=== PATIENT | female | born 1990 | race Hispanic/Latino ===

== ENCOUNTER 2017-11-10 10:16 | Emergency (ER) | payer OTHER ==
[~2017-11-10] VITALS: Ht 172.7 cm; Wt 88.5 kg
[2017-11-10] MEDS ORDERED: KETOROLAC TROME10 MG PO (12:28)
== END 2017-11-10 12:37 | disposition home or self-care (01) ==
LOC: ED 10:16
DX: R10.84 Generalized abdominal pain (principal); N94.6 Dysmenorrhea, unspecified
CPT/HCPCS: 80053; 81001; 82150; 83605; 83690; 84703; 85025; 96361; 96374; 96375; 99283; J1885; J2405; J7030

== ENCOUNTER 2017-12-16 12:25 | Emergency (ER) | payer OTHER ==
[~2017-12-16] VITALS: Ht 172.7 cm; Wt 88.5 kg
[~2017-12-16 12:25] MED LIST: KETOROLAC TROME10 MG PO
[2017-12-16] MEDS ORDERED: AMOXICILLIN875 MG PO (12:34)
[2017-12-16] MEDS ORDERED: IBUPROFEN600 MG PO (12:34)
== END 2017-12-16 13:10 | disposition home or self-care (01) ==
LOC: ED 12:25
DX: K04.7 Periapical abscess without sinus (principal)
CPT/HCPCS: 99282

== ENCOUNTER 2019-08-12 19:02 | Emergency (ER) | payer OTHER ==
[~2019-08-12] VITALS: Ht 172.7 cm; Wt 88.5 kg
[~2019-08-12 19:02] MED LIST changes: +AMOXICILLIN875 MG PO; +IBUPROFEN600 MG PO
== END 2019-08-12 19:47 | disposition home or self-care (01) ==
LOC: ED 19:02
DX: J45.901 Unspecified asthma with (acute) exacerbation (principal); F17.200 Nicotine dependence, unspecified, uncomplicated
CPT/HCPCS: 71045; 94640; 99284-25; J7512

== ENCOUNTER 2019-09-24 22:57 | Emergency (ER) | payer OTHER ==
[~2019-09-24] VITALS: Ht 172.7 cm; Wt 77.1 kg
[2019-09-25] MEDS ORDERED: PREDNISONE20 MG PO (00:25)
== END 2019-09-25 00:41 | disposition home or self-care (01) ==
LOC: ED 22:57
DX: J45.901 Unspecified asthma with (acute) exacerbation (principal); F17.200 Nicotine dependence, unspecified, uncomplicated
CPT/HCPCS: 94640; 94644; 99284; J7512

== ENCOUNTER 2019-12-08 06:10 | Emergency (ER) | payer OTHER ==
[~2019-12-08] VITALS: Ht 172.7 cm; Wt 77.1 kg
--- OUTSIDE RECORDS SUMMARY | ~2019-12-08 | XMS | Encounter Summary ---
Demographics + + + | Address | [address] | | | [place] [address] | + + + | Home Phone | | + + + | Preferred Language | Unknown | + + + | Marital Status | Single | + + + | Anabaptist Affiliation | 1041 | + + + | Race | Unknown | + + + | Ethnic Group | Unknown | + + + Author + + + | Author | [facility] | | | and [place] | + + + | Organization | [facility] | | | and [place] | + + + | Address | Unknown | + + + | Phone | Unavailable | + + + Support + + + + + | Name | Relationship | Address | Phone | + + + + + | Lakiadylan Mejía | ECON | [address] | | | | [place] | | | | | [place] [address] | | + + + + + | Vanessa Lawton | ECON | [address] | | | | | [place] [address] | | + + + + + Care Team Providers + +------+ + | Care Restaurant Kitchen And Service Manager Name | Role | Phone | + +------+ + PCP | Unavailable | + +------+ + Encounter Details +--------+ + + + + | Date | Type | Department | Care Team | Description | +--------+ + + + + | 05/20/ | Hospital | [facility] | | | | 2008 | Encounter | [facility] | | | | | | [facility] [address] | | | | | | [place], | | | | | | [place] [address] | | | | | | [phone] | | | +--------+ + + + + Social History + +-------+ +--------+------+ | Tobacco Use | Types | Packs/Day | Years | Date | | | | | Used | | + +-------+ +--------+------+ | Never Assessed | | | | | + +-------+ +--------+------+ + + + | Sex Assigned at | Date Recorded | | | | + + + | Not on file | | + + + + + + + | Job Start Date | Occupation | Industry | + + + + | Not on file | Not on file | Not on file | + + + + + + + + | Travel History | Travel Start | Travel End | + + + + + + | No recent travel history available. | + + documented as of this encounter Plan of Treatment Not on filedocumented as of this encounter Visit Diagnoses Not on filedocumented in this encounter"
--- OUTSIDE RECORDS SUMMARY | ~2019-12-08 | XMS | Encounter Summary ---
Demographics + + + | Address | [address] | | | [place] [address] | + + + | Home Phone | | + + + | Preferred Language | Unknown | + + + | Marital Status | Single | + + + | Baptism Affiliation | 1041 | + + + | Race | Unknown | + + + | Ethnic Group | Unknown | + + + Author + + + | Author | [facility] | | | and [place] | + + + | Organization | [facility] | | | and [place] [...] | | | | | [place] [address] | | + + + + + | Vanessa Lawton | ECON | [address] | | | | | [place] [address] | | + + + + + Care Team Providers + +------+ + | Care Research Biostatistician Name | Role | Phone | + +------+ + PCP | Unavailable | + +------+ + Encounter Details +--------+ + + + + | Date | Type | Department | Care Team | Description | +--------+ + + + + | 11/30/ | Hospital | [facility] | | | | 1997 | Encounter | MED CTR EMER[facility]ENCY | | | | | | CENTER [address] | | | | | | [place] | | | | | | [address] | | | | | | [phone] | | | +--------+ + + + [...]
--- OUTSIDE RECORDS SUMMARY | ~2019-12-08 | XMS | Encounter Summary ---
Demographics + + + | Address | [address] | | | [place] [address] | + + + | Home Phone | | + + + | Preferred Language | Unknown | + + + | Marital Status | Single | + + + | Jain Affiliation | 1041 | + + + | Race | Unknown | + + + | Ethnic Group | Unknown | + + + Author + + + | Author | [facility] | | | and [place] | + + + | Organization | [facility] | | | and [place] [...] | | | | | [place] [address] | | + + + + + | Vanessa Lawton | ECON | [address] | | | | | [place] [address] | | + + + + + Care Team Providers + +------+ + | Care Surg Tech Name | Role | Phone | + +------+ + PCP | Unavailable | + +------+ + Encounter Details +--------+ + + + + | Date | Type | Department | Care Team | Description | +--------+ + + + + | 10/09/ | Hospital | [facility] | Tristin Glover, | | | 2010 | Encounter | MED CTR EMERGENCY | [address] | | | | | CENTER [address] | [place], [place] | | | | | [place], [place] | [address] | | | | | [address] | | | | | | [phone] | | | +--------+ + + + [...]
--- OUTSIDE RECORDS SUMMARY | ~2019-12-08 | XMS | Encounter Summary ---
Demographics + + + | Address | [address] | | | [place] [address] | + + + | Home Phone | | + + + | Preferred Language | Unknown | + + + | Marital Status | Single | + + + | Tenriism Affiliation | 1041 | + + + | Race | Unknown | + + + | Ethnic Group | Unknown | + + + Author + + + | Author | [facility] | | | and [place] | + + + | Organization | [facility] | | | and [place] | + + + | Address | Unknown | + + + | Phone | Unavailable | + + + Support + + + + + | Name | Relationship | Address | Phone | + + + + + | Lakia Mejía | ECON | [address] | | | | | [place] | | | | | [place] [address] | | + + + + + | Vanessa Lawton | ECON | [address] | | | | | [place] [address] | | + + + + + Care Team Providers + +------+ + | Care Tube Maker Name | Role | Phone | + +------+ + | No, Physician | PCP | Unavailable | + +------+ + Reason for Visit + + + | Reason | Comments | + + + | Contractions | | + + + Encounter Details +--------+ + + + + | Date | Type | Department | Care Team | Description | +--------+ + + + + | 08/11/ | Hospital | [facility] | Reji Gonzales | | | 2018 | Encounter | MED CTR [facility] | [address] | | | | | [address] | [facility] | | | | | [place], [place] | [place] [address] | | | | | [address] | [phone] | | | | | [phone] | | | +--------+ + + + + Social History + +-------+ +--------+------+ | Tobacco Use | Types | Packs/Day | Years | Date | | | | | Used | | + +-------+ +--------+------+ | Current Every Day | | 0.5 | 2 | | | Smoker | | | | | + +-------+ +--------+------+ + +---+---+---+ | Smokeless Tobacco: | | | | | Never Used | | | | + +---+---+---+ + + +---------+ + | Alcohol Use | Drinks/Week | oz/Week | Comments | + + +---------+ + | No | | | | + + +---------+ + + + + | Sex Assigned at [...] + + documented as of this encounter Last Filed Vital Signs + + + + + | Vital Sign | Reading | Time Taken | Comments | + + + + + | Blood Pressure | 134/81 | 08/11/2017 8:21 PM | | | | | PST | | + + + + + | Pulse | 91 | 08/11/2017 8:21 PM | | | | | PST | | + + + + + | Temperature | 36.8 C (98.2 F) | 08/11/2017 8:21 PM | | | | | PST | | + + + + + | Respiratory Rate | 16 | 08/11/2017 8:21 PM | | | | | PST | | + + + + + | Oxygen Saturation | 100% | 08/11/2017 8:21 PM | | | | | PST | | + + + + + | Inhaled Oxygen | - | - | | | Concentration | | | | + + + + + | Weight | 82.6 kg (182 lb) | 08/11/2017 8:21 PM | | | | | PST | | + + + + + | Height | 172.7 cm (5' 8") | 08/11/2017 8:21 PM | | | | | PST | | + + + + + | Body Mass Index | 27.67 | 08/11/2017 8:21 PM | | | | | PST | | + + + + + documented in this encounter Functional Status + + + + | Functional Status | Response | Date of Assessment | + + + + | Are you deaf or do you have serious | No | 11/26/2015 | | difficulty hearing? | | | + + + + | Are you blind or do you have serious | No | 11/26/2015 | | difficulty seeing, even when wearing | | | | glasses? | | | + + + + | Do you have serious difficulty walking or | No | 11/26/2015 | | climbing stairs? (5 years old or older) | | | + + + + | Do you have difficulty dressing or bathing? | No | 11/26/2015 | | (5 years old or older) | | | + + + + | Because of a physical, mental, or emotional | No | 11/26/2015 | | condition, do you have difficulty doing | | | | errands alone such as visiting a doctor's | | | | office or shopping? [15 years old or | | | | older)] | | | + + + + + + + + | Cognitive Status | Response | Date of Assessment | + + + + | Because of a physical, mental, or emotional | No | 11/26/2015 | | condition, do you have serious difficulty | | | | concentrating, remembering, or making | | | | decisions? (5 years old or older) | | | + + + + documented as of this encounter Discharge Instructions Instructions Tonia Leung RN - 08/11/2017Discharge Education for the Undelivered Patient You can use the following list as a guide to help you know when to call your provider or re turn to the hospital. Labor Contractions (labor pains) every 5 minutes or less, lasting 60 seconds or more Contractions become stronger Bag of bundy broken or leaking fluid from the vagina Labor (more than 3 weeks before your due date) Contractions (labor pains) that occur more than 4 times per hour (every 15 minutes), la sting 30 seconds or more, for 2 hours Backache or pelvic pressure Bag of bundy broken or leaking fluid from the vagina Movement Counting Starting at 7 months (28 weeks) Decreased (less than 10 movements in 2 hours) Other Reasons to Call Constant headache Changes in vision Sudden increase in swelling, especially rapid weight gain chiefly in your face and/ or hands Constant abdominal (belly) pain Bright red vaginal bleeding or passing enough clots to need a pad Temperature over 100.4 (38 C) documented in this encounter Plan of Treatment Not on filedocumented as of this encounter Visit Diagnoses Not on filedocumented in this encounter
--- OUTSIDE RECORDS SUMMARY | ~2019-12-08 | XMS | Encounter Summary ---
Demographics + + + | Address | [address] | | | [place] [address] | + + + | Home Phone | | + + + | Preferred Language | Unknown | + + + | Marital Status | Single | + + + | Jehovah'S Witness Affiliation | 1041 | + + + | Race | Unknown | + + + | Ethnic Group | Unknown | + + + Author + + + | Author | [facility] | | | and [place] | + + + | Organization | [facility] | | | and [place] [...] | | | | | [place] [address] | | + + + + + | Vanessa Lawton | ECON | [address] | | | | | [place] [address] | | + + + + + Care Team Providers + +------+ + | Care Production Packager Name | Role | Phone | + +------+ + PCP | Unavailable | + +------+ + Encounter Details +--------+ + + + + | Date | Type | Department | Care Team | Description | +--------+ + + + + | 04/26/ | Hospital | [facility] | | | | 2005 - | Encounter | MED CTR EMERGENCY | | | | | | CENTER [address] | | | | 04/27/ | | [place] | | | | 2005 | | [address] | | | | | | [phone] | | | +--------+ + + + [...]
--- OUTSIDE RECORDS SUMMARY | ~2019-12-08 | XMS | Encounter Summary ---
Demographics + + + | Address | [address] | | | [place] [address] | + + + | Home Phone | | + + + | Preferred Language | Unknown | + + + | Marital Status | Single | + + + | Mormon Affiliation | 1041 | + + + | Race | Unknown | + + + | Ethnic Group | Unknown | + + + Author + + + | Author | [facility] | | | and [place] | + + + | Organization | [facility] | | | and [place] | [...] | | | | | [place] [address] | | + + + + + | Vanessa Lawton | ECON | [address] | | | | | [place] [address] | | + + + + + Care Team Providers + +------+ + | Care Cooling Tower Operator Name | Role | Phone | + +------+ + | No, Physician | PCP | Unavailable | + +------+ + Reason for Referral Evaluate & Treat (Routine) + + + + + + + | Status | Reason | Specialty | Diagnoses / | Referred By | Referred To | | | | | Procedures | Contact | Contact | + + + + + + + | Authorized | Specialty | Family | Diagnoses | [facility] | [facility] | | | Services | Medicine | Moderate | Tristin Trevino MD | Family | | | Required | | persistent | [address] | Medicine | | | | | asthma with | [address] | [place] | | | | | exacerbation | [place], | [address] | | | | | | [place] [address] | [address] | | | | | | Phone: | [place] | | | | | | [phone] | [address] | | | | | | Fax: | Phone: | | | | | | [phone] | [phone] | | | | | | | Fax: | | | | | | | [phone] | + + + + + + + Reason for Visit + + + | Reason | Comments | + + + | Cough | | + + + | Shortness of Breath | | + + + Encounter Details +--------+ + + + + | Date | Type | Department | Care Team | Description | +--------+ + + + + | 11/25/ | Emergency | [facility] | Tristin Glover, | Moderate persistent | | 2019 | | [facility] | MD [address] | asthma with | | | | CENTER [address] | [place] | exacerbation | | | | [place] | [address] | (Primary Dx) | | | | [address] | | | | | | [phone] | | | +--------+ + + + + Social History + +-------+ +--------+ + | Tobacco Use | Types | Packs/Day | Years | Date | | | | | Used | | + +-------+ +--------+ + | Former Smoker | | 0.5 | 2 | Quit: 08/04/2017 | + +-------+ +--------+ + + +---+---+---+ | Smokeless Tobacco: | | [...] + + + | Blood Pressure | 158/95 | 11/26/2019 2:57 AM | | | | | PDT | | + + + + + | Pulse | 105 | 11/26/2019 2:57 AM | | | | | PDT | | + + + + + | Temperature | 36.7 C (98 F) | 11/26/2019 1:49 AM | | | | | PDT | | + + + + + | Respiratory Rate | 20 | 11/26/2019 2:57 AM | | | | | PDT | | + + + + + | Oxygen Saturation | 95% | 11/26/2019 2:57 AM | | | | | PDT | | + + + + + | Inhaled Oxygen | - | - | | | Concentration | | | | + + + + + | Weight | 77.1 kg (170 lb) | 11/26/2019 1:49 AM | | | | | PDT | | + + + + + | Height | 172.7 cm (5' 8") | 11/26/2019 1:49 AM | | | | | PDT | | + + + + + | Body Mass Index | 25.85 | 11/26/2019 1:49 AM | | | | | PDT | | + + + + + documented in this encounter Functional Status + + + + | Functional Status | Response | Date of Assessment | + + + + | Are you deaf or do you have serious | No | 09/29/2019 | | difficulty hearing? | | | + + + + | Are you blind or do you have serious | No | 09/29/2019 | | difficulty seeing, even when wearing | | | | glasses? | | | + + + + | Do you have serious difficulty walking or | No | 09/29/2019 | | climbing stairs? (5 years old or older) | | | + + + + | Do you have difficulty dressing or bathing? | No | 09/29/2019 | | (5 years old or older) | | | + + + + | Because of a physical, mental, or emotional | No | 09/29/2019 | | condition, do you have difficulty [...] physical, mental, or emotional | No | 09/29/2019 | | condition, do you have serious difficulty | | | | concentrating, remembering, or making | | | | decisions? (5 years old or older) | | | + + + + documented as of this encounter Discharge Instructions Instructions Tristin Glover MD - 11/26/2019Use albuterol inhaler 2 puffs with spacer ever y 4 hours for the next 48 hours and then every 4 hours as needed thereafter Take prednisone as prescribed Return if new concerning symptoms AttachmentsThe following attachments cannot be sent through Care Everywhere.Inhaler, Using with a Spacer (Nigerian)Albuterol inhalation aerosol (Nigerian)documented in this encounter Medications at Time of Discharge + + + +---------+ + + | Medication | Sig | Dispensed | Refills | Start | End Date | | | | | | Date | | + + + +---------+ + + | albuterol 90 | Inhale 2 puffs into | 1 | 0 | 09/29/19 | | | mcg/puff inhaler | the lungs every 4 | Inhaler | | 20 | | | | hours as needed for | | | | | | | Wheezing or | | | | | | | Shortness of Breath. | | | | | + + + +---------+ + + | predniSONE | Take 2 tablets by | 10 | 0 | 11/26/19 | | | (DELTASONE) 20 mg | mouth Daily for 5 | tablet | | 20 | 0 | | tablet | days. | | | | | + + + +---------+ + + documented as of this encounter Plan of Treatment + + +--------+ + + | Name | Type | Priori | Associated Diagnoses | Order Schedule | | | | ty | | | + + +--------+ + + | * [facility] [place] [facility] | Outpatient | Routin | Moderate | Ordered: 11/26/2019 | | [facility] - | Referral | e | persistent asthma | | | AMB Referral | | | with exacerbation | | + + +--------+ + + documented as of this encounter Procedures + +--------+ + + + | Procedure Name | Priori | Date/Time | Associated Diagnosis | Comments | | | ty | | | | + +--------+ + + + | XR CHEST AP PORTABLE | STAT | 11/26/2019 | | Results for this | | | | 2:37 AM | | procedure are in the | | | | PDT | | results section. | + +--------+ + + + | BLOOD GAS, ARTERIAL | STAT | 11/26/2019 | | Results for this | | | | 2:37 AM | | procedure are in the | | | | PDT | | results section. | + +--------+ + + + | EXTRA LAVENDER TOP | STAT | 11/26/2019 | | Results for this | | TUBE | | 2:02 AM | | procedure are in the | | | | PDT | | results section. | + +--------+ + + + | EXTRA GREEN TOP TUBE | STAT | 11/26/2019 | | Results for this | | | | 2:02 AM | | procedure are in the | | | | PDT | | results section. | + +--------+ + + + | CBC WITH | STAT | 11/26/2019 | | Results for this | | DIFFERENTIAL | | 2:02 AM | | procedure are in the | | | | PDT | | results section. | + +--------+ + + + | COMPREHENSIVE | STAT | 11/26/2019 | | Results for this | | METABOLIC PANEL | | 2:02 AM | | procedure are in the | | | | PDT | | results section. | + +--------+ + + + | EXTRA ROBLES TOP TUBE | STAT | 11/26/2019 | | Results for this | | | | 2:00 AM | | procedure are in the | | | | PDT | | results section. | + +--------+ + + + | EXTRA LAVENDER TOP | STAT | 11/26/2019 | | Results for this | | TUBE | | 2:00 AM | | procedure are in the | | | | PDT | | results section. | + +--------+ + + + | EXTRA GREEN TOP TUBE | STAT | 11/26/2019 | | Results for this | | | | 2:00 AM | | procedure are in the | | | | PDT | | results section. | + +--------+ + + + | EXTRA GOLD TOP TUBE | STAT | 11/26/2019 | | Results for this | | | | 2:00 AM | | procedure are in the | | | | PDT | | results section. | + +--------+ + + + | EXTRA BLUE TOP TUBE | STAT | 11/26/2019 | | Results for this | | | | 2:00 AM | | procedure are in the | | | | PDT | | results section. | + +--------+ + + + | D-DIMER | STAT | 11/26/2019 | | Results for this | | | | 2:00 AM | | procedure are in the | | | | PDT | | results section. | + +--------+ + + + documented in this encounter Results XR Chest AP Portable (11/26/2019 2:37 AM PDT) + + | Specimen | + + | | + + + + + | Impressions | Performed At | + + + | Mild peribronchial cuffing suggestive of bronchitis or reactive | [facility] | | airways disease. Dictated and Signed by: Clement Frey MD | | | Electronically signed: 11/26/2019 3:42 PM | | + + + + + + | Narrative | Performed At | + + + | XR CHEST AP PORTABLE 11/26/2019 2:36 AM HISTORY: COUGH SHORTNESS | [facility] | | OF BREATH. COMPARISON: Multiple priors. Findings: Heart size | | | is within normal limits. Aorta is normal. Mediastinum demonstrates no | | | acute findings. Central pulmonary vasculature is normal. There is | | | mild peribronchial cuffing suggestive of bronchitis or reactive | | | airways disease. The bilateral lungs are clear with no evidence for | | | pleural effusion or pneumothorax. There are no acute osseous | | | abnormalities. | | + + + + + | Procedure Note | + + | Marbin, Rad Results In - 11/26/2019 3:45 PM PDT XR CHEST AP PORTABLE 11/26/2019 2:36 AM | | | | HISTORY: COUGH | | SHORTNESS OF BREATH. | | | | COMPARISON: Multiple priors. | | | | Findings: | | Heart size is within normal limits. Aorta is normal. Mediastinum demonstrates no | | acute findings. Central pulmonary vasculature is normal. There is mild | | peribronchial cuffing suggestive of bronchitis or reactive airways disease. The | | bilateral lungs are clear with no evidence for pleural effusion or pneumothorax. | | There are no acute osseous abnormalities. | | | | IMPRESSION: | | Mild peribronchial cuffing suggestive of bronchitis or reactive airways disease. | | | | Dictated and Signed by: Clement Frey MD | | Electronically signed: 11/26/2019 3:42 PM | + + + +---------+ + + | Performing | Address | City/State/Zipcode | Phone Number | | Organization | | | | + +---------+ + + | [facility] | | | | + +---------+ + + Blood Gas, Arterial (11/26/2019 2:37 AM PDT) + + + + + + | Component | Value | Ref Range | Performed | Pathologist | | | | | At | Signature | + + + + + + | pH, | 7.41 | 7.35 - 7.45 | [facility] | | | Arterial | | | [facility] | | | | | | [facility] | | | | | | [facility] - | | | | | | LABORATORY | | + + + + + + | pCO2, | 41 | 35 - 45 mm Hg | [facility] | | | Arterial | | | [facility] | | | | | | [facility] | | | | | | CENTER - | | | | | | LABORATORY | | + + + + + + | pO2, | 64 (L) | 83 - 108 mm Hg | [facility] | | | Arterial | | | [facility] | | | | | | [facility] | | | | | | CENTER - | | | | | | LABORATORY | | + + + + + + | HCO3, | 25.0 (H) | 18.0 - 23.0 | [facility] | | | Arterial | | mmol/L | [facility] | | | | | | MEDICAL | | | | | | CENTER - | | | | | | LABORATORY | | + + + + + + | Base | 0.8 | -2.0 - 2.0 | [facility] | | | Excess, | | mmol/L | [facility] | | | Arterial | | | MEDICAL | | | | | | CENTER - | | | | | | LABORATORY | | + + + + + + | O2 | 92 (L) | 95 - 98 % | [facility] | | | Saturation, | | | [facility] | | | Arterial | | | MEDICAL | | | | | | CENTER - | | | | | | LABORATORY | | + + + + + + | Hemoglobin, | 13.3 | 12.0 - 16.0 | [facility] | | | Arterial | | g/dL | [facility] | | | | | | MEDICAL | | | | | | CENTER - | | | | | | LABORATORY | | + + + + + + | Oxyhemoglob | 91.2 | 90.0 - 100.0 % | [facility] | | | in, | | | [facility] | | | Arterial | | | MEDICAL | | | | | | CENTER - | | | | | | LABORATORY | | + + + + + + | Methemoglob | 0.6 | 0.0 - 1.5 % | [facility] | | | in, | | | [facility] | | | Arterial | | | MEDICAL | | | | | | CENTER - | | | | | | LABORATORY | | + + + + + + | Carboxyhemo | 0.7 | 0.0 - 1.5 % | [facility] | | | globin, | | | [facility] | | | Arterial | | | MEDICAL | | | | | | CENTER - | | | | | | LABORATORY | | + + + + + + | Alveolar-Ar | 34.8 | mm Hg | [facility] | | | terial | | | [facility] | | | Oxygen | | | MEDICAL | | | Difference | | | CENTER - | | | | | | LABORATORY | | + + + + + + | Oxygen | 17.0 | % | [facility] | | | Content, | | | [facility] | | | Arterial | | | MEDICAL | | | | | | CENTER - | | | | | | LABORATORY | | + + + + + + | FiO2 | 21.0 | % | [facility] | | | | | | [facility] | | | | | | MEDICAL | | | | | | CENTER - | | | | | | LABORATORY | | + + + + + + | pH Temp | 7.41 | | [facility] | | | Corrected, | | | [facility] | | | Arterial | | | MEDICAL | | | | | | CENTER - | | | | | | LABORATORY | | + + + + + + | pCO2 Temp | 41 | mm Hg | [facility] | | | Corrected, | | | [facility] | | | Arterial | | | MEDICAL | | | | | | CENTER - | | | | | | LABORATORY | | + + + + + + | pO2 Temp | 64 | mm Hg | [facility] | | | Corrected, | | | [facility] | | | Arterial | | | MEDICAL | | | | | | CENTER - | | | | | | LABORATORY | | + + + + + + | PATIENT | 37.0 | | [facility] | | | TEMP | | | [facility] | | | | | | [facility] | | | | | | CENTER - | | | | | | LABORATORY | | + + + + + + + + | Specimen | + + | Blood | + + + + + + + | Performing | Address | City/State/Zipcode | Phone Number | | Organization | | | | + + + + + | [facility] | [address] | [place] | [phone] | | [facility] | | [address] | | | - LABORATORY | | | | + + + + + Comprehensive Metabolic Panel (11/26/2019 2:02 AM PDT) + + + + + + | Component | Value | Ref Range | Performed | Pathologist | | | | | At | Signature | + + + + + + | Na | 139 | 136 - 145 | [facility] | | | | | mmol/L | [facility] | | | | | | [facility] | | | | | | CENTER - | | | | | | LABORATORY | | + + + + + + | K | 3.5 | 3.4 - 5.1 | [facility] | | | | | mmol/L | [facility] | | | | | | MEDICAL | | | | | | CENTER - | | | | | | LABORATORY | | + + + + + + | Cl | 104 | 98 - 107 mmol/L | [facility] | | | | | | [facility] | | | | | | MEDICAL | | | | | | CENTER - | | | | | | LABORATORY | | + + + + + + | CO2 | 27 | 20 - 31 mmol/L | [facility] | | | | | | [facility] | | | | | | MEDICAL | | | | | | CENTER - | | | | | | LABORATORY | | + + + + + + | Anion Gap | 8 | 3 - 16 mmol/L | [facility] | | | | | | [facility] | | | | | | MEDICAL | | | | | | CENTER - | | | | | | LABORATORY | | + + + + + + | Glucose | 85 | 60 - 106 mg/dL | [facility] | | | | | | [facility] | | | | | | MEDICAL | | | | | | CENTER - | | | | | | LABORATORY | | + + + + + + | BUN | 14 | 9 - 23 mg/dL | [facility] | | | | | | [facility] | | | | | | MEDICAL | | | | | | CENTER - | | | | | | LABORATORY | | + + + + + + | Creatinine | 1.02 | 0.55 - 1.02 | [facility] | | | | | mg/dL | [facility] | | | | | | [facility] | | | | | | CENTER - | | | | | | LABORATORY | | + + + + + + | eGFR if not | >60Comment: GLOMERULAR | >=60 | [facility] | | | | FILTRATION | mL/min/1.73m2 | [facility] | | | ETHIOPIAN | RATE,ESTIMATED | | MEDICAL | | | | mL/min/1.90o4Gbmm than | | CENTER - | | | | 60 Chronic kidney | | LABORATORY | | | | disease,if found over a | | | | | | 3-month period.Less than | | | | | | 15 Kidney failureFor | | | | | | | | | | | | Americans,multiply the | | | | | | calculated GFR by 1.21. | | | | | | | | | | + + + + + + | Calcium | 8.9 | 8.7 - 10.4 | [facility] | | | | | mg/dL | [facility] | | | | | | MEDICAL | | | | | | CENTER - | | | | | | LABORATORY | | + + + + + + | Albumin | 3.9 | 3.2 - 4.8 g/dL | [facility] | | | | | | [facility] | | | | | | [facility] | | | | | | CENTER - | | | | | | LABORATORY | | + + + + + + | Bilirubin | 0.9 | 0.3 - 1.2 mg/dL | [facility] | | | Total | | | [facility] | | | | | | MEDICAL | | | | | | CENTER - | | | | | | LABORATORY | | + + + + + + | Total | 6.2 | 5.7 - 8.2 g/dL | [facility] | | | Protein | | | [facility] | | | | | | MEDICAL | | | | | | CENTER - | | | | | | LABORATORY | | + + + + + + | AST | 31 | 0 - 34 U/L | [facility] | | | | | | [facility] | | | | | | MEDICAL | | | | | | CENTER - | | | | | | LABORATORY | | + + + + + + | ALT | 21 | 10 - 49 U/L | [facility] | | | | | | [facility] | | | | | | MEDICAL | | | | | | CENTER - | | | | | | LABORATORY | | + + + + + + | Alkaline | 75 | 46 - 116 U/L | [facility] | | | Phosphatase | | | [facility] | | | | | | MEDICAL | | | | | | CENTER - | | | | | | LABORATORY | | + + + + + + | Globulin | 2.3 | 2.1 - 3.8 g/dL | [facility] | | | | | | [facility] | | | | | | [facility] | | | | | | [facility] - | | | | | | LABORATORY | | + + + + + + | Albumin/Susie | 1.7 | 0.8 - 1.9 | [facility] | | | bulin Ratio | | | [facility] | | | | | | MEDICAL | | | | | | CENTER - | | | | | | LABORATORY | | + + + + + + | BUN/Creatin | 13.7 | | [facility] | | | ine Ratio | | | [facility] | | | | | | MEDICAL | | | | | | CENTER - | | | | | | LABORATORY | | + + + + + + + + | Specimen | + + | Blood | + + + + + + + | Performing | Address | City/State/Zipcode | Phone Number | | Organization | | | | + + + + + | [facility] | [address] | [place] | [phone] | | [facility] | | [address] | | | - LABORATORY | | | | + + + + + CBC with Differential (11/26/2019 2:02 AM PDT) + + + + + + | Component | Value | Ref Range | Performed | Pathologist | | | | | At | Signature | + + + + + + | WBC | 9.3 | 4.0 - 11.0 K/uL | [facility] | | | | | | [facility] | | | | | | [facility] | | | | | | CENTER - | | | | | | LABORATORY | | + + + + + + | RBC | 4.57 | 3.70 - 5.20 | [facility] | | | | | M/uL | [facility] | | | | | | MEDICAL | | | | | | CENTER - | | | | | | LABORATORY | | + + + + + + | Hemoglobin | 13.6 | 11.5 - 16.0 | [facility] | | | | | g/dL | [facility] | | | | | | MEDICAL | | | | | | CENTER - | | | | | | LABORATORY | | + + + + + + | Hematocrit | 39.4 | 34.0 - 47.0 % | [facility] | | | | | | [facility] | | | | | | MEDICAL | | | | | | CENTER - | | | | | | LABORATORY | | + + + + + + | MCV | 86.2 | 83.0 - 101.0 fL | [facility] | | | | | | [facility] | | [facility] | | | [facility] | | | | | | CENTER - | | | | | | LABORATORY | | + + + + + + | MCH | 29.8 | 28.0 - 35.0 pg | [facility] | | | | | | [facility] | | | | | | [facility] | | | | | | C[facility] - | | | | | | LABORATORY | | + + + + + + | MCHC | 34.5 | 32.0 - 36.0 | [facility] | | | | | g/dL | [facility] | | | | | | MEDICAL | | | | | | CENTER - | | | | | | LABORATORY | | + + + + + + | RDW-CV | 12.6 | <15.0 % | [facility] | | | | | | [facility] | | | | | | MEDICAL | | | | | | CENTER - | | | | | | LABORATORY | | + + + + + + | RDW-SD | 39.6 | 35.1 - 46.3 fL | [facility] | | | | | | [facility] | | | | | | [facility] | | | | | | CENTER - | | | | | | LABORATORY | | + + + + + + | Platelet | 260 | 140 - 440 K/uL | [facility] | | | Count | | | [facility] | | | | | | MEDICAL | | | | | | CENTER - | | | | | | LABORATORY | | + + + + + + | MPV | 10.5 | 6.5 - 12.4 fL | [facility] | | | | | | [facility] | | | | | | MEDICAL | | | | | | CENTER - | | | | | | LABORATORY | | + + + + + + | % | 48.2 | 45.0 - 82.0 % | [facility] | | | Neutrophils | | | [facility] | | | | | | MEDICAL | | | | | | CENTER - | | | | | | LABORATORY | | + + + + + + | % | 28.6 | 20.0 - 45.0 % | [facility] | | | Lymphocytes | | | [facility] | | | | | | MEDICAL | | | | | | CENTER - | | | | | | LABORATORY | | + + + + + + | % Monocytes | 8.5 | 4.0 - 12.0 % | [facility] | | | | | | [facility] | | | | | | [facility]ICAL | | | | | | CENTER - | | | | | | LABORATORY | | + + + + + + | % | 13.7 (H) | 0.0 - 5.0 % | [facility] | | | Eosinophils | | | [facility] | | | | | | MEDICAL | | | | | | CENTER - | | | | | | LABORATORY | | + + + + + + | % Basophils | 0.8 | 0.0 - 1.0 % | [facility] | | | | | | [facility] | | | | | | MEDICAL | | | | | | CENTER - | | | | | | LABORATORY | | + + + + + + | % Immature | 0.2Comment: For | 0.0 - 0.4 % | [facility] | | | Granulocyte | patients, use the | | [facility] | | | s | special reference ranges | | MEDICAL | | | | listed below. | | CENTER - | | | | | | LABORATORY | | + + + + + + | Absolute | 4.47 | 1.80 - 8.50 | [facility] | | | Neutrophils | | K/uL | [facility] | | | | | | MEDICAL | | | | | | CENTER - | | | | | | LABORATORY | | + + + + + + | Absolute | 2.65 | 0.60 - 3.20 | [facility] | | | Lymphocytes | | K/uL | [facility] | | | | | | MEDICAL | | | | | | CENTER - | | | | | | LABORATORY | | + + + + + + | Absolute | 0.79 | 0.00 - 1.00 | [facility] | | | Monocytes | | K/uL | [facility] | | | | | | MEDICAL | | | | | | CENTER - | | | | | | LABORATORY | | + + + + + + | Absolute | 1.27 (H) | 0.00 - 0.40 | [facility] | | | Eosinophils | | K/uL | [facility] | | | | | | MEDICAL | | | | | | CENTER - | | | | | | LABORATORY | | + + + + + + | Absolute | 0.07 | 0.00 - 0.10 | [facility] | | | Basophils | | K/uL | [facility] | | | | | | MEDICAL | | | | | | CENTER - | | | | | | LABORATORY | | + + + + + + | Absolute | 0.02Comment: For | 0.00 - 0.03 | [facility] | | | Immature | patients, use | K/uL | [facility] | | | Granulocyte | the special reference | | MEDICAL | | | s | ranges listed below. | | CENTER - | | | | | | LABORATORY | | + + + + + + | % nRBC | 0 | 0 - 2 per 100 | [facility] | | | | | WBCs | [facility] | | | | | | MEDICAL | | | | | | CENTER - | | | | | | LABORATORY | | + + + + + + | Absolute | 0.00 | 0.00 - 0.01 | [facility] | | | nRBC | | K/uL | [facility] | | | | | | MEDICAL | | | | | | CENTER - | | | | | | LABORATORY | | + + + + + + + + | Specimen | + + | Blood | + + + + + | Narrative | Performed At | + + + | IMMATURE GRANULOCYTES - For patients, use the following | [facility] | | reference ranges: Trim. Absolute (K/uL) Percentage (%) | [facility] | | 1st 0.003-0.091 K/uL 0.0-0.9% 2nd 0.007-0.247 K/uL | MEDICAL CENTER | | 0.1-2.0% 3rd 0.018-0.456 K/uL 0.1-2.0% | - LABORATORY | + + + + + + + + | Performing | Address | City/State/Zipcode | Phone Number | | Organization | | | | + + + + + | [facility] | [address] | [place] | [phone] | | [facility] | | [address] | | | - LABORATORY | | | | + + + + + Extra Green Top Tube (11/26/2019 2:02 AM PDT) + +-------+ + + + | Component | Value | Ref Range | Performed | Pathologist | | | | | At | Signature | + +-------+ + + + | Extra Green | Done | | [facility] | | | Top Tube | | | [facility] | | | | | | MEDICAL | | | | | | CENTER - | | | | | | LABORATORY | | + +-------+ + + + + + | Specimen | + + | Blood | + + + + + + + | Performing | Address | City/State/Zipcode | Phone Number | | Organization | | | | + + + + + | [facility] | [address] | [place] | [phone] | | [facility] | | [address] | | | - LABORATORY | | | | + + + + + Extra Lavender Top Tube (11/26/2019 2:02 AM PDT) + +-------+ + + + | Component | Value | Ref Range | Performed | Pathologist | | | | | At | Signature | + +-------+ + + + | Extra | Done | | [facility] | | | Lavender | | | [facility] | | | Top Tube | | | [facility]ICAL | | | | | | CENTER - | | | | | | LABORATORY | | + +-------+ + + + + + | Specimen | + + | Blood | + + + + + + + | Performing | Address | City/State/Zipcode | Phone Number | | Organization | | | | + + + + + | [facility] | [address] | [place] | [phone] | | [facility] | | [address] | | | - LABORATORY | | | | + + + + + D-Dimer (11/26/2019 2:00 AM PDT) + + + + + + | Component | Value | Ref Range | Performed | Pathologist | | | | | At | Signature | + + + + + + | D-Dimer | <0.27Comment: This | <=0.50 ug/mL | [facility] | | | Quantitativ | quantitative D-Dimer | FEU | [facility] | | | e | assay has been evaluated | | MEDICAL | | | | for screening for | | CENTER - | | | | venous thrombotic | | LABORATORY | | | | disease, and may be | | | | | | useful in ruling out, | | | | | | but not ruling in | | | | | | disease. Values less | | | | | | than 0.50 ug/mL FEU | | | | | | (Fibrinogen Equivalent | | | | | | Units) have a negative | | | | | | predictive value of | | | | | | approximately 95% for | | | | | | ruling out large | | | | | | pulmonary emboli or | | | | | | proximal deep vein | | | | | | thrombosis. Distal DVT | | | | | | are not excluded. An | | | | | | elevated D-dimer can be | | | | | | present in patients with | | | | | | liver disease, | | | | | | , eclampsia, | | | | | | heart disease and some | | | | | | cancers among other | | | | | | conditions. The presence | | | | | | of rheumatoid factor at | | | | | | a level >50 IU/mL may | | | | | | falsely elevate the | | | | | | determined D-dimer | | | | | | levels. | | | | + + + + + + + + | Specimen | + + | Blood | + + + + + + + | Performing | Address | City/State/Zipcode | Phone Number | | Organization | | | | + + + + + | [facility] | [address] | [place] | [phone] | | [facility] | | [id number] | | | - LABORATORY | | | | + + + + + Extra Gold Top Tube (11/26/2019 2:00 AM PDT) + +-------+ + + + | Component | Value | Ref Range | Performed | Pathologist | | | | | At | Signature | + +-------+ + + + | Extra Gold | Done | | [facility] | | | Top Tube | | | [facility] | | | | | | [facility]ICAL | | | | | | CENTER - | | | | | | LABORATORY | | + +-------+ + + + + + | Specimen | + + | Blood | + + + + + + + | Performing | Address | City/State/Zipcode | Phone Number | | Organization | | | | + + + + + | [facility] | [address] | [place] | [phone] | | [facility] | | [address] | | | - LABORATORY | | | | + + + + + Extra Robles Top Tube (11/26/2019 2:00 AM PDT) + +-------+ + + + | Component | Value | Ref Range | Performed | Pathologist | | | | | At | Signature | + +-------+ + + + | Extra Robles | Done | | [facility] | | | Top Tube | | | [facility] | [facility] | [facility] | | | | | | C[facility] - | | | | | | LABORATORY | | + +-------+ + + + + + | Specimen | + + | Blood | + + + + + + + | Performing | Address | City/State/Zipcode | Phone Number | | Organization | | | | + + + + + | [facility] | [address] | [place], [place] | [phone] | | [facility] | | [address] | | | - LABORATORY | | | | + + + + + Extra Blue Top Tube (11/26/2019 2:00 AM PDT) + +-------+ + + + | Component | Value | Ref Range | Performed | Pathologist | | | | | At | Signature | + +-------+ + + + | Extra Blue | Done | | [facility] | | | Top Tube [facility] | [facility] | | | | | | [facility] | | | | | | CENTER - | | | | | | LABORATORY | | + +-------+ + + + + + | Specimen | + + | Blood | + + + + + + + | Performing | Address | City/State/Zipcode | Phone Number | | Organization | | | | + + + + + | [facility] | [address] | [place] | [phone] | | [facility] | | [address] | | | - LABORATORY | | | | + + + + + Extra Green Top Tube (11/26/2019 2:00 AM PDT) + +-------+ + + + | Component | Value | Ref Range | Performed | Pathologist | | | | | At | Signature | + +-------+ + + + | Extra Green | Done | | [facility] | | | Top Tube | [facility] | [facility] | | [facility] | | [facility] | | | | | | CENTER - | | | | | | LABORATORY | | + +-------+ + + + + + | Specimen | + + | Blood | + + + + + + + | Performing | Address | City/State/Zipcode | Phone Number | | Organization | | | | + + + + + | [facility] | [address] | [place] | [phone] | | [facility] | | [address] | | | - LABORATORY | | | | + + + + + Extra Lavender Top Tube (11/26/2019 2:00 AM PDT) + +-------+ + + + | Component | Value | Ref Range | Performed | Pathologist | | | | | At | Signature | + +-------+ + + + | Extra | Done | | [facility] | | | Lavender | | | [facility] | | | Top Tube | | | MEDICAL | | | | | | CENTER - | | | | | | LABORATORY | | + +-------+ + + + + + | Specimen | + + | Blood | + + + + + + + | Performing | Address | City/State/Zipcode | Phone Number | | Organization | | | | + + + + + | [facility] | [address] | [place], [place] | [phone] | | [facility] | | [address] | | | - LABORATORY | | | | + + + + + documented in this encounter Visit Diagnoses + + | Diagnosis | + + | Moderate persistent asthma with exacerbation - Primary Unspecified asthma, with | | exacerbation | + + documented in this encounter Administered Medications + +--------+ +--------+------+------+ | Medication Order | MAR | Action | Dose | Rate | Site | | | Action | Date | | | | + +--------+ +--------+------+------+ | adult valved holding chamber | Given | 11/26/19 | 1 each | | | | (AEROCHAMBER) 1 each 1 each, | | 20 3:06 | | | | | Inhalation, USE WITH MDI, | | AM PDT | | | | | Starting 11/26/19 at 0256 | | | | | | + +--------+ +--------+------+------+ +---+---+ | | | +---+---+ + + + +---------+---+---+ | albuterol (PROVENTIL) 90 | Dispense | 11/26/19 | 2 puffs | | | | mcg/puff inhaler (ED prepack) 2 | to Home | 20 3:06 | | | | | puff 2 puff, Inhalation, EVERY 4 | | AM PDT | | | | | HOURS PRN, Wheezing, Shortness | | | | | | | of Breath, or as directed, | | | | | | | Starting 11/26/19 at 0257, | | | | | | | SHAKE WELL., | | | | | | + + + +---------+---+---+ +---+---+ | | | +---+---+ + +-------+ +-------+---+---+ | albuterol-ipratropium 2.5-0.5 | Given | 11/26/19 | 3 mLs | | | | mg/3 mL nebulizer solution 3 mL | | 20 2:32 | | | | | 3 mL, Nebulization, RT Once, Mon | | AM PDT | | | | | 11/26/19 at 0220, For 1 dose | | | | | | + +-------+ +-------+---+---+ +---+---+ | | | +---+---+ + +-------+ +------+---+---+ | dexamethasone (DECADRON) 10 | Given | 11/26/19 | 8 mg | | | | mg/mL injection 8 mg 8 mg, | | 20 2:28 | | | | | Intravenous, ONCE, 11/26/19 at | | AM PDT | | | | | 0220, For 1 dose, When ordered | | | | | | | IV push: Dilute to 10-20 mL with | | | | | | | NS and give slowly over 1-2 | | | | | | | minutes., | | | | | | + +-------+ +------+---+---+ +---+---+ | | | +---+---+ documented in this encounter Additional Health Concerns + + + + | Infection | Noted Time | Resolved Time | + + + + | Methicillin-resistant Staphylococcus aureus | 10/01/2019 1:07 PM | | | | PDT | | + + + + documented as of this encounter
--- OUTSIDE RECORDS SUMMARY | ~2019-12-08 | XMS | Encounter Summary ---
Demographics + + + | Address | [address] | | | [place] [address] | + + + | Home Phone | | + + + | Preferred Language | Unknown | + + + | Marital Status | Single | + + + | Tenriism Affiliation | 1041 | + + + | Race | Unknown | + + + | Ethnic Group | Unknown | + + + Author + + + | Author | [facility] | | | and [place] | + + + | Organization | [facility] | | | and [place] | + + + | Address | Unknown | + + + | Phone | Unavailable | + + + Support + + + + + | Name | Relationship | Address | Phone | + + + + + | Lakia Alfonzo | ECON | [address] | | | | | [place] | | | | | [place] [address] | | + + + + + | Vanessa Lawton | ECON | [address] | | | | | [place] [address] | | + + + + + Care Team Providers + +------+ + | Care Torch Heater Name | Role | Phone | + +------+ + | No, Physician | PCP | Unavailable | + +------+ + Reason for Visit + + + | Reason | Comments | + + + | Sore Nipples | | + + + | | | + + + | Latch Difficulties | | + + + Encounter Details +--------+ + + + + | Date | Type | Department | Care Team | Description | +--------+ + + + + | 11/27/ | Hospital | [facility] | Reji Gonzales | Poor latch on, | | 2016 | Encounter | MED [facility] OB | DO [address] | (Primary | | | | PROCEDURES [address] [place] | Dx); Nipple pain | | | | [place], | [place], [place] [address] | | | | | [place] [address] | [phone] | | | | | [phone] | | | +--------+ + + + + Social History + +-------+ +--------+ + | Tobacco Use | Types | Packs/Day | Years | Date | | | | | Used | | + +-------+ +--------+ + | Former Smoker | | 0.5 | 2 | Quit: 07/26/2015 | + +-------+ +--------+ + + +---+---+---+ [...] + + documented as of this encounter Functional Status + + + [...] + + documented as of this encounter Medications at Time of Discharge + + + +---------+ + + | Medication | Sig | Dispensed | Refills | Start | End Date | | | | | | Date | | + + + +---------+ + + | acetaminophen | Take 650 mg by mouth | | 0 | | | | (TYLENOL) 325 mg | every 4 hours as | | | | 8 | | tablet | needed for Pain | | | | | | | (unsure of dose). | | | | | + + + +---------+ + + | albuterol (PROAIR | Inhale 2 puffs into | | 0 | | | | RESPICLICK) 90 | the lungs every 6 | | | | 8 | | mcg/puff inhaler | hours as needed for | | | | | | | Shortness of Breath. | | | | | + + + +---------+ + + | docusate-senna | Take 1 tablet by | 30 | 1 | 11/26/19 | | | (SENOKOT-S) 50-8.6 | mouth 2 times daily. | tablet | | 16 | 8 | | mg per tablet | | | | | | + + + +---------+ + + | | Take 1-2 tablets by | 30 | 0 | 11/26/19 | | | HYDROcodone-acetamin | mouth every 6 hours | tablet | | 16 | 8 | | ophen (NORCO) 5-325 | as needed for Pain | | | | | | mg per tablet | for up to 30 doses. | | | | | + + + +---------+ + + | ibuprofen | Take 1 tablet by | 30 | 1 | 11/26/19 | | | (ADVIL,MOTRIN) 800 | mouth every 8 hours | tablet | | 16 | 6 | | MG tablet | as needed for Pain | | | | | | | for up to 10 days. | | | | | + + + +---------+ + + | 27-0.8 mg | Take 1 tablet by | | 0 | | | | multivitamin tablet | mouth Daily. | | | | 8 | + + + +---------+ + + documented as of this encounter Progress Notes Ashley Mancilla, THO - 11/28/2015 5:55 PM PDTMom here with concerns as she is not able to get to nurse well on left side due to discomfort. However, nb easily latches to lef t side and mom denies discomfort. They are able to latch nb to both sides without difficulty . Teaching done on continuing to nurse nb through the night instead of bottle feeding. She w as also taught about lansinoh use after each nursing session and given soothie gel pads for comfort. They will be working on latching correctly with the bottom lip flanged more widely than before, and be back next week to weigh in after just going to breast instead of combo. Mom was concerned about her supply, however ac./pc showed 23cc's which is appropriate for a 4 day old. documente d in this encounter Plan of Treatment Not on filedocumented as of this encounter Visit Diagnoses + + | Diagnosis | + + | Poor latch on, - Primary Other disorder of , condition | | or complication | + + | Nipple pain Other sign and symptom in breast | + + documented in this encounter"
--- OUTSIDE RECORDS SUMMARY | ~2019-12-08 | XMS | Encounter Summary ---
Demographics + + + | Address | [address] | | | [place] [address] | + + + | Home Phone | | + + + | Preferred Language | Unknown | + + + | Marital Status | Single | + + + | Alevism Affiliation | 1041 | + + + | Race | Unknown | + + + | Ethnic Group | Unknown | + + + Author + + + | Author | [facility] | | | and [place] | + + + | Organization | [facility] | | | and [place] | [...] | | | | | [place] [address] | | + + + + + | Vanessa Lawton | ECON | [address] | | | | | [place] [address] | | + + + + + Care Team Providers + +------+ + | Care Engine Lathe Set Up Operator Name | Role | Phone | + +------+ + | Reji Gonzales DO | PCP | | + +------+ + Reason for Visit + + + | Reason | Comments | + + + | Sinusitis | | + + + | Cough | | + + + Encounter Details +--------+ + + + + | Date | Type | Department | Care Team | Description | +--------+ + + + + | 08/02/ | Emergency | [facility] | No, Physician p | Patient left without | | 2015 | | [facility] EM[facility]ENCY | | being seen (Primary | | | | CENTER [address] | | Dx) | | | | [place] | | | | | | [address] | | | | | | [phone] | | | +--------+ + + + [...] + + + | Blood Pressure | 160/90 | 08/02/2015 10:09 AM | | | | | PST | | + + + + + | Pulse | 112 | 08/02/2015 10:09 AM | | | | | PST | | + + + + + | Temperature | 36.5 C (97.7 F) | 08/02/2015 10:09 AM | | | | | PST | | + + + + + | Respiratory Rate | 16 | 08/02/2015 10:09 AM | | | | | PST | | + + + + + | Oxygen Saturation | 97% | 08/02/2015 10:09 AM | | | | | PST | | + + + + + | Inhaled Oxygen | - | - | | | Concentration | | | | + + + + + | Weight | 69.9 kg (154 lb) | 08/02/2015 10:35 AM | | | | | PST | | + + + + + | Height | 175.3 cm (5' 9.02") | 08/02/2015 10:35 AM | | | | | PST | | + + + + + | Body Mass Index | 22.73 | 08/02/2015 10:35 AM | | | | | PST | | + + + + + documented in this encounter Medications at Time of Discharge + + + +---------+--------+ + | Medication | Sig | Dispensed | Refills | Start | End Date | | | | | | Date | | + + + +---------+--------+ + | acetaminophen | Take 650 mg by mouth | | 0 | | | | (TYLENOL) 325 mg | every 4 hours as | | | | 8 | | tablet | needed for Pain | | | | | | | (unsure of dose). | | | | | + + + +---------+--------+ + documented as of this encounter Plan of Treatment Not on filedocumented as of this encounter Visit Diagnoses + + | Diagnosis | + + | Patient left without being seen - Primary Surgical or other procedure not carried out | | because of patient's decision | + + documented in this encounter
--- OUTSIDE RECORDS SUMMARY | ~2019-12-08 | XMS | Encounter Summary ---
Demographics + + + | Address | [address] | | | [place] [address] | + + + | Home Phone | | + + + | Preferred Language | Unknown | + + + | Marital Status | Single | + + + | Mandaen Affiliation | 1041 | + + + | Race | Unknown | + + + | Ethnic Group | Unknown | + + + Author + + + | Author | [facility] | | | and [place] | + + + | Organization | [facility] | | | and [place] [...] | | | | | [place] [address] | | + + + + + | Vanessa Lawton | ECON | [address] | | | | | [place] [address] | | + + + + + Care Team Providers + +------+ + | Care Hospital Clerk Name | Role | Phone | + +------+ + PCP | Unavailable | + +------+ + Encounter Details +--------+ + + + + | Date | Type | Department | Care Team | Description | +--------+ + + + + | 02/20/ | Hospital | [facility] | Kuldip Perduewinnie | | | 2011 | Encounter | MED CTR EMERGENCY | MD [address] | | | | | [place] [address] | [place] [facility] | | | | | [place], [place] | [place] [address] | | | | | [address] | [phone] | | | | | [phone] | | | +--------+ + + + [...] Not on filedocumented as of this encounter Procedures + +--------+ + + + | Procedure Name | Priori | Date/Time | Associated Diagnosis | Comments | | | ty | | | | + +--------+ + + + | DRUGS OF ABUSE, | Routin | 02/21/2012 | | Results for this | | SCREEN, URINE | e | 5:06 AM | | procedure are in the | | | | PDT | | results section. | + +--------+ + + + documented in this encounter Results Drugs of Abuse, Screen, Urine (02/21/2012 5:06 AM PDT) + + + + + + | Component | Value | Ref Range | Performed | Pathologist | | | | | At | Signature | + + + + + + | Amphetamine | POSITIVE | NEGATIVE | [facility] | | | Screen, | | | [facility] | | | Urine | | | MEDICAL | | | | | | CENTER - | | | | | | LABORATORY | | + + + + + + | Barbiturate | NEGATIVE | NEGATIVE | [facility] | | | s Screen, | | | [facility] | | | Urine | | | MEDICAL | | | | | | CENTER - | | | | | | LABORATORY | | + + + + + + | Benzodiazep | NEGATIVE | NEGATIVE | [facility] | | | trey | | | [facility] | | | Screen, | | | MEDICAL | | | Urine | | | CENTER - | | | | | | LABORATORY | | + + + + + + | Cannabinoid | NEGATIVE | NEGATIVE | [facility] | | | s Screen, | | | [facility] | | | Urine | | | MEDICAL | | | | | | CENTER - | | | | | | LABORATORY | | + + + + + + | Cocaine | NEGATIVE | NEGATIVE | [facility] | | | Metabolite | | | [facility] | | | | | | MEDICAL | | | | | | CENTER - | | | | | | LABORATORY | | + + + + + + | Methadone | NEGATIVE | NEGATIVE | [facility] | | | Screen, | | | [facility] | | | Urine | | | MEDICAL | | | | | | CENTER - | | | | | | LABORATORY | | + + + + + + | Opiates | NEGATIVEComment: The | NEGATIVE | [facility] | | | Screen, | following drugs or | | [facility] | | | Urine | classes were screened | | MEDICAL | | | | for by immunoassay at | | CENTER - | | | | these cutoff | | LABORATORY | | | | concentrations: | | | | | | Amphetamines | | | | | | 1000 ng/mL | | | | | | Barbiturates | | | | | | 200 ng/mL | | | | | | Benzodiazepines | | | | | | 200 ng/mL | | | | | | Cannabinoids | | | | | | 50 ng/mL | | | | | | Cocaine Metabolite | | | | | | 300 ng/mL | | | | | | Methadone | | | | | | 300 ng/mL | | | | | | Opiates | | | | | | 300 ng/mL | | | | | | This emergency urinary | | | | | | drug screen will not | | | | | | exclude drugs at | | | | | | levels below the | | | | | | cut-off point for | | | | | | screening, and may not | | | | | | correlate with current | | | | | | blood levels. These | | | | | | results should not be | | | | | | used for non-medical | | | | | | purposes. For important | | | | | | clinical decisions, | | | | | | confirmation by separate | | | | | | assay should be done. | | | | | | | | | | + + + + + + + + | Specimen | + + | | + + + + + + + | Performing | Address | City/State/Zipcode | Phone Number | | Organization | | | | + + + + + | [facility] | [address] | [place] | [phone] | | [facility] | | [address] | | | - LABORATORY | | | | + + + + + | [facility] | [address] | [place], [place] | | | [facility] | | [address] | | | - LABORATORY | | | | + + + + + documented in this encounter Visit Diagnoses Not on filedocumented in this encounter"
--- OUTSIDE RECORDS SUMMARY | ~2019-12-08 | XMS | Encounter Summary ---
Demographics + + + | Address | [address] | | | [place] [address] | + + + | Home Phone | | + + + | Preferred Language | Unknown | + + + | Marital Status | Single | + + + | Mosque Affiliation | 1041 | + + + | Race | Unknown | + + + | Ethnic Group | Unknown | + + + Author + + + | Author | [facility] | | | and [place] | + + + | Organization | [facility] | | | and [place] [...] | | | | | [place] [address] | | + + + + + | Vanessa Lawton | ECON | [address] | | | | | [place] [address] | | + + + + + Care Team Providers + +------+ + | Care Drug Regulatory Affairs Specialist Name | Role | Phone | + +------+ + | No, Physician | PCP | Unavailable | + +------+ + Encounter Details +--------+ + + + + | Date | Type | Department | Care Team | Description | +--------+ + + + + | 03/19/ | Hospital | [facility] | Onesimo Perdue | | | 2012 | Encounter | MED CTR EMERGENCY | MD Juan [address] | | | | | [place] [address] | [place] [facility] | | | | | [place], [place] | [place] [address] | | | | | [address] | [phone] | | | | | [phone] | | | +--------+ + + + [...]
--- OUTSIDE RECORDS SUMMARY | ~2019-12-08 | XMS | Encounter Summary ---
Demographics + + + | Address | [address] | | | [place] [address] | + + + | Home Phone [...] Author + + + | Author | [facility] | | | and [place] | + + + | Organization | [facility] | | | and [place] [...] | | | | | [place] [address] | | + + + + + | Vanessa Lawton | ECON | [address] | | | | | [place] [address] | | + + + + + Care Team Providers + +------+ + | Care Revenue Stamper Name | Role | Phone | + +------+ + PCP | Unavailable | + +------+ + Encounter Details +--------+ + + + + | Date | Type | Department | Care Team | Description | +--------+ + + + + | 09/26/ | Hospital | [facility] | Ignacia Peterson MD | | | 2011 - | Encounter | [facility] | [place] | | | | | C[facility] [address] | | | | 09/27/ | | [place] | | | | 2011 | | [id number] | | | | | | [phone] | | | +--------+ + + + [...] | DRUGS OF ABUSE, | Routin | 09/28/2011 | | Results for this | | SCREEN, URINE | e | 1:22 AM | | procedure are in the | | | | PDT | | results section. | + +--------+ + + + | CBC WITH | Routin | 09/28/2011 | | Results for this | | DIFFERENTIAL | e | 12:00 AM | | procedure are in the | | | | PDT | | results section. | + +--------+ + + + | TSH | Routin | 09/28/2011 | | Results for this | | | e | 12:00 AM | | procedure are in the | | | | PDT | | results section. | + +--------+ + + + | ALCOHOL | Routin | 09/28/2011 | | Results for this | | | e | 12:00 AM | | procedure are in the | | | | PDT | | results section. | + +--------+ + + + | ACETAMINOPHEN LEVEL | Routin | 09/28/2011 | | Results for this | | | e | 12:00 AM | | procedure are in the | | | | PDT | | results section. | + +--------+ + + + | SALICYLATE LEVEL | Routin | 09/28/2011 | | Results for this | | | e | 12:00 AM | | procedure are in the | | | | PDT | | results section. | + +--------+ + + + | COMPREHENSIVE | Routin | 09/28/2011 | | Results for this | | METABOLIC PANEL | e | 12:00 AM | | procedure are in the | | | | PDT | | results section. | + +--------+ + + + documented in this encounter Results Drugs of Abuse, Screen, Urine (09/28/2011 1:22 AM PDT) + + + + + [...] + | [facility] | [address] | [place], [place] | [phone] | | [facility] | | [address] | | | - LABORATORY | | | | + + + + + | [facility] | [address] | [place], [place] | | | [facility] | | [address] [place] [address] | | | - LABORATORY | | | | + + + + + TSH (09/28/2011 12:00 AM PDT) + + + + + + | Component | Value | Ref Range | Performed | Pathologist | | | | | At | Signature | + + + + + + | TSH | 1.33Comment: Testing | 0.34 - 5.60 | [facility] | | | | performed on the [facility] | uIU/mL | [facility] | | | | [facility] | | MEDICAL | | | | Analyzer. | | CENTER - | | | | | | LABORATORY | | + + + + + + + + | Specimen | + + | | + + + + + + + | Performing | Address | City/State/Zipcode | Phone Number | | Organization | | | | + + + + + | [facility] | [address] | [place], [place] | [phone] | | [facility] | | [address] | | | - LABORATORY | | | | + + + + + | [facility] | [address] | [place], [place] | | | [facility] | | [address], [facility] | | | - LABORATORY | | | | + + + + + Comprehensive Metabolic Panel (09/28/2011 12:00 AM PDT) + + + + + + | Component | Value | Ref Range | Performed | Pathologist | | | | | At | Signature | + + + + + + | Glucose | 90 | 70 - 109 mg/dL | [facility] | | | | | | [facility] | | | | | | MEDICAL | | | | | | CENTER - | | | | | | LABORATORY | | + + + + + + | Calcium | 9.9 | 8.3 - 10.5 | [facility] | | | | | mg/dL | [facility] | | | | | | MEDICAL | | | | | | CENTER - | | | | | | LABORATORY | | + + + + + + | Alkaline | 78 | 40 - 110 IU/L | [facility] | | | Phosphatase | | | [facility] | | | | | | MEDICAL | | | | | | CENTER - | | | | | | LABORATORY | | + + + + + + | AST | 19 | 10 - 42 IU/L | [facility] | | | | | | [facility] | | | | | | MEDICAL | | | | | | CENTER - | | | | | | LABORATORY | | + + + + + + | ALT | 12 | 6 - 45 IU/L | [facility] | | | | | | [facility] | | | | | | MEDICAL | | | | | | CENTER - | | | | | | LABORATORY | | + + + + + + | Bilirubin | 1.8 (H) | 0.2 - 1.0 mg/dL | [facility] | | | Total | | | [facility] | | | | | | MEDICAL | | | | | | CENTER - | | | | | | LABORATORY | | + + + + + + | Total | 6.9 | 6.0 - 7.8 gm/dL | [facility] | | | Protein | | | [facility] | | | | | | MEDICAL | | | | | | CENTER - | | | | | | LABORATORY | | + + + + + + | Albumin | 4.1 | 3.2 - 5.0 gm/dL | [facility] | | | | | | [facility] | | | | | | MEDICAL | | | | | | CENTER - | | | | | | LABORATORY | | + + + + + + | BUN | 9 | 7 - 18 mg/dL | [facility] | | | | | | [facility] | | | | | | MEDICAL | | | | | | CENTER - | | | | | | LABORATORY | | + + + + + + | Creatinine | 0.78 | 0.60 - 1.30 | [facility] | | | | | mg/dL | [facility] | | | | | | MEDICAL | | | | | | CENTER - | | | | | | LABORATORY | | + + + + + + | Estimated | >60Comment: For | >60 mL/min/A | [facility] | | | GFR | -Americans, | | [facility] | | | | please multiply the | | MEDICAL | | | | result by 1.210 | | CENTER - | | | | This is an estimated | | LABORATORY | | | | GFR and is based on a | | | | | | standard adult | | | | | | body mass (A=1.73m2) and | | | | | | serum creatinine | | | | + + + + + + | BUN/Creatin | 11.5 (L) | 12 - 20 | [facility] | | | ine Ratio | | | [facility] | | | | | | MEDICAL | | | | | | CENTER - | | | | | | LABORATORY | | + + + + + + | Na | 134 (L) | 136 - 149 mEq/L | [facility] | | | | | | [facility] | | | | | | MEDICAL | | | | | | CENTER - | | | | | | LABORATORY | | + + + + + + | K | 3.4 (L) | 3.5 - 5.1 mEq/l | [facility] | | | | | | [facility] | | | | | | MEDICAL | | | | | | CENTER - | | | | | | LABORATORY | | + + + + + + | Cl | 102 | 98 - 109 mEq/l | [facility] | | | | | | [facility] | | | | | | MEDICAL | | | | | | CENTER - | | | | | | LABORATORY | | + + + + + + | CO2 | 25 | 24 - 31 mEq/L | [facility] | | | | | | [facility] | | | | | | MEDICAL | | | | | | CENTER - | | | | | | LABORATORY | | + + + + + + | Anion Gap | 10.4 | 6.0 - 17.0 | [facility] | | | | | [...] + | [facility] | [address] | [place] | [phone] | | [facility] | | [address] | | | - LABORATORY | | | | + + + + + | [facility] | [address] | [place], [place] | | | [facility] | | [address] [place] [address] | | | - LABORATORY | | | | + + + + + Acetaminophen Level (09/28/2011 12:00 AM PDT) + +-------+ + + + | Component | Value | Ref Range | Performed | Pathologist | | | | | At | Signature | + +-------+ + + + | Acetaminoph | <10 | 10 - 30 ug/mL | [facility] | | | en Level | | | [facility] | | [...] + | [facility] | [address] | [place] | [phone] | | [facility] | | [address] | | | - LABORATORY | | | | + + + + + | [facility] | [address] | [place] | | | [facility] | | [address], [facility] | | | - LABORATORY | | | | + + + + + Salicylate Level (09/28/2011 12:00 AM PDT) + +-------+ + + + | Component | Value | Ref Range | Performed | Pathologist | | | | | At | Signature | + +-------+ + + + | Salicylate | <4 | <30 mg/dL | [facility] | | | Level | | | [facility] | | | [...] + | [facility] | [address] | [place], [place] | [phone] | | [facility] | | [address] | | | - LABORATORY | | | | + + + + + | [facility] | [address] | [place], [place] | | | [facility] | | [id number] [place] [address] | | | - LABORATORY | | | | + + + + + Ethanol (09/28/2011 12:00 AM PDT) + +-------+ + + + | Component | Value | Ref Range | Performed | Pathologist | | | | | At | Signature | + +-------+ + + + | ALCOHOL, | <5 | mg/dL | [facility] | | | SERUM/PLASM | | | [facility] | | | A | | | MEDICAL | | | [...] + | [facility] | [address] | [place] | [phone] | | [facility] | | [address] | | | - LABORATORY | | | | + + + + + | [facility] | [address] | [place], [place] | | | [facility] | | [address], [facility] | | | - LABORATORY | | | | + + + + + CBC with Differential (09/28/2011 12:00 AM PDT) + + + + + + | Component | Value | Ref Range | Performed | Pathologist | | | | | At | Signature | + + + + + + | WBC | 13.3 (H) | 4.0 - 11.0 K/uL | [facility] | | | | | | [facility] | | | | | | MEDICAL | | | | | | CENTER - | | | | | | LABORATORY | | + + + + + + | RBC | 4.42 | 3.70 - 5.20 | [facility] | | | | | M/uL | [facility] | | | | | | MEDICAL | | | | | | CENTER - | | | | | | LABORATORY | | + + + + + + | Hemoglobin | 13.0 | 11.5 - 16.0 | [facility] | | | | | gm/dL | [facility] | | | | | | MEDICAL | | | | | | CENTER - | | | | | | LABORATORY | | + + + + + + | Hematocrit | 38.6 | 34.0 - 47.0 % | [facility] | | | | | | [facility] | | | | | | MEDICAL | | | | | | CENTER - | | | | | | LABORATORY | | + + + + + + | MCV | 87.3 | 83.0 - 101.0 fL | [facility] | | | | | | [facility] | | | | | | MEDICAL | | | | | | CENTER - | | | | | | LABORATORY | | + + + + + + | MCH | 29.4 | 28.0 - 35.0 pg | [facility] | | | | | | [facility] | | | | | | MEDICAL | | | | | | CENTER - | | | | | | LABORATORY | | + + + + + + | MCHC | 33.6 | 32.0 - 36.0 | [facility] | | | | | g/dL | [facility] | | | | | | MEDICAL | | | | | | CENTER - | | | | | | LABORATORY | | + + + + + + | RDW-CV | 13.5 | <15.0 % | [facility] | | | | | | [facility] | | | | | | MEDICAL | | | | | | CENTER - | | | | | | LABORATORY | | + + + + + + | Platelet | 227 | 140 - 440 K/uL | [facility] | | | Count | | | [facility] | | | | | | MEDICAL | | | | | | CENTER - | | | | | | LABORATORY | | + + + + + + | % | 80.5 (H) | 45 - 75 % | [facility] | | | Neutrophils | | | [facility] | | | | | | MEDICAL | | | | | | CENTER - | | | | | | LABORATORY | | + + + + + + | % | 12.1 (L) | 20 - 45 % | [facility] | | | Lymphocytes | | | [facility] | | | | | | MEDICAL | | | | | | CENTER - | | | | | | LABORATORY | | + + + + + + | % Monocytes | 6.5 | 4 - 12 % | [facility] | | | | | | [facility] | | | | | | MEDICAL | | | | | | CENTER - | | | | | | LABORATORY | | + + + + + + | % | 0.7 | 0 - 5 % | [facility] | | | Eosinophils | | | [facility] | | | | | | MEDICAL | | | | | | CENTER - | | | | | | LABORATORY | | + + + + + + | % Basophils | 0.2 | 0 - 1 % | [facility] | | | | | | [facility] | | | | | | MEDICAL | | | | | | CENTER - | | | | | | LABORATORY | | + + + + + + | Absolute | 10.7 (H) | 1.5 - 6.6 K/uL | [facility] | | | Neutrophils | | | [facility] | | | | | | MEDICAL | | | | | | CENTER - | | | | | | LABORATORY | | + + + + + + | Absolute | 1.6 | 0.6 - 3.2 K/uL | [facility] | | | Lymphocytes | | | [facility] | | | | | | MEDICAL | | | | | | CENTER - | | | | | | LABORATORY | | + + + + + + | Absolute | 0.9 | 0.0 - 1.0 K/uL | [facility] | | | Monocytes | | | [facility] | | | | | | MEDICAL | | | | | | CENTER - | | | | | | LABORATORY | | + + + + + + | Absolute | 0.1 | 0.0 - 0.4 K/uL | [facility] | | | Eosinophils | | | [facility] | | | | | | MEDICAL | | | | | | CENTER - | | | | | | LABORATORY | | + + + + + + | Absolute | 0.0 | 0.0 - 0.1 K/uL | [facility] | | | Basophils | | | [facility] | | [...] + | [facility] | [address] | [place] | [phone] | | [facility] | | [address] | | | - LABORATORY | | | | + + + + + | [facility] | [address] | [place] | | | [facility] | | [address], [facility] | | | - LABORATORY | | | | + + + + + documented in this encounter Visit Diagnoses Not on filedocumented in this encounter"
--- OUTSIDE RECORDS SUMMARY | ~2019-12-08 | XMS | Encounter Summary ---
Demographics + + + | Address | [address] | | | [place] [address] | + + + | Home Phone | | + + + | Preferred Language | Unknown | + + + | Marital Status | Single | + + + | Moravian Affiliation | 1041 | + + + | Race | Unknown | + + + | Ethnic Group | Unknown | + + + Author + + + | Author | [facility] | | | and [place] | + + + | Organization | [facility] | | | and [place] [...] | | | | | [place] [address] | | + + + + + | Vanessa Lawton | ECON | [address] | | | | | [place] [address] | | + + + + + Care Team Providers + +------+ + | Care Car Coupler Name | Role | Phone | + +------+ + | No, Physician | PCP | Unavailable | + +------+ + Reason for Referral Diagnostic/Screening (Routine) +--------+--------+ + + + + | Status | Reason | Specialty | Diagnoses / | Referred By | Referred To | | | | | Procedures | Contact | Contact | +--------+--------+ + + + + | Closed | | Radiology | Diagnoses | | | | | | | Normal | [place], | | | | | | in | Reji Martinez, | | | | | | | DO [address] | | | | | [address] | [address] | | | | | | Procedures | [place], | | | | | | US OB 14 + | [place] [address] | | | | | | Week Singl | Phone: | | | | | | or First | [phone] | | | | | | Gestation | Fax: | | | | | | | [phone] | | +--------+--------+ + + + + Reason for Visit Diagnostic/Screening (Routine) +--------+--------+ + + + + | Status | Reason | Specialty | Diagnoses / | Referred By | Referred To | | | | | Procedures | Contact | Contact | +--------+--------+ + + + + | Closed | | Radiology | Diagnoses | | | | | | | Normal | [place], | | | | | | in | Reji Martinez, | | | | | | | DO [address] | | | | | | [address] | [address] | | | | | | Procedures | [place], | | | | | | US OB 14 + | [place] [address] | | | | | | Week Singl | Phone: | | | | | | or First | [phone] | | | | | | Gestation | Fax: | | | | | | | [phone] | | +--------+--------+ + + + + Encounter Details +--------+ + + + + | Date | Type | Department | Care Team | Description | +--------+ + + + + | 06/28/ | Hospital | [facility] | Reji Gonzales | Normal in | | 2017 | Encounter | [address] | DO Juan [address] | multigravida | | | | [place], [place] | [address] [place] | | | | | [address] | [place] [address] | | | | | [phone] | [phone] | | | | | | | | +--------+ + + + [...] | + +--------+ + + + | US OB 14 + WEEKS | Routin | 06/28/2017 | Normal | Results for this | | SINGLE OR FIRST | e | 3:35 PM | in multigravida | procedure are in the | | GESTATION | | PST | | results section. | + +--------+ + + + documented in this encounter Results US OB 14 + Week Singl or First Gestation (06/28/2017 3:35 PM PST) + + | Specimen | + + | | + + + +--------- ------+ | Narrative | Performe d At | + +--------- ------+ | US OB 14 + | [facility] | | WEEKS SINGLE OR FIRST GESTATION 06/28/2017 3:35 PM HISTORY: US OB 14 | | | + Week Singl or First Gestation. COMPARISON: None. PROTOCOL: Robles | | | scale and Doppler images of the fetus with transabdominalimaging. | | | FINDINGS:EGA by LMP of 37 weeks 2 days. The estimated delivery date is | | | 07/17/2017. BPD: 7.5 cm, 30 weeks 2 daysHC: 28.4 cm, 31 weeks 1 dayAC: | | | 27.8 cm, 31 weeks 6 daysFL: 5.7 cm, 29 weeks 6 daysEFW: 1680 g, US | | | percentile <3%Cephalic index: 73.5 (normal range 70.0-86.0)HC/AC | | | ratio: 1.0 toFetal heart rate: 135 bpm, with a normal cardiac rhythm.A | | | single gestation is seen.The cervix is long and closed, measuring 3.9 | | | cm in length.Placenta previa is absent. position: | | | CephalicPlacental position: PosteriorAmniotic fluid: Not obtained | | | Anatomy:Stomach, bladder, and kidneys are normal.Heart is normal | | | with 4 chambers and normal outflow tracts.Umbilical cord is normal | | | with three vessels.Cord insertion, spine, choroid plexus, nose, lips, | | | and movement are normal.Atrium of lateral ventricle: 4.2 mmCerebellar | | | diameter: Not obtained. IMPRESSION -Single live cephalic presentation | | | fetus, growth is discrepant with dates by LMP. Estimated gestational | | | age by ultrasound: 30 weeks 6 days compared to gestationalage by LMP | | | of 37 weeks 2 days. Internal dating/growth is consistent. Findings may | | | be related to in-accurate LMP gestational age dating. JR was not | | | obtained; however, fluid subjectively appears within normal limits. | | | EFW: 1680 g, US percentile <3% Dictated and Signed by: Devyn Coombs, | | | Electronically signed: 06/29/2017 11:42 AM | | | position: Cephalic | | |Placental position: Posterior | | |Amniotic fluid: Not obtained | | | | | | Anatomy: | | |Stomach, bladder, and kidneys are normal. | | |Heart is normal with 4 chambers and normal outflow tracts. | | |Umbilical cord is normal with three vessels. | | |Cord insertion, spine, choroid plexus, nose, lips, and movement are normal. | | |Atrium of lateral ventricle: 4.2 mm | | |Cerebellar diameter: Not obtained. | | | | | |IMPRESSION - | | |Single live cephalic presentation fetus, growth is discrepant with dates by LMP. | | | | | |Estimated gestational age by ultrasound: 30 weeks 6 days compared to gestational | | |age by LMP of 37 weeks 2 days. | | | | | |Internal dating/growth is consistent. | | | | | |Findings may be related to in-accurate LMP gestational age dating. | | | | | |JR was not obtained; however, fluid subjectively appears within normal limits. | | | | | |EFW: 1680 g, US percentile <3% | | | | | |Dictated and Signed by: Devyn Coombs MD | | | Electronically signed: 06/29/2017 11:42 AM | | | | | + +--------- ------+ + + | Procedure Note | + + | Marbin, Rad Results In - 06/29/2017 11:45 AM PST US OB 14 + WEEKS SINGLE OR FIRST | | GESTATION 06/28/2017 3:35 PM HISTORY: US OB 14 + Week Singl or First | | Gestation.COMPARISON: None.PROTOCOL: Robles scale and Doppler images of the fetus with | | transabdominalimaging.FINDINGS:EGA by LMP of 37 weeks 2 days. The estimated delivery | | date is 07/17/2017.BPD: 7.5 cm, 30 weeks 2 daysHC: 28.4 cm, 31 weeks 1 dayAC: 27.8 cm, 31 | | weeks 6 daysFL: 5.7 cm, 29 weeks 6 daysEFW: 1680 g, US percentile <3%Cephalic index: | | 73.5 (normal range 70.0-86.0)HC/AC ratio: 1.0 toFetal heart rate: 135 bpm, with a normal | | cardiac rhythm.A single gestation is seen.The cervix is long and closed, measuring 3.9 | | cm in length.Placenta previa is absent. position: CephalicPlacental position: | | PosteriorAmniotic fluid: Not obtainedFetal Anatomy:Stomach, bladder, and kidneys are | | normal.Heart is normal with 4 chambers and normal outflow tracts.Umbilical cord is | | normal with three vessels.Cord insertion, spine, choroid plexus, nose, lips, and | | movement are normal.Atrium of lateral ventricle: 4.2 mmCerebellar diameter: Not | | obtained. IMPRESSION -Single live cephalic presentation fetus, growth is discrepant with | | dates by LMP.Estimated gestational age by ultrasound: 30 weeks 6 days compared to | | gestationalage by LMP of 37 weeks 2 days.Internal dating/growth is consistent.Findings | | may be related to in-accurate LMP gestational age dating.JR was not obtained; however, | | fluid subjectively appears within normal limits.EFW: 1680 g, US percentile <3%Dictated | | and Signed by: Devyn Coomsb MD Electronically signed: 06/29/2017 11:42 AM | | heart rate: 135 bpm, with a normal cardiac rhythm. | |A single gestation is seen. | |The cervix is long and closed, measuring 3.9 cm in length. | |Placenta previa is absent. | | | | position: Cephalic | |Placental position: Posterior | |Amniotic fluid: Not obtained | | | | Anatomy: | |Stomach, bladder, and kidneys are normal. | |Heart is normal with 4 chambers and normal outflow tracts. | |Umbilical cord is normal with three vessels. | |Cord insertion, spine, choroid plexus, nose, lips, and movement are normal. | |Atrium of lateral ventricle: 4.2 mm | |Cerebellar diameter: Not obtained. | | | |IMPRESSION - | |Single live cephalic presentation fetus, growth is discrepant with dates by LMP. | | | |Estimated gestational age by ultrasound: 30 weeks 6 days compared to gestational | |age by LMP of 37 weeks 2 days. | | | |Internal dating/growth is consistent. | | | |Findings may be related to in-accurate LMP gestational age dating. | | | |JR was not obtained; however, fluid subjectively appears within normal limits. | | | |EFW: 1680 g, US percentile <3% | | | |Dictated and Signed by: Devyn Coombs MD | | Electronically signed: 06/29/2017 11:42 AM | + + + +---------+ + + | Performing | Address | City/State/Zipcode | Phone Number | | Organization | | | | + +---------+ + + | [facility] | | | | + +---------+ + + documented in this encounter Visit Diagnoses + + | Diagnosis | + + | Normal in multigravida | + + documented in this encounter"
--- OUTSIDE RECORDS SUMMARY | ~2019-12-08 | XMS | Encounter Summary ---
Demographics + + + | Address | [address] | | | [place] [address] | + + + | Home Phone | | + + + | Preferred Language | Unknown | + + + | Marital Status | Single | + + + | Caodaism Affiliation | 1041 | + + + | Race | Unknown | + + + | Ethnic Group | Unknown | + + + Author + + + | Author | [facility] | | | and [place] | + + + | Organization | [facility] | | | and [place] [...] | | | | | [place] [address] | | + + + + + | Vanessa Lawton | ECON | [address] | | | | | [place] [address] | | + + + + + Care Team Providers + +------+ + | Care Gas Operator Name | Role | Phone | + +------+ + PCP | Unavailable | + +------+ + Encounter Details +--------+ + + + + | Date | Type | Department | Care Team | Description | +--------+ + + + + | 10/21/ | Hospital | [facility] | | | | 2009 | Encounter | [facility] | | | | | CENTER [address] | | | | | | [place] | | | | | | [address] | | | | | | [phone] | | | +--------+ + + + [...]
--- OUTSIDE RECORDS SUMMARY | ~2019-12-08 | XMS | Encounter Summary ---
Demographics + + + | Address | [address] | | | [place] [address] | + + + | Home Phone | | + + + | Preferred Language | Unknown | + + + | Marital Status | Single | + + + | Mosque Affiliation | 1041 | + + + | Race | Unknown | + + + | Ethnic Group | Unknown | + + + Author + + + | Author | [facility] | | | and [place] | + + + | Organization | [facility] [...] | | | | | [place] [address] | | + + + + + | Vanessa Lawton | ECON | [address] | | | | | [place] [address] | | + + + + + Care Team Providers + +------+ + | Care Hydrochloric Manufacturing Supervisor Name | Role | Phone | + +------+ + PCP | Unavailable | + +------+ + Encounter Details +--------+ + + + + | Date | Type | Department | Care Team | Description | +--------+ + + + + | 02/03/ | Hospital | [facility] | | | | 2008 | Encounter | [facility] | | | | | | CENTER [address] | | | | | | [place] | | | | | | [address] | | | | | | [phone] | | | +--------+ + + + [...]
--- OUTSIDE RECORDS SUMMARY | ~2019-12-08 | XMS | Encounter Summary ---
Demographics + + + | Address | [address] | | | [place] [address] | + + + | Home Phone | | + + + | Preferred Language | Unknown | + + + | Marital Status | Single | + + + | Islam Affiliation | 1041 | + + + | Race | Unknown | + + + | Ethnic Group | Unknown | + + + Author + + + | Author | [facility] | | | and [place] | + + + | Organization | [facility] [...] | | | | | [place] [address] | | + + + + + | Vanessa Lawton | ECON | [address] | | | | | [place] [address] | | + + + + + Care Team Providers + +------+ + | Care Hook Puller Name | Role | Phone | + +------+ + | No, Physician | PCP | Unavailable | + +------+ + Reason for Visit Auth/Cert +--------+--------+ + + + + | Status | Reason | Specialty | Diagnoses / | Referred By | Referred To | | | | | Procedures | Contact | Contact | +--------+--------+ + + + + | | | | Diagnoses | | | | | | | Encounter | | | | | | | for maternal | | | | | | | care for | | | | | | | low | | | | | | | transverse | | | | | | | scar from | | | | | | | previous | | | | | | | | | | | | | | delivery | | | | | | | Encounter | | | | | | | for | | | | | | | sterilizatio | | | | | | | n Encounter | | | | | | | for | | | | | | | maternal | | | | | | | care for low | | | | | | | transverse | | | | | | | scar from | | | | | | | previous | | | | | | | | | | | | | | delivery | | | | | | | [[id number]], | | | | | | | Encounter | | | | | | | for | | | | | | | sterilizatio | | | | | | | n [[id number]] | | | | | | | Procedures | | | | | | | ND | | | | | | | DELIVERY | | | | | | | ONLY ND | | | | | | | LIGATION,FAL | | | | | | | LOPIAN TUBE | | | | | | | W/ | | | | | | | Repeat | | | | | | | + | | | | | | | B.T.L. | | | +--------+--------+ + + + + Encounter Details +--------+ + + + + | Date | Type | Department | Care Team | Description | +--------+ + + + + | 08/29/ | Anesthesia | [facility] | Jasper Garza, | | | 2018 | Event | MED CTR [facility] | MD [address] | | | | | [address] | [place] | | | | | [place] | [address] | | | | | [address] | | | | | | [phone] | | | +--------+ + + + + Anesthesia Record + + + + + | Procedure Name | Responsible | Anesthesia Start | Anesthesia Stop Time | | | Anesthesiologist | Time | | + + + + + | Repeat | Jasper Garza MD | 08/29/17 1541 | 08/29/17 1653 | | (N/A Abdomen) | | | | + + + + + +----+---+ + + | Da | T | Event | Comment | | te | i | | | | | m | | | | | e | | | +----+---+ + + | 02 | 1 | An Checkout | Pre-use anesthesia machine/equipment checkout. | | /2 | 5 | | | | 6/ | 3 | | | | 20 | 4 | | | | 18 | | | | +----+---+ + + | | 1 | | | | | 5 | | | | | 3 | | | | | 9 | | | +----+---+ + + | | 1 | An Start | Reassessment prior to anesthesia induction/procedure. | | | 5 | | | | | 4 | | | | | 1 | | | +----+---+ + + | | 1 | Epi/spinal | | | | 5 | Stop | | | | 5 | | | | | 4 | | | +----+---+ + + | | 1 | Antibiotic | | | | 6 | Given | | | | 0 | | | | | 1 | | | +----+---+ + + | | 1 | Surg Clmp | | | | 6 | Tst Neg | | | | 0 | | | | | 7 | | | +----+---+ + + | | 1 | First | | | | 6 | Inc/Proc St | | | | 0 | | | | | 8 | | | +----+---+ + + | | 1 | Ut Incision | | | | 6 | | | | | 1 | | | | | 3 | | | +----+---+ + + | | 1 | Baby Deliv | | | | 6 | | | | | 1 | | | | | 4 | | | +----+---+ + + | | 1 | Placenta | | | | 6 | Delivered | | | | 1 | | | | | 5 | | | +----+---+ + + | | 1 | Quick Note | Baby placed on mother's chest. | | | 6 | | | | | 2 | | | | | 3 | | | +----+---+ + + | | 1 | an stop | | | | 6 | data | | | | 4 | | | | | 8 | | | +----+---+ + + | | 1 | An Stop | Patient handed off to recovery nurse. | | | 5 | | | | | 3 | | | +----+---+ + + +------+ | Meds | +------+ + + + | Name | Total | + + + | bupivacaine 0.75% (Intrathecal) | 10 mg | + + + | fentaNYL injection (2 mL) | 20 mcg | + + + | morphine (Intrathecal) | 250 mcg | + + + | oxytocin (Bolus) | 40 Units | + + + | ondansetron | 4 mg | + + + | ketorolac | 30 mg | + + + | Phenylephrine 100mcg/mL SYRINGE | 300 mcg | + + + | ceFAZolin | 2 g | + + + | lactated ringers (LR) infusion | 2,300 mL | + + + + + | Name | + + | N2O Flow Rate (L/Min) | + + | O2 Flow Rate (L/Min) | + + | Insp O2 | + + | Exp ILA | + + | Air Flow Rate (L/Min) | + + + + | No blood administrations on file. | + + +--------+ + + + | Type | Details | Placement | Removal | +--------+ + + + | Periph | 08/29/17; 1040; Right; Forearm; | 08/29/17 1040 by Katherine | 08/31/172014 by | | rosy | [id number] catheter system; | Belinda Aguilera RN | Lisa Clemons RN | | IV | 18 gauge, 1 1/2 in length; | | | | | distraction, tolerated well; | | | | | 08/31/17; 2014 | | | +--------+ + + + | Urethr | 08/29/17; 1603; indicated due to | 08/29/17 1603 by | 08/30/17 1800 by | | al | specific surgical procedure; 14; | Jacquie Mclaughlin RN | Fawn Braun RN | | Cathet | 1; 10; 10; urethral catheter | | | | er | removed, tubing intact; healing | | | | | within expectations; 08/30/17; | | | | | 1800 | | | +--------+ + + + | Read | 08/29/17; 1619; Bilateral; | 08/29/17 1619 by | 09/26/18 1342 by | | only - | abdomen; 09/26/18 | Jacquie Mclaughlin RN | User Epic | | | (Completed/Removed by Utility); | | | | Incisi | 1342 (Completed/Removed by | | | | on | Utility) | | | +--------+ + + + documented in this encounter Social History + +-------+ +--------+ + | [...] do you have serious | No | 08/29/2017 | | difficulty hearing? | | | + + + + | Are you blind or do you have serious | No | 08/29/2017 | | difficulty seeing, even when wearing | | | | glasses? | | | + + + + | Do you have serious difficulty walking or | No | 08/29/2017 | | climbing stairs? (5 years old or older) | | | + + + + | Do you have difficulty dressing or bathing? | No | 08/29/2017 | | (5 years old or older) | | | + + + + | Because of a physical, mental, or emotional | No | 08/29/2017 | | condition, do you have difficulty [...] physical, mental, or emotional | No | 08/29/2017 | | condition, do you have serious [...] | + +--------+ + + + | ANE EPIDURAL NOTE | Routin | 08/29/2017 | | Results for this | | | e | 4:11 PM | | procedure are in the | | | | PST | | results section. | + +--------+ + + + documented in this encounter Results Anesthesia Epidural Note (08/29/2017 4:11 PM PST) + + + | Narrative | Performed At | + + + | Jasper Garza MD 08/29/2017 16:12 Neuraxial Procedure Note | | | 08/29/2017 15:54 Procedure: spinal anesthesia Provider requested | | | procedure: Vandersloot Indication: postoperative analgesia | | | Preprocedure check: patient identified, procedure and rescue equipment | | | checked, preevaluation including airway assessment complete, | | | risks/benefits discussed, consent obtained, timeout performed, | | | reassessment prior to procedure and monitors applied Patient | | | position: sitting Preparation: chlorhexidine/isopropyl alcohol, | | | Introducer used: yes Local anesthetic infiltration volume: 1 mL | | | Procedure level: L3-4 Approach: midline Needle: pencil-point | | | (Josefina) Needle size: 25 g Needle length: 3.5 in Medication | | | administered through: needle Positive findings: CSF aspirated | | | Attempts: 2 Ease of procedure: easy Dressing: band-aid Performing | | | provider: JASPER GARZA Comments: Patient positioned sitting. | | | Monitors placed. Timeout. Landmarks palpated. Sterile | | | prep/drape. 1% lidocaine to skin entry site. Thru introducer, 25 | | | gauge Josefina spinal needle to intrathecal space. CSF fluid mix | | | noted with positive barbotage sign. Medications given as | | | documented in anesthesia record. Band-aid placed. Vitals signs in | | | intraoperative EPIC record. 2 attempts. Patient very | | | challenged to stay still during first attempt. Please see | | | anesthesia record or flowsheet for vital sign documentation and see | | | anesthesia record or MAR for all medication documentation. | | | Electronically Signed by: Jasper Garza MD | | | ESig date/time: 08/29/2017 16:11 | | + + + + + | Procedure Note | + + | Jasper Garza MD - 08/29/2017 4:11 PM PST Neuraxial Procedure Note08/29/2017 | | 15:54Procedure: spinal anesthesiaProvider requested procedure: VanderslootIndication: | | postoperative analgesiaPreprocedure check: patient identified, procedure and rescue | | equipment checked, preevaluation including airway assessment complete, risks/benefits | | discussed, consent obtained, timeout performed, reassessment prior to procedure and | | monitors appliedPatient position: sittingPreparation: chlorhexidine/isopropyl alcohol, | | Introducer used: yesLocal anesthetic infiltration volume: 1 mLProcedure level: | | L3-4Approach: midlineNeedle: pencil-point (Josefina)Needle size: 25 gNeedle length: 3.5 | | inMedication administered through: needlePositive findings: CSF aspiratedAttempts: 2Ease | | of procedure: easyDressing: band-aidPerforming provider: JASPER GARZA TComments: | | Patient positioned sitting. Monitors placed. Timeout. Landmarks palpated. Sterile | | prep/drape. 1% lidocaine to skin entry site. Thru introducer, 25 gauge Josefina spinal | | needle to intrathecal space. CSF fluid mix noted with positive barbotage sign. | | Medications given as documented in anesthesia record. Band-aid placed. Vitals signs in | | intraoperative EPIC record.2 attempts. Patient very challenged to stay still during | | first attempt.Please see anesthesia record or flowsheet for vital sign documentation and | | see anesthesia record or MAR for all medication documentation. Electronically Signed | | by: MD Mily Sarmiento date/time: 08/29/2017 16:11 | |Attempts: 2 | |Ease of procedure: easy | |Dressing: band-aid | |Performing provider: JASPER GARZA | |Comments: Patient positioned sitting. Monitors placed. Timeout. Landmarks palpated. Ritchie rile prep/drape. 1% lidocaine to skin entry site. Thru introducer, 25 gauge Josefina spina l needle to intrathecal space. | |CSF fluid mix noted with positive barbotage sign. Medications given as documented in anest hesia record. Band-aid placed. Vitals signs in intraoperative EPIC record. | | | |2 attempts. Patient very challenged to stay still during first attempt. | | | | | |Please see anesthesia record or flowsheet for vital sign documentation and see anesthesia r ecord or MAR for all medication documentation. | | | |Electronically Signed by: MD Mily Sarmiento date/time: 08/29/2017 16:11 | + + documented in this encounter Visit Diagnoses Not on filedocumented in this encounter Administered Medications + +--------+ +-------+------+------+ | Medication Order | MAR | Action | Dose | Rate | Site | | | Action | Date | | | | + +--------+ +-------+------+------+ | bupivacaine 0.75%-dextrose | Given | 08/29/19 | 10 mg | | | | 8.25% (MARCAINE SPINAL) injection | | 18 3:54 | | | | | INTRATHECAL, PRN, Starting Mon | | PM PST | | | | | 08/29/17 at 1554, Anesthesia | | | | | | | Intra-op | | | | | | + +--------+ +-------+------+------+ +---+---+ | | | +---+---+ + +-------+ +-----+---+---+ | ceFAZolin (ANCEF, KEFZOL) | Given | 08/29/19 | 2 g | | | | injection Intravenous, PRN, | | 18 4:01 | | | | | Starting Tue08/29/17 at 1601, | | PM PST | | | | | Anesthesia Intra-op | | | | | | + +-------+ +-----+---+---+ +---+---+ | | | +---+---+ + +-------+ +--------+---+---+ | fentaNYL (PF) injection | Given | 08/29/19 | 20 mcg | | | | INTRATHECAL, PRN, Pain, Starting | | 18 3:54 | | | | | Tue08/29/17 at 1554, Anesthesia | | PM PST | | | | | Intra-op | | | | | | + +-------+ +--------+---+---+ +---+---+ | | | +---+---+ + +-------+ +-------+---+---+ | ketorolac (TORADOL) injection | Given | 08/29/19 | 30 mg | | | | Intravenous, PRN, Pain, Starting | | 18 4:18 | | | | | 08/29/17 at 1618, Anesthesia | | PM PST | | | | | Intra-op | | | | | | + +-------+ +-------+---+---+ +---+---+ | | | +---+---+ + +---------+ +---+---+---+ | lactated ringers (LR) infusion | New Bag | 08/29/19 | | | | | at 125 mL/hr, Intravenous, | | 18 4:35 | | | | | CONTINUOUS, Starting 08/29/17 | | PM PST | | | | | at 1100, Bolus 1 liter LR prior | | | | | | | to initiating continuous rate of | | | | | | | 125ml/hr, Pre-op | | | | | | + +---------+ +---+---+---+ +---------+ +---+-------+---+ | New Bag | 08/29/19 | | | | | | 18 4:15 | | | | | | PM PST | | | | +---------+ +---+-------+---+ | New Bag | 08/29/19 | | 125 | | | | 18 3:21 | | mL/hr | | | | PM PST | | | | +---------+ +---+-------+---+ +---+---+ | | | +---+---+ + +-------+ +---------+---+---+ | morphine (PF) (DURAMORPH) 0.5 | Given | 08/29/19 | 250 mcg | | | | mg/mL injection INTRATHECAL, | | 18 3:54 | | | | | PRN, Pain, Starting Tue08/29/17 | | PM PST | | | | | at 1554, Anesthesia Intra-op | | | | | | + +-------+ +---------+---+---+ +---+---+ | | | +---+---+ + +-------+ +------+---+---+ | ondansetron (ZOFRAN) injection | Given | 08/29/19 | 4 mg | | | | Intravenous, PRN, Nausea, | | 18 4:04 | | | | | Vomiting, Starting Tue08/29/17 at | | PM PST | | | | | 1604, Anesthesia Intra-op | | | | | | + +-------+ +------+---+---+ +---+---+ | | | +---+---+ + +-------+ + +---+---+ | oxytocin (PITOCIN) injection | Given | 08/29/19 | 20 Units | | | | Intravenous, PRN, Starting Mon | | 18 4:35 | | | | | 08/29/17 at 1615, Anesthesia | | PM PST | | | | | Intra-op | | | | | | + +-------+ + +---+---+ +-------+ + +---+---+ | Given | 08/29/19 | 20 Units | | | | | 18 4:15 | | | | | | PM PST | | | | +-------+ + +---+---+ +---+---+ | | | +---+---+ + +-------+ +---------+---+---+ | phenylephrine (RAJ-SYNEPHRINE) | Given | 08/29/19 | 100 mcg | | | | 100 mcg/mL injection | | 18 4:08 | | | | | Intravenous, TABITHANNikkie Mon | | PM PST | | | | | 08/29/17 at 1558, Anesthesia | | | | | | | Intra-op | | | | | | + +-------+ +---------+---+---+ +-------+ +---------+---+---+ | Given | 08/29/19 | 100 mcg | | | | | 18 4:03 | | | | | | PM PST | | | | +-------+ +---------+---+---+ | Given | 08/29/19 | 100 mcg | | | | | 18 3:58 | | | | | | PM PST | | | | +-------+ +---------+---+---+ +---+---+ | | | +---+---+ documented in this encounter"
--- OUTSIDE RECORDS SUMMARY | ~2019-12-08 | XMS | Encounter Summary ---
Demographics + + + | Address | [address] | | | [place] [address] | + + + | Home Phone | | + + + | Preferred Language | Unknown | + + + | Marital Status | Single | + + + | Mormonism Affiliation | 1041 | + + + | Race | Unknown | + + + | Ethnic Group | Unknown | + + + Author + + + | Author | [facility] | | | and [place] | + + + | Organization | [facility] | | | and [place] [...] | | | | | [place] [address] | | + + + + + | Vanessa Lawton | ECON | [address] | | | | | [place] [address] | | + + + + + Care Team Providers + +------+ + | Care Supervisor Contact And Service Clerks Name | Role | Phone | + +------+ + PCP | Unavailable | + +------+ + Encounter Details +--------+ + + + + | Date | Type | Department | Care Team | Description | +--------+ + + + + | 11/24/ | Hospital | [facility] | | | | 2008 | Encounter | [facility] | | | | | | CENTER [address] | | | | | | [place] | | | | | | [address] | | | | | | [phone] | | | +--------+ + + + [...]
--- OUTSIDE RECORDS SUMMARY | ~2019-12-08 | XMS | Encounter Summary ---
Demographics + + + | Address | [address] | | | [place] [address] | + + + | Home Phone | | + + + | Preferred Language | Unknown | + + + | Marital Status | Single | + + + | Worship Affiliation | 1041 | + + + | Race | Unknown | + + + | Ethnic Group | Unknown | + + + Author + + + | Author | [facility] | | | and [place] | + + + | Organization | [facility] | | | and [place] [...] | | | | | [place] [address] | | + + + + + | Vanessa Lawton | ECON | [address] | | | | | [place] [address] | | + + + + + Care Team Providers + +------+ + | Care Finance Broker Name | Role | Phone | + +------+ + PCP | Unavailable | + +------+ + Encounter Details +--------+ + + + + | Date | Type | Department | Care Team | Description | +--------+ + + + + | 11/22/ | Hospital | [facility] | | | | 2006 - | Encounter | [facility] | | | | | | [facility] [address] | | | | 11/25/ | | [place], | | | | 2006 | | [place] [address] | | | | | | [phone] | | | +--------+ + + + [...]
--- OUTSIDE RECORDS SUMMARY | ~2019-12-08 | XMS | Encounter Summary ---
Demographics + + + | Address | [address] | | | [place] [address] | + + + | Home Phone | | + + + | Preferred Language | Unknown | + + + | Marital Status | Single | + + + | Faith Affiliation | 1041 | + + + | Race | Unknown | + + + | Ethnic Group | Unknown | + + + Author + + + | Author | [facility] | | | and [place] | + + + | Organization | [facility] | | | and [...] | | | | | [place] [id number] | | + + + + + | Vanessa Lawton | ECON | [address] | | | | | [place] [address] | | + + + + + Care Team Providers + +------+ + | Care Learning Designer Name | Role | Phone | + +------+ + | No, Physician | PCP | Unavailable | + +------+ + Reason for Referral Evaluate & Treat (Routine) +--------+ + + + + + | Status | Reason | Specialty | Diagnoses / | Referred By | Referred To | | | | | Procedures | Contact | Contact | +--------+ + + + + + | Closed | Specialty | | Diagnoses | [facility] | | | | Services | Services / | | Baby [address] | | | | Required | | delivery | [address] | | | | | and | delivered | [place] | | | | | | | [place] | | | | | | | [address] | | | | | | | Phone: | | | | | | | [phone] | | | | | | | Fax: | | | | | | | [phone] | | +--------+ + + + + + (Routine) +--------+ + + + + + | Status | Reason | Specialty | Diagnoses / | Referred By | Referred To | | | | | Procedures | Contact | Contact | +--------+ + + + + + | Closed | Specialty | | Diagnoses | | | | | Services | and | | Christian, | | | | Required | | delivery | Reji Martinez, | | | | | | delivered | DO [address] | | | | | [address] | | | | | | | [place], | | | | | | | [place] [address] | | | | | | | Phone: | | | | | | | [phone] | | | | | | | Fax: | | | | | | | [phone] | | +--------+ + + + + + Reason for Visit Auth/Cert +--------+--------+ + + + + | Status | Reason | Specialty | Diagnoses / | Referred By | Referred To | | | | | Procedures | Contact | Contact | +--------+--------+ + + + + | | | | Diagnoses | | | | | | | Previous | | | | | | | | | | | | | | delivery, | | | | | | | delivered | | | | | | | Previous | | | | | | | | | | | | | | delivery, | | | | | | | delivered | | | | | | | [O34.21] | | | | | | | Procedures | | | | | | | MI | | | | | | | DELIVERY | | | | | | | ONLY | | | | | | | | | | | | | | SECTION | | | +--------+--------+ + + + + Encounter Details +--------+ + + + + | Date | Type | Department | Care Team | Description | +--------+ + + + + | 11/23/ | Hospital | [facility] | Reji Gonzales | delivery | | 2016 - | Encounter | [facility] | DO [address] | delivered (Primary | | | | [address] | [facility] | Dx) | | 11/25/ | | [place] | [place] [address] | | | 2016 | | [address] | [phone] | | | | | [phone] | | | +--------+ + + + [...] + + + | Blood Pressure | 152/88 | 11/26/2015 3:43 PM | | | | | PDT | | + + + + + | Pulse | 80 | 11/26/2015 3:43 PM | | | | | PDT | | + + + + + | Temperature | 36 C (96.8 F) | 11/26/2015 3:43 PM | | | | | PDT | | + + + + + | Respiratory Rate | 18 | 11/26/2015 3:43 PM | | | | | PDT | | + + + + + | Oxygen Saturation | 99% | 11/26/2015 3:43 PM | | | | | PDT | | + + + + + | Inhaled Oxygen | - | - | | | Concentration | | | | + + + + + | Weight | 86.2 kg (190 lb) | 11/24/2015 6:19 AM | | | | | PDT | | + + + + + | Height | 175.3 cm (5' 9.02") | 11/24/2015 6:19 AM | | | | | PDT | | + + + + + | Body Mass Index | 28.05 | 11/24/2015 6:19 AM | | | | | PDT [...] documented as of this encounter Progress Notes Shavonne Ramírez RN - 11/26/2015 7:31 PM PDTDischarge instructions read to and given to patient. Clinic appointment made for Saturday, November 28, 2015 at 1500. Social Securti y sheet given. Tdap and MMR vaccinations and vaccine information given. Prescriptions given and informed patient they can be filled at the pharmacy of her choice. [place] removed and s trisha-strips placed. Pt understands instructions. Shavonne Singh RN - 11/26/2015 2:[address]Dr[address] Christian sanchez otified that CPS will not be coming to see patient per Swathi Coronado, Care Management. Says he gypsy l be here later to write discharge orders. Shavonne Singh RN - 11/26/2015 9:45 AM PDTPt says she is going h ome later this afternoon. She would like to sleep then shower at that time. She wants to hav e ekaterina removed after she showers. Electronically signed by Shavonne Ramírez RN at 2015 9:47 AM Reji De La Torre DO - 11/26/2015 7:42 AM PDTFormatting of this not e might be different from the original. OBSTETRICAL PROGRESS NOTE Martha Lawton : 1990 ADMISSION DATE AND TIME11/24/2015 6:03 Hospital Day: 3 2 Days Post-Op DELIVERY Subjective The patient feels a bit shaky this morning. Her temperature was taken and she is afebrile. Her pain is well controlled with current medications. Urinary output is adequate. The madi ent is ambulating well. She is tolerating a regular diet well. Objective Vitals Current Average / Min / Max Temp 36.6 C (97.9 F) Temp Min: 36.3 C (97.3 F) Max: 36.6 C (97.9 F) BP 137/73 mmHg BP Min: 127/70 Max: 180/92 HR 76 Pulse Av.2 Min: 76 Max: 94 RR 22 Resp Av.4 Min: 16 Max: 22 Sats 99 % SpO2 Min: 98 % Max: 99 % Weight 86.183 kg (190 lb) Admit: 86.183 kg (190 lb) BMI Body mass index is 28.05 kg/(m^2). No intake or output data in the 24 hours ending 11/26/15 0743 General: alert, cooperative and no distress Respiratory: clear to auscultation bilaterally, scattered wheezes B/L Cardiovascular: regular rate and rhythm Abdomen: soft, nondistended and normal bowel sounds Incision: healing well, without Erythema, induration or drainage Lochia: moderate lochia UterineFundus: firm DVT Evaluation: No evidence of DVT seen on physical exam. No results found for this or any previous visit (from the past 12 hour(s)). Assessment & Plan Status post section. Doing well postoperatively. I plan to order a nebulizer kesha tment for this patient this morning. Active Problems: Term , repeat Asthma Continue current care. I will consider discharge to a [facility] status until child protective services has had a chance to evaluate babies placement. Electronically signed: Reji Gonzales DO 11/26/2015 7:43 Clarissa Baeza RN - 11/26/2015 6:15 AM PDTC/O feeling cold, shivering, appears pale. Warm blanket given . Temp 37.1, incision well approximated and no s/s infection. Ibuprofen given per routine.El ectronically signed by Sonya Da Silva RN at 11/26/2015 6:48 AM Sonya Baeza RN - 11/02 1:50 AM PDTHas been up to BR. Reports feeling better now, but is very tired. Baby to nsy per request for sleep. Sonya Baeza RN - 11/26/2015 12:15 AM PDTPt c/o nausea following admin of Ibuprofen a nd stool softners and was given Zofran. Reported she felt shaky and very cold after getting up to BR. Temp afebrile. Symptoms improved shortly after Zofran, however B/P elevated. Allow ed pt to rest and repeated after 15 min with normal result. Reported at that time symptoms w ere continuing to subside. Has slept since then and now reporting feels much better.Electron ically signed by Sonya Da Silva RN at 11/26/2015 12:39 AM Sonya Baeza RN - 11/25/2015 9:13 PM PDTNursed baby, and encouraged to pump breasts after feeds but falls asleep.Electr onically signed by Sonya Da Silva RN at 11/25/2015 9:14 PM Mariajose Dos Santos RN - 2:45 PM PDTPt reports her pain is better after the motrin and simethicone. She declines n eeding more norco at this time. Mariajose Dos Santos RN - 11/25/2015 2:29 PM PDTPt is up and ambulating in the hallway.Tanna ctronically signed by Mariajose Avilez RN at 11/25/2015 2:29 PM Mariajose Dos Santos RN - 016 1:55 PM PDTPt c/o lots of gas pain. Medicated with motrin and simethicone. Pt encourage d to get up and ambulate. Reji Sahu DO - 11/25/2015 8:07 AM PDTFormatting of this note might be diffe rent from the original. OBSTETRICAL PROGRESS NOTE Martha Emerson : 1990 ADMISSION DATE AND TIME11/24/2015 6:03 Hospital Day: 2 1 Day Post-Op DELIVERY Subjective The patient feels well and voices no concerns. Her pain is well controlled with current me dications. Urinary output is adequate. The patient is ambulating well. She is tolerating a r egular diet well. Objective Vitals Current Average / Min / Max Temp 37.2 C (99 F) Temp Min: 36 C (96.8 F) Max: 37.2 C (99 F) BP 132/75 mmHg BP Min: 99/65 Max: 138/85 HR 87 Pulse Av Min: 61 Max: 87 RR 16 Resp Av.7 Min: 11 Max: 24 Sats 98 % SpO2 Min: 93 % Max: 99 % Weight 86.183 kg (190 lb) Admit: 86.183 kg (190 lb) BMI Body mass index is 28.05 kg/(m^2). Intake/Output Summary (Last 24 hours) at 11/25/15 0807 Last data filed at 11/25/15 0700 Gross per 24 hour Intake 3740 ml Output 5425 ml Net -1685 ml General: alert, cooperative and no distress Respiratory: clear to auscultation bilaterally Cardiovascular: regular rate and rhythm Abdomen: soft and nondistended Incision: healing well, without Erythema, induration or drainage Lochia: moderate lochia UterineFundus: firm DVT Evaluation: No evidence of DVT seen on physical exam. Recent Results (from the past 12 hour(s)) Drugs of Abuse, Screen, Urine Collection Time: 11/24/15 23:44 Result Value Ref Range Amphetamine Screen, Urine Negative Negative Barbiturates Screen, Urine Negative Negative Benzodiazepines, Urine, Screen Negative Negative Cannabinoids Screen, Urine Negative Negative Cocaine Screen, Urine Negative Negative Methadone Screen, Urine Negative Negative Opiates Screen, Urine Negative Negative CBC no Differential Collection Time: 11/25/15 6:00 Result Value Ref Range WBC 9.6 4.0-11.0 K/uL RBC 3.57 (L) 3.70-5.20 M/uL Hgb 9.9 (L) 11.5-16.0 g/dL Hct 29.3 (L) 34.0-47.0 % MCV 82.1 (L) 83.0-101.0 fL MCH 27.9 (L) 28.0-35.0 pg MCHC 34.0 32.0-36.0 g/dL RDW-CV 14.9 <15.0 % Platelet Count 168 140-440 K/uL MPV 9.9 fL Assessment & Plan Status post section. Doing well postoperatively. Active Problems: Term , repeat Asthma Continue current care. Electronically signed: Reji Gonzales DO 11/25/2015 8:07 Kevyn Cuevas RN - 11/25/2015 7:30 AM PDTReported off to THO Billy Trista Ribeiro RN - 11/24/2015 1:15 PM PDTPt expe rienced some emesis and was medicated with Zofran. Pt was also provided soda crackers and 7 up to nibble and sip on. ing, Cortney Moran RN - 11/24/2015 7:00 AM PDTPatient here for scheduled C/S, patient wipe d down with pre op wipes, US and TOCO placed, vitals taken, IV placed, meds given.Electronic ally signed by Cortney Carroll RN at 11/24/2015 7:08 AM PDTdocumented in this encounter Plan of Treatment + + +--------+ + + | Name | Type | Priori | Associated Diagnoses | Order Schedule | | | | ty | | | + + +--------+ + + | Amb referral to | Outpatient | Routin | delivery | 1 Occurrences | | | Referral | e | delivered | starting 11/26/2015 | | | | | | until 11/23/2016 | + + +--------+ + + | Ambulatory referral | Outpatient | Routin | delivery | 1 Occurrences | | to | Referral | e | delivered | starting 11/26/2015 | | | | | | until 11/23/2016 | + + +--------+ + + documented as of this encounter Procedures + +--------+ + + + | Procedure Name | Priori | Date/Time | Associated Diagnosis | Comments | | | ty | | | | + +--------+ + + + | CBC NO DIFFERENTIAL | Routin | 11/25/2015 | | Results for this | | | e | 6:00 AM | | procedure are in the | | | | PDT | | results section. | + +--------+ + + + | DRUGS OF ABUSE, | Routin | 11/24/2015 | | Results for this | | SCREEN, URINE | e | 11:44 PM | | procedure are in the | | | | PDT | | results section. | + +--------+ + + + | SECTION | | 11/24/2015 | Previous | | | | | 7:28 AM | delivery, delivered | | | | | PDT | | | + +--------+ + + + | CBC WITH | STAT | 11/24/2015 | | Results for this | | DIFFERENTIAL | | 6:41 AM | | procedure are in the | | | | PDT | | results section. | + +--------+ + + + | TYPE AND SCREEN | Routin | 11/24/2015 | | Results for this | | | e | 6:41 AM | | procedure are in the | | | | PDT | | results section. | + +--------+ + + + | CULTURE, STREP GROUP | Routin | 11/18/2015 | | Results for this | | B | e | | | procedure are in the | | | | | | results section. | + +--------+ + + + | RUBELLA AB, IGG | Routin | 07/31/2015 | | Results for this | | | e | | | procedure are in the | | | | | | results section. | + +--------+ + + + | ABO RH | Routin | 07/26/2015 | | Results for this | | | e | | | procedure are in the | | | | | | results section. | + +--------+ + + + | RAPID PLASMA REAGIN, | Routin | 07/26/2015 | | Results for this | | QUAL | e | | | procedure are in the | | | | | | results section. | + +--------+ + + + | HEPATITIS B SURFACE | Routin | 07/26/2015 | | Results for this | | AG | e | | | procedure are in the | | | | | | results section. | + +--------+ + + + | ANTIBODY SCREEN | Routin | 07/26/2015 | | Results for this | | | e | | | procedure are in the | | | | | | results section. | + +--------+ + + + | HIV 1 AND 2 AB, | Routin | 07/25/2015 | | Results for this | | REFLEX | e | | | procedure are in the | | | | | | results section. | + +--------+ + + + documented in this encounter Results CBC no Differential (11/25/2015 6:00 AM PDT) + + + + + + | Component | Value | Ref Range | Performed | Pathologist | | | | | At | Signature | + + + + + + | WBC | 9.6 | 4.0 - 11.0 K/uL | [facility] | | | | | | [facility] | | | | | [facility] | | | | | [facility] - | | | | | | LABORATORY | | + + + + + + | RBC | 3.57 (L) | 3.70 - 5.20 | [facility] | | | | | M/uL | [facility] | | | | | | [facility] | | | | | | [facility] - | | | | | | LABORATORY | | + + + + + + | Hemoglobin | 9.9 (L) | 11.5 - 16.0 | [facility] | | | | | g/dL | [facility] | | | | | | [facility] | | | | | | C[facility] - | | | | | | LABORATORY | | + + + + + + | Hematocrit | 29.3 (L) | 34.0 - 47.0 % | [facility] | | | | | | [facility] | | | | | | [facility] | | | | | | [facility] - | | | | | | LABORATORY | | + + + + + + | MCV | 82.1 (L) | 83.0 - 101.0 fL | [facility] | | | | | | [facility] | | | | | | [facility] | | | | | | [facility] - | | | | | | LABORATORY | | + + + + + + | MCH | 27.9 (L) | 28.0 - 35.0 pg | [facility] | | | | | | [facility] | | | | | | [facility] | | | | | | [facility] - | | | | | | LABORATORY | | + + + + + + | MCHC | 34.0 | 32.0 - 36.0 | [facility] | | | | | g/dL | [facility] | | | | | | [facility] | | | | | | CENTER - | | | | | | LABORATORY | | + + + + + + | RDW-CV | 14.9 | <15.0 % | [facility] | | | | | | [facility] | | | | | | [facility] | | | | | | [facility] - | | | | | | LABORATORY | | + + + + + + | Platelet | 168 | 140 - 440 K/uL | [facility] | | | Count | | | [facility] | | | | | | [facility] | | | | | | C[facility] - | | | | | | LABORATORY | | + + + + + + | MPV | 9.9 | fL | [facility] | | | | [...] [address] | [place] | [phone] | | [facility] | | [address] | | | - LABORATORY | | | | + + + + + Drugs of Abuse, Screen, Urine (11/24/2015 11:44 PM PDT) + + + + + + | Component | Value | Ref Range | Performed | Pathologist | | | | | At | Signature | + + + + + + | Amphetamine | Negative | Negative | [facility] | | | Screen, | | | [facility] | | | U[facility] | | | [facility] | | | | | | CENTER - | | | | | | LABORATORY | | + + + + + + | Barbiturate | Negative | Negative | [facility] | | | s Screen, | | | [facility] | | | Urine | | | MEDICAL | | | | | | CENTER - | | | | | | LABORATORY | | + + + + + + | Benzodiazep | Negative | Negative | [facility] | | | trey | | | [facility] | | | Screen, | | | MEDICAL | | | Urine | | | CENTER - | | | | | | LABORATORY | | + + + + + + | Cannabinoid | Negative | Negative | [facility] | | | s Screen, | | | [facility] | | | Urine | | | MEDICAL | | | | | | CENTER - | | | | | | LABORATORY | | + + + + + + | Cocaine | Negative | Negative | [facility] | | | Screen, | | | [facility] | | | Urine | | | MEDICAL | | | | | | CENTER - | | | | | | LABORATORY | | + + + + + + | Methadone | Negative | Negative | [facility] | | | Screen, | | | [facility] | | | Urine | | | MEDICAL | | | | | | CENTER - | | | | | | LABORATORY | | + + + + + + | Opiates | Negative | Negative | [facility] | | | Screen, | | | [facility] | | | Urine | | | MEDICAL | | | | | | CENTER - | | | | | | LABORATORY | | + + + + + + + + | Specimen | + + | Urine | + + + + + + + | Performing | Address | City/State/Zipcode | Phone Number | | Organization | | | | + + + + + | [facility] | [address] | [place] | [phone] | | [facility] | | [address] | | | - LABORATORY | | | | + + + + + Type and Screen (11/24/2015 6:41 AM PDT) + + + + + + | Component | Value | Ref Range | Performed | Pathologist | | | | | At | Signature | + + + + + + | ABO | O | | [facility] | | | | | | [facility] | | | | | | [facility] | | | | | | CENTER - | | | | | | BLOOD BANK | | + + + + + + | Rh Type | Positive | | [facility] | | | | | | [facility] | | | | | | MEDICAL | | | | | | CENTER - | | | | | | BLOOD BANK | | + + + + + + | Antibody | Negative | | [facility] | | | Screen | | | [facility] | | | | | | MEDICAL | | | | | | CENTER - | | | | | | BLOOD BANK | | + + + + + + + + | Specimen | + + | Blood specimen | | (specimen) | + + + + + + + | Performing | Address | City/State/Zipcode | Phone Number | | Organization | | | | + + + + + | [facility] | [address] | [place] | | | [facility] | | [address] | | | - BLOOD BANK | | | | + + + + + CBC with Differential (11/24/2015 6:41 AM PDT) + + + + + + | Component | Value | Ref Range | Performed | Pathologist | | | | | At | Signature | + + + + + + | WBC | 12.1 (H) | 4.0 - 11.0 K/uL | [facility] | | | | | | [facility] | | | | | | [facility] | | | | | | [facility] - | | | | | | LABORATORY | | + + + + + + | RBC | 4.35 | 3.70 - 5.20 | [facility] | | | | | M/uL | [facility] | | | | | | MEDICAL | | | | | | CENTER - | | | | | | LABORATORY | | + + + + + + | Hemoglobin | 11.6 | 11.5 - 16.0 | [facility] | | | | | g/dL | [facility] | | | | | | MEDICAL | | | | | | CENTER - | | | | | | LABORATORY | | + + + + + + | Hematocrit | 35.9 | 34.0 - 47.0 % | [facility] | | | | | | [facility] | | | | | | [facility]ICAL | | | | | | CENTER - | | | | | | LABORATORY | | + + + + + + | MCV | 82.5 (L) | 83.0 - 101.0 fL | [facility] | | | | | | [facility] | | | | | | [facility]ICAL | | | | | | CENTER - | | | | | | LABORATORY | | + + + + + + | MCH | 26.7 (L) | 28.0 - 35.0 pg | [facility] | | | | | | [facility] | | | | | | [facility] | | | | | | CENTER - | | | | | | LABORATORY | | + + + + + + | MCHC | 32.4 | 32.0 - 36.0 | [facility] | | | | | g/dL | [facility] | | | | | | MEDICAL | | | | | | CENTER - | | | | | | LABORATORY | | + + + + + + | RDW-CV | 14.8 | <15.0 % | [facility] | | | | | | [facility] | | | | | | [facility]ICAL | | | | | | CENTER - | | | | | | LABORATORY | | + + + + + + | Platelet | 226 | 140 - 440 K/uL | [facility] | | | Count | | | [facility] | | | | | | MEDICAL | | | | | | CENTER - | | | | | | LABORATORY | | + + + + + + | MPV | 9.8 | fL | [facility] | | | | | | [facility] | | | | | | MEDICAL | | | | | | CENTER - | | | | | | LABORATORY | | + + + + + + | % | 67.9 | 45.0 - 82.0 % | [facility] | | | Neutrophils | | | [facility] | | | | | | MEDICAL | | | | | | CENTER - | | | | | | LABORATORY | | + + + + + + | % | 20.2 | 20.0 - 45.0 % | [facility] | | | Lymphocytes | | | [facility] | | | | | | MEDICAL | | | | | | CENTER - | | | | | | LABORATORY | | + + + + + + | % Monocytes | 8.7 | 4.0 - 12.0 % | [facility] | | | | | | [facility] | | | | | | MEDICAL | | | | | | CENTER - | | | | | | LABORATORY | | + + + + + + | % | 2.9 | 0.0 - 5.0 % | [facility] | | | Eosinophils | | | [facility] | | | | | | MEDICAL | | | | | | CENTER - | | | | | | LABORATORY | | + + + + + + | % Basophils | 0.3 | 0.0 - 1.0 % | [facility] | | | | | | [facility] | | | | | | MEDICAL | | | | | | CENTER - | | | | | | LABORATORY | | + + + + + + | Absolute | 8.20 | 1.80 - 8.50 | [facility] | | | Neutrophils | | K/uL | [facility] | | | | | | MEDICAL | | | | | | CENTER - | | | | | | LABORATORY | | + + + + + + | Absolute | 2.40 | 0.60 - 3.20 | [facility] | | | Lymphocytes | | K/uL | [facility] | | | | | | MEDICAL | | | | | | CENTER - | | | | | | LABORATORY | | + + + + + + | Absolute | 1.10 (H) | 0.00 - 1.00 | [facility] | | | Monocytes | | K/uL | [facility] | | | | | | MEDICAL | | | | | | CENTER - | | | | | | LABORATORY | | + + + + + + | Absolute | 0.30 | 0.00 - 0.40 | [facility] | | | Eosinophils | | K/uL | [facility] | | | | | | MEDICAL | | | | | | CENTER - | | | | | | LABORATORY | | + + + + + + | Absolute | 0.00 | 0.00 - 0.10 | [facility] | | | Basophils | | K/uL | [facility] | | | | | | MEDICAL [...] [address] | [place] | [phone] | | [facility] | | [address] | | | - LABORATORY | | | | + + + + + Culture,Strep Group B (11/18/2015) + + + + + + | Component | Value | Ref Range | Performed | Pathologist | | | | | At | Signature | + + + + + + | GBS result, | Positive (A) | Negative | | | | External | | | | | + + + + + + + + | Specimen | + + | Specimen from | | genital system | | (specimen) - | | Vagina/Rectum | + + Rubella Ab, IgG (07/31/2015) + + + + + + | Component | Value | Ref Range | Performed | Pathologist | | | | | At | Signature | + + + + + + | Rubella, | Equivocal | | | | | External | | | | | + + + + + + + + | Specimen | + + | Blood specimen | | (specimen) | + + Rapid Plasma Reagin, Qual (07/26/2015) + + + + + + | Component | Value | Ref Range | Performed | Pathologist | | | | | At | Signature | + + + + + + | RPR, | Non-Reactive | Non-Reactive | | | | External | | | | | + + + + + + + + | Specimen | + + | Blood specimen | | (specimen) | + + Hepatitis B Surface Ag (07/26/2015) + + + + + + | Component | Value | Ref Range | Performed | Pathologist | | | | | At | Signature | + + + + + + | HBsAg, | Non-Reactive | Non-Reactive | | | | External | | | | | + + + + + + + + | Specimen | + + | Blood specimen | | (specimen) | + + ABO Rh (07/26/2015) + + + + + + | Component | Value | Ref Range | Performed | Pathologist | | | | | At | Signature | + + + + + + | ABO, | O | | | | | External | | | | | + + + + + + | Rh, | Positive | | | | | External | | | | | + + + + + + + + | Specimen | + + | Blood specimen | | (specimen) | + + Antibody Screen (07/26/2015) + + + + + + | Component | Value | Ref Range | Performed | Pathologist | | | | | At | Signature | + + + + + + | Antibody | Negative | Negative | | | | Screen, | | | | | | External | | | | | + + + + + + + + | Specimen | + + | Blood specimen | | (specimen) | + + HIV 1 and 2 Ab, Reflex (07/25/2015) + + + + + + | Component | Value | Ref Range | Performed | Pathologist | | | | | At | Signature | + + + + + + | HIV, | Non-Reactive | Non-Reactive | | | | External | | | | | + + + + + + + + | Specimen | + + | Blood specimen | | (specimen) | + + documented in this encounter Visit Diagnoses + + | Diagnosis | + + | delivery delivered - Primary delivery, without mention of | | indication, delivered, with or without mention of antepartum condition | + + | Term , repeat | + + | Asthma Unspecified asthma | + + documented in this encounter Administered Medications + +--------+ +--------+------+------+ | Medication Order | MAR | Action | Dose | Rate | Site | | | Action | Date | | | | + +--------+ +--------+------+------+ | albuterol 5 mg/mL concentrated | Given | 11/26/19 | 2.5 mg | | | | nebulizer solution 2.5 mg 2.5 | | 16 8:06 | | | | | mg, Nebulization, RT BID, First | | AM PDT | | | | | dose on Tue11/26/15 at 0900, RT | | | | | | | will administer., | | | | | | + +--------+ +--------+------+------+ +---+---+ | | | +---+---+ + +-------+ +--------+---+---+ | budesonide (PULMICORT) 0.5 mg/2 | Given | 11/26/19 | 0.5 mg | | | | mL nebulizer solution 0.5 mg | | 16 8:06 | | | | | 0.5 mg, Nebulization, RT BID, | | AM PDT | | | | | First dose on Tue11/26/15 at | | | | | | | 0900, RT will administer. Shake | | | | | | | well. Protect from light. Rinse | | | | | | | mouth after use., | | | | | | + +-------+ +--------+---+---+ +---+---+ | | | +---+---+ + +-------+ +--------+---+---+ | citric acid-sodium citrate | Given | 11/24/19 | 30 mLs | | | | (BICITRA) liquid 30 mL 30 mL, | | 16 6:44 | | | | | Oral, ONCE, 11/24/15 at 0645, | | AM PDT | | | | | For 1 dose, Dilute in 1 to 3 | | | | | | | ounces water prior to | | | | | | | administration. With Reglan | | | | | | | prior to surgery., Pre-op | | | | | | + +-------+ +--------+---+---+ +---+---+ | | | +---+---+ + +-------+ +--------+---+---+ | docusate sodium (COLACE) | Given | 11/25/19 | 200 mg | | | | capsule 200 mg 200 mg, Oral, | | 16 10:41 | | | | | NIGHTLY, First dose on Mon | | PM PDT | | | | | 11/24/15 at 2100, Hold for loose | | | | | | | stools, | | | | | | + +-------+ +--------+---+---+ +-------+ +--------+---+---+ | Given | 11/24/19 | 200 mg | | | | | 16 8:27 | | | | | | PM PDT | | | | +-------+ +--------+---+---+ +---+---+ | | | +---+---+ + +-------+ +---------+---+---+ | docusate-elmerna (NARINDEROT-S) | Given | 11/26/19 | 2 | | | | 50-8.6 mg per tablet 2 tablet 2 | | 16 10:56 | tablets | | | | tablet, Oral, 2 TIMES DAILY, | | AM PDT | | | | | First dose on Tue11/24/15 at 1130 | | | | | | + +-------+ +---------+---+---+ +-------+ +---------+---+---+ | Given | 11/25/19 | 2 | | | | | 16 10:36 | tablets | | | | | AM PDT | | | | +-------+ +---------+---+---+ | Given | 11/24/19 | 2 | | | | | 16 8:27 | tablets | | | | | PM PDT | | | | +-------+ +---------+---+---+ +---+---+ | | | +---+---+ + +-------+ + +---+---+ | HYDROcodone-acetaminophen | Given | 11/26/19 | 1 tablet | | | | (NORCO) 5-325 mg per tablet 1-2 | | 16 2:09 | | | | | tablet 1-2 tablet, Oral, EVERY 4 | | PM PDT | | | | | HOURS PRN, Pain, Starting Mon | | | | | | | 11/24/15 at 1100, If ineffective | | | | | | | or not tolerated, use oxycodone | | | | | | | if ordered., Post-op/Phase II | | | | | | + +-------+ + +---+---+ +-------+ + +---+---+ | Given | 11/25/19 | 1 tablet | | | | | 16 7:25 | | | | | | PM PDT | | | | +-------+ + +---+---+ | Given | 11/25/19 | 1 tablet | | | | | 16 10:37 | | | | | | AM PDT | | | | +-------+ + +---+---+ +---+---+ | | | +---+---+ + +-------+ +--------+---+---+ | ibuprofen (ADVIL, MOTRIN) | Given | 11/26/19 | 800 mg | | | | tablet 800 mg 800 mg, Oral, | | 16 2:09 | | | | | EVERY 8 HOURS (3 times per day), | | PM PDT | | | | | First dose on Tue11/25/15 at | | | | | | | 1400, If urine output is less | | | | | | | than 240 mL/8 hours (30 mL/hr) or | | | | | | | if signs of bleeding, contact MD | | | | | | | and hold ibuprofen., | | | | | | + +-------+ +--------+---+---+ +-------+ +--------+---+---+ | Given | 11/26/19 | 800 mg | | | | | 16 6:17 | | | | | | AM PDT | | | | +-------+ +--------+---+---+ | Given | 11/25/19 | 800 mg | | | | | 16 10:42 | | | | | | PM PDT | | | | +-------+ +--------+---+---+ +---+---+ | | | +---+---+ + +-------+ +-------+---+---+ | ketorolac (TORADOL) injection | Given | 11/25/19 | 30 mg | | | | 30 mg 30 mg, Intravenous, EVERY | | 16 5:35 | | | | | 6 HOURS (4 times per day), First | | AM PDT | | | | | dose on Tue11/24/15 at 1200, For | | | | | | | 24 hours, If urine output is less | | | | | | | than 240 mL/8 hours (30 mL/hr) | | | | | | | or if signs of bleeding, contact | | | | | | | MD and hold ketorolac., | | | | | | | | | | | | | + +-------+ +-------+---+---+ +-------+ +-------+---+---+ | Given | 11/24/19 | 30 mg | | | | | 16 11:07 | | | | | | PM PDT | | | | +-------+ +-------+---+---+ | Given | 11/24/19 | 30 mg | | | | | 16 4:18 | | | | | | PM PDT | | | | +-------+ +-------+---+---+ +---+---+ | | | +---+---+ + +---------+ +---+---+---+ | lactated ringers (LR) infusion | New Bag | 11/24/19 | | | | | at 125 mL/hr, Intravenous, | | 16 8:23 | | | | | CONTINUOUS, Starting 11/24/15 | | AM PDT | | | | | at 0645, Pre-op | | | | | | + +---------+ +---+---+---+ +---------+ +---+-------+---+ | New Bag | 11/24/19 | | 125 | | | | 16 6:44 | | mL/hr | | | | AM PDT | | | | +---------+ +---+-------+---+ +---+---+ | | | +---+---+ + +---------+ +---+-------+---+ | lactated ringers (LR) infusion | New Bag | 11/24/19 | | 100 | | | at 100 mL/hr, Intravenous, | | 16 11:07 | | mL/hr | | | CONTINUOUS, Starting 11/24/15 | | AM PDT | | | | | at 1130, Discontinue IV fluid | | | | | | | when tolerating PO well, | | | | | | | Post-op/Phase II | | | | | | + +---------+ +---+-------+---+ +---+---+ | | | +---+---+ + +-------+ +---------+---+ + | vehfazy-njyyk-lmadpkv (M-M-R | Given | 11/26/19 | 0.5 mLs | | Arm-Righ | | II) vaccine injection 0.5 mL 0.5 | | 16 6:31 | | | t Upper | | mL, Subcutaneous, ONE TIME | | PM PDT | | | | | VACCINE, 11/24/15 at 1130, For | | | | | | | 1 dose, Administer prior to | | | | | | | discharge if titer | | | | | | | non-immune and patient agrees | | | | | | | (notify physician if patient | | | | | | | refuses). Nurse to discontinue if | | | | | | | not indicated., | | | | | | + +-------+ +---------+---+ + +---+---+ | | | +---+---+ + +-------+ +-------+---+---+ | metoclopramide (REGLAN) 5 mg/mL | Given | 11/24/19 | 10 mg | | | | injection 10 mg 10 mg, | | 16 6:44 | | | | | Intravenous, ONCE, 11/24/15 at | | AM PDT | | | | | 0645, For 1 dose, With Bicitra | | | | | | | prior to surgery Protect from | | | | | | | light., Pre-op | | | | | | + +-------+ +-------+---+---+ +---+---+ | | | +---+---+ + +-------+ +-------+---+---+ | metoclopramide (REGLAN) 5 mg/mL | Given | 11/25/19 | 10 mg | | | | injection 10 mg 10 mg, | | 16 8:37 | | | | | Intravenous, EVERY 4 HOURS PRN, | | PM PDT | | | | | Nausea, Vomiting, Starting Mon | | | | | | | 11/24/15 at 1100, Use if | | | | | | | ondansetron and prochlorperazine | | | | | | | ineffective after 30 minutes or | | | | | | | not ordered Protect from light., | | | | | | | | | | | | | + +-------+ +-------+---+---+ +---+---+ | | | +---+---+ + +-------+ +------+---+---+ | nalbuphine (NUBAIN) injection | Given | 11/24/19 | 5 mg | | | | 2.5-5 mg 2.5-5 mg, Intravenous, | | 16 8:27 | | | | | EVERY 4 HOURS PRN, Itching, | | PM PDT | | | | | Starting 11/24/15 at 1101, For | | | | | | | 24 hours, For itching, use the | | | | | | | following sequence if meds are | | | | | | | ordered: Give nalbuphine first. | | | | | | | If maximum dose given or | | | | | | | ineffective, give | | | | | | | diphenhydramine, Post-op/Phase II | | | | | | + +-------+ +------+---+---+ +-------+ +------+---+---+ | Given | 11/24/19 | 5 mg | | | | | 16 4:33 | | | | | | PM PDT | | | | +-------+ +------+---+---+ +---+---+ | | | +---+---+ + +-------+ +------+---+---+ | nalbuphine (NUBAIN) injection 5 | Given | 11/24/19 | 5 mg | | | | mg 5 mg, Intravenous, ONCE PRN, | | 16 9:15 | | | | | Itching, Starting 11/24/15 at | | AM PDT | | | | | 0832, For 1 dose, Give | | | | | | | nalbuphine 1st, if ineffective, | | | | | | | administer diphenhydrAMINE (if | | | | | | | ordered)., Recovery/Phase I | | | | | | + +-------+ +------+---+---+ +---+---+ | | | +---+---+ + +-------+ +------+---+---+ | ondansetron (ZOFRAN) injection | Given | 11/25/19 | 4 mg | | | | 4 mg 4 mg, Intravenous, EVERY 6 | | 16 11:04 | | | | | HOURS PRN, Nausea, Vomiting, | | PM PDT | | | | | Starting 11/24/15 at 1100, | | | | | | | First line agent, | | | | | | + +-------+ +------+---+---+ +-------+ +------+---+---+ | Given | 11/24/19 | 4 mg | | | | | 16 1:09 | | | | | | PM PDT | | | | +-------+ +------+---+---+ +---+---+ | | | +---+---+ + +---------+ + +-------+---+ | oxytocin in saline (PITOCIN) 30 | New Bag | 11/24/19 | 250 | 250 | | | units/500 mL (60 nick-units/mL) | | 16 9:13 | nick-un | mL/hr | | | infusion 0-999 nick-units/min | | AM PDT | its/min | | | | (0-999 mL/hr), at 0-999 mL/hr, | | | | | | | Intravenous, CONTINUOUS PRN, to | | | | | | | control bleeding, Starting Mon | | | | | | | 11/24/15 at 0904, For 24 hours, | | | | | | | Stop if bleeding is controlled, | | | | | | | bladder not distended, | | | | | | | Post-op/Phase II | | | | | | + +---------+ + +-------+---+ +---+---+ | | | +---+---+ + +-------+ +-------+---+---+ | simethicone (MYLICON) chewable | Given | 11/25/19 | 80 mg | | | | tablet 80 mg 80 mg, Oral, 4 | | 16 10:44 | | | | | TIMES DAILY PRN, Gas, for | | PM PDT | | | | | indigestion, dyspepsia, Starting | | | | | | | 11/24/15 at 1100, | | | | | | | Post-op/Phase II | | | | | | + +-------+ +-------+---+---+ +-------+ +-------+---+---+ | Given | 11/25/19 | 80 mg | | | | | 16 1:56 | | | | | | PM PDT | | | | +-------+ +-------+---+---+ +---+---+ | | | +---+---+ + +-------+ +---------+---+ + | ncuuoyb-sasbhmzucc-hfilckcgl | Given | 05/25/20 | 0.5 mLs | | Deltoid- | | pertussis (ADACEL, Tdap) vaccine | | 16 6:37 | | | Left | | injection 0.5 mL 0.5 mL, | | PM PDT | | | | | Intramuscular, ONE TIME VACCINE, | | | | | | | 11/24/15 at 1130, For 1 dose, | | | | | | | If patient has never received | | | | | | | TDaP or unknown status, | | | | | | | administer vaccine by day of | | | | | | | discharge, otherwise nurse to | | | | | | | discontinue order., | | | | | | + +-------+ +---------+---+ + +---+---+ | | | +---+---+ documented in this encounter
--- OUTSIDE RECORDS SUMMARY | ~2019-12-08 | XMS | Encounter Summary ---
Demographics + + + | Address | [address] | | | [place] [address] | + + + | Home Phone | | + + + | Preferred Language | Unknown | + + + | Marital Status | Single | + + + | Gnosticist Affiliation | 1041 | + + + | Race | Unknown | + + + | Ethnic Group | Unknown | + + + Author + + + | Author | [facility] | | | and [place] | + + + | Organization | [facility] | | [...] | | | | | [place] [address] | | + + + + + | Vanessa Lawton | ECON | [address] | | | | | [place] [address] | | + + + + + Care Team Providers + +------+ + | Care Dough Braker Name | Role | Phone | + +------+ + PCP | Unavailable | + +------+ + Encounter Details +--------+ + + + + | Date | Type | Department | Care Team | Description | +--------+ + + + + | 02/01/ | Hospital | [facility] | | | | 1992 | Encounter | [facility] EM[facility] | | | | | | CENTER [address] | | | | | | [place] | | | | | | [address] | | | | | | [phone] | | | +--------+ + + + [...]
--- OUTSIDE RECORDS SUMMARY | ~2019-12-08 | XMS | Encounter Summary ---
Demographics + + + | Address | [address] | | | [place] [address] | + + + | Home Phone | | + + + | Preferred Language | Unknown | + + + | Marital Status | Single | + + + | Faith Affiliation | 1041 | + + + | Race | Unknown | + + + | Ethnic Group | Unknown | + + + Author + + + | Author | [facility] | | | and [place] | + + + | Organization | [facility] | | | and [...] | | | | | [place] [address] | | + + + + + | Vanessa Lawton | ECON | [address] | | | | | [place] [address] | | + + + + + Care Team Providers + +------+ + | Care Dyno Technician Name | Role | Phone | + +------+ + PCP | Unavailable | + +------+ + Encounter Details +--------+ + + + + | Date | Type | Department | Care Team | Description | +--------+ + + + + | 11/22/ | Hospital | [facility] | | | | 2006 - | Encounter | [facility] | | | | | | [facility] [address] | | | | 11/25/ | | [place], | | | | 2006 | | [place] [address] | | | | | | [phone] | | | +--------+ + + + [...]
--- OUTSIDE RECORDS SUMMARY | ~2019-12-08 | XMS | Encounter Summary ---
Demographics + + + | Address | [address] | | | [place] [address] | + + + | Home Phone | | + + + | Preferred Language | Unknown | + + + | Marital Status | Single | + + + | Muslim Affiliation | 1041 | + + + | Race | Unknown | + + + | Ethnic Group | Unknown | + + + Author + + + | Author | [facility] | | | and [place] | + + + | Organization | [facility] | | | and [place] [...] | | | | | [place] [address] | | + + + + + | Vanessa Lawton | ECON | [address] | | | | | [place] [address] | | + + + + + Care Team Providers + +------+ + | Care Rn Recruitment Name | Role | Phone | + +------+ + PCP | Unavailable | + +------+ + Encounter Details +--------+ + + + + | Date | Type | Department | Care Team | Description | +--------+ + + + + | 09/26/ | Hospital | [facility] | Ignacia Peterson MD | | | 2011 - | Encounter | MED CTR EM[facility]ENCY | [place] | | | | | CENTER [address] | | | | 09/27/ | | [place] | | | | 2011 | | [address] | | | | | | [phone] | | | +--------+ + + + [...] + | [facility] | [address] | [place], [place] | [phone] | | [facility] | | [address] | | | - LABORATORY | | | | + + + + + | [facility] | [address] | [place], [place] | | | [facility] | | [address] [place] [address] | | | - LABORATORY | | [...] + | [facility] | [address] | [place], [place] | [phone] | | [facility] | | [address] | | | - LABORATORY | | | | + + + + + | [facility] | [address] | [place], [place] | | | [facility] | | [address], [facility] | | | - LABORATORY | | [...] + | [facility] | [address] | [place] | [phone] | | [facility] | | [address] | | | - LABORATORY | | | | + + + + + | [facility] | [address] | [place], [place] | | | [facility] | | [address] [place] [address] | | | - LABORATORY | | [...] + | [facility] | [address] | [place] | [phone] | | [facility] | | [address] | | | - LABORATORY | | | | + + + + + | [facility] | [address] | [place] | | | [facility] | | [address], [facility] | | | - LABORATORY | | [...] + | [facility] | [address] | [place], [place] | [phone] | | [facility] | | [address] | | | - LABORATORY | | | | + + + + + | [facility] | [address] | [place], [place] | | | [facility] | | [id number] [place] [address] | | | - LABORATORY | | [...] + | [facility] | [address] | [place] | [phone] | | [facility] | | [address] | | | - LABORATORY | | | | + + + + + | [facility] | [address] | [place], [place] | | | [facility] | | [address], [facility] | | | - LABORATORY | | [...] + | [facility] | [address] | [place] | [phone] | | [facility] | | [address] | | | - LABORATORY | | | | + + + + + | [facility] | [address] | [place] | | | [facility] | | [address], [facility] | | | - LABORATORY | | | | + + + + + documented in this encounter Visit Diagnoses Not on filedocumented in this encounter"
--- OUTSIDE RECORDS SUMMARY | ~2019-12-08 | XMS | Encounter Summary ---
Demographics + + + | Address | [address] | | | [place] [address] | + + + | Home Phone | | + + + | Preferred Language | Unknown | + + + | Marital Status | Single | + + + | Anabaptism Affiliation | 1041 | + + + | Race | Unknown | + + + | Ethnic Group | Unknown | + + + Author + + + | Author | [facility] | | | and [place] | + + + | Organization | [facility] | | | and [...] | | | | | [place] [address] | | + + + + + | Vanessa Lawton | ECON | [address] | | | | | [place] [address] | | + + + + + Care Team Providers + +------+ + | Care Nuclear Medicine Officer Name | Role | Phone | + +------+ + PCP | Unavailable | + +------+ + Encounter Details +--------+ + + + + | Date | Type | Department | Care Team | Description | +--------+ + + + + | 10/16/ | Hospital | [facility] | | | | 2008 | Encounter | MED CTR EMERGENCY | | | | | | CENTER [address] | | | | | | [place] | | | | | | [address] | | | | | | [phone] | | | +--------+ + + + [...]
--- OUTSIDE RECORDS SUMMARY | ~2019-12-08 | XMS | Encounter Summary ---
Demographics + + + | Address | [address] | | | [place] [address] | + + + | Home Phone | | + + + | Preferred Language | Unknown | + + + | Marital Status | Single | + + + | Worship Affiliation | 1041 | + + + | Race | Unknown | + + + | Ethnic Group | Unknown | + + + Author + + + | Author | [facility] | | | and [place] | + + + | Organization | [facility] [...] | | | | | [place] [address] | | + + + + + | Vanessa Lawton | ECON | [address] | | | | | [place] [address] | | + + + + + Care Team Providers + +------+ + | Care Public Health Analyst Name | Role | Phone | + +------+ + PCP | Unavailable | + +------+ + Encounter Details +--------+ + + + + | Date | Type | Department | Care Team | Description | +--------+ + + + + | 05/17/ | Hospital | [facility] | Nasim [place], | | | 2009 - | Encounter | MED [facility]Y | [address] [facility] | | | | [place] [address] | [place], [place] | | | 05/18/ | | [place], [place] | [address] | | | 2009 | | [address] | | | | | | [phone] | | | +--------+ + + + [...]
--- OUTSIDE RECORDS SUMMARY | ~2019-12-08 | XMS | Encounter Summary ---
Demographics + + + | Address | [address] | | | [place] [address] | + + + | Home Phone [...] | Organization | [facility] | | | and [place] [...] | | | | | [place] [address] | | + + + + + | Vanessa Lawton | ECON | [address] | | | | | [place] [address] | | + + + + + Care Team Providers + +------+ + | Care Benefits Assistant Name | Role | Phone | + +------+ + PCP | Unavailable | + +------+ + Encounter Details +--------+ + + + + | Date | Type | Department | Care Team | Description | +--------+ + + + + | 02/24/ | Hospital | [facility] | | | | 2008 | Encounter | MED CTR EMERGENCY | | | | | | CENTER [address] | | | | | | [place] | | | | | | [address] | | | | | | [phone] | | | +--------+ + + + [...]
--- OUTSIDE RECORDS SUMMARY | ~2019-12-08 | XMS | Encounter Summary ---
Demographics + + + | Address | [address] | | | [place] [address] | + + + | Home Phone | | + + + | Preferred Language | Unknown | + + + | Marital Status | Single | + + + | Congregational Affiliation | 1041 | + + + [...] | | | | | [place] [address] | | + + + + + | Vanessa Lawton | ECON | [address] | | | | | [place] [address] | | + + + + + Care Team Providers + +------+ + | Care Infection Prevention Coordinator Name | Role | Phone | + +------+ + PCP | Unavailable | + +------+ + Encounter Details +--------+ + + + + | Date | Type | Department | Care Team | Description | +--------+ + + + + | 10/21/ | Hospital | [facility] | | | | 2009 | Encounter | MED CTR EMERGENCY | | | | | | CENTER [address] | | | | | | [place] | | | | | | [address] | | | | | | [phone] | | | +--------+ + + + [...]
--- OUTSIDE RECORDS SUMMARY | ~2019-12-08 | XMS | Encounter Summary ---
Demographics + + + | Address | [address] | | | [place] [address] | + + + | Home Phone | | + + + | Preferred Language | Unknown | + + + | Marital Status | Single | + + + | Jewish Affiliation | 1041 | + + + | Race | Unknown | + + + | Ethnic Group | Unknown | + + + Author + + + | Author | [facility] | | | and [place] | + + + | Organization | [facility] | | [...] | | | | | [place] [address] | | + + + + + | Vanessa Lawton | ECON | [address] | | | | | [place] [address] | | + + + + + Care Team Providers + +------+ + | Care Osteopathy Doctor Name | Role | Phone | + +------+ + PCP | Unavailable | + +------+ + Encounter Details +--------+ + + + + | Date | Type | Department | Care Team | Description | +--------+ + + + + | 05/28/ | Hospital | [facility] | | | | 1995 - | Encounter | MED CTR MED ONC | | | | | | [address] [place] | | | | 05/30/ | | [place] [address] | | | | 1995 | | [phone] | | | +--------+ + + + [...]
--- OUTSIDE RECORDS SUMMARY | ~2019-12-08 | XMS | Encounter Summary ---
Demographics + + + | Address | [address] | | | [place] [address] | + + + | Home Phone | | + + + | Preferred Language | Unknown | + + + | Marital Status | Single | + + + | Zoroastrianism Affiliation | 1041 | + + + | Race | Unknown | + + + | Ethnic Group | Unknown | + + + Author + + + | Author | [facility] | | | and [place] | + + + | Organization | [facility] | | | and [place] [...] | | | | | [place] [address] | | + + + + + | Vanessa Lawton | ECON | [address] | | | | | [place] [address] | | + + + + + Care Team Providers + +------+ + | Care Meat Team Member Name | Role | Phone | + +------+ + PCP | Unavailable | + +------+ + Encounter Details +--------+ + + + + | Date | Type | Department | Care Team | Description | +--------+ + + + + | 07/03/ | Hospital | [facility] | Kuldip Perduewinnie | | | 2010 | Encounter | MED CTR EMERGENCY | MD [address] | | | | | [place] [address] | [facility] | | | | | [place], [place] | [place] [address] | | | | | [address] | [phone] | | | | | [phone] | | | +--------+ + + + [...]
--- OUTSIDE RECORDS SUMMARY | ~2019-12-08 | XMS | Encounter Summary ---
Demographics + + + | Address | [address] | | | [place] [address] | + + + | Home Phone | | + + + | Preferred Language | Unknown | + + + | Marital Status | Single | + + + | Synagogue Affiliation | 1041 | + + + | Race | Unknown | + + + | Ethnic Group | Unknown | + + + Author + + + | Author | [facility] | | | and [place] | + + + | Organization | [facility] | | | and [place] [...] | | | | | [place] [address] | | + + + + + | Vanessa Lawton | ECON | [address] | | | | | [place] [address] | | + + + + + Care Team Providers + +------+ + | Care Rehabilitation Liaison Name | Role | Phone | + +------+ + | No, Physician | PCP | Unavailable | + +------+ + Reason for Visit +--------+ + | Reason | Comments | +--------+ + | Asthma | Exam 6/ Cough x3 months | +--------+ + Encounter Details +--------+ + + + + | Date | Type | Department | Care Team | Description | +--------+ + + + + | 09/25/ | Clinical | [facility] | Cody Thornton MD | Severe persistent | | 2020 | Support | CARE [address] | [address] | asthma with | | | | [place] | [place] | exacerbation | | | | [address] | [address] | (Primary Dx); | | | | [phone] | | Pneumonia of right | | | | | | middle lobe due to | | | | | | infectious organism | +--------+ + + + + Social [...] + + + | Blood Pressure | 140/85 | 09/26/2019 1:50 PM | | | | | PDT | | + + + + + | Pulse | 128 | 09/26/2019 3:11 PM | | | | | PDT | | + + + + + | Temperature | 36.6 C (97.9 F) | 09/26/2019 1:50 PM | | | | | PDT | | + + + + + | Respiratory Rate | 28 | 09/26/2019 3:11 PM | | | | | PDT | | + + + + + | Oxygen Saturation | 96% | 09/26/2019 3:11 PM | | | | | PDT | | + + + + + | Inhaled Oxygen | - | - | | | Concentration | | | | + + + + + | Weight | - | - | | + + + + + | Height | - | - | | + + + + + | Body Mass Index | - | - | | + + + + + [...] documented as of this encounter Progress Notes Cody Thornton MD - 09/26/2019 2:00 PM PDT Patient ID: Martha Lawton is a 29 y.o. female. This patient was examined in urgent care on 09/12/2019 with what was apparently an acute exacerbation of chronic bron hial asthma. At that time she was treated with a prednisone pulse for 4 days, and Zithromax . She did experience some improvement initially, but became worse when she was unable to fi nd her inhaler. When she finished her prednisone pulse, she seemed to be worse again, parti cularly in terms of severity of wheezing, breathlessness, sensation of wheezing and smotheri ng. She has not had fever at any juncture during this illness. Denies myalgia. Currently she is quite short of breath with even minimal exertion. HPI Patient's medications, allergies, past medical, surgical, social and family histories were obtained and reviewed as appropriate. Review of Systems no nausea, vomiting, diarrhea, symptoms. Recently quit smoking. Objective: BP 140/85 | Pulse 102 | Temp 36.6 C (97.9 F) (Oral) | Resp (!) 44 | LMP 09/05/2019 | SpO2 94% Physical Exam Vitals signs and nursing note reviewed. Constitutional: General: She is in acute distress (She is in moderate distress even talking, cannot seem to get her breath.). Appearance: She is ill-appearing. HENT: Nose: Nose normal. No congestion. Mouth/Throat: Pharynx: Posterior oropharyngeal erythema present. Cardiovascular: Rate and Rhythm: Regular rhythm. Tachycardia present. Pulses: Normal pulses. Heart sounds: Normal heart sounds. Pulmonary: Effort: Respiratory distress present. Breath sounds: Wheezing present. Comments: Air movement is only fair. She has sticky wheezes primarily in the left upper lobe, although the air movement in both lower lobes is less than optimal. Lymphadenopathy: Cervical: No cervical adenopathy. Neurological: Mental Status: She is alert. She is exercised gently in the room, and her O2 sat remains at 96%. Respirations 24. Chest x-ray shows a right middle lobe pneumonia, and hyperinflation of asthma. Assessment: Bronchopneumonia, right middle lobe Plan: Despite further exercise attempts, she did begin to cough and her SaO2 dropped to 91%. Her cough is uncontrollable. Consulted with Dr. Nasim Sumner at emergency department and Octavia rader is transferred there for evaluation possible admission. This note or portions of this note have been dictated using [facility] s oftware. It will be reviewed for major content but may contain mistakes due to difficultie s with voice recognition software. documented in this enc ounter Plan of Treatment Not on filedocumented as of this encounter Procedures + +--------+ + + + | Procedure Name | Priori | Date/Time | Associated Diagnosis | Comments | | | ty | | | | + +--------+ + + + | CORONAVIRUS | Routin | 09/26/2019 | Severe persistent | Results for this | | (COVID-19) NAAT | e | 3:00 PM | asthma with | procedure are in the | | | | PDT | exacerbation | results section. | + +--------+ + + + | INFLUENZA A AND B | STAT | 09/26/2019 | Severe persistent | Results for this | | RNA, NAAT | | 3:00 PM | asthma with | procedure are in the | | | | PDT | exacerbation | results section. | + +--------+ + + + documented in this encounter Results XR Chest PA and Lateral (09/26/2019 3:01 PM PDT) + + | Specimen | + + | | + + + + + | Impressions | Performed At | + + + | Findings are most compatible with bronchopneumonia. Mild | [facility] | | hyperinflation likely reflecting asthma exacerbation. Dictated and | | | Signed by: Grey Shepherd MD Electronically signed: 09/26/2019 | | | 3:15 PM | | + + + + + + | Narrative | Performed At | + + + | CLINICAL INFORMATION: asthma exacerbation. COMPARISON: 10/02/2012. | [facility] | | FINDINGS: Frontal and lateral views of the chest. Lungs: | | | Patchy airspace opacities at the right middle lobe with questionable | | | component at the lingula. Suggestion of mild bronchial wall | | | thickening. No pleural effusion or pneumothorax. Mild hyperinflation | | | of the lungs. Heart/mediastinum: Cardiac silhouette is of normal | | | size. Central pulmonary vasculature has a normal appearance. | | | Bones: No acute osseous abnormality appreciated. | | + + + + + | Procedure Note | + + | Marbin, Rad Results In - 09/26/2019 3:18 PM PDT CLINICAL INFORMATION: asthma | | exacerbation.COMPARISON: 10/02/2012.FINDINGS: Frontal and lateral views of the chest. | | Lungs: Patchy airspace opacities at the right middle lobe with questionablecomponent at | | the lingula. Suggestion of mild bronchial wall thickening. Nopleural effusion or | | pneumothorax. Mild hyperinflation of the lungs.Heart/mediastinum: Cardiac silhouette is | | of normal size. Central pulmonaryvasculature has a normal appearance.Bones: No acute | | osseous abnormality appreciated.IMPRESSION: Findings are most compatible with | | bronchopneumonia.Mild hyperinflation likely reflecting asthma exacerbation.Dictated and | | Signed by: Grey Shepherd MD Electronically signed: 09/26/2019 3:15 PM | |pleural effusion or pneumothorax. Mild hyperinflation of the lungs. | | | |Heart/mediastinum: Cardiac silhouette is of normal size. Central pulmonary | |vasculature has a normal appearance. | | | |Bones: No acute osseous abnormality appreciated. | | | |IMPRESSION: | | | |Findings are most compatible with bronchopneumonia. | | | |Mild hyperinflation likely reflecting asthma exacerbation. | | | |Dictated and Signed by: Grey Shepherd MD | | Electronically signed: 09/26/2019 3:15 PM | + + + +---------+ + + | Performing | Address | City/State/Zipcode | Phone Number | | Organization | | | | + +---------+ + + | [facility] | | | | + +---------+ + + Influenza A and B RNA, NAAT (09/26/2019 3:00 PM PDT) + + + + + + | Component | Value | Ref Range | Performed | Pathologist | | | | | At | Signature | + + + + + + | Influenza A | Negative | Negative, Test | [facility] | | | PCR | | not performed | [facility] | | | | | [facility] | | + + + + + + | Influenza B | Negative | Negative, Test | [facility] | | | PCR | | not performed | [facility] | | | [facility] | [facility] | | | [facility] | | | | | | [facility] | | + + + + + + + + | Specimen | + + | Tissue - Entire | | nasopharynx (body | | structure) | + + + + + + + | Performing | Address | City/State/Zipcode | Phone Number | | Organization | | | | + + + + + | [facility] | [address] [facility] [address] | [place] | [phone] | | [facility] | | [address] | | | [facility] | | | | + + + + + Coronavirus (COVID-19) PCR (09/26/2019 3:00 PM PDT) + + + + + + | Component | Value | Ref Range | Performed | Pathologist | | | | | At | Signature | + + + + + + | SARS-CoV-2, | Not DetectedComment: | Not Detected | [facility] | | | [facility] | Testing was performed | | LAB [facility] | | | (COVID-19) | using the efren(R) | | - BKR | | | | SARS-CoV-2 test.This | | | | | | test was developed and | | | | | | its performance | | | | | | characteristics | | | | | | determinedby [facility] | | | | | | Laboratories. This test | | | | | | has not been FDA cleared | | | | | | orapproved. This test | | | | | | has been authorized by | | | | | | FDA under an Emergency | | | | | | UseAuthorization (EUA). | | | | | | This test is only | | | | | | authorized for the | | | | | | duration oftime the | | | | | | declaration that | | | | | | circumstances exist | | | | | | justifying | | | | | | theauthorization of the | | | | | | emergency use of in | | | | | | vitro diagnostic tests | | | | | | fordetection of | | | | | | SARS-CoV-2 virus and/or | | | | | | diagnosis of COVID-19 | | | | | | infectionunder section | | | | | | 564(b)(1) of the Act, 21 | | | | | | U.S.C. 360bbb-3(b)(1), | | | | | | unlessthe authorization | | | | | | is terminated or revoked | | | | | | sooner. | | | | + + + + + + + + | Specimen | + + | Tissue - Entire | | nasopharynx (body | | structure) | + + + + + | Narrative | Performed At | + + + | Performed at: 01 - [facility] [address] [facility] [place] | RE[facility] | | [phone] Senior Lead Project Manager: Kavon Bailey MD, Phone: [phone] | [facility] | + + + + + + + + | Performing | Address | City/State/Zipcode | Phone Number | | Organization | | | | + + + + + | [facility] | [address] | [place], [place] | [phone] | | [facility] | [place] | [address] | | + + + + + documented in this encounter Visit Diagnoses + + | Diagnosis | + + | Severe persistent asthma with exacerbation - Primary Unspecified asthma, with | | exacerbation | + + | Pneumonia of right middle lobe due to infectious organism | + + documented in this encounter Additional Health Concerns + + + + | Infection | Noted Time | Resolved Time | + + + + | Rule out COVID-19 | 09/26/2019 2:42 PM | 09/28/2019 12:05 AM | | | PDT | PDT | + + + + | Rule out Respiratory Infection | 09/26/2019 2:56 PM | 09/26/2019 3:49 PM | | | PDT | PDT | + + + + documented as of this encounter"
--- OUTSIDE RECORDS SUMMARY | ~2019-12-08 | XMS | Encounter Summary ---
Demographics + + + | Address | [address] | | | [place] [address] | + + + | Home Phone | | + + + | Preferred Language | Unknown | + + + | Marital Status | Single | + + + | Confucianism Affiliation | 1041 | + + + | Race | Unknown | + + + | Ethnic Group | Unknown | + + + Author + + + | Author | [facility] | | | and [place] | + + + | Organization | [facility] | | | and [...] | | | | | [place] [address] | | + + + + + | Vanessa Lawton | ECON | [address] | | | | | [place] [address] | | + + + + + Care Team Providers + +------+ + | Care Hazard Waste Handler Name | Role | Phone | + +------+ + PCP | Unavailable | + +------+ + Encounter Details +--------+ + + + + | Date | Type | Department | Care Team | Description | +--------+ + + + + | 09/30/ | Hospital | [facility] | Jovanny Ruelasee | | | 2008 | Encounter | MED CTR EMER[facility]ENCY | MD Leonel [address] | | | | | CENTER [address] | [facility], | | | | | [place], [place] | [place] [address] | | | | | [address] | [phone] | | | | | [phone] | | | +--------+ + + + [...]
--- OUTSIDE RECORDS SUMMARY | ~2019-12-08 | XMS | Encounter Summary ---
Demographics + + + | Address | [address] | | | [place] [address] | + + + | Home Phone | | + + + | Preferred Language | Unknown | + + + | Marital Status | Single | + + + | Synagogue Affiliation | 1041 | + + + | Race | Unknown | + + + | Ethnic Group | Unknown | + + + Author + + + | Author | [facility] | | | and [place] | + + + | Organization | [facility] [...] | | | | | [place] [address] | | + + + + + | Vanessa Lawton | ECON | [address] | | | | | [place] [address] | | + + + + + Care Team Providers + +------+ + | Care Electrical Appliance Repairer Name | Role | Phone | + +------+ + PCP | Unavailable | + +------+ + Encounter Details +--------+ + + + + | Date | Type | Department | Care Team | Description | +--------+ + + + + | 07/28/ | Hospital | [facility] | | | | 1993 | Encounter | MED CTR EMER[facility]ENCY | | | | | | CENTER [address] | | | | | | [place] | | | | | | [address] | | | | | | [phone] | | | +--------+ + + + [...]
--- OUTSIDE RECORDS SUMMARY | ~2019-12-08 | XMS | Encounter Summary ---
Demographics + + + | Address | [address] | | | [place] [address] | + + + | Home Phone | | + + + | Preferred Language | Unknown | + + + | Marital Status | Single | + + + | Latter Day Affiliation | 1041 | + + + | Race | Unknown | + + + | Ethnic Group | Unknown | + + + Author + + + | Author | [facility] | | | and [place] | + + + | Organization | [facility] | | | and [place] [...] | | | | | [place] [address] | | + + + + + | Vanessa Lawton | ECON | [address] | | | | | [place] [address] | | + + + + + Care Team Providers + +------+ + | Care Outreach Counselor Name | Role | Phone | + +------+ + PCP | Unavailable | + +------+ + Encounter Details +--------+ + + + + | Date | Type | Department | Care Team | Description | +--------+ + + + + | 07/03/ | Hospital | [facility] | Kuldip Perduewinnie | | | 2010 | Encounter | MED CTR EMERGENCY | MD [address] | | | | | [address] | [facility] | | | | | [place], [place] | [place] [address] | | | | | [address] | [phone] | | | | | [phone] | | | +--------+ + + + [...]
--- OUTSIDE RECORDS SUMMARY | ~2019-12-08 | XMS | Encounter Summary ---
Demographics + + + | Address | [address] | | | [place] [address] | + + + | Home Phone | | + + + | Preferred Language | Unknown | + + + | Marital Status | Single | + + + | Mosque Affiliation | 1041 | + + + | Race | Unknown | + + + | Ethnic Group | Unknown | + + + Author + + + | Author | [facility] | | | and [place] | + + + | Organization | [facility] | | | and [...] | | | | | [place] [address] | | + + + + + | Vanessa Lawton | ECON | [address] | | | | | [place] [address] | | + + + + + Care Team Providers + +------+ + | Care Cytotechnologist/Histotechnologist Name | Role | Phone | + +------+ + PCP | Unavailable | + +------+ + Encounter Details +--------+ + + + + | Date | Type | Department | Care Team | Description | +--------+ + + + + | 12/13/ | Hospital | [facility] | | | | 2008 | Encounter | MED CTR EMERGENCY | | | | | | CENTER [address] | | | | | | [place] | | | | | | [address] | | | | | | [phone] | | | +--------+ + + + [...]
--- OUTSIDE RECORDS SUMMARY | ~2019-12-08 | XMS | Encounter Summary ---
Demographics + + + | Address | [address] | | | [place] [address] | + + + | Home Phone | | + + + | Preferred Language | Unknown | + + + | Marital Status | Single | + + + | Scientologist Affiliation | [id number] | + + + | Race | Unknown | + + + | Ethnic Group | Unknown | + + + Author + + + | Author | [facility] | | | and [place] | + + + | Organization | [facility] | | | and [...] | | | | | [place] [address] | | + + + + + | Vanessa Lawton | ECON | [address] | | | | | [place] [address] | | + + + + + Care Team Providers + +------+ + | Care Protective Officer Name | Role | Phone | + +------+ + | No, Physician | PCP | Unavailable | + +------+ + Reason for Visit +--------+ + | Reason | Comments | +--------+ + | Cough | rm 2/ congestion x 3wk | +--------+ + Encounter Details +--------+---------+ + + + | Date | Type | Department | Care Team | Description | +--------+---------+ + + + | 09/11/ | Office | [facility] | Ponce Zaman, | Mild persistent | | 2020 | Visit | CARE [address] | MD [address] | asthma with | | | | [place] | [place] | exacerbation | | | | [id number] | [id number] | (Primary Dx) | | | | [phone] | | | +--------+---------+ + + + Social History + +-------+ [...] + + + | Blood Pressure | 135/81 | 09/12/2019 1:35 PM | | | | | PDT | | + + + + + | Pulse | 92 | 09/12/2019 1:35 PM | | | | | PDT | | + + + + + | Temperature | 37 C (98.6 F) | 09/12/2019 1:35 PM | | | | | PDT | | + + + + + | Respiratory Rate | 20 | 09/12/2019 1:35 PM | | | | | PDT | | + + + + + | Oxygen Saturation | 98% | 09/12/2019 1:35 PM | | | | | PDT | | + + + + + | Inhaled Oxygen | - | - | | | Concentration | | | | + + + + + | Weight | 75.7 kg (166 lb 14.2 | 09/12/2019 1:35 PM | | | | oz) | PDT | | + + + + + | Height | 172.7 cm (5' 8") | 09/12/2019 1:35 PM | | | | | PDT | | + + + + + | Body Mass Index | 25.38 | 09/12/2019 1:35 PM | | | | | PDT [...] + + documented as of this encounter Patient Instructions Patient Instructions Ponce Zaman MD - 09/12/2019 1:15 PM PDT Asthma (Adult) Asthma is a disease where the medium and small air passages within the lung go into spasm and restrict the flow of air. Inflammation and swelling of the airways cause further blocka ge. During an acute asthma attack, these factors cause trouble breathing, wheezing, cough an d chest tightness. An asthma attack can be triggered by many things. Common triggers include infections such a s the common cold, bronchitis, and pneumonia. Irritants such as smoke or pollutants in the a ir, very cold air, emotional upset, and exercise can also trigger an attack. Inmany adults with asthma, allergies todust, mold, pollen and animal dander can cause an asthma attack. Skipping doses of daily asthma medicine can also bring on an asthma attack. Asthma can be controlled using theproper medicines prescribed by your healthcare provider and avoiding exposure to known triggers including allergens and irritants. Home care Take prescribed medicine exactly at the times advised. If you need medicine such as from a hand held inhaler or aerosol breathing machine more than every 4 hours, contact your [facility] provider or seek immediate medical attention. If prescribed an antibiotic or predniso ne, take all of the medicine as prescribed, even if you are feeling better after a few days. Don't smoke. Avoid being exposed to the smoke of others. Some people with asthma have worsening of their symptoms when they take aspirin and non- steroidal or fever-reducing medicines like ibuprofen and naproxen. Talk to your healthcare p meenakshi if you think this may apply to you. Follow-up care Follow up with your healthcare provider, or as advised. Always bring all of your current me dicines to any appointments with your healthcare provider. Also bring a complete list of med icines eventhose not taken for asthma. If you don't already have one, talk to your healthc are provider about developing your own "Asthma Action Plan." A pneumococcal (pneumonia)vaccine and yearly flu shot (every fall) are recommended. Ask y our doctor about this. When to seek medical advice Call your healthcare provider right away if any of these occur: Increased wheezing or shortness of breath Need to use your inhalers more often than usual without relief Fever of 100.4F (38C) or higher, or as directed by your healthcare provider Coughing up lots of dark-colored or bloody sputum (mucus) Chest pain with each breath If you use a peak flow meter as part of an Asthma Action Plan, and you are still in the yellow zone (50% to 80%) 15 minutes after using inhaler medicine. Call 911 Call 911 if any of the following occur Trouble walking or talking because of shortness of breath If you use a peak flow meter as part of an Asthma Action Plan andyou are still in the red zone (less than 50%) 15 minutes after using inhaler medicine Lips or fingernails turning lechuga or blue Date Last Reviewed: 11/01/201619990432-9960 [employer]. [address] [place] [address]. All righ ts reserved. This information is not intended as a substitute for professional medical care. Always follow your healthcare professional's instructions. Prednisone tablets Brand Names: Deltasone, Predone, Sterapred, Sterapred DS What is this medicine? PREDNISONE (PRED ni sone) is a corticosteroid. It is commonly used to treat inflammation of the skin, joints, lungs, and other organs. Common conditions treated include asthma, allerg ies, and arthritis. It is also used for other conditions, such as blood disorders and diseas es of the adrenal glands. How should I use this medicine? Take this medicine by mouth with a glass of water. Follow the directions on the prescriptio n label. Take this medicine with food. If you are taking this medicine once a day, take it i n the morning. Do not take more medicine than you are told to take. Do not suddenly stop nima ing your medicine because you may develop a severe reaction. Your doctor will tell you how m uch medicine to take. If your doctor wants you to stop the medicine, the dose may be slowly lowered over time to avoid any side effects. Talk to your snowboarder regarding the use of this medicine in children. Special care may be needed. What side effects may I notice from receiving this medicine? Side effects that you should report to your doctor or health care advocate as soon as p ossible: allergic reactions like skin rash, itching or hives, swelling of the face, lips, or tong ue changes in emotions or moods changes in vision depressed mood eye pain fever or chills, cough, sore throat, pain or difficulty passing urine increased thirst swelling of ankles, feet Side effects that usually do not require medical attention (report to your doctor or health care advocate if they continue or are bothersome): confusion, excitement, restlessness headache nausea, vomiting skin problems, acne, thin and shiny skin trouble sleeping weight gain What may interact with this medicine? Do not take this medicine with any of the following medications: metyrapone mifepristone This medicine may also interact with the following medications: aminoglutethimide amphotericin B aspirin and aspirin-like medicines barbiturates certain medicines for diabetes, like glipizide or glyburide cholestyramine cholinesterase inhibitors cyclosporine digoxin diuretics ephedrine female hormones, like estrogens and control pills isoniazid ketoconazole NSAIDS, medicines for pain and inflammation, like ibuprofen or naproxen phenytoin rifampin toxoids vaccines warfarin What if I miss a dose? If you miss a dose, take it as soon as you can. If it is almost time for your next dose, ta lk to your doctor or health care advocate. You may need to miss a dose or take an extra dose. Do not take double or extra doses without advice. Where should I keep my medicine? Keep out of the reach of children. Store at room temperature between 15 and 30 degrees C (59 and 86 degrees F). Protect from l ight. Keep container tightly closed. Throw away any unused medicine after the expiration dave e. What should I tell my health care provider before I take this medicine? They need to know if you have any of these conditions: Geovanna's syndrome diabetes glaucoma heart disease high blood pressure infection (especially a virus infection such as chickenpox, cold sores, or herpes) kidney disease liver disease mental illness myasthenia gravis osteoporosis seizures stomach or intestine problems thyroid disease an unusual or allergic reaction to lactose, prednisone, other medicines, foods, dyes, or preservatives or trying to get breast-feeding What should I watch for while using this medicine? Visit your doctor or health care advocate for regular checks on your progress. If you a re taking this medicine over a prolonged period, carry an identification card with your name and address, the type and dose of your medicine, and your doctor's name and address. This medicine may increase your risk of getting an infection. Tell your doctor or health ca re professional if you are around anyone with measles or chickenpox, or if you develop sores or blisters that do not heal properly. If you are going to have surgery, tell your doctor or health care advocate that you hav e taken this medicine within the last twelve months. Ask your doctor or health care advocate about your diet. You may need to lower the amou nt of salt you eat. This medicine may affect blood sugar levels. If you have diabetes, check with your doctor o r health care advocate before you change your diet or the dose of your diabetic medicine . NOTE:This sheet is a summary. It may not cover all possible information. If you have questi ons about this medicine, talk to your doctor, pharmacist, or health care provider. Copyright 2019 [employer] Azithromycin tablets Brand Names: Zithromax, Zithromax Tri-Javier, Zithromax Z-Javier What is this medicine? AZITHROMYCIN (az ith joey MYE sin) is a macrolide antibiotic. It is used to treat or prevent certain kinds of bacterial infections. It will not work for colds, flu, or other viral infe ctions. How should I use this medicine? Take this medicine by mouth with a full glass of water. Follow the directions on the prescr iption label. The tablets can be taken with food or on an empty stomach. If the medicine ups ets your stomach, take it with food. Take your medicine at regular intervals. Do not take yo ur medicine more often than directed. Take all of your medicine as directed even if you thin k your are better. Do not skip doses or stop your medicine early. Talk to your snowboarder regarding the use of this medicine in children. While this drug m ay be prescribed for children as young as 6 months for selected conditions, precautions do a pply. What side effects may I notice from receiving this medicine? Side effects that you should report to your doctor or health care advocate as soon as p ossible: allergic reactions like skin rash, itching or hives, swelling of the face, lips, or tong ue bloody or watery diarrhea breathing problems chest pain fast, irregular heartbeat muscle weakness redness, blistering, peeling or loosening of the skin, including inside the mouth signs and symptoms of liver injury like dark yellow or brown urine; general ill feeling or flu-like symptoms; light-colored stools; loss of appetite; nausea; right upper belly pain ; unusually weak or tired; yellowing of the eyes or skin white patches or sores in the mouth unusually weak or tired Side effects that usually do not require medical attention (report to your doctor or health care advocate if they continue or are bothersome): diarrhea nausea stomach pain vomiting What may interact with this medicine? Do not take this medicine with any of the following medications: lincomycin This medicine may also interact with the following medications: antacids that contain aluminum or magnesium control pills certain medicines for irregular heart beat like amiodarone, bepridil, dofetilide, encain katrin, flecainide, propafenone, quinidine cyclosporine digoxin nelfinavir phenytoin warfarin What if I miss a dose? If you miss a dose, take it as soon as you can. If it is almost time for your next dose, ta ke only that dose. Do not take double or extra doses. Where should I keep my medicine? Keep out of the reach of children. Store at room temperature between 15 and 30 degrees C (59 and 86 degrees F). Throw away any unused medicine after the expiration date. What should I tell my health care provider before I take this medicine? They need to know if you have any of these conditions: history of blood diseases, like leukemia history of irregular heartbeat kidney disease liver disease myasthenia gravis an unusual or allergic reaction to azithromycin, erythromycin, other macrolide antibioti cs, foods, dyes, or preservatives or trying to get breast-feeding What should I watch for while using this medicine? Tell your doctor or healthcare professional if your symptoms do not start to get better or if they get worse. Do not treat diarrhea with over the counter products. Contact your doctor if you have diarr hea that lasts more than 2 days or if it is severe and watery. This medicine can make you more sensitive to the sun. Keep out of the sun. If you cannot av oid being in the sun, wear protective clothing and use sunscreen. Do not use sun lamps or ta nning beds/booths. NOTE:This sheet is a summary. It may not cover all possible information. If you have questi ons about this medicine, talk to your doctor, pharmacist, or health care provider. Copyright 2019 [employer] documented in this encounter Progress Notes Ponce Zaman MD - 09/12/2019 1:15 PM PDTFormatting of this note might be different fr om the original. Subjective: Patient ID: Martha Lawton is a 29 y.o. female.who presents today for Coug h (rm 2/ congestion x 3wk) . HPI The patient has had cough for 3 weeks that is gradually worsening. She initially had some green to brown sputum but it is becoming more clear recently. She has had shortness of fred th tightness in her chest and uses her albuterol inhaler more than 4 times daily. She last used the inhaler prior to coming to urgent care. She does have a history of asthma. She sm okes 1/2 pack/day and stopped 1 week ago. She does not have any fevers or chills. She kyung es any sore throat or sinus pain. Patient denies drug use. She has not had a flu vaccine t his year. She has had no travel to coronavirus affected areas and has not been around anyon e that is been ill and known to be around any of the coronavirus illness affected areas [facility]. She has had no known exposure to influenza. Her last menstrual period started 2 weeks ago and she is not currently . Patient Active Problem List Diagnosis H/O Previous section Term , repeat Asthma Former smoker - quit Jul 2015 Past Surgical History: Procedure Laterality Date SECTION N/A 11/24/2015 Procedure: Repeat ; Surgeon: Reji Gonzales DO; Location: [facility] MAIN OR SECTION N/A 08/29/2017 Procedure: Repeat ; Surgeon: Reji Gonzales DO; Location: [facility] MAIN OR SECTION N/A 08/29/2017 Procedure: Repeat BTL; Surgeon: Reji Gonzales DO; Location: [facility] MAIN OR SECTION, LOW TRANSVERSE N/A 11/22/2006 SECTION, LOW TRANSVERSE N/A 05/22/2009 INTRAUTERINE DEVICE INSERTION 01/03/2007 [facility] LEG SURGERY Right fracture as child Current Outpatient Medications Medication Sig Dispense Refill ALBUTEROL IN Inhale into the lungs. azithromycin (ZITHROMAX) 250 mg tablet Take 2 tablets by mouth on day 1, and 1 tablet b y mouth every day 6 tablet 0 predniSONE (DELTASONE) 10 mg tablet Take 1 tablet by mouth 2 times daily for 5 days. 10 tablet 0 No current facility-administered medications for this visit. She reports that she quit smoking about 2 years ago. She has a 1.00 pack-year smoking hist ory. She has never used smokeless tobacco. She reports current drug use. Drug: Methamphetami mikey. She reports that she does not drink alcohol. Allergies No active allergies Intolerance No active intolerances/contraindications ROS Objective: BP 135/81 | Pulse 92 | Temp 37 C (98.6 F) (Temporal) | Resp 20 | Ht 1.727 m (5' 8") | Wt 75.7 kg (166 lb 14.2 oz) | LMP 09/05/2019 | SpO2 98% | BMI 25.38 kg/m Physical Exam Patient is moderately ill-appearing and does not appear to be acutely short of breath. She speaks in full sentences. Rations are nonlabored. Lungs are with good air movement and ex piratory wheezes throughout the posterior lung cohen. There is no rales or rhonchi auscult ated. There is no areas of dullness. Heart is regular with no murmur or tachycardia. Neck is supple with no adenopathy. Oral is with no erythema the posterior pharynx and there is no posterior nasal drainage swelling or exudates. Skin is pink with no pallor and no cyanos is. No results found for this or any previous visit (from the past 24 hour(s)). Assessment/Plan: Martha was seen today for cough. Diagnoses and all orders for this visit: Mild persistent asthma with exacerbation Other orders - predniSONE (DELTASONE) 10 mg tablet; Take 1 tablet by mouth 2 times daily for 5 days. - azithromycin (ZITHROMAX) 250 mg tablet; Take 2 tablets by mouth on day 1, and 1 table t by mouth every day Patient is having an acute exacerbation of her asthma probably due to a viral upper respira tory tract infection. She is going to be started on a short course of prednisone and with t hat a azithromycin course. If she is having fevers, increasing shortness of breath, increas ing sputum production, or otherwise worsening she needs to return for reevaluation. She und erstands instructions and questions are answered. Return if symptoms worsen or fail to improve.Electronically signed by MD bushra Craven 09/12/2019 2:15 PM PDTdocumented in this encounter Plan of Treatment Not on filedocumented as of this encounter Visit Diagnoses + + | Diagnosis | + + | Mild persistent asthma with exacerbation - Primary Unspecified asthma, with | | exacerbation | + + documented in this encounter
--- OUTSIDE RECORDS SUMMARY | ~2019-12-08 | XMS | Encounter Summary ---
Demographics + + + | Address | [address] | | | [place] [address] | + + + | Home Phone | | + + + | Preferred Language | Unknown | + + + | Marital Status | Single | + + + | Jainism Affiliation | [id number] | + + + | Race | Unknown | + + + | Ethnic Group | Unknown | + + + Author + + + | Author | [facility] | | | and [place] | + + + | Organization | [facility] | | | and [place] [...] | | | | | [place] [id number] | | + + + + + | Vanessa Lawton | ECON | [address] | | | | | [place] [address] | | + + + + + Care Team Providers + +------+ + | Care Roll Sheeting Cutter Name | Role | Phone | + [...] + + | 08/11/ | Hospital | [facility] | Reji Gonzales | | | 2018 | Encounter | [facility] | DO Juan [address] | | | | | [address] | [facility] | | | | | [place], [place] | [place] [address] | | | | | [address] | [phone] | | | | | [phone] | | | +--------+ + + + [...]
--- OUTSIDE RECORDS SUMMARY | ~2019-12-08 | XMS | Encounter Summary ---
Demographics + + + | Address | [address] | | | [place] [address] | + + + | Home Phone | | + + + | Preferred Language | Unknown | + + + | Marital Status | Single | + + + | Yazdanism Affiliation | [id number] | + + + | Race | Unknown | + + + | Ethnic Group | Unknown | + + + Author + + + | Author | [facility] | | | and [place] | + + + | Organization | [facility] | | | and [...] | | | | | [place] [address] | | + + + + + | Vanessa Lawton | ECON | [address] | | | | | [place] [address] | | + + + + + Care Team Providers + +------+ + | Care Senior Media Director Name | Role | Phone | + +------+ + PCP | Unavailable | + +------+ + Encounter Details +--------+ + + + + | Date | Type | Department | Care Team | Description | +--------+ + + + + | 04/26/ | Hospital | [facility] | | | | 2005 - | Encounter | [facility] | | | | | | [facility] [address] | | | | 04/27/ | | [place] | | | | 2005 | | [address] | | | | | | [phone] | | | +--------+ + + + [...]
--- OUTSIDE RECORDS SUMMARY | ~2019-12-08 | XMS | Encounter Summary ---
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 08/29/17 at | | AM PST | | | | | 2228, Apply to nipples. May keep | | | | | | | at bed side., | | | | | | + +-------+ +---+---+---+ + +---+ | | | + +---+ | metoclopramide (REGLAN) tablet | | | 10 mg 10 mg, Oral, EVERY 4 HOURS | | | PRN, Nausea, Vomiting, Starting | | | Tue08/29/17 at 2231, Use if | | | Ondansetron and prochlorperazine | | | ineffective after 30 minutes or | | | not ordered. From original order | | | # [[id number]], | | + +---+ | | | + +---+ + +-------+ +-------+---+---+ | simethicone (MYLICON) chewable | Given | 08/31/19 | 80 mg | | | | tablet 80 mg 80 mg, Oral, 4 | | 18 8:25 | | | | | TIMES DAILY Catarina MACE, for | | AM PST | | | | | indigestion, dyspepsia, Starting | | | | | | | 08/29/17 at 2228, | | | | | | | Post-op/Phase II | | | | | | + +-------+ +-------+---+---+ +---+---+ | | | +---+---+ documented in this encounter
--- OUTSIDE RECORDS SUMMARY | ~2019-12-08 | XMS | Encounter Summary ---
Demographics + + + | Address | [address] | | | [place] [address] | + + + | Home Phone | | + + + | Preferred Language | Unknown | + + + | Marital Status | Single | + + + | Shinto Affiliation | 1041 | + + + | Race | Unknown | + + + | Ethnic Group | Unknown | + + + Author + + + | Author | [facility] | | | and [place] | + + + | Organization | [facility] | | | and [place] [...] | | | | | [place] [address] | | + + + + + | Vanessa Lawton | ECON | [address] | | | | | [place] [address] | | + + + + + Care Team Providers + +------+ + | Care Dredge Master Name | Role | Phone | + +------+ + PCP | Unavailable | + +------+ + Encounter Details +--------+ + + + + | Date | Type | Department | Care Team | Description | +--------+ + + + + | 05/22/ | Hospital | [facility] | | | | 2008 - | Encounter | [facility] | | | | | | [facility] [address] | | | | 05/25/ | | [employer] [place], | | | | 2008 | | [place] [address] | | | | | | [phone] | | | +--------+ + + + [...]
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
--- OUTSIDE RECORDS SUMMARY | ~2019-12-08 | XMS | Encounter Summary ---
Demographics + + + | Address | [address] | | | [place] [address] | + + + | Home Phone | | + + + | Preferred Language | Unknown | + + + | Marital Status | Single | + + + | Mandaeism Affiliation | 1041 | + + + | Race | Unknown | + + + | Ethnic Group | Unknown | + + + Author + + + | Author | [facility] | | | and [place] | + + + | Organization | [facility] | | | and [place] [...] | | | | | [place] [address] | | + + + + + | Vanessa Lawton | ECON | [address] | | | | | [place] [address] | | + + + + + Care Team Providers + +------+ + | Care Spare Fixer Name | Role | Phone | + +------+ + PCP | Unavailable | + +------+ + Encounter Details +--------+ + + + + | Date | Type | Department | Care Team | Description | +--------+ + + + + | 04/20/ | Hospital | [facility] | Jovanny Ruelasee | | | 2008 | Encounter | MED CTR EMERGENCY | MD Le[address] | | | | | CENTER [address] | [facility], | | | | | [place], [place] | [place] [address] | | | | | [address] | [phone] | | | | | [phone] | | | +--------+ + + + [...]
--- OUTSIDE RECORDS SUMMARY | ~2019-12-08 | XMS | Encounter Summary ---
Demographics + + + | Address | [address] | | | [place] [address] | + + + | Home Phone | | + + + | Preferred Language | Unknown | + + + | Marital Status | Single | + + + | Methodist Affiliation | 1041 | + + + | Race | Unknown | + + + | Ethnic Group | Unknown | + + + Author + + + | Author | [facility] | | | and [place] | + + + | Organization | [facility] | | | and [place] [...] | | | | | [place] [address] | | + + + + + | Vanessa Lawton | ECON | [address] | | | | | [place] [address] | | + + + + + Care Team Providers + +------+ + | Care Senior Specialist Name | Role | Phone | [...] | +--------+ + + + + | 05/ | Emergency | [facility] | Arvin Moore | Wheeze (Primary Dx); | | 2019 | | MED CTR EMERGENCY | MD [address] | Bronchitis | | | | CENTER [address] | [address] | | | | | [place] | [place], [place] [address] | | | | | [address] | [phone] | | | | | [phone] | | | +--------+ + + + [...] + + + | Blood Pressure | 142/106 | 11/06/2019 1:18 PM | | | | | PDT | | + + + + + | Pulse | 93 | 11/06/2019 3:55 PM | | | | | PDT | | + + + + + | Temperature | 36.5 C (97.7 F) | 11/06/2019 1:16 PM | | | | | PDT | | + + + + + | Respiratory Rate | 22 | 11/06/2019 1:16 PM | | | | | PDT | | + + + + + | Oxygen Saturation | 98% | 11/06/2019 3:55 PM | | | | | PDT | | + + + + + | Inhaled Oxygen | - | - | | | Concentration | | | | + + + + + | Weight | 77.1 kg (170 lb) | 11/06/2019 1:16 PM | | | | | PDT | | + + + + + | Height | - | - | | + + + + + | Body Mass Index | 25.85 | 09/28/2019 5:00 PM | | | | | PDT [...] following attachments cannot be sent through Care Everywhere.Bronchitis with Wheezing (Adult) (Luxembourgish)documented in this encounter Medications at Time of Discharge + + + +---------+ + + | Medication | Sig | Dispensed | Refills | Start | End Date | | | | | | Date | | + + + +---------+ + + | albuterol 90 | Inhale 2 puffs into | 1 | 0 | // | | | mcg/puff inhaler | the lungs every 4 | Inhaler | | 20 | | | | hours as needed for | | | | | | | Wheezing or | | | | | | | Shortness of Breath. | | | | | + + + +---------+ + + | azithromycin | Take 2 tablets by | 6 | 0 | 11/06/19 | | | (ZITHROMAX) 250 mg | mouth on day 1, and | tablet | | 20 | 0 | | tablet | 1 tablet by mouth | | | | | | | every day | | | | | + + + +---------+ + + | benzonatate | Take 1 capsule by | 30 | 0 | 09/29/19 | | | (TESSALON) 200 MG | mouth 3 times daily | capsule | | 20 | 0 | | capsule | as needed for Cough. | | | | | + + + +---------+ + + | | Take 10 mLs by mouth | 118 mL | 0 | 09/29/19 | | | guaiFENesin-dextrome | every 4 hours as | | | 20 | 0 | | thorphan (ROBITUSSIN | needed for Cough. | | | | | | DM) 100-10 mg/5 mL | | | | | | | syrup | | | | | | + [...] XR CHEST AP PORTABLE | STAT | 11/06/2019 | | Results for this | | | | 1:45 PM | | procedure are in the | | | | PDT | | results section. | + +--------+ + + + | COVID-19 STAT | STAT | 11/06/2019 | | | | INSTRUCTION TO | | 1:40 PM | | | | [facility] ONLY | | PDT | | | + +--------+ + + + | CORONAVIRUS | Routin | 11/06/2019 | | Results for this | | (COVID-19) NAAT | e | 1:40 PM | | procedure are in the | | | | PDT | | results section. | + +--------+ + + + documented in this encounter Results XR Chest AP Portable (11/06/2019 1:45 PM PDT) + + | Specimen | + + | | + + + + + | Impressions | Performed At | + + + | Mild peribronchial cuffing suggestive of bronchitis or reactive | [facility] | | airways disease. Dictated and Signed by: Clement Frey MD | | | Electronically signed: 11/06/2019 2:21 PM | | + + + + + + | Narrative | Performed At | + + + | XR CHEST AP PORTABLE 11/06/2019 1:43 PM HISTORY: COUGH SHORTNESS | [facility] | [...] no acute osseous | | | abnormalities. Partial bronchitis | | + + + + + | Procedure Note | + + | Marbin, Rad Results In - 11/06/2019 2:25 PM PDT XR CHEST AP PORTABLE 11/06/2019 1:43 PM | | | | HISTORY: COUGH | [...] | There are no acute osseous abnormalities. Partial bronchitis | | | | IMPRESSION: | | Mild peribronchial cuffing suggestive of bronchitis or reactive airways disease. | | | | Dictated and Signed by: Clement Frey MD | | Electronically signed: 11/06/2019 2:21 PM | + + + +---------+ + + | Performing | Address | City/State/Zipcode | Phone Number | | Organization | | | | + +---------+ + + | [facility] | | | | + +---------+ + + [facility] STAT instructions for COVID-19 tracking (11/06/2019 1:40 PM PDT) + +-------+ + + + | Component | Value | Ref Range | Performed | Pathologist | | | | | At | Signature | + +-------+ + + + | [facility] | | | [facility] | | | COVID STAT | | | | | | instruction | | | | | + +-------+ + + + + + | Specimen | + + | Tissue - Entire | | nasopharynx (body | | structure) | + + + +---------+ + + | Performing | Address | City/State/Zipcode | Phone Number | | Organization | | | | + +---------+ + + | [facility] | | | | + +---------+ + + Coronavirus (COVID-19) NAAT (11/06/2019 1:40 PM PDT) + + + + + + | Component | Value | Ref Range | Performed | Pathologist | | | | | At | Signature | + + + + + + | SARS | Not Detected | Not Detected | [facility] | | | coronavirus | | | | | | 2 NAAT | | | | | + + + + + + + + | Specimen | + + | Tissue - Entire | | nasopharynx (body | | structure) | + + + + + | Narrative | Performed At | + + + | See Scanned | [facility] | | Report | | + + + + +---------+ + + | Performing | Address | City/State/Zipcode | Phone Number | | Organization | | | | + +---------+ + + | [facility] | | | | + +---------+ + + documented in this encounter Visit Diagnoses + + | Diagnosis | + + | Wheeze - Primary Wheezing | + + | Bronchitis Bronchitis, not specified as acute or chronic | + + documented in this encounter Administered Medications + +--------+ +-------+------+------+ | Medication Order | MAR | Action | Dose | Rate | Site | | | Action | Date | | | | + +--------+ +-------+------+------+ | albuterol-ipratropium 2.5-0.5 | Given | 11/06/19 | 3 mLs | | | | mg/3 mL nebulizer solution 3 mL | | 20 2:01 | | | | | 3 mL, Nebulization, EVERY 15 MIN, | | PM PDT | | | | | First dose on Tue11/06/19 at | | | | | | | 1335, For 3 doses | | | | | | + +--------+ +-------+------+------+ +-------+ +-------+---+---+ | Given | 11/06/19 | 3 mLs | | | | | 20 1:50 | | | | | | PM PDT | | | | +-------+ +-------+---+---+ | Given | 11/06/19 | 3 mLs | | | | | 20 1:35 | | | | | | PM PDT | | | | +-------+ +-------+---+---+ +---+---+ | | | +---+---+ documented in this encounter Additional Health Concerns + + + + | Infection | Noted Time | Resolved Time | + + + + | Methicillin-resistant Staphylococcus aureus | 10/01/2019 1:07 PM | | | | PDT | | + + + + | Rule out COVID-19 | 11/06/2019 1:31 PM | 11/07/2019 9:42 AM | | | PDT | PDT | + + + + documented as of this encounter"
--- OUTSIDE RECORDS SUMMARY | ~2019-12-08 | XMS | Encounter Summary ---
Demographics + + + | Address | [address] | | | [place] [address] | + + + | Home Phone | | + + + | Preferred Language | Unknown | + + + | Marital Status | Single | + + + | Mandaen Affiliation | 1041 | + + + | Race | Unknown | + + + | Ethnic Group | Unknown | + + + Author + + + | Author | [facility] | | | and [place] | + + + | Organization | [facility] | | [...] | | | | | [place] [address] | | + + + + + | Vanessa Lawton | ECON | [address] | | | | | [place] [address] | | + + + + + Care Team Providers + +------+ + | Care Law Tutor Name | Role | Phone | + +------+ + PCP | Unavailable | + +------+ + Encounter Details +--------+ + + + + | Date | Type | Department | Care Team | Description | +--------+ + + + + | 03/05/ | Hospital | [facility] | Kuldip Perduewinnie | | | 2009 | Encounter | MED CTR EMERGENCY | MD [address] | | | | | [place] [address] | [place] [facility] | | | | | [place], [place] | [place] [address] | | | | | [address] | [phone] | | | | | [phone] | | | +--------+ + + + [...]
--- OUTSIDE RECORDS SUMMARY | ~2019-12-08 | XMS | Encounter Summary ---
Demographics + + + | Address | [address] | | | [place] [address] | + + + | Home Phone | | + + + | Preferred Language | Unknown | + + + | Marital Status | Single | + + + | Christian Affiliation | 1041 | + + + | Race | Unknown | + + + | Ethnic Group | Unknown | + + + Author + + + | Author | [facility] | | | and [place] | + + + | Organization | [facility] | | | and [...] | | | | | [place] [address] | | + + + + + | Vanessa Lawton | ECON | [address] | | | | | [place] [address] | | + + + + + Care Team Providers + +------+ + | Care Carpenter Assembler Name | Role | Phone | + +------+ + PCP | Unavailable | + +------+ + Encounter Details +--------+ + + + + | Date | Type | Department | Care Team | Description | +--------+ + + + + | 05/09/ | Hospital | [facility] | | | | 2005 | Encounter | MED CTR EMERGENCY | | | | | | CENTER [address] | | | | | | [place] | | | | | | [address] | | | | | | [phone] | | | +--------+ + + + [...]
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
--- OUTSIDE RECORDS SUMMARY | ~2019-12-08 | XMS | Encounter Summary ---
Demographics + + + | Address | [address] | | | [place] [address] | + + + | Home Phone | | + + + | Preferred Language | Unknown | + + + | Marital Status | Single | + + + | Hindu Affiliation | 1041 | + + + | Race | Unknown | + + + | Ethnic Group | Unknown | + + + Author + + + | Author | [facility] | | | and [place] | + + + | Organization | [facility] | | | and [place] [...] | | | | | [place] [address] | | + + + + + | Vanessa Lawton | ECON | [address] | | | | | [place] [address] | | + + + + + Care Team Providers + +------+ + | Care Corporate Counselor Name | Role | Phone | + +------+ + PCP | Unavailable | + +------+ + Encounter Details +--------+ + + + + | Date | Type | Department | Care Team | Description | +--------+ + + + + | 11/30/ | Hospital | [facility] | | | | 1997 | Encounter | MED CTR EMERGENCY | | | | | | CENTER [address] | | | | | | [place] | | | | | | [address] | | | | | | [phone] | | | +--------+ + + + [...]
--- OUTSIDE RECORDS SUMMARY | ~2019-12-08 | XMS | Encounter Summary ---
Demographics + + + | Address | [address] | | | [place] [address] | + + + | Home Phone [...] Organization | [facility] | | | [...] | | | | | [place] [address] | | + + + + + | Vanessa Lawton | ECON | [address] | | | | | [place] [address] | | + + + + + Care Team Providers + +------+ + | Care Junior Sales Representative Name | Role | Phone | + +------+ + PCP | Unavailable | + +------+ + Encounter Details +--------+ + + + + | Date | Type | Department | Care Team | Description | +--------+ + + + + | 02/01/ | Hospital | [facility] | | | | 1992 | Encounter | MED CTR EMERGENCY | | | | | | CENTER [address] | | | | | | [place] | | | | | | [address] | | | | | | [phone] | | | +--------+ + + + [...]
--- OUTSIDE RECORDS SUMMARY | ~2019-12-08 | XMS | Encounter Summary ---
Demographics + + + | Address | [address] | | | [place] [address] | + + + | Home Phone | | + + + | Preferred Language | Unknown | + + + | Marital Status | Single | + + + | Zoroastrian Affiliation | 1041 | + + + | Race | Unknown | + + + | Ethnic Group | Unknown | + + + Author + + + | Author | [facility] | | | and [place] | + + + | Organization | [facility] | | [...] | | | | | [place] [address] | | + + + + + | Vanessa Lawton | ECON | [address] | | | | | [place] [address] | | + + + + + Care Team Providers + +------+ + | Care Auditor Medical Claims Name | Role | Phone | + +------+ + | Reji Gonzales DO | PCP | | + +------+ + Encounter Details +--------+ + + + + | Date | Type | Department | Care Team | Description | +--------+ + + + + | 08/02/ | Hospital | [facility] | Reji Gonzales | | | 2016 | Encounter | [facility] | Juan, DO [address] | | | | [address] [place] | | | | | [place], | [place] [address] | | | | | [place] [address] | [phone] | | | | | [phone] | | | | | | | Agustin Gtz, | | | | | | MD [address] | | | | | | [place], [place] | | | | | | [address] | | | | | | | [...] | | | + +---+---+---+ + + | Tobacco Cessation: Counseling Given: No | + + + + +---------+ + | Alcohol Use [...] + + + | Blood Pressure | 133/84 | 08/02/2015 9:00 AM | | | | | PST | | + + + + + | Pulse | 105 | 08/02/2015 9:00 AM | | | | | PST | | + + + + + | Temperature | 36.4 C (97.6 F) | 08/02/2015 9:00 AM | | | | | PST | | + + + + + | Respiratory Rate | 16 | 08/02/2015 9:00 AM | | | | | PST | | + + + + + | Oxygen Saturation | 97% | 08/02/2015 9:00 AM | | | | | PST [...] +---------+--------+ + documented as of this encounter Progress Notes Trista Jenkins RN - 08/02/2015 9:58 AM PSTReported to THO Dominguez in ED. Trista Valderrama RN - 08/02/2015 9 :52 AM Stephane NETTLES spoke with pt re: Hx of Meth and MJ use and told her that Dr. Tresa rosado ts to send a UDS, pt consented verbally. Urine collected and sent just prior to taking pt t o ED via WC. Trista Valderrama RN - 08/02/2015 9:30 AM PSTPt states she has a Hx of Asthma and that she has used Albuterol in the past. Lungs sounds are diminished throughout. Isa,RT verified that i ndeed pt is short of breath and has diminished breath sounds throughout and feels that this pt needs a breathing tx. SaO2 99%. Trista Valderrama RN - 08/02/2015 8:55 AM PSTPt presents to OB d/t dull pain in LLQ of abd., chills,THOMPSON that is throughout her jaws,teeth and forehead which she rates 10/10 for pain. She states she took Tylenol approximately 2 hours ago but denies relief from it. She says she has never had a H A like this. Pt states that her SO has stomach flu and she wondered if she was coming down with it also. She has +FM, no bloody show or fluid leaking. She is 23 weeks gestation toda y. UA collected. [place] placed, pt denies contractions. Pt states that she still has an IUD in place that was seen via US on her left side. Pt says that she feels a little bit of pain th ere that she thinks is from the IUD. Electronically signed by Trista Jenkins RN at 016 10:37 AM PSTdocumented in this encounter Plan of Treatment Not on filedocumented as of this encounter Procedures + +--------+ + + + | Procedure Name | Priori | Date/Time | Associated Diagnosis | Comments | | | ty | | | | + +--------+ + + + | DRUGS OF ABUSE, | Routin | 08/02/2015 | | Results for this | | SCREEN, URINE | e | 9:51 AM | | procedure are in the | | | | PST | | results section. | + +--------+ + + + documented in this encounter Results Drugs of Abuse, Screen, Urine (08/02/2015 9:51 AM PST) + + + + + + | Component | Value | Ref Range | Performed | Pathologist | | | | | At | Signature | + + + + + + | Amphetamine | Positive (A) | Negative | [facility] | | | Screen, | | | [facility] | | | Urine | | [...] + + + + | Cannabinoid | Positive (A) | Negative | [facility] [...] | Specimen | + + | Urine - Urine | | specimen obtained by | | clean catch | | procedure (specimen) | + + + + + + + | Performing | Address | City/State/Zipcode | Phone Number | | Organization | | | | + + + + + | [facility] | [address] | [place] | [phone] | | [facility] | | [address] | | | - LABORATORY | | | | + + + + + documented in this encounter Visit Diagnoses Not on filedocumented in this encounter"
--- OUTSIDE RECORDS SUMMARY | ~2019-12-08 | XMS | Encounter Summary ---
Demographics + + + | Address | [address] | | | [place] [address] | + + + | Home Phone | | + + + | Preferred Language | Unknown | + + + | Marital Status | Single | + + + | Hindu Affiliation | 1041 | + + + | Race | Unknown | + + + | Ethnic Group | Unknown | + + + Author + + + | Author | [facility] | | | and [place] | + + + | Organization | [facility] | | | and [...] | | | | | [place] [address] | | + + + + + | Vanessa Lawton | ECON | [address] [place] | | | | | [place] [address] | | + + + + + Care Team Providers + +------+ + | Care Practice Managers Name | Role | Phone | + +------+ + PCP | Unavailable | + +------+ + Encounter Details +--------+ + + + + | Date | Type | Department | Care Team | Description | +--------+ + + + + | 05/08/ | Hospital | [facility] | [place], | | | 2007 | Encounter | MED CTR EM[facility]Y | Yaya Neal MD [address] | | | | | [address] | [facility] | | | | | [place], [place] | [place] [address] | | | | | [address] | [phone] | | | | | [phone] | | | +--------+ + + + [...]
--- OUTSIDE RECORDS SUMMARY | ~2019-12-08 | XMS | Encounter Summary ---
Demographics + + + | Address | [address] | | | [place] [address] | + + + | Home Phone | | + + + | Preferred Language | Unknown | + + + | Marital Status | Single | + + + | Christianity Affiliation | [id number] | + + + | Race | Unknown | + + + | Ethnic Group | Unknown | + + + Author + + + | Author | [facility] | | | and [place] | + + + | Organization | [facility] | | | and [place] [...] | | | | | [place] [id number] | | + + + + + | Vanessa Lawton | ECON | [address] | | | | | [place] [address] | | + + + + + Care Team Providers + +------+ + | Care Top Steep Tender Name | Role | Phone | + +------+ + | No, Physician | PCP | Unavailable | + +------+ + Reason for Visit + + + | Reason | Comments | + + + | Fever (9 Weeks To 74 | | | Years) | | + + + | Cough | | + + + | Shortness of Breath | | + + + Auth/Cert +--------+--------+ + + + + | Status | Reason | Specialty | Diagnoses / | Referred By | Referred To | | | | | Procedures | Contact | Contact | +--------+--------+ + + + + | | | | Diagnoses | | | | | | | Wheezing on | | | | | | | | | | | | | | auscultation | | | | | | | Acute | | | | | | | respiratory | | | | | | | failure with | | | | | | | hypoxia | | | | | | | (HCC) | | | | | | | Multifocal | | | | | | | pneumonia | | | | | | | | | | +--------+--------+ + + + + Encounter Details +--------+ + + + + | Date | Type | Department | Care Team | Description | +--------+ + + + + | 09/25/ | Hospital | [facility] | Saji Johnson, | Acute respiratory | | 2019 - | Encounter | [facility] | [address] | failure with hypoxia | | | | [address] [place] | [place], [place] | ([facility]) (Primary Dx); | | 09/28/ | | [place] [address] | [id number] | Wheezing on | | 2019 | | [phone] | | auscultation; | | | | | Sherrie Amezquita | Multifocal | | | | | MD [place] [address] | pneumonia; Moderate | | | | | [address] [place] | asthma with | | | | | [place] [address] | exacerbation, | | | | | [phone] | unspecified whether | | | | | | persistent; | | | | | Radha Banuelos MD | Community acquired | | | | | [address] | pneumonia, | | | | | [place] | unspecified | | | | | [id number] | laterality; | | | | | | Exacerbation of | | | | | | asthma, unspecified | | | | | | asthma severity, | | | | | | unspecified whether | | | | | | persistent; Acute | | | | | | respiratory | | | | | | insufficiency | +--------+ + + + + Social [...] + + + | Blood Pressure | 145/83 | 09/29/2019 7:24 AM | | | | | PDT | | + + + + + | Pulse | 88 | 09/29/2019 9:59 AM | | | | | PDT | | + + + + + | Temperature | 37 C (98.6 F) | 09/29/2019 7:24 AM | | | | | PDT | | + + + + + | Respiratory Rate | 20 | 09/29/2019 9:59 AM | | | | | PDT | | + + + + + | Oxygen Saturation | 98% | 09/29/2019 9:59 AM | Denies distress. | | | | PDT | | + + + + + | Inhaled Oxygen | - | - | | | Concentration | | | | + + + + + | Weight | 75.1 kg (165 lb 9.1 | 09/28/2019 1:13 PM | | | | oz) | PDT | | + + + + + | Height | 172.7 cm (5' 8") | 09/28/2019 5:00 PM | | | | | PDT | | + + + + + | Body Mass Index | 25.17 | 09/28/2019 1:13 PM | | | | | PDT [...] documented as of this encounter Discharge Summaries Radha Banuelos MD - 09/29/2019 11:22 AM PDT [facility] HOSPITALIST DISCHARGE SUMMARY Pt. Name/Age/: Martha Lawton 29 y.o. 1990 Date of Admission: 09/26/2019 Date of Discharge: 09/29/2019 Admitting Physician: Sherrie Amezquita MD Primary Care Provider: No Physician on file Discharging Physician: Radha Banuelos MD DISCHARGE DIAGNOSES: Active Hospital Problems Diagnosis Asthma exacerbation CAP (community acquired pneumonia) Resolved Hospital Problems No resolved problems to display. HOSPITAL COURSE: Please refer to the H&P for full details and the most recent rounding rounding (progress) n ote. 29 yo F with history of asthma who presented with cough, fever, chills. #Febrile illness #Asthma exacerbation #Acute hypoxic respiratory failure Patient presented with reported cough, fever, chills. Oxygen dropped to 89% on RA in the ED . CT showed GGO throughout the lungs. Patient has had sick contacts recently. RVP and influe nza negative. Blood cultures unremarkable. COVID 19 negative. Breathing comfortably on room air by date of DC. Meth positive on UDS; wonder if inhalational injury may have also trigger ed asthma exacerbation. Rec'd IV steroids here. Does not have an inhaler at home. - albuterol as needed - complete prednisone burst - complete antibiotic course with cefdinir, azithromycin - antitussives ordered - consider referral to Pulmonology as outpatient #Meth use Counseled on cessation Patient is discharging home, lives with her mother. DISCHARGE MEDICATIONS: Discharge Medications New Medications Details albuterol 90 mcg/puff inhaler Inhale 2 puffs into the lungs every 4 hours as needed for Wheezing or Shortness of Breath. azithromycin 250 mg tablet Take 1 tablet by mouth Daily for 2 days. aka: ZITHROMAX benzonatate 200 MG capsule Take 1 capsule by mouth 3 times daily as needed for Cough. aka: TESSALON cefdinir 300 mg capsule Take 1 capsule by mouth 2 times daily for 2 days. aka: OMNICEF guaiFENesin-dextromethorphan 100-10 mg/5 mL syrup Take 10 mLs by mouth every 4 hours as needed for Cough. aka: ROBITUSSIN DM predniSONE 20 mg tablet Take 2 tablets by mouth Daily for 5 days. aka: DELTASONE Discontinued Medications ALBUTEROL IN Most recent weight: Input and output for last 24hrs: Wt Readings from Last 1 Encounters: 09/28/19 75.1 kg (165 lb 9.1 oz) I/O last 24 Hours: In: 1900 [P.O.:1900] Out: 2550 [Urine:2550] Vitals Ranges: Temp: [36.1 C (97 F)-37 C (98.6 F)] 37 C (98.6 F) Pulse: [85-103] 88 Resp: [20-24] 20 BP: (131-150)/(79-86) 145/83 Vitals: Temp: 37 C (98.6 F) BP: 145/83 Pulse: 88 Resp: 20 SpO2: 98 %(D enies distress.) SpO2 98 %(Denies distress.) on room air at flow rate 0L/min PHYSICAL EXAM: Patient seen and examined by me on 09/29/19 Gen: WDWN, nad CV: regular rate and rhythm Pulm: decreased air movement, no wheezing, normal effort, improved cough PROCEDURES AND CONSULTS: Procedures: None Consults: None PENDING RESULTS: None DISPOSITION AND DISCHARGE INSTRUCTIONS: Follow-up Information Dalia Bravo MD. Go on 10/05/2019. Specialty: Family Medicine Why: Follow up, appt is at 3:30, arrive 15 minutes prior to appt and bring ID, medication list, and insurance info. Contact information: [address] [place] [id number] Condition: stable Diet: general Less than 30 minutes were spent on discharge and coordination of post-hospital care. Electronically signed by: Radha Banuelos MD, 09/29/2019 11:24 AM [facility] documented in this enco unter Discharge Instructions Instructions Radha Banuelos MD - 09/29/2019Gabby, You were hospitalized with pneumonia and asthma exacerbation. I prescribed antibiotics, steroids, an inhaler, and cough medication for you to sheepskin pickler at [facility]. Please see Dr Bravo on 10/05/19 to establish care. Radha Banuelos MD AttachmentsThe following attachments cannot be sent through Care Everywhere.Asthma, Control ling Your ([place])Pneumonia, Treating ([place])documented in this encounter Medications at Time of [...] +---------+ + + | azithromycin | Take 1 tablet by | 2 | 0 | 09/29/19 | | | (ZITHROMAX) 250 mg | mouth Daily for 2 | tablet | | 20 | 0 [...] + + + +---------+ + + | cefdinir (OMNICEF) | Take 1 capsule by | 4 | 0 | 09/29/19 | | | 300 mg capsule | mouth 2 times daily | capsule | | 20 | 0 | | | for 2 days. | | | | | + [...] tablets by | 10 | 0 | 09/29/19 | | | (DELTASONE) 20 mg | mouth Daily for 5 | tablet | | 20 | 0 | | tablet | days. | | | | | + + + +---------+ + + documented as of this encounter Progress Notes Radha Banuelos MD - 09/28/2019 12:43 PM PDT [facility] [place] HOSPITALIST PROGRESS NOTE Patient: Martha Lawton : 1990: Age: 29 y.o. MedRec: [id number] Admission date: 09/26/2019 Hospital day # : 2 Physician author: Radha Banuelos MD Today: 09/28/2019 Assessment and Hospital Course Active Hospital Problems Diagnosis Asthma exacerbation CAP (community acquired pneumonia) Resolved Hospital Problems No resolved problems to display. 29 yo F with history of asthma who presented with cough, fever, chills. Plan #Febrile illness #Asthma exacerbation #Acute hypoxic respiratory failure Patient presented with reported cough, fever, chills. Oxygen dropped to 89% on RA in the ED . CT showed GGO throughout the lungs. Patient has had sick contacts recently. RVP and influe nza negative. Blood cultures unremarkable, no sputum sample yet as patient's cough has been dry. COVID 19 negative. Patient is stable on 2L oxygen currently. More awake/alert than yest erday, sitting up in bed. Meth positive on UDS; wonder if inhalational injury may have also triggered asthma exacerbation. - Combivent inhaler - respiratory therapy evaluation/treat - ceftriaxone, azithromycin for CAP - 40mg IV solumedrol Q12h for asthma exacerbation - antitussives as needed - respiratory therapy protocol FEN: gen Ppx: lovenox Disposition: likely home in 1-2d Subjective CC: cough Patient is much more awake/alert today. Limited historian, reports "I feel fine" and will n ot answer more complex questions. ROS was performed and was negative except as noted above. Exam Gen: WDWN, ill appearing HEENT: MMM, neck supple CV: fast rate, reg rhythm, no m/r/g Pulm: diffuse expiratory wheezing, increased effort, frequent cough Abdominal: soft, nontender, nondistended, normal bowel tones Extremities: well perfused, no edema Skin: warm, dry, no rashes, mildly diaphoretic Neuro: alert, no focal deficits Psych: flat affect Allergies: Not on File Current Medications: Current Facility-Administered Medications Medication Dose Route Frequency Provider Last Rate Last Dose acetaminophen (TYLENOL) tablet 650 mg 650 mg Oral Q4H PRN Sherrie Amezquita MD 65 0 mg at 09/27/19 2133 albuterol 2.5 mg/3 mL nebulizer solution 2.5 mg 2.5 mg Nebulization RT Q2H PRN Sheba Amezquita MD albuterol-ipratropium (COMBIVENT RESPIMAT) 100-20 mcg/puff inhaler 1 puff 1 puff Inhal ation RT Q6H Radha Banuelos MD 1 puff at 09/28/19 0853 aluminum & magnesium hydroxide-simethicone (MAALOX PLUS REGULAR STRENGTH) 200-200-20 mg /5 mL suspension 30 mL 30 mL Oral Q4H PRN Sherrie Amezquita MD azithromycin (ZITHROMAX) 500 mg in sodium chloride 0.9% 250 mL IVPB 500 mg Intravenous QPM Sherrie Amezquita MD 255 mL/hr at 09/27/19 1804 500 mg at 09/27/19 1804 benzonatate (TESSALON) capsule 200 mg 200 mg Oral TID PRN Sherrie Amezquita MD 20 0 mg at 09/27/19 2133 bisacodyl (DULCOLAX) suppository 10 mg 10 mg Rectal Daily PRN Sherrie Amezquita MD calcium carbonate (TUMS) chewable tablet 1,000 mg 1,000 mg Oral Q4H PRN Sherrie Amezquita MD cefTRIAXone (ROCEPHIN) 1 g in sodium chloride 0.9% 50 mL IVPB 1 g Intravenous Daily Mo tammie Amezquita MD 100 mL/hr at 09/28/19 0914 1 g at 09/28/19 0914 enoxaparin (LOVENOX) 40 mg/0.4 mL injection 40 mg 40 mg Subcutaneous Daily Sherrie Amezquita MD 40 mg at 09/28/19 0913 guaiFENesin-dextromethorphan (ROBITUSSIN DM) 100-10 mg/5 mL liquid 10 mL 10 mL Oral Q4 H PRN Sherrie Amezquita MD 10 mL at 09/28/19 0303 magnesium sulfate 2 g/50 mL IVPB 2 g 2 g Intravenous Once Radha Banuelos MD melatonin tablet 3 mg 3 mg Oral Nightly PRN Sherrie Amezquita MD methylPREDNISolone sodium succinate (solu-MEDROL) 40 mg/mL injection 40 mg 40 mg Intra venous 2 times per day Radha Banuelos MD 40 mg at 09/28/19 0911 ondansetron (ZOFRAN ODT) disintegrating tablet 4 mg 4 mg Oral Q6H PRN Sherrie morfin MD polyethylene glycol (MIRALAX) powder 17 g 17 g Oral Daily PRN Sherrie Amezquita MD prochlorperazine tablet 10 mg 10 mg Oral Q6H PRN Sherrie Amezquita MD senna (SENOKOT) tablet 8.6 mg 8.6 mg Oral BID PRN Sherrie Amezquita MD Current Infusions: Objective Data Point of care glucose Recent Labs Lab 09/26/19 1734 POCGLU 129* Labs last 24 hours Recent Results (from the past 24 hour(s)) Basic Metabolic Panel Collection Time: 09/28/19 3:07 AM Result Value Ref Range Na 140 136 - 145 mmol/L K 3.9 3.4 - 5.1 mmol/L Cl 109 (H) 98 - 107 mmol/L CO2 25 20 - 31 mmol/L Anion Gap 6 3 - 16 mmol/L Glucose 140 (H) 60 - 106 mg/dL BUN 11 9 - 23 mg/dL Creatinine 0.49 (L) 0.55 - 1.02 mg/dL eGFR if not >60 >=60 mL/min/1.73m2 Calcium 8.7 8.7 - 10.4 mg/dL BUN/Creatinine Ratio 22.4 Magnesium Collection Time: 09/28/19 3:07 AM Result Value Ref Range Magnesium 1.8 1.6 - 2.6 mg/dL CBC with Differential Collection Time: 09/28/19 3:07 AM Result Value Ref Range WBC 15.7 (H) 4.0 - 11.0 K/uL RBC 4.34 3.70 - 5.20 M/uL Hemoglobin 12.9 11.5 - 16.0 g/dL Hematocrit 37.9 34.0 - 47.0 % MCV 87.3 83.0 - 101.0 fL MCH 29.7 28.0 - 35.0 pg MCHC 34.0 32.0 - 36.0 g/dL RDW-CV 13.2 <15.0 % RDW-SD 41.8 35.1 - 46.3 fL Platelet Count 280 140 - 440 K/uL MPV 11.0 6.5 - 12.4 fL % Neutrophils 90.1 (H) 45.0 - 82.0 % % Lymphocytes 6.6 (L) 20.0 - 45.0 % % Monocytes 2.5 (L) 4.0 - 12.0 % % Eosinophils 0.0 0.0 - 5.0 % % Basophils 0.2 0.0 - 1.0 % % Immature Granulocytes 0.6 (H) 0.0 - 0.4 % Absolute Neutrophils 14.13 (H) 1.80 - 8.50 K/uL Absolute Lymphocytes 1.04 0.60 - 3.20 K/uL Absolute Monocytes 0.40 0.00 - 1.00 K/uL Absolute Eosinophils 0.00 0.00 - 0.40 K/uL Absolute Basophils 0.03 0.00 - 0.10 K/uL Absolute Immature Granulocytes 0.10 (H) 0.00 - 0.03 K/uL % nRBC 0 0 - 2 per 100 WBCs Absolute nRBC 0.00 0.00 - 0.01 K/uL Micro results (more choices using dot micro) Microbiology Results (72 hrs) Procedure Component Value Units Date/Time Legionella, Ag, EIA, Qual, Urine [[id number]] Collected: 09/27/19 0019 Order Status: Sent Lab Status: In process Updated: 09/27/1923 Specimen: Urine, Clean Catch Respiratory pathogen panel, NAAT [[id number]] (Normal) Collected: 09/26/19 4584 Order Status: Completed Lab Status: Final result Updated: 03/26/20 0225 Specimen: Body Fluid from Nasopharynx Parainfluenza 1 Not Detected Adenovirus Not Detected Human Metapneumovirus Not Detected Rhinovirus/Enterovirus Not Detected Parainfluenza 3 Not Detected Culture, MRSA [[id number]] Collected: 09/26/19 2334 Order Status: Completed Lab Status: Final result Updated: 09/28/19 0759 Specimen: Body Fluid from Nasopharynx Culture 1+ Staphylococcus aureus,Methicillin resistant (MRSA) Comment: *INFECTION PREVENTION ALERT - MRSA* CONTACT PRECAUTIONS REQUIRED. Culture, Blood [[id number]] Collected: 09/26/19 1659 Order Status: Completed Lab Status: Preliminary result Updated: 09/27/19 0501 Specimen: Peripheral Blood Culture No growth: Monitored continually by instrument for 5 days Culture, Blood [[id number]] Collected: 09/26/19 1646 Order Status: Completed Lab Status: Preliminary result Updated: 09/27/19 0501 Specimen: Blood from Line Culture No growth: Monitored continually by instrument for 5 days Coronavirus (COVID-19) PCR [[id number]] Collected: 09/26/19 1500 Order Status: Completed Lab Status: Final result Updated: 09/28/19 0005 Specimen: Tissue from Nasopharynx SARS-CoV-2, DANNI (COVID-19) Not Detected Comment: Testing was performed using the efren(R) SARS-CoV-2 test. This test was developed and its performance characteristics determined by [employer]. This test has not been FDA cleared or approved. This test has been authorized by FDA under an Emergency Use Authorization (EUA). This test is only authorized for the duration of time the declaration that circumstances exist justifying the authorization of the emergency use of in vitro diagnostic tests for detection of SARS-CoV-2 virus and/or diagnosis of COVID-19 infection under section 564(b)(1) of the Act, 21 U.S.C. 360bbb-3(b)(1), unless the authorization is terminated or revoked sooner. Narrative: Performed at: - [facility] [address] [place], [place] [id number] Buhr Dresser: Kavon Bailey MD, Phone: [phone] Influenza A and B RNA, NAAT [[id number]] (Normal) Collected: 03/25/20 1500 Order Status: Completed Lab Status: Final result Updated: 09/26/19 1549 Specimen: Tissue from Nasopharynx Influenza A PCR Negative Influenza B PCR Negative Radiology results (more choices using dot risresults) Xr Chest Pa And Lateral Result Date: 09/26/2019 CLINICAL INFORMATION: asthma exacerbation. COMPARISON: 10/02/2012. FINDINGS: Frontal and late ral views of the chest. Lungs: Patchy airspace opacities at the right middle lobe with quest ionable component at the lingula. Suggestion of mild bronchial wall thickening. No pleural e ffusion or pneumothorax. Mild hyperinflation of the lungs. Heart/mediastinum: Cardiac silhou ette is of normal size. Central pulmonary vasculature has a normal appearance. Bones: No acu te osseous abnormality appreciated. Findings are most compatible with bronchopneumonia. Mild hyperinflation likely reflecting a sthma exacerbation. Dictated and Signed by: Grey Shepherd MD Electronically signed: 2019 3:[address] Angiogram Pulmonary W Contrast Result Date: 09/26/2019 TECHNIQUE: After administration of 85 mL Omnipaque 350 intravenously, axial CT imaging was obtained through the chest with coronal and sagittal reformats. At least one of the followin g CT dose optimization techniques were used: Automated exposure control; Adjustment of mA an d/or kV according to patient size; Use of iterative reconstruction technique. CLINICAL INFOR MATION: PE suspected, high pretest prob FEVER (9 WEEKS TO 74 YEARS) COUGH SHORTNESS OF BREAT H COMPARISON: Chest radiograph dated 09/26/2019. FINDINGS: DIAGNOSTIC QUALITY: Adequate timin g of the contrast bolus. Mild motion artifact at the mid to lower lungs degrades evaluation of the subsegmental pulmonary arteries. BONES: No acute osseous abnormality. No osteoblastic or osteolytic lesion. CHEST: Chest Wall: No supraclavicular or axillary lymphadenopathy. Me diastinum and annette: Calcified right hilar lymph nodes compatible with old granulomatous dise ase. Mild prominent appearance of bilateral hilar lymphatic tissues. Heart and pericardium: No CT evidence of right heart strain. Heart size is normal. No pericardial effusion. Vessels : Somewhat limited evaluation of the subsegmental pulmonary arteries at the mid to lower waylon gs due to artifact. No pulmonary artery filling defect identified. Normal caliber of the tho racic aorta. Lungs: Diffusely scattered patchy groundglass opacities are noted throughout th e lungs in a somewhat peribronchial and peripheral predominant distribution. Large airways: Perihilar bronchial wall thickening. Scattered mucous plugging at the upper and lower lungs. Pleura: No pleural effusion or pneumothorax. UPPER ABDOMEN: Unremarkable. No CT evidence of pulmonary embolus allowing for limited evaluation of the subsegmental art eries in the mid to lower lungs due to artifact. Diffuse patchy groundglass opacities throug hout the lungs with bronchial wall thickening and scattered mucous plugging, most compatible with bronchopneumonia (including viral and bacterial sources). Dictated and Signed by: Joaquim Shepherd MD Electronically signed: 09/26/2019 6:20 PM Vitals Ranges: Temp: [35.8 C (96.5 F)-37.6 C (99.7 F)] 35.8 C (96.5 F) Pulse: [10-108] 10 Resp: [20-24] 20 BP: (121-141)/(66-82) 139/78 Vitals: Temp: 35.8 C (96.5 F) BP: 139/78 Pulse: (!) 10 Resp: 20 SpO2: 96 % SpO2 96 % on room air at flow rate 2L/min Pulse likely recorded in error - normal heart rate on my examination Radha Banuelos MD 09/28/2019 12:44 PM [facility] Leandra Crum Phar mD - 09/27/2019 4:46 PM PDT PHARMACY SERVICES: ADMISSION MEDICATION REVIEW Martha Lawton is a 29 y.o. female admitted on 09/26/2019. Patient is a reliable historian. Location of Patient when reviewed: Medical Floor Patient s prior to admit medication and over the counter (OTC) medications/herbal supplem ents list obtained from: X Verbal interview with patient who was able to name, strength, and directions X Pharmacy list names: [facility] ([facility]) [facility] () X [facility] insurance reported information X Outside Information Vaccines up to date? 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 However no fill history from [facility], [facility] (), and [facility] () Patient did not want to interview with me, she stated she had already been asked all of the se questions Patient recently finished Prednisone 10 m tablet BID. Last fill 09/13/19 #10/5 day Best possible TANK INSPECTOR medication list after pharmacy review: PT REPORTED TAKING NOT TAKING Medication Sig Last Dose Dispense Doc. Provider ALBUTEROL IN Inhale into the lungs. Taking Historical Provider, Medication review performed and electronically signed by Adeline Yao, [employer] 09/27/2019 4:15 PM Reviewed by Leandra Mclaughlin PharmD 09/27/2019 4:46 PM arRadha jones MD - 09/27/2019 3:43 PM PDT [facility] HOSPITALIST PROGRESS NOTE Patient: Martha Lawton : 1990: Age: 29 y.o. MedRec: [id number] Admission date: 09/26/2019 Hospital day # : 1 Physician author: Radha Banuelos MD Today: 09/27/2019 Assessment and Hospital Course Active Hospital Problems Diagnosis Asthma exacerbation CAP (community acquired pneumonia) Resolved Hospital Problems No resolved problems to display. 29 yo F with history of asthma who presented with cough, fever, chills. Plan #Febrile illness #Asthma exacerbation #Acute hypoxic respiratory failure Patient presented with reported cough, fever, chills. Oxygen dropped to 89% on RA in the ED . CT showed GGO throughout the lungs. Patient has had sick contacts recently. RVP and influe nza negative. Blood cultures unremarkable, no sputum sample yet as patient's cough has been dry. COVID 19 pending, continue appropriate precautions/isolation. Patient is stable on 2L o xygen currently. - Combivent inhaler - respiratory therapy evaluation/treat - ceftriaxone, azithromycin for possible CAP - 40mg IV solumedrol Q12h for possible asthma exacerbation - antitussives as needed - respiratory therapy protocol FEN: gen Ppx: lovenox Disposition: pending clinical course Subjective CC: unable to assess Patient appears quite fatigued, is minimally verbal, hoarse voice. States she wants to be l eft alone. Endorses shortness of breath, ROS otherwise negative. ROS was performed and was negative except as noted above. Exam Gen: WDWN, nad HEENT: MMM, neck supple CV: fast rate, reg rhythm, no m/r/g Pulm: diffuse end expiratory wheezing, increased effort Abdominal: soft, nontender, nondistended, normal bowel tones Extremities: well perfused, no edema Skin: warm, dry, no rashes, mildly diaphoretic Neuro: somnolent but arousable Psych: flat affect Allergies: Not on File Current Medications: Current Facility-Administered Medications Medication Dose Route Frequency Provider Last Rate Last Dose acetaminophen (TYLENOL) tablet 650 mg 650 mg Oral Q4H PRN Sherrie Amezquita MD albuterol 2.5 mg/3 mL nebulizer solution 2.5 mg 2.5 mg Nebulization RT Q2H PRN Sheba Amezquita MD albuterol-ipratropium (COMBIVENT RESPIMAT) 100-20 mcg/puff inhaler 1 puff 1 puff Inhal ation RT Q6H Radha Banuelos MD 1 puff at 09/27/19 1514 aluminum & magnesium hydroxide-simethicone (MAALOX PLUS REGULAR STRENGTH) 200-200-20 mg /5 mL suspension 30 mL 30 mL Oral Q4H PRN Sherrie Amezquita MD azithromycin (ZITHROMAX) 500 mg in sodium chloride 0.9% 250 mL IVPB 500 mg Intravenous QPM Sherrie Amezquita MD 255 mL/hr at 09/26/19 2250 500 mg at 09/26/19 2250 benzonatate (TESSALON) capsule 200 mg 200 mg Oral TID PRN Sherrie Amezquita MD 20 0 mg at 09/27/19 0939 bisacodyl (DULCOLAX) suppository 10 mg 10 mg Rectal Daily PRN Sherrie Amezquita MD budesonide (PULMICORT) nebulizer solution 0.25 mg 0.25 mg Nebulization RT BID Sherrie Amezquita MD calcium carbonate (TUMS) chewable tablet 1,000 mg 1,000 mg Oral Q4H PRN Sherrie Amezquita MD cefTRIAXone (ROCEPHIN) 1 g in sodium chloride 0.9% 50 mL IVPB 1 g Intravenous Daily Mo tammie Amezquita MD 100 mL/hr at 09/27/19 0914 1 g at 09/27/19 0914 enoxaparin (LOVENOX) 40 mg/0.4 mL injection 40 mg 40 mg Subcutaneous Daily Sherrie Amezquita MD 40 mg at 09/27/19 0920 guaiFENesin-dextromethorphan (ROBITUSSIN DM) 100-10 mg/5 mL liquid 10 mL 10 mL Oral Q4 H PRN Sherrie Amezquita MD melatonin tablet 3 mg 3 mg Oral Nightly PRN Sherrie Amezquita MD methylPREDNISolone sodium succinate (solu-MEDROL) 40 mg/mL injection 40 mg 40 mg Intra venous Q8H Sherrie Amezquita MD 40 mg at 09/27/19 0907 ondansetron (ZOFRAN ODT) disintegrating tablet 4 mg 4 mg Oral Q6H PRN Sherrie morfin MD polyethylene glycol (MIRALAX) powder 17 g 17 g Oral Daily PRN Sherrie Amezquita MD prochlorperazine tablet 10 mg 10 mg Oral Q6H PRN Sherrie Amezquita MD senna (SENOKOT) tablet 8.6 mg 8.6 mg Oral BID PRN Sherrie Amezquita MD Current Infusions: Objective Data Point of care glucose Recent Labs Lab 09/26/19 1734 POCGLU 129* Labs last 24 hours Recent Results (from the past 24 hour(s)) Culture, Blood Collection Time: 09/26/19 4:46 PM Result Value Ref Range Culture No growth: Monitored continually by instrument for 5 days CBC with Differential Collection Time: 09/26/19 4:46 PM Result Value Ref Range WBC 11.6 (H) 4.0 - 11.0 K/uL RBC 4.97 3.70 - 5.20 M/uL Hemoglobin 14.6 11.5 - 16.0 g/dL Hematocrit 44.1 34.0 - 47.0 % MCV 88.7 83.0 - 101.0 fL MCH 29.4 28.0 - 35.0 pg MCHC 33.1 32.0 - 36.0 g/dL RDW-CV 13.2 <15.0 % RDW-SD 42.9 35.1 - 46.3 fL Platelet Count 337 140 - 440 K/uL MPV 10.8 6.5 - 12.4 fL % Neutrophils 76.8 45.0 - 82.0 % % Lymphocytes 10.1 (L) 20.0 - 45.0 % % Monocytes 6.4 4.0 - 12.0 % % Eosinophils 5.8 (H) 0.0 - 5.0 % % Basophils 0.6 0.0 - 1.0 % % Immature Granulocytes 0.3 0.0 - 0.4 % Absolute Neutrophils 8.92 (H) 1.80 - 8.50 K/uL Absolute Lymphocytes 1.17 0.60 - 3.20 K/uL Absolute Monocytes 0.74 0.00 - 1.00 K/uL Absolute Eosinophils 0.67 (H) 0.00 - 0.40 K/uL Absolute Basophils 0.07 0.00 - 0.10 K/uL Absolute Immature Granulocytes 0.04 (H) 0.00 - 0.03 K/uL % nRBC 0 0 - 2 per 100 WBCs Absolute nRBC 0.00 0.00 - 0.01 K/uL Comprehensive Metabolic Panel Collection Time: 09/26/19 4:46 PM Result Value Ref Range Na 140 136 - 145 mmol/L K 4.1 3.4 - 5.1 mmol/L Cl 106 98 - 107 mmol/L CO2 25 20 - 31 mmol/L Anion Gap 9 3 - 16 mmol/L Glucose 113 (H) 60 - 106 mg/dL BUN 11 9 - 23 mg/dL Creatinine 0.54 (L) 0.55 - 1.02 mg/dL eGFR if not >60 >=60 mL/min/1.73m2 Calcium 9.8 8.7 - 10.4 mg/dL Albumin 4.3 3.2 - 4.8 g/dL Bilirubin Total 1.2 0.3 - 1.2 mg/dL Total Protein 6.8 5.7 - 8.2 g/dL AST 21 0 - 34 U/L ALT 18 10 - 49 U/L Alkaline Phosphatase 83 46 - 116 U/L Globulin 2.5 2.1 - 3.8 g/dL Albumin/Globulin Ratio 1.7 0.8 - 1.9 BUN/Creatinine Ratio 20.4 Lactic Acid Collection Time: 09/26/19 4:46 PM Result Value Ref Range Lactate 1.4 0.5 - 2.2 mmol/L Procalcitonin Collection Time: 09/26/19 4:46 PM Result Value Ref Range Procalcitonin <0.05 <=0.50 ng/mL Comment Culture, Blood Collection Time: 09/26/19 4:59 PM Result Value Ref Range Culture No growth: Monitored continually by instrument for 5 days POC Blood Gases Collection Time: 09/26/19 5:09 PM Result Value Ref Range Specimen Source Artery pH, POC 7.401 7.3 - 7.45 HCO3, POC 25.2 21.0 - 28.0 mmol/L TCO2, POC 26.4 22.0 - 29.0 mmol/L Base Excess, POC 0.3 -2.0 - 3.0 mmol/L Base Excess, Extracellular fluid, POC 0.4 -2.0 - 3.0 mmol/L O2 Sat, POC 95 90 - 100 % PCO2, POC 40.6 35 - 45 mmHg pO2, POC 74 60 - 750 mmHg POC Glucose Collection Time: 09/26/19 5:34 PM Result Value Ref Range Glucose, POC 129 (H) 70 - 109 mg/dL Respiratory pathogen panel, NAAT Collection Time: 09/26/19 11:34 PM Result Value Ref Range Parainfluenza 1 Not Detected Not Detected Adenovirus Not Detected Not Detected Human Metapneumovirus Not Detected Not Detected Rhinovirus/Enterovirus Not Detected Not Detected Parainfluenza 3 Not Detected Not Detected Basic Metabolic Panel Collection Time: 09/27/19 4:18 AM Result Value Ref Range Na 140 136 - 145 mmol/L K 3.7 3.4 - 5.1 mmol/L Cl 110 (H) 98 - 107 mmol/L CO2 23 20 - 31 mmol/L Anion Gap 7 3 - 16 mmol/L Glucose 135 (H) 60 - 106 mg/dL BUN 9 9 - 23 mg/dL Creatinine 0.46 (L) 0.55 - 1.02 mg/dL eGFR if not >60 >=60 mL/min/1.73m2 Calcium 9.0 8.7 - 10.4 mg/dL BUN/Creatinine Ratio 19.6 CBC no Differential Collection Time: 09/27/19 4:18 AM Result Value Ref Range WBC 12.0 (H) 4.0 - 11.0 K/uL RBC 4.67 3.70 - 5.20 M/uL Hemoglobin 13.8 11.5 - 16.0 g/dL Hematocrit 40.3 34.0 - 47.0 % MCV 86.3 83.0 - 101.0 fL MCH 29.6 28.0 - 35.0 pg MCHC 34.2 32.0 - 36.0 g/dL RDW-CV 13.0 <15.0 % RDW-SD 40.5 35.1 - 46.3 fL Platelet Count 312 140 - 440 K/uL MPV 10.7 6.5 - 12.4 fL % nRBC 0 0 - 2 per 100 WBCs Absolute nRBC 0.00 0.00 - 0.01 K/uL Magnesium Collection Time: 09/27/19 4:18 AM Result Value Ref Range Magnesium 1.8 1.6 - 2.6 mg/dL Micro results (more choices using dot micro) Microbiology Results (72 hrs) Procedure Component Value Units Date/Time Legionella, Ag, EIA, Qual, Urine [[id number]] Collected: 09/27/19 0019 Order Status: Sent Lab Status: In process Updated: 09/27/19 0024 Specimen: Urine, Clean Catch Respiratory pathogen panel, NAAT [[id number]] (Normal) Collected: 09/26/192333 Order Status: Completed Lab Status: Final result Updated: 09/27/19224 Specimen: Body Fluid from Nasopharynx Parainfluenza 1 Not Detected Adenovirus Not Detected Human Metapneumovirus Not Detected Rhinovirus/Enterovirus Not Detected Parainfluenza 3 Not Detected Culture, MRSA [[id number]] Collected: 09/26/192333 Order Status: Sent Lab Status: In process Updated: 09/26/192341 Specimen: Body Fluid from Nasopharynx Culture, Blood [[id number]] Collected: 09/26/19 1659 Order Status: Completed Lab Status: Preliminary result Updated: 09/27/19 0501 Specimen: Peripheral Blood Culture No growth: Monitored continually by instrument for 5 days Culture, Blood [[id number]] Collected: 09/26/19 1646 Order Status: Completed Lab Status: Preliminary result Updated: 09/27/19 0501 Specimen: Blood from Line Culture No growth: Monitored continually by instrument for 5 days Coronavirus (COVID-19) PCR [[id number]] Collected: 09/26/19 1500 Order Status: Sent Lab Status: In process Updated: 09/26/19 1521 Specimen: Tissue from Nasopharynx Influenza A and B RNA, NAAT [[id number]] (Normal) Collected: 09/26/19 1500 Order Status: Completed Lab Status: Final result Updated: 09/26/19 1549 Specimen: Tissue from Nasopharynx Influenza A PCR Negative Influenza B PCR Negative Radiology results (more choices using dot risresults) Xr Chest Pa And Lateral Result Date: 09/26/2019 CLINICAL INFORMATION: asthma exacerbation. COMPARISON: 10/02/2012. FINDINGS: Frontal and late ral views of the chest. Lungs: Patchy airspace opacities at the right middle lobe with quest ionable component at the lingula. Suggestion of mild bronchial wall thickening. No pleural e ffusion or pneumothorax. Mild hyperinflation of the lungs. Heart/mediastinum: Cardiac silhou ette is of normal size. Central pulmonary vasculature has a normal appearance. Bones: No acu te osseous abnormality appreciated. Findings are most compatible with bronchopneumonia. Mild hyperinflation likely reflecting a sthma exacerbation. Dictated and Signed by: Grey Shepherd MD Electronically signed: 2019 3:[address] Angiogram Pulmonary W Contrast Result Date: 09/26/2019 TECHNIQUE: After administration of 85 mL Omnipaque 350 intravenously, axial CT imaging was obtained through the chest with coronal and sagittal reformats. At least one of the followin g CT dose optimization techniques were used: Automated exposure control; Adjustment of mA an d/or kV according to patient size; Use of iterative reconstruction technique. CLINICAL INFOR MATION: PE suspected, high pretest prob FEVER (9 WEEKS TO 74 YEARS) COUGH SHORTNESS OF BREAT H COMPARISON: Chest radiograph dated 09/26/2019. FINDINGS: DIAGNOSTIC QUALITY: Adequate timin g of the contrast bolus. Mild motion artifact at the mid to lower lungs degrades evaluation of the subsegmental pulmonary arteries. BONES: No acute osseous abnormality. No osteoblastic or osteolytic lesion. CHEST: Chest Wall: No supraclavicular or axillary lymphadenopathy. Me diastinum and annette: Calcified right hilar lymph nodes compatible with old granulomatous dise ase. Mild prominent appearance of bilateral hilar lymphatic tissues. Heart and pericardium: No CT evidence of right heart strain. Heart size is normal. No pericardial effusion. Vessels : Somewhat limited evaluation of the subsegmental pulmonary arteries at the mid to lower waylon gs due to artifact. No pulmonary artery filling defect identified. Normal caliber of the tho racic aorta. Lungs: Diffusely scattered patchy groundglass opacities are noted throughout th e lungs in a somewhat peribronchial and peripheral predominant distribution. Large airways: Perihilar bronchial wall thickening. Scattered mucous plugging at the upper and lower lungs. Pleura: No pleural effusion or pneumothorax. UPPER ABDOMEN: Unremarkable. No CT evidence of pulmonary embolus allowing for limited evaluation of the subsegmental art eries in the mid to lower lungs due to artifact. Diffuse patchy groundglass opacities throug hout the lungs with bronchial wall thickening and scattered mucous plugging, most compatible with bronchopneumonia (including viral and bacterial sources). Dictated and Signed by: Joaquim Shepherd MD Electronically signed: 09/26/2019 6:20 PM Vitals Ranges: Temp: [36.2 C (97.2 F)-37.6 C (99.7 F)] 36.4 C (97.5 F) Pulse: [69-121] 108 Resp: [19-48] 24 BP: (118-145)/(72-100) 136/72 Vitals: Temp: 36.4 C (97.5 F) BP: 136/72 Pulse: 108 Resp: 24 SpO2: 94 %(Coughing, ) SpO2 94 %(Coughing, ) on nasal cannula at flow rate 2L/min Radha Banuelos MD 09/27/2019 3:43 PM [facility] documented in this enco unter Plan of Treatment Not on filedocumented as of this encounter Procedures + +--------+ + + + | Procedure Name | Priori | Date/Time | Associated Diagnosis | Comments | | | ty | | | | + +--------+ + + + | CBC WITH | Routin | 09/29/2019 | | Results for this | | DIFFERENTIAL | e | 5:48 AM | | procedure are in the | | | | PDT | | results section. | + +--------+ + + + | MAGNESIUM | Routin | 09/29/2019 | | Results for this | | | e | 5:48 AM | | procedure are in the | | | | PDT | | results section. | + +--------+ + + + | BASIC METABOLIC | Routin | 09/29/2019 | | Results for this | | PANEL | e | 5:48 AM | | procedure are in the | | | | PDT | | results section. | + +--------+ + + + | DRUGS OF ABUSE, | Routin | 09/28/2019 | | Results for this | | SCREEN, URINE | e | 12:30 PM | | procedure are in the | | | | PDT | | results section. | + +--------+ + + + | PROCALCITONIN, SERUM | Add-On | 09/28/2019 | | Results for this | | | | 3:07 AM | | procedure are in the | | | | PDT | | results section. | + +--------+ + + + | CBC WITH | Routin | 09/28/2019 | | Results for this | | DIFFERENTIAL | e | 3:07 AM | | procedure are in the | | | | PDT | | results section. | + +--------+ + + + | MAGNESIUM | Routin | 09/28/2019 | | Results for this | | | e | 3:07 AM | | procedure are in the | | | | PDT | | results section. | + +--------+ + + + | BASIC METABOLIC | Routin | 09/28/2019 | | Results for this | | PANEL | e | 3:07 AM | | procedure are in the | | | | PDT | | results section. | + +--------+ + + + | RESPIRATORY THERAPY | Routin | 09/27/2019 | | | | COMMUNICATION | e | 6:02 PM | | | | | | PDT | | | + +--------+ + + + | CBC NO DIFFERENTIAL | Routin | 09/27/2019 | | Results for this | | | e | 4:18 AM | | procedure are in the | | | | PDT | | results section. | + +--------+ + + + | MAGNESIUM | Routin | 09/27/2019 | | Results for this | | | e | 4:18 AM | | procedure are in the | | | | PDT | | results section. | + +--------+ + + + | BASIC METABOLIC | Routin | 09/27/2019 | | Results for this | | PANEL | e | 4:18 AM | | procedure are in the | | | | PDT | | results section. | + +--------+ + + + | LEGIONELLA AG, EIA, | Routin | 09/27/2019 | | Results for this | | QUAL, URINE | e | 12:19 AM | | procedure are in the | | | | PDT | | results section. | + +--------+ + + + | STREPTOCOCCUS | Routin | 09/27/2019 | | Results for this | | PNEUMONIAE AG, URINE | e | 12:18 AM | | procedure are in the | | | | PDT | | results section. | + +--------+ + + + | CULTURE, MRSA | Routin | 09/26/2019 | | Results for this | | | e | 11:34 PM | | procedure are in the | | | | PDT | | results section. | + +--------+ + + + | RESPIRATORY VIRUS | Routin | 09/26/2019 | | Results for this | | ANTIGENS PROFILE | e | 11:34 PM | | procedure are in the | | | | PDT | | results section. | + +--------+ + + + | CT ANGIOGRAM | STAT | 09/26/2019 | | Results for this | | PULMONARY | | 5:40 PM | | procedure are in the | | | | PDT | | results section. | + +--------+ + + + | POC GLUCOSE | Routin | 09/26/2019 | | Results for this | | | e | 5:34 PM | | procedure are in the | | | | PDT | | results section. | + +--------+ + + + | POC BLOOD GASES | Routin | 09/26/2019 | | Results for this | | | e | 5:09 PM | | procedure are in the | | | | PDT | | results section. | + +--------+ + + + | CULTURE, BLOOD | STAT | 09/26/2019 | | Results for this | | | | 4:59 PM | | procedure are in the | | | | PDT | | results section. | + +--------+ + + + | PROCALCITONIN, SERUM | STAT | 09/26/2019 | | Results for this | | | | 4:46 PM | | procedure are in the | | | | PDT | | results section. | + +--------+ + + + | CULTURE, BLOOD | STAT | 09/26/2019 | | Results for this | | | | 4:46 PM | | procedure are in the | | | | PDT | | results section. | + +--------+ + + + | CBC WITH | STAT | 09/26/2019 | | Results for this | | DIFFERENTIAL | | 4:46 PM | | procedure are in the | | | | PDT | | results section. | + +--------+ + + + | LACTIC ACID | STAT | 09/26/2019 | | Results for this | | | | 4:46 PM | | procedure are in the | | | | PDT | | results section. | + +--------+ + + + | COMPREHENSIVE | STAT | 09/26/2019 | | Results for this | | METABOLIC PANEL | | 4:46 PM | | procedure are in the | | | | PDT | | results section. | + +--------+ + + + documented in this encounter Results Magnesium (09/29/2019 5:48 AM PDT) + +-------+ + + + | Component | Value | Ref Range | Performed | Pathologist | | | | | At | Signature | + +-------+ + + + | Magnesium | 2.1 | 1.6 - 2.6 mg/dL | [facility] | | | | | [...] + | [facility] | [address] | [place] | [phone] | | [facility] | | [address] | | | - LABORATORY | | | | + + + + + Basic Metabolic Panel (09/29/2019 5:48 AM PDT) + + + + + + | Component | Value | Ref Range | Performed | Pathologist | | | | | At | Signature | + + + + + + | Na | 141 | 136 - 145 | [facility] | | | | | mmol/L | [facility] | | | | | | [facility] | | | | | | [facility] - | | | | | | LABORATORY | | + + + + + + | K | 4.1 | 3.4 - 5.1 | [facility] | | | | | mmol/L | [facility] | | | | | | [facility] | | | | | | C[facility] - | | | | | | LABORATORY | | + + + + + + | Cl | 109 (H) | 98 - 107 mmol/L | [facility] | | | | | | [facility] | | | | | | [facility] | | | | | | C[facility] - | | | | | | LABORATORY | | + + + + + + | CO2 | 24 | 20 - 31 mmol/L | [facility] [...] + + + + | Glucose | 135 (H) | 60 - 106 mg/dL | [facility] | | | | | | [facility] | | | | | | [facility] | | | | | | [facility] - | | | | | | LABORATORY | | + + + + + + | BUN | 8 (L) | 9 - 23 mg/dL | [facility] | | | | | | [facility] | | | | | | [facility] | | | | | | [facility] - | | | | | | LABORATORY | | + + + + + + | Creatinine | 0.44 (L) | 0.55 - 1.02 | [facility] | | | | | mg/dL | [facility] | | | | | | [facility] | | | | | | CENTER - | | | | | | LABORATORY | | + + + + + + | eGFR if not | >60Comment: GLOMERULAR | >=60 | [facility] | | | | FILTRATION | mL/min/1.73m2 | [facility] | | | [facility]RAINI | RATE,ESTIMATED | | MEDICAL | | | | mL/min/1.62i1Shui than | | CENTER - | | [...] + + + + | Calcium | 9.2 | 8.7 - 10.4 | [facility] | | | | | mg/dL | [facility] | | | | | | [facility] | | | | | | CENTER - | | | | | | LABORATORY | | + + + + + + | BUN/Creatin | 18.2 | | [facility] | | | ine [...] [address] | [place] | [phone] | | [facility] | | [address] | | | - LABORATORY | | | | + + + + + CBC with Differential (09/29/2019 5:48 AM PDT) + + + + + + | Component | Value | Ref Range | Performed | Pathologist | | | | | At | Signature | + + + + + + | WBC | 13.2 (H) | 4.0 - 11.0 K/uL | [...] + + + + | Hematocrit | 40.6 | 34.0 - 47.0 % | [facility] | | | | | [facility] | | | | | | [facility] | | | | | | [facility] - | | | | | | LABORATORY | | + + + + + + | MCV | 88.8 | 83.0 - 101.0 fL | [facility] [...] + + + + | MCHC | 33.5 | 32.0 - 36.0 | [facility] | | | | | g/dL | [facility] | | | | | | [facility] | | | | | | CENTER - | | | | | | LABORATORY | | + + + + + + | RDW-CV | 13.0 | <15.0 % | [facility] | | | | | | [facility] | [facility] | | | | | | [facility] - | | | | | | LABORATORY | | + + + + + + | RDW-SD | 42.6 | 35.1 - 46.3 fL | [facility] | | | | | | [facility] | | | | | | [facility] | | | | | | CENTER - | | | | | | LABORATORY | | + + + + + + | Platelet | 311 | 140 - 440 K/uL | [facility] [...] + + + + | % | 85.8 (H) | 45.0 - 82.0 % | [facility] | | | Neutrophils | | | [facility] | | | | | | [facility] | | | | | | CENTER - | | | | | | LABORATORY | | + + + + + + | % | 8.8 (L) | 20.0 - 45.0 % | [facility] | | | Lymphocytes | | | [facility] | | | | | | [facility] | | | | | | CENTER - | | | | | | LABORATORY | | + + + + + + | % Monocytes | 4.3 | 4.0 - 12.0 % | [facility] | | | | | | [facility] | | | | | | [facility] | | | | | | CENTER - | | | | | | LABORATORY | | + + + + + + | % | 0.1 | 0.0 - 5.0 % | [facility] | | | Eosinophils | | | [facility] | | | | | | [facility] | | | | | | CENTER - | | | | | | LABORATORY | | + + + + + + | % Basophils | 0.2 | 0.0 - 1.0 % | [facility] | | | | | | [facility] | | | | | | [facility] | | | | | | CENTER - | | | | | | LABORATORY | | + + + + + + | % Immature | 0.8 (H)Comment: | 0.0 - 0.4 % | [facility] | | | Granulocyte | Preliminary studies have | | [facility] | | | s | indicated the IG% | | MEDICAL | | | | and/or IG# show promise | | CENTER - | | | | as an early indicator | | LABORATORY | | | | for infection. For | | | | | | patients, use | | | | | | the special reference | | | | | | ranges listed below. | | | | + + + + + + | Absolute | 11.31 (H) | 1.80 - 8.50 | [facility] | | | Neutrophils | | K/uL | [facility] | | | | | | MEDICAL | | | | | | CENTER - | | | | | | LABORATORY | | + + + + + + | Absolute | 1.16 | 0.60 - 3.20 | [facility] | | | Lymphocytes | | K/uL | [facility] | | | | | | MEDICAL | | | | | | CENTER - | | | | | | LABORATORY | | + + + + + + | Absolute | 0.57 | 0.00 - 1.00 | [facility] | | | Monocytes | | K/uL | [facility] | | | | | [facility] | | | | | | CENTER - | | | | | | LABORATORY | | + + + + + + | Absolute | 0.01 | 0.00 - 0.40 | [facility] | | | Eosinophils | | K/uL | [facility] | | | | | | MEDICAL | | | | | | CENTER - | | | | | | LABORATORY | | + + + + + + | Absolute | 0.03 | 0.00 - 0.10 | [facility] | | | Basophils | | K/uL | [facility] | | | | | | MEDICAL | | | | | | CENTER - | | | | | | LABORATORY | | + + + + + + | Absolute | 0.11 (H)Comment: For | 0.00 - 0.03 | [facility] [...] | nRBC | | K/uL | [facility] | [...] ranges: Trim. Absolute (K/uL) Percentage (%) | [facility] | | 1st 0.003-0.091 K/uL 0.0-0.9% 2nd 0.007-0.247 K/uL | [facility] | | 0.1-2.0% 3rd 0.018-0.456 K/uL 0.1-2.0% | - LABORATORY | + + + + + + + + | Performing | Address | City/State/Zipcode | Phone Number | | Organization | | | | + + + + + | [facility] | [address] | [place] | [phone] | | [facility] | | [address] | | | - LABORATORY | | | | + + + + + Drugs of Abuse, Screen, Urine (09/28/2019 12:30 PM PDT) + + + + + [...] [facility] | [address] | [place] | [phone] | | [facility] | | [address] | | | - LABORATORY | | | | + + + + + Procalcitonin (09/28/2019 3:07 AM PDT) + + + + + + | Component | Value | Ref Range | Performed | Pathologist | | | | | At | Signature | + + + + + + | Procalciton | <0.05 | <=0.50 ng/mL | [facility] | | | in | | | [facility] | | | | | | MEDICAL | | | | | | CENTER - | | | | | | LABORATORY | | + + + + + + | Comment | Comment: < 0.50 | | [facility] | | | | ng/mL:Procalcitonin | | [facility] | | | | levels below 0.50 ng/mL | | MEDICAL | | | | on the first day of | | CENTER - | | | | admission represents a | | LABORATORY | | | | low risk for progression | | | | | | to severe sepsis and/or | | | | | | septic shock, however | | | | | | these do not exclude an | | | | | | infection, because | | | | | | localized infections | | | | | | (without systemic signs) | | | | | | may also be associated | | | | | | with such low levels. | | | | | | > 2.00 | | | | | | ng/mL:Procalcitonin | | | | | | levels above 2.00 ng/mL | | | | | | on the first day of | | | | | | admission represents a | | | | | | high risk for | | | | | | progression to severe | | | | | | sepsis and/or septic | | | | | | shock. If the | | | | | | procalcitonin | | | | | | measurement is performed | | | | | | shortly after the | | | | | | systemic infection | | | | | | process has started | | | | | | (usually less than 6 | | | | | | hours), these values may | | | | | | still be low. As | | | | | | various non-infectious | | | | | | conditions are known to | | | | | | induce procalcitonin as | | | | | | well, procalcitonin | | | | | | levels between 0.50 | | | | | | ng/mL and 2.00 ng/mL | | | | | | should be reviewed | | | | | | carefully to take into | | | | | | account the specific | | | | | | clinical background and | | | | | | condition(s) of the | | | | | | individual patient. | | | | + + + + + + + + | Specimen | + + | Blood | + + + + + + + | Performing | Address | City/State/Zipcode | Phone Number | | Organization | | | | + + + + + | [facility] | [address] | [place], [place] | [phone] | | [facility] | | [address] | | | - LABORATORY | | | | + + + + + Magnesium (09/28/2019 3:07 AM PDT) + +-------+ + + + | Component | Value | Ref Range | Performed | Pathologist | | | | | At | Signature | + +-------+ + + + | Magnesium | 1.8 | 1.6 - 2.6 mg/dL | [facility] | | | | | | [facility] | [address] | [place], [place] | [phone] | | [facility] | | [address] | | | - LABORATORY | | | | + + + + + Basic Metabolic Panel (09/28/2019 3:07 AM PDT) + + + + + + | Component | Value | Ref Range | Performed | Pathologist | | | | | At | Signature | + + + + + + | Na | 140 | 136 - 145 | [facility] | | | | | mmol/L | [facility] | | | | | | MEDICAL | | | | | | CENTER - | | | | | | LABORATORY | | + + + + + + | K | 3.9 | 3.4 - 5.1 | [facility] | | | | | mmol/L | [facility] | | | | | | MEDICAL | | | | | | CENTER - | | | | | | LABORATORY | | + + + + + + | Cl | 109 (H) | 98 - 107 mmol/L | [facility] | | | | | | [facility] | | | | | | MEDICAL | | | | | | CENTER - | | | | | | LABORATORY | | + + + + + + | CO2 | 25 | 20 - 31 mmol/L | [facility] | [facility] | [facility] | | | | | | [facility] | | | | | | [facility] - | | | | | | LABORATORY | | + + + + + + | Anion Gap | 6 | 3 - 16 mmol/L | [facility] | | | | | | [facility] | | | | | | [facility] | | | | | | [facility] - | | | | | | LABORATORY | | + + + + + + | Glucose | 140 (H) | 60 - 106 mg/dL | [facility] | | [facility] | | [facility] | | | | | | [facility] | | | | | | C[facility] - | | | | | | LABORATORY | | + + + + + + | BUN | 11 | 9 - 23 mg/dL | [facility] | | [facility] | | [facility] | | | | | | [facility] | | | | | | [facility]ENTER - | | | | | | LABORATORY | | + + + + + + | Creatinine | 0.49 (L) | 0.55 - 1.02 | [facility] | | | | | mg/dL | [facility] | | | | | | MEDICAL | | | | | | CENTER - | | | | | | LABORATORY | | + + + + + + | eGFR if not | >60Comment: GLOMERULAR | >=60 | [facility] | | | | FILTRATION | mL/min/1.73m2 | [facility] | | | [facility] | RATE,ESTIMATED | | MEDICAL | | | | mL/min/1.18b8Uaec than | | CENTER - | | [...] + + + + | Calcium | 8.7 | 8.7 - 10.4 | [facility] | | | | | mg/dL | [facility] | | | | | | MEDICAL | | | | | | CENTER - | | | | | | LABORATORY | | + + + + + + | BUN/Creatin | 22.4 | | [facility] | | | ine Ratio | | | [facility] | | [...] [address] | [place] | [phone] | | [facility] | | [address] | | | - LABORATORY | | | | + + + + + CBC with Differential (09/28/2019 3:07 AM PDT) + + + + + + | Component | Value | Ref Range | Performed | Pathologist | | | | | At | Signature | + + + + + + | WBC | 15.7 (H) | 4.0 - 11.0 K/uL | [facility] | | [facility] | [facility] - | | | | | | LABORATORY | | + + + + + + | RBC | 4.34 | 3.70 - 5.20 | [facility] | | | | | M/uL | [facility] | | [facility] | [facility] | | | | | | C[facility] - | | | | | | LABORATORY | | + + + + + + | Hemoglobin | 12.9 | 11.5 - 16.0 | [facility] | | | | | g/dL | [facility] | | [facility] | [facility] | | | | | | CENTER - | | | | | | LABORATORY | | + + + + + + | Hematocrit | 37.9 | 34.0 - 47.0 % | [facility] [...] + + + + | MCH | 29.7 | 28.0 - 35.0 pg | [facility] [...] + + + + | RDW-CV | 13.2 | <15.0 % | [facility] | | | | | [facility] | | [facility] | [facility] | | | | | | C[facility] - | | | | | | LABORATORY | | + + + + + + | RDW-SD | 41.8 | 35.1 - 46.3 fL | [facility] | | | | | [facility] | | [facility] | [facility] | | | | | | C[facility] - | | | | | | LABORATORY | | + + + + + + | Platelet | 280 | 140 - 440 K/uL | [facility] | | | Count | | | [facility] | | | | | | [facility] | | | | | | CENTER - | | | | | | LABORATORY | | + + + + + + | MPV | 11.0 | 6.5 - 12.4 fL | [facility] | | | | | | [facility] | | [facility] | [facility] | | | | | | [facility] - | | | | | | LABORATORY | | + + + + + + | % | 90.1 (H) | 45.0 - 82.0 % | [facility] | | | Neutrophils | | | [facility] | | | | | | [facility] | | | | | | CENTER - | | | | | | LABORATORY | | + + + + + + | % | 6.6 (L) | 20.0 - 45.0 % | [facility] | | | Lymphocytes | | | [facility] | | | | | | [facility] | | | | | | CENTER - | | | | | | LABORATORY | | + + + + + + | % Monocytes | 2.5 (L) | 4.0 - 12.0 % | [facility] | | | | | | [facility] | | | [facility] | | [facility] | | | | | | CENTER - | | | | | | LABORATORY | | + + + + + + | % | 0.0 | 0.0 - 5.0 % | [facility] | | | Eosinophils | | | [facility] | | | | | | [facility] | | | | | | CENTER - | | | | | | LABORATORY | | + + + + + + | % Basophils | 0.2 | 0.0 - 1.0 % | [facility] | | | | | | [facility] | | | | | | [facility] | | | | | | CENTER - | | | | | | LABORATORY | | + + + + + + | % Immature | 0.6 (H)Comment: | 0.0 - 0.4 % | [facility] | | | Granulocyte | Preliminary studies have | | [facility] | | | s | indicated the IG% | | MEDICAL | | | | and/or IG# show promise | | CENTER - | | | | as an early indicator | | LABORATORY | | | | for infection. For | | | | | | patients, use | | | | | | the special reference | | | | | | ranges listed below. | | | | + + + + + + | Absolute | 14.13 (H) | 1.80 - 8.50 | [facility] | | | Neutrophils | | K/uL | [facility] | | | | | | MEDICAL | | | | | | CENTER - | | | | | | LABORATORY | | + + + + + + | Absolute | 1.04 | 0.60 - 3.20 | [facility] | | | Lymphocytes | | K/uL | [facility] | | | | | | MEDICAL | | | | | | CENTER - | | | | | | LABORATORY | | + + + + + + | Absolute | 0.40 | 0.00 - 1.00 | [facility] | | | Monocytes | | K/uL | [facility] | | | | | | [facility] | | | | | | CENTER - | | | | | | LABORATORY | | + + + + + + | Absolute | 0.00 | 0.00 - 0.40 | [facility] | | | Eosinophils | | K/uL | [facility] | | | | | | [facility]ICAL | | | | | | CENTER - | | | | | | LABORATORY | | + + + + + + | Absolute | 0.03 | 0.00 - 0.10 | [facility] | | | Basophils | | K/uL | [facility] | | | | | | [facility] | | | | | | CENTER - | | | | | | LABORATORY | | + + + + + + | Absolute | 0.10 (H)Comment: For | 0.00 - 0.03 | [facility] [...] | | | | WBCs | [facility] | | | | [...] ranges: Trim. Absolute (K/uL) Percentage (%) | [facility] | | 1st 0.003-0.091 K/uL 0.0-0.9% 2nd 0.007-0.247 K/uL | [facility] | | 0.1-2.0% 3rd 0.018-0.456 K/uL 0.1-2.0% | - LABORATORY | + + + + + + + + | Performing | Address | City/State/Zipcode | Phone Number | | Organization | | | | + + + + + | [facility] | [address] | [place] | [phone] | | [facility] | | [address] | | | - LABORATORY | | | | + + + + + Magnesium (09/27/2019 4:18 AM PDT) + +-------+ + + + | Component | Value | Ref Range | Performed | Pathologist | | | | | At | Signature | + +-------+ + + + | Magnesium | 1.8 | 1.6 - 2.6 mg/dL | [facility] | | | | [...] [address] | [place] | [phone] | | [facility] | | [address] | | | - LABORATORY | | | | + + + + + CBC no Differential (09/27/2019 4:18 AM PDT) + + + + + + | Component | Value | Ref Range | Performed | Pathologist | | | | | At | Signature | + + + + + + | WBC | 12.0 (H) | 4.0 - 11.0 K/uL | [facility] | | | | | | [facility] | | | [facility] | | [facility]ICAL | | | | | | CENTER - | | | | | | LABORATORY | | + + + + + + | RBC | 4.67 | 3.70 - 5.20 | [facility] | | | | | M/uL | [facility] | | | | | | MEDICAL | | | | | | CENTER - | | | | | | LABORATORY | | + + + + + + | Hemoglobin | 13.8 | 11.5 - 16.0 | [facility] | | | | | g/dL | [facility] | | | | | | MEDICAL | | | | | | CENTER - | | | | | | LABORATORY | | + + + + + + | Hematocrit | 40.3 | 34.0 - 47.0 % | [facility] | | | | | | [facility] | | | | | | [facility]ICAL | | | | | | CENTER - | | | | | | LABORATORY | | + + + + + + | MCV | 86.3 | 83.0 - 101.0 fL | [facility] | | | | | | [facility] | | | | | | [facility] | | | | | | CENTER - | | | | | | LABORATORY | | + + + + + + | MCH | 29.6 | 28.0 - 35.0 pg | [facility] | | | | | | [facility] | | | | | | [facility]ICAL | | | | | | CENTER - | | | | | | LABORATORY | | + + + + + + | MCHC | 34.2 | 32.0 - 36.0 | [facility] | | | | | g/dL | [facility] | | | [facility] | | MEDICAL | | | | | | CENTER - | | | | | | LABORATORY | | + + + + + + | RDW-CV | 13.0 | <15.0 % | [facility] | | | | | | [facility] | | | | | | [facility]ICAL | | | | | | CENTER - | | | | | | LABORATORY | | + + + + + + | RDW-SD | 40.5 | 35.1 - 46.3 fL | [facility] | | | | | | [facility] | | | | | | [facility]ICAL | | | | | | CENTER - | | | | | | LABORATORY | | + + + + + + | Platelet | 312 | 140 - 440 K/uL | [facility] | | | Count | | | [facility] | | | | | | [facility] | | | | | | CENTER - | | | | | | LABORATORY | | + + + + + + | MPV | 10.7 | 6.5 - 12.4 fL | [facility] [...] | 0.00 | 0.00 - 0.01 | [facility] | | | Akil | | K/Destin | [facility] | | | | [...] [address] | [place] | [phone] | | [facility] | | [address] | | | - LABORATORY | | | | + + + + + Basic Metabolic Panel (09/27/2019 4:18 AM PDT) + + + + + + | Component | Value | Ref Range | Performed | Pathologist | | | | | At | Signature | + + + + + + | Na | 140 | 136 - 145 | [facility] | | | | | mmol/L | [facility] | | | | | | MEDICAL | | | | | | CENTER - | | | | | | LABORATORY | | + + + + + + | K | 3.7 | 3.4 - 5.1 | [facility] | | | | | mmol/L | [facility] | | | | | | MEDICAL | | | | | | CENTER - | | | | | | LABORATORY | | + + + + + + | Cl | 110 (H) | 98 - 107 mmol/L | [facility] | | | | | | [facility] | | | | | | [facility]ICAL | | | | | | CENTER - | | | | | | LABORATORY | | + + + + + + | CO2 | 23 | 20 - 31 mmol/L | [facility] | | | | | | [facility] | | | | | | [facility]ICAL | | | | | | CENTER - | | | | | | LABORATORY | | + + + + + + | Anion Gap | 7 | 3 - 16 mmol/L | [facility] | | | | | | [facility] | | | | | | [facility]ICAL | | | | | | CENTER - | | | | | | LABORATORY | | + + + + + + | Glucose | 135 (H) | 60 - 106 mg/dL | [facility] | | | | | | [facility] | | | | | | [facility] | | | | | | CENTER - | | | | | | LABORATORY | | + + + + + + | BUN | 9 | 9 - 23 mg/dL | [facility] | | | | | | [facility] | | | | | | MEDICAL | | | | | | CENTER - | | | | | | LABORATORY | | + + + + + + | Creatinine | 0.46 (L) | 0.55 - 1.02 | [place] | | | | | mg/dL | [facility] | | | | | | MEDICAL | | | | | | CENTER - | | | | | | LABORATORY | | + + + + + + | eGFR if not | >60Comment: GLOMERULAR | >=60 | [facility] | | | | FILTRATION | mL/min/1.73m2 | [facility] | | | BAHRAINI | RATE,ESTIMATED | | MEDICAL | | | | mL/min/1.83q1Qahj than | | CENTER - | | [...] + + + + | Calcium | 9.0 | 8.7 - 10.4 | [facility] | | | | | mg/dL | [facility] | | | | | | MEDICAL | | | | | | CENTER - | | | | | | LABORATORY | | + + + + + + | BUN/Creatin | 19.6 | | [facility] | | | ine [...] [address] | [place] | [phone] | | [facility] | | [address] | | | - LABORATORY | | | | + + + + + Legionella, Ag, EIA, Qual, Urine (09/27/2019 12:19 AM PDT) + + + + + + | Component | Value | Ref Range | Performed | Pathologist | | | | | At | Signature | + + + + + + | L. | NegativeComment: | Negative | [facility] | | | pneumophila | Presumptive negative for | | LAB [facility] | | | Serogp 1 | L. pneumophila | | - BKR | | | Ur Ag | serogroup 1 antigen in | | | | | | urine,suggesting no | | | | | | recent or current | | | | | | infection. Legionnaires' | | | | | | diseasecannot be ruled | | | | | | out since other | | | | | | serogroups and species | | | | | | may also causedisease. | | | | + + + + + + + + | Specimen | + + | Urine - Urine | | specimen obtained by | | clean catch | | procedure (specimen) | + + + + + | Narrative | Performed At | + + + | Performed at: 01 - [place] [address], | REFER[facility] LAB | | [place], [place] [id number] Buhr Dresser: Agustin Brennan MD, Phone: | [facility] | | [phone] | | + + + + + + + + | Performing | Address | City/State/Zipcode | Phone Number | | Organization | | | | + + + + + | REFERENCE LAB | [address] | [place], [place] | [phone] | | [facility] | [place] | [address] | | + + + + + Streptococcus Pneumoniae Ag, Urine (09/27/2019 12:18 AM PDT) + + + + + + | Component | Value | Ref Range | Performed | Pathologist | | | | | At | Signature | + + + + + + | Specimen | Urine | | [facility]FER[facility] | | | Source | | | [facility] | | | | | | - BKR | | + + + + + + | Streptococc | Negative | Negative | [facility] | | | us | | | [facility] | | | pneumoniae | | | - BKR | | + + + + + + | Body Fluid | Not indicated. | | [facility]FERENCE | | | Culture, | | | [facility] | | | Sterile | | | - BKR | | + + + + + + | Organism ID | Not indicated. | | REFER[facility] | | | | | | LAB [facility] | | | | | | - BKR | | + + + + + + | Please note | CommentComment: Jacqueline | | REFERENCE | | | | of [place] | | [facility] | | | | standards require a | | - BKR | | | | culture to beperformed | | | | | | on CSF specimens | | | | | | submitted for bacterial | | | | | | antigen testing.(CAP | | | | | | [id number]) Urine | | | | | | specimens will not be | | | | | | cultured. | | | | + + + + + + + + | Specimen | + + | Urine - Urine | | specimen obtained by | | clean catch | | procedure (specimen) | + + + + + | Narrative | Performed At | + + + | Performed at: 01 - [facility] [address] [facility], | REFERENCE LAB | | [place] [id number] Buhr Dresser: Herve Rivera MD, Phone: | [facility] | | [phone] | | + + + + + + + + | Performing | Address | City/State/Zipcode | Phone Number | | Organization | | | | + + + + + | REFERENCE LAB | [address] | [place], [place] | [phone] | | [facility] | [facility] | [address] | | + + + + + Culture, MRSA (09/26/2019 11:34 PM PDT) + + + + + + | Component | Value | Ref Range | Performed | Pathologist | | | | | At | Signature | + + + + + + | Culture | 1+ Staphylococcus | | [facility] | | | | aureus,Methicillin | | [facility] | | | | resistant (MRSA)Comment: | | MEDICAL | | | | *INFECTION PREVENTION | | CENTER - | | | | ALERT - MRSA* CONTACT | | LABORATORY | | | | PRECAUTIONS REQUIRED. | | | | + + + + + + + + | Specimen | + + | Body Fluid - Entire | | nasopharynx (body | | structure) | + + + + + + + | Performing | Address | City/State/Zipcode | Phone Number | | Organization | | | | + + + + + | [facility] | [address] | [place] | [phone] | | [facility] | | [address] | | | - LABORATORY | | | | + + + + + Respiratory pathogen panel, NAAT (09/26/2019 11:34 PM PDT) + + + + + + | Component | Value | Ref Range | Performed | Pathologist | | | | | At | Signature | + + + + + + | Parainfluen | Not Detected | Not Detected | [facility] | | | za 1 | | | [facility] | | | | | | MEDICAL | | | | | | CENTER - | | | | | | LABORATORY | | + + + + + + | Adenovirus | Not Detected | Not Detected | [facility] | | | | | | [facility] | | | | | | MEDICAL | | | | | | CENTER - | | | | | | LABORATORY | | + + + + + + | Human | Not Detected | Not Detected | [facility] | | | Metapneumov | | | [facility] | | | irus | | | MEDICAL | | | | | | CENTER - | | | | | | LABORATORY | | + + + + + + | Rhinovirus/ | Not Detected | Not Detected | [facility] | | | Enterovirus | | | [facility] | | | | | | MEDICAL | | | | | | CENTER - | | | | | | LABORATORY | | + + + + + + | Parainfluen | Not Detected | Not Detected | [facility] | | | za 3 | | | [facility] | | | | | | MEDICAL | | | | | | CENTER - | | | | | | LABORATORY | | + + + + + + + + | Specimen | + + | Body Fluid - Entire | | nasopharynx (body | | structure) | + + + + + + + | Performing | Address | City/State/Zipcode | Phone Number | | Organization | | | | + + + + + | [facility] | [address] | [place] | [phone] | | [facility] | | [address] | | | - LABORATORY | | | | + + + + + CT Angiogram Pulmonary w Contrast (09/26/2019 5:40 PM PDT) + + | Specimen | + + | | + + + + + | Impressions | Performed At | + + + | No CT evidence of pulmonary embolus allowing for limited | [facility] | | evaluation of the subsegmental arteries in the mid to lower lungs due | | | to artifact. Diffuse patchy groundglass opacities throughout the | | | lungs with bronchial wall thickening and scattered mucous plugging, | | | most compatible with bronchopneumonia (including viral and bacterial | | | sources). Dictated and Signed by: Grey Shepherd MD | | | Electronically signed: 09/26/2019 6:20 PM | | + + + + + + | Narrative | Performed At | + + + | TECHNIQUE: After administration of 85 mL Omnipaque 350 | [facility] | | intravenously, axial CT imaging was obtained through the chest with | | | coronal and sagittal reformats. At least one of the following CT | | | dose optimization techniques were used: Automated exposure control; | | | Adjustment of mA and/or kV according to patient size; Use of | | | iterative reconstruction technique. CLINICAL INFORMATION: PE | | | suspected, high pretest prob FEVER (9 WEEKS TO 74 YEARS) COUGH | | | SHORTNESS OF BREATH COMPARISON: Chest radiograph dated 09/26/2019. | | | FINDINGS: DIAGNOSTIC QUALITY: Adequate timing of the contrast | | | bolus. Mild motion artifact at the mid to lower lungs degrades | | | evaluation of the subsegmental pulmonary arteries. BONES: No | | | acute osseous abnormality. No osteoblastic or osteolytic lesion. | | | CHEST: Chest Wall: No supraclavicular or axillary lymphadenopathy. | | | Mediastinum and annette: Calcified right hilar lymph nodes compatible | | | with old granulomatous disease. Mild prominent appearance of | | | bilateral hilar lymphatic tissues. Heart and pericardium: No CT | | | evidence of right heart strain. Heart size is normal. No pericardial | | | effusion. Vessels: Somewhat limited evaluation of the subsegmental | | | pulmonary arteries at the mid to lower lungs due to artifact. No | | | pulmonary artery filling defect identified. Normal caliber of the | | | thoracic aorta. Lungs: Diffusely scattered patchy groundglass | | | opacities are noted throughout the lungs in a somewhat peribronchial | | | and peripheral predominant distribution. Large airways: Perihilar | | | bronchial wall thickening. Scattered mucous plugging at the upper and | | | lower lungs. Pleura: No pleural effusion or pneumothorax. UPPER | | | ABDOMEN: Unremarkable. | | + + + + + | Procedure Note | + + | Marbin, Rad Results In - 09/26/2019 6:23 PM PDT TECHNIQUE: After administration of 85 | | mL Omnipaque 350 intravenously, axial CTimaging was obtained through the chest with | | coronal and sagittal reformats.At least one of the following CT dose optimization | | techniques wereused: Automated exposure control; Adjustment of mA and/or kV accordingto | | patient size; Use of iterative reconstruction technique.CLINICAL INFORMATION: PE | | suspected, high pretest probFEVER (9 WEEKS TO 74 YEARS)COUGHSHORTNESS OF | | BREATHCOMPARISON: Chest radiograph dated 09/26/2019.FINDINGS:DIAGNOSTIC QUALITY: Adequate | | timing of the contrast bolus. Mild motion artifactat the mid to lower lungs degrades | | evaluation of the subsegmental pulmonaryarteries.BONES: No acute osseous abnormality. No | | osteoblastic or osteolytic lesion.CHEST:Chest Wall: No supraclavicular or axillary | | lymphadenopathy.Mediastinum and annette: Calcified right hilar lymph nodes compatible with | | oldgranulomatous disease. Mild prominent appearance of bilateral hilar | | lymphatictissues.Heart and pericardium: No CT evidence of right heart strain. Heart size | | isnormal. No pericardial effusion. Vessels: Somewhat limited evaluation of the | | subsegmental pulmonary arteries atthe mid to lower lungs due to artifact. No pulmonary | | artery filling defectidentified. Normal caliber of the thoracic aorta. Lungs: Diffusely | | scattered patchy groundglass opacities are noted throughout thelungs in a somewhat | | peribronchial and peripheral predominant distribution.Large airways: Perihilar bronchial | | wall thickening. Scattered mucous plugging atthe upper and lower lungs.Pleura: No | | pleural effusion or pneumothorax. UPPER ABDOMEN: Unremarkable.IMPRESSION: No CT evidence | | of pulmonary embolus allowing for limited evaluation of thesubsegmental arteries in the | | mid to lower lungs due to artifact.Diffuse patchy groundglass opacities throughout the | | lungs with bronchial wallthickening and scattered mucous plugging, most compatible with | | bronchopneumonia(including viral and bacterial sources).Dictated and Signed by: Grey | | MD Joao Electronically signed: 09/26/2019 6:20 PM | |granulomatous disease. Mild prominent appearance of bilateral hilar lymphatic | |tissues. | |Heart and pericardium: No CT evidence of right heart strain. Heart size is | |normal. No pericardial effusion. | |Vessels: Somewhat limited evaluation of the subsegmental pulmonary arteries at | |the mid to lower lungs due to artifact. No pulmonary artery filling defect | |identified. Normal caliber of the thoracic aorta. | | | |Lungs: Diffusely scattered patchy groundglass opacities are noted throughout the | |lungs in a somewhat peribronchial and peripheral predominant distribution. | |Large airways: Perihilar bronchial wall thickening. Scattered mucous plugging at | |the upper and lower lungs. | |Pleura: No pleural effusion or pneumothorax. | | | |UPPER ABDOMEN: Unremarkable. | | | | | |IMPRESSION: | | | |No CT evidence of pulmonary embolus allowing for limited evaluation of the | |subsegmental arteries in the mid to lower lungs due to artifact. | | | |Diffuse patchy groundglass opacities throughout the lungs with bronchial wall | |thickening and scattered mucous plugging, most compatible with bronchopneumonia | |(including viral and bacterial sources). | | | |Dictated and Signed by: Grey Shepherd MD | | Electronically signed: 09/26/2019 6:20 PM | + + + +---------+ + + | Performing | Address | City/State/Zipcode | Phone Number | | Organization | | | | + +---------+ + + | [facility] | | | | + +---------+ + + POC Glucose (09/26/2019 5:34 PM PDT) + +---------+ + + + | Component | Value | Ref Range | Performed | Pathologist | | | | | At | Signature | + +---------+ + + + | Glucose, | 129 (H) | 70 - 109 mg/dL | [facility] | | | POC | | | [facility] | | | | | | MEDICAL | | | | | | CENTER - | | | | | | LABORATORY | | + +---------+ + + + + + | Specimen | + + | Blood | + + + + + + + | Performing | Address | City/State/Zipcode | Phone Number | | Organization | | | | + + + + + | [facility] | [address] | [place] | [phone] | | [facility] | | [address] | | | - LABORATORY | | | | + + + + + POC Blood Gases (09/26/2019 5:09 PM PDT) + +--------+ + + + | Component | Value | Ref Range | Performed | Pathologist | | | | | At | Signature | + +--------+ + + + | Specimen | Artery | | [facility] | | | Source | | | [facility] | | | | | | MEDICAL | | | | | | CENTER - | | | | | | LABORATORY | | + +--------+ + + + | pH, POC | 7.401 | 7.3 - 7.45 | [facility] | | | | | | [facility] | | | | | | MEDICAL | | | | | | CENTER - | | | | | | LABORATORY | | + +--------+ + + + | HCO3, POC | 25.2 | 21.0 - 28.0 | [facility] | | | | | mmol/L | [facility] | | | | | | MEDICAL | | | | | | CENTER - | | | | | | LABORATORY | | + +--------+ + + + | TCO2, POC | 26.4 | 22.0 - 29.0 | [facility] | | | | | mmol/L | [facility] | | | | | | MEDICAL | | | | | | CENTER - | | | | | | LABORATORY | | + +--------+ + + + | Base | 0.3 | -2.0 - 3.0 | [facility] | | | Excess, POC | | mmol/L | [facility] | | | | | | MEDICAL | | | | | | CENTER - | | | | | | LABORATORY | | + +--------+ + + + | Base | 0.4 | -2.0 - 3.0 | [facility] | | | Excess, | | mmol/L | [facility] | | | Extracellul | | | MEDICAL | | | ar fluid, | | | CENTER - | | | POC | | | LABORATORY | | + +--------+ + + + | O2 Sat, POC | 95 | 90 - 100 % | [facility] | | | | | | [facility] | | | | | | MEDICAL | | | | | | CENTER - | | | | | | LABORATORY | | + +--------+ + + + | PCO2, POC | 40.6 | 35 - 45 mmHg | [facility] | | | | | | [facility] | | | | | | MEDICAL | | | | | | CENTER - | | | | | | LABORATORY | | + +--------+ + + + | pO2, POC | 74 | 60 - 750 mmHg | [facility] | | | | | | [facility] | | | | | | MEDICAL | | | | | | CENTER - | | | | | | LABORATORY | | + +--------+ + + + + + | Specimen | + + | Blood | + + + + + + + | Performing | Address | City/State/Zipcode | Phone Number | | Organization | | | | + + + + + | [facility] | [address] | [place] | [phone] | | [facility] | | [address] | | | - LABORATORY | | | | + + + + + Culture, Blood (09/26/2019 4:59 PM PDT) + + + + + + | Component | Value | Ref Range | Performed | Pathologist | | | | | At | Signature | + + + + + + | Culture | No growth after 5 days | | [facility] | | | | incubation. | | [facility] | | | | | | MEDICAL | | | | | | CENTER - | | | | | | LABORATORY | | + + + + + + + + | Specimen | + + | Blood - Peripheral | | blood specimen | | (specimen) | + + + + + + + | Performing | Address | City/State/Zipcode | Phone Number | | Organization | | | | + + + + + | [facility] | [address] | [place] | [phone] | | [facility] | | [address] | | | - LABORATORY | | | | + + + + + Procalcitonin (09/26/2019 4:46 PM PDT) + + + + + + | Component | Value | Ref Range | Performed | Pathologist | | | | | At | Signature | + + + + + + | Procalciton | <0.05 | <=0.50 ng/mL | [facility] | | | in | | | [facility] | | | | | | [facility] | | | | | | [facility] - | | | | | | LABORATORY | | + + + + + + | Comment | Comment: < 0.50 | | [facility] | | | | ng/mL:Procalcitonin | | [facility] | | | | levels below 0.50 ng/mL | | MEDICAL | | | | on the first day of | | CENTER - | | | | admission represents a | | LABORATORY | | | | low risk for progression | | | | | | to severe sepsis and/or | | | | | | septic shock, however | | | | | | these do not exclude an | | | | | | infection, because | | | | | | localized infections | | | | | | (without systemic signs) | | | | | | may also be associated | | | | | | with such low levels. | | | | | | > 2.00 | | | | | | ng/mL:Procalcitonin | | | | | | levels above 2.00 ng/mL | | | | | | on the first day of | | | | | | admission represents a | | | | | | high risk for | | | | | | progression to severe | | | | | | sepsis and/or septic | | | | | | shock. If the | | | | | | procalcitonin | | | | | | measurement is performed | | | | | | shortly after the | | | | | | systemic infection | | | | | | process has started | | | | | | (usually less than 6 | | | | | | hours), these values may | | | | | | still be low. As | | | | | | various non-infectious | | | | | | conditions are known to | | | | | | induce procalcitonin as | | | | | | well, procalcitonin | | | | | | levels between 0.50 | | | | | | ng/mL and 2.00 ng/mL | | | | | | should be reviewed | | | | | | carefully to take into | | | | | | account the specific | | | | | | clinical background and | | | | | | condition(s) of the | | | | | | individual patient. | | | | + + + + + + + + | Specimen | + + | Blood | + + + + + + + | Performing | Address | City/State/Zipcode | Phone Number | | Organization | | | | + + + + + | [facility] | [address] | [place] | [phone] | | [facility] | | [address] | | | - LABORATORY | | | | + + + + + Lactic Acid (09/26/2019 4:46 PM PDT) + +-------+ + + + | Component | Value | Ref Range | Performed | Pathologist | | | | | At | Signature | + +-------+ + + + | Lactate | 1.4 | 0.5 - 2.2 | [facility] | | | | | [...] + | [facility] | [address] | [place], [place] | [phone] | | [facility] | | [address] | | | - LABORATORY | | | | + + + + + Comprehensive Metabolic Panel (09/26/2019 4:46 PM PDT) + + + + + + | Component | Value | Ref Range | Performed | Pathologist | | | | | At | Signature | + + + + + + | Na | 140 | 136 - 145 | [facility] | | | | | mmol/L | [facility] | [facility] | [facility] | [facility] - | | | | | | LABORATORY | | + + + + + + | K | 4.1 | 3.4 - 5.1 | [facility] | | | | | mmol/L | [facility] | [facility] | [facility] | [facility] - | | | | | | LABORATORY | | + + + + + + | Cl | 106 | 98 - 107 mmol/L | [facility] | | | | | | [facility] | [facility] | | | | | [facility] - | | | | | | LABORATORY | | + + + + + + | CO2 | 25 | 20 - 31 mmol/L | [facility] | [facility] | [facility] | [facility] | | [facility] | | | | | [facility] - | | | | | | LABORATORY | | + + + + + + | Anion Gap | 9 | 3 - 16 mmol/L | [facility] | | | [facility] | [facility] | | [facility] | | | | | [facility] - | | | | | | LABORATORY | | + + + + + + | Glucose | 113 (H) | 60 - 106 mg/dL | [facility] | | | | | | [facility] | | [facility] | [facility] | | | | | | [facility] - | | | | | | LABORATORY | | + + + + + + | BUN | 11 | 9 - 23 mg/dL | [facility] | | | | | | [facility] | [facility] | | | | [facility] - | | | | | | LAB[facility]ATORY | | + + + + + + | Creatinine | 0.54 (L) | 0.55 - 1.02 | [facility] | | | | | mg/dL | [facility] | | | [facility] | [facility] | | | | | | [facility] - | | | | | | LABORATORY | | + + + + + + | eGFR if not | >60Comment: GLOMERULAR | >=60 | [facility] | | | | FILTRATION | mL/min/1.73m2 | [facility] | | | [facility] | RATE,ESTIMATED | | MEDICAL | | | | mL/min/1.74o5Dvxh than | | CENTER - | | [...] + + + + | Calcium | 9.8 | 8.7 - 10.4 | [facility] | | | | | mg/dL | [facility] | | | | | | [facility] | | | | | | CENTER - | | | | | | LABORATORY | | + + + + + + | Albumin | 4.3 | 3.2 - 4.8 g/dL | [facility] | | | | | | [facility] | | | [facility] | | [facility] | | | | | | CENTER - | | | | | | LABORATORY | | + + + + + + | Bilirubin | 1.2 | 0.3 - 1.2 mg/dL | [facility] | | | Total | | | [facility] | | [facility] | [facility] | | | | | | CENTER - | | | | | | LABORATORY | | + + + + + + | Total | 6.8 | 5.7 - 8.2 g/dL | [facility] | | | Protein | | | [facility] | [facility] | | | [facility] | | | | | | C[facility] - | | | | | | LABORATORY | | + + + + + + | AST | 21 | 0 - 34 U/L | [facility] | | | | | | [facility] | [facility] | [facility] | | | | | | CENTER - | | | | | | LABORATORY | | + + + + + + | ALT | 18 | 10 - 49 U/L | [facility] | | | | | | [facility] | [facility] | [facility] | | | | | | CENTER - | | | | | | LABORATORY | | + + + + + + | Alkaline | 83 | 46 - 116 U/L | [facility] | | | Phosphatase | | | [facility] | | | [facility] | [facility] | | | | | | CENTER - | | | | | | LABORATORY | | + + + + + + | Globulin | 2.5 | 2.1 - 3.8 g/dL | [facility] [...] + + + + | BUN/Creatin | 20.4 | | [facility] | | | ine [...] + + | [facility] | [address] | [place] | [phone] | | [facility] | | [address] | | | - LABORATORY | | | | + + + + + CBC with Differential (09/26/2019 4:46 PM PDT) + + + + + + | Component | Value | Ref Range | Performed | Pathologist | | | | | At | Signature | + + + + + + | WBC | 11.6 (H) | 4.0 - 11.0 K/uL | [facility] | | [facility] | [facility] | | | | | | [facility] - | | | | | | LABORATORY | | + + + + + + | RBC | 4.97 | 3.70 - 5.20 | [facility] | | | | | M/uL | [facility] | | [facility] | [facility] | | | | | | C[facility] - | | | | | | LABORATORY | | + + + + + + | Hemoglobin | 14.6 | 11.5 - 16.0 | [facility] | | | | | g/dL | [facility] | | | | | | [facility] | | | | | | CENTER - | | | | | | LABORATORY | | + + + + + + | Hematocrit | 44.1 | 34.0 - 47.0 % | [facility] | | | | | | [facility] | | | | | | [facility] | | | | | | CENTER - | | | | | | LABORATORY | | + + + + + + | MCV | 88.7 | 83.0 - 101.0 fL | [facility] [...] + + + + | MCHC | 33.1 | 32.0 - 36.0 | [facility] | | | | | g/dL | [facility] | [facility] | | | | | | CENTER - | | | | | | LABORATORY | | + + + + + + | RDW-CV | 13.2 | <15.0 % | [facility] | | | | | | [facility] | | | | | | [facility] | | | | | | CENTER - | | | | | | LABORATORY | | + + + + + + | RDW-SD | 42.9 | 35.1 - 46.3 fL | [facility] | | | | | | [facility] | | [facility] | [facility] | | | | | | [facility] - | | | | | | LABORATORY | | + + + + + + | Platelet | 337 | 140 - 440 K/uL | [facility] | | | Count | | | [facility] | | | [facility] | [facility] | | | | | | CENTER - | | | | | | LABORATORY | | + + + + + + | MPV | 10.8 | 6.5 - 12.4 fL | [facility] | | | | | | [facility] | [facility] | [facility] | | | | | | [facility] - | | | | | | LABORATORY | | + + + + + + | % | 76.8 | 45.0 - 82.0 % | [facility] | | | Neutrophils | | | [facility] | | | | | | [facility] | | | | | | CENTER - | | | | | | LABORATORY | | + + + + + + | % | 10.1 (L) | 20.0 - 45.0 % | [facility] | | | Lymphocytes | | | [facility] | | | | | | [facility] | | | | | | CENTER - | | | | | | LABORATORY | | + + + + + + | % Monocytes | 6.4 | 4.0 - 12.0 % | [facility] | | | | | | [facility] | | | | | | [facility] | | | | | | CENTER - | | | | | | LABORATORY | | + + + + + + | % | 5.8 (H) | 0.0 - 5.0 % | [facility] | | | Eosinophils | | | [facility] | | | | | | [facility] | | | | | | CENTER - | | | | | | LABORATORY | | + + + + + + | % Basophils | 0.6 | 0.0 - 1.0 % | [facility] | | | | | | [facility] | | | | | | [facility] | | | | | | CENTER - | | | | | | LABORATORY | | + + + + + + | % Immature | 0.3Comment: For | 0.0 - 0.4 % | [facility] | | | Granulocyte | patients, use the | | [facility] | | | s | special reference ranges | | MEDICAL | | | | listed below. | | CENTER - | | | | | | LABORATORY | | + + + + + + | Absolute | 8.92 (H) | 1.80 - 8.50 | [facility] | | | Neutrophils | | K/uL | [facility] | | | | | | [facility] | | | | | | CENTER - | | | | | | LABORATORY | | + + + + + + | Absolute | 1.17 | 0.60 - 3.20 | [facility] | | | Lymphocytes | | K/uL | [facility] | | [facility] | | | [facility] | | | | | | CENTER - | | | | | | LABORATORY | | + + + + + + | Absolute | 0.74 | 0.00 - 1.00 | [facility] | | | Monocytes | | K/uL | [facility] | | | | | | MEDICAL | | | | | | CENTER - | | | | | | LABORATORY | | + + + + + + | Absolute | 0.67 (H) | 0.00 - 0.40 | [facility] [...] | Basophils | | K/uL | [facility] | | | | | | MEDICAL | | | | | | CENTER - | | | | | | LABORATORY | | + + + + + + | Absolute | 0.04 (H)Comment: For | 0.00 - 0.03 | [facility] | | | Immature | patients, use | K/uL | [facility] | | | Granulocyte | the special [...] | nRBC | | K/uL | [facility] | [...] ranges: Trim. Absolute (K/uL) Percentage (%) | [facility] | | 1st 0.003-0.091 K/uL 0.0-0.9% 2nd 0.007-0.247 K/uL | [facility] | | 0.1-2.0% 3rd 0.018-0.456 K/uL 0.1-2.0% | - LABORATORY | + + + + + + + + | Performing | Address | City/State/Zipcode | Phone Number | | Organization | | | | + + + + + | [facility] | [address] | [place] | [phone] | | [facility] | | [address] | | | - LABORATORY | | | | + + + + + Culture, Blood (09/26/2019 4:46 PM PDT) + + + + + + | Component | Value | Ref Range | Performed | Pathologist | | | | | At | Signature | + + + + + + | Culture | No growth after 5 days | | [facility] | | | | incubation. | | [facility] | | | | | | MEDICAL | | | | | | CENTER - | | | | | | LABORATORY | | + + + + + + + + | Specimen | + + | Blood - Swab of line | | insertion site | | (specimen) | + + + + + + + | Performing | Address | City/State/Zipcode | Phone Number | | Organization | | | | + + + + + | [facility] | [address] | [place], [place] | [phone] | | [facility] | | [address] | | | - LABORATORY | | | | + + + + + documented in this encounter Visit Diagnoses + + | Diagnosis | + + | Acute respiratory failure with hypoxia (HCC) Acute respiratory failure | + + | Wheezing on auscultation Wheezing | + + | Multifocal pneumonia | + + | Moderate asthma with exacerbation, unspecified whether persistent | + + | Community acquired pneumonia, unspecified laterality | + + | Exacerbation of asthma, unspecified asthma severity, unspecified whether persistent | + + | Acute respiratory insufficiency Other pulmonary insufficiency, not elsewhere | | classified | + + documented in this encounter Administered Medications + +--------+ +--------+------+------+ | Medication Order | MAR | Action | Dose | Rate | Site | | | Action | Date | | | | + +--------+ +--------+------+------+ | acetaminophen (TYLENOL) tablet | Given | 09/27/19 | 650 mg | | | | 650 mg 650 mg, Oral, EVERY 4 | | 20 9:33 | | | | | HOURS PRN, Pain, or fever >= 38.6 | | PM PDT | | | | | C (101.5 F), Starting Wed | | | | | | | 09/26/19 at 2139 | | | | | | + +--------+ +--------+------+------+ +---+---+ | | | +---+---+ + +-------+ +--------+---+---+ | albuterol-ipratropium | Given | 09/29/19 | 1 puff | | | | (COMBIVENT RESPIMAT) 100-20 | | 20 9:59 | | | | | mcg/puff inhaler 1 puff 1 puff, | | AM PDT | | | | | Inhalation, RT Q6H, First dose on | | | | | | | Jesusita 09/27/19 at 1030 | | | | | | + +-------+ +--------+---+---+ +-------+ +--------+---+---+ | Given | 09/29/19 | 1 puff | | | | | 20 2:25 | | | | | | AM PDT | | | | +-------+ +--------+---+---+ | Given | 09/28/19 | 1 puff | | | | | 20 8:16 | | | | | | PM PDT | | | | +-------+ +--------+---+---+ +---+---+ | | | +---+---+ + +-------+ +-------+---+---+ | albuterol-ipratropium 2.5-0.5 | Given | 09/26/19 | 3 mLs | | | | mg/3 mL nebulizer solution 3 mL | | 20 5:10 | | | | | 3 mL, Nebulization, RT Once, Wed | | PM PDT | | | | | 09/26/19 at 1640, For 1 dose | | | | | | + +-------+ +-------+---+---+ +---+---+ | | | +---+---+ + +-------+ +-------+---+---+ | albuterol-ipratropium 2.5-0.5 | Given | 09/27/19 | 3 mLs | | | | mg/3 mL nebulizer solution 3 mL | | 20 4:53 | | | | | 3 mL, Nebulization, RT Q6H, First | | AM PDT | | | | | dose on 09/26/19 at 2200 | | | | | | + +-------+ +-------+---+---+ +---+---+ | | | +---+---+ + +---------+ +--------+-------+---+ | azithromycin (ZITHROMAX) 500 mg | New Bag | 09/28/19 | 500 mg | 255 | | | in sodium chloride 0.9% 250 mL | | 20 5:22 | | mL/hr | | | IVPB 500 mg, Intravenous, | | PM PDT | | | | | Administer over 1 Hours, DAILY | | | | | | | EVENING, First dose on Tue | | | | | | | 09/26/19 at 2230, Keep in | | | | | | | refrigerator., Indications: | | | | | | | Community Acquired Pneumonia | | | | | | + +---------+ +--------+-------+---+ +---------+ +--------+-------+---+ | New Bag | 09/27/19 | 500 mg | 255 | | | | 20 6:04 | | mL/hr | | | | PM PDT | | | | +---------+ +--------+-------+---+ | New Bag | 09/26/19 | 500 mg | 255 | | | | 20 10:50 | | mL/hr | | | | PM PDT | | | | +---------+ +--------+-------+---+ +---+---+ | | | +---+---+ + +-------+ +--------+---+---+ | benzonatate (TESSALON) capsule | Given | 09/28/19 | 200 mg | | | | 200 mg 200 mg, Oral, 3 TIMES | | 20 4:40 | | | | | DAILY PRN, Cough, Starting Wed | | PM PDT | | | | | 09/26/19 at 2139 | | | | | | + +-------+ +--------+---+---+ +-------+ +--------+---+---+ | Given | 09/27/19 | 200 mg | | | | | 20 9:33 | | | | | | PM PDT | | | | +-------+ +--------+---+---+ | Given | 09/27/19 | 200 mg | | | | | 20 9:39 | | | | | | AM PDT | | | | +-------+ +--------+---+---+ +---+---+ | | | +---+---+ + +---------+ +-----+-------+---+ | cefTRIAXone (ROCEPHIN) 1 g in | New Bag | 09/29/19 | 1 g | 100 | | | sodium chloride 0.9% 50 mL IVPB | | 20 9:09 | | mL/hr | | | 1 g, Intravenous, Administer over | | AM PDT | | | | | 30 Minutes, EVERY 24 HOURS | | | | | | | (Daily), First dose on Jesusita | | | | | | | 09/27/19 at 0900, Activate system | | | | | | | and mix before use., Indications: | | | | | | | Community Acquired Pneumonia | | | | | | + +---------+ +-----+-------+---+ +---------+ +-----+-------+---+ | New Bag | 09/28/19 | 1 g | 100 | | | | 20 9:14 | | mL/hr | | | | AM PDT | | | | +---------+ +-----+-------+---+ | New Bag | 09/27/19 | 1 g | 100 | | | | 20 9:14 | | mL/hr | | | | AM PDT | | | | +---------+ +-----+-------+---+ +---+---+ | | | +---+---+ + +-------+ +-------+---+ + | enoxaparin (LOVENOX) 40 mg/0.4 | Given | 09/29/19 | 40 mg | | Abdomen- | | mL injection 40 mg 40 mg, | | 20 9:09 | | | LLQ | | Subcutaneous, EVERY 24 HOURS | | AM PDT | | | | | (Daily), First dose on Jesusita | | | | | | | 09/27/19 at 0900 | | | | | | + +-------+ +-------+---+ + +-------+ +-------+---+ + | Given | 09/28/19 | 40 mg | | Abdomen- | | | 20 9:13 | | | RUQ | | | AM PDT | | | | +-------+ +-------+---+ + | Given | 09/27/19 | 40 mg | | Abdomen- | | | 20 9:20 | | | LLQ | | | AM PDT | | | | +-------+ +-------+---+ + +---+---+ | | | +---+---+ + +-------+ +--------+---+---+ | guaiFENesin-dextromethorphan | Given | 09/28/19 | 10 mLs | | | | (ROBITUSSIN DM) 100-10 mg/5 mL | | 20 4:40 | | | | | liquid 10 mL 10 mL, Oral, EVERY | | PM PDT | | | | | 4 HOURS PRN, Cough, Starting Wed | | | | | | | 09/26/19 at 2139 | | | | | | + +-------+ +--------+---+---+ +-------+ +--------+---+---+ | Given | 09/28/19 | 10 mLs | | | | | 20 3:03 | | | | | | AM PDT | | | | +-------+ +--------+---+---+ | Given | 09/27/19 | 10 mLs | | | | | 20 9:33 | | | | | | PM PDT | | | | +-------+ +--------+---+---+ +---+---+ | | | +---+---+ + +-------+ +--------+---+---+ | iohexol (OMNIPAQUE 350) 350 | Given | 09/26/19 | 85 mLs | | | | mg/mL injection 85 mL 85 mL, | | 20 5:41 | | | | | Intravenous, ONCE PRN, Other, for | | PM PDT | | | | | imaging CT study, Starting Wed | | | | | | | 09/26/19 at 1740, For 1 dose, | | | | | | | Radiology | | | | | | + +-------+ +--------+---+---+ +---+---+ | | | +---+---+ + +---------+ +--------+-------+---+ | levoFLOXacin in dextrose | New Bag | 09/26/19 | 750 mg | 100 | | | (LEVAQUIN) IVPB 750 mg 750 mg, | | 20 4:57 | | mL/hr | | | Intravenous, Administer over 90 | | PM PDT | | | | | Minutes, ONCE, 09/26/19 at | | | | | | | 1640, For 1 dose, Indications: | | | | | | | Bacteremia | | | | | | + +---------+ +--------+-------+---+ +---+---+ | | | +---+---+ + +---------+ +-----+ +---+ | magnesium sulfate 2 g/50 mL | New Bag | 09/28/19 | 2 g | 25 mL/hr | | | IVPB 2 g 2 g, Intravenous, | | 20 1:45 | | | | | Administer over 120 Minutes, | | PM PDT | | | | | ONCE, 09/28/19 at 1245, For 1 | | | | | | | dose, Maximum recommended | | | | | | | infusion rate = 1 gram/hour., | | | | | | + +---------+ +-----+ +---+ +---+---+ | | | +---+---+ + +-------+ +-------+---+---+ | methylPREDNISolone sodium | Given | 09/27/19 | 40 mg | | | | succinate (solu-MEDROL) 40 mg/mL | | 20 9:07 | | | | | injection 40 mg 40 mg, | | AM PDT | | | | | Intravenous, EVERY 8 HOURS | | | | | | | INTERVAL, First dose on Tue | | | | | | | 09/27/19 at 0100, Mix with 1 mL | | | | | | | provided diluent to make 40 | | | | | | | mg/mL., | | | | | | + +-------+ +-------+---+---+ +-------+ +-------+---+---+ | Given | 09/27/19 | 40 mg | | | | | 20 12:56 | | | | | | AM PDT | | | | +-------+ +-------+---+---+ +---+---+ | | | +---+---+ + +-------+ +-------+---+---+ | methylPREDNISolone sodium | Given | 09/29/19 | 40 mg | | | | succinate (solu-MEDROL) 40 mg/mL | | 20 9:09 | | | | | injection 40 mg 40 mg, | | AM PDT | | | | | Intravenous, EVERY 12 HOURS (2 | | | | | | | times per day), First dose (after | | | | | | | last modification) on Tue | | | | | | | 09/27/19 at 2100, Mix with 1 mL | | | | | | | provided diluent to make 40 | | | | | | | mg/mL., | | | | | | + +-------+ +-------+---+---+ +-------+ +-------+---+---+ | Given | 09/28/19 | 40 mg | | | | | 20 10:17 | | | | | | PM PDT | | | | +-------+ +-------+---+---+ | Given | 09/28/19 | 40 mg | | | | | 20 9:11 | | | | | | AM PDT | | | | +-------+ +-------+---+---+ +---+---+ | | | +---+---+ + +-------+ +--------+---+---+ | methylPREDNISolone sodium | Given | 09/26/19 | 125 mg | | | | succinate (solu-MEDROL) 62.5 | | 20 4:57 | | | | | mg/mL injection 125 mg 125 mg, | | PM PDT | | | | | Intravenous, ONCE, 09/26/19 at | | | | | | | 1640, For 1 dose, Mix with 2 mL | | | | | | | provided diluent to make 62.5 | | | | | | | mg/mL., | | | | | | + +-------+ +--------+---+---+ +---+---+ | | | +---+---+ + +---------+ +--------+-------+---+ | sodium chloride 0.9% (NS) bolus | New Bag | 09/26/19 | 2,313 | 4626 | | | 2,313 mL 2,313 mL (30 mL/kg | | 20 4:49 | mLs | mL/hr | | | 77.1 kg), Intravenous, | | PM PDT | | | | | Administer over 30 Minutes, ONCE, | | | | | | | 09/26/19 at 1630, For 1 dose | | | | | | + +---------+ +--------+-------+---+ +---+---+ | | | +---+---+ + +------+ +--------+-------+---+ | sodium chloride 0.9% (NS) bolus | Push | 09/26/19 | 40 mLs | 2400 | | | 40 mL 40 mL, Intravenous, | | 20 5:41 | | mL/hr | | | Administer over 1 Minutes, ONCE | | PM PDT | | | | | PRN, for imaging CT study, | | | | | | | Starting 09/26/19 at 1740, For | | | | | | | 1 dose, Radiology | | | | | | + +------+ +--------+-------+---+ +---+---+ | | | +---+---+ documented in this encounter Additional Health Concerns + + + + | Infection | Noted Time | Resolved Time | + + + + | Rule out COVID-19 | 09/26/2019 2:42 PM | 09/28/2019 12:05 AM | | | PDT | PDT | + + + + | Rule out Respiratory Infection | 09/26/2019 9:39 PM | 09/27/2019 2:25 AM | | | PDT | PDT | + + + + documented as of this encounter
--- OUTSIDE RECORDS SUMMARY | ~2019-12-08 | XMS | Encounter Summary ---
Demographics + + + | Address | [address] | | | [place] [address] | + + + | Home Phone | | + + + | Preferred Language | Unknown | + + + | Marital Status | Single | + + + | Episcopalian Affiliation | 1041 | + + + | Race | Unknown | + + + | Ethnic Group | Unknown | + + + Author + + + | Author | [facility] | | | and [place] | + + + | Organization | [facility] | | | and [place] [...] | | | | | [place] [address] | | + + + + + | Vanessa Lawton | ECON | [address] [place] | | | | | [place] [address] | | + + + + + Care Team Providers + +------+ + | Care Quality Control Tester Name | Role | Phone | + +------+ + PCP | Unavailable | + +------+ + Encounter Details +--------+ + + + + | Date | Type | Department | Care Team | Description | +--------+ + + + + | 12/28/ | Hospital | [facility] | | | | 1993 | Encounter | [facility] | | | | | | CENTER [address] | | | | | | [place] | | | | | | [address] | | | | | | [phone] | | | +--------+ + + + [...]
--- OUTSIDE RECORDS SUMMARY | ~2019-12-08 | XMS | Encounter Summary ---
Demographics + + + | Address | [address] | | | [place] [address] | + + + | Home Phone | | + + + | Preferred Language | Unknown | + + + | Marital Status | Single | + + + | Lutheran Affiliation | 1041 | + + + | Race | Unknown | + + + | Ethnic Group | Unknown | + + + Author + + + | Author | [facility] | | | and [place] | + + + | Organization | [facility] | | | and [place] | [...] | | | | | [place] [address] | | + + + + + | Vanessa Lawton | ECON | [address] | | | | | [place] [address] | | + + + + + Care Team Providers + +------+ + | Care Manager Stars Name | Role | Phone | + +------+ + | No, Physician | PCP | Unavailable | + +------+ + Reason for Visit + + + | Reason | Comments | + + + | Care | | + + + Encounter Details +--------+ + + + + | Date | Type | Department | Care Team | Description | +--------+ + + + + | 09/20/ | Telephone | [facility] | [place], | Care | | 2018 | | MED [facility] OB | Della Falcon RN | | | | | PROCEDURES [address] | | | | | | [place], | | | | | | [place] [address] | | | | | | [phone] | | | +--------+ + + + [...]
--- OUTSIDE RECORDS SUMMARY | ~2019-12-08 | XMS | Encounter Summary ---
Demographics + + + | Address | [address] | | | [place] [address] | + + + | Home Phone | | + + + | Preferred Language | Unknown | + + + | Marital Status | Single | + + + | Bahai Affiliation | 1041 | + + + | Race | Unknown | + + + | Ethnic Group | Unknown | + + + Author + + + | Author | [facility] | | | and [place] | + + + | Organization | [facility] | | | and [place] [...] | | | | | [place] [address] | | + + + + + | Vanessa Lawton | ECON | [address] | | | | | [place] [address] | | + + + + + Care Team Providers + +------+ + | Care Property Developer Name | Role | Phone | + +------+ + | Reji Gonzales DO | PCP | | + +------+ + Encounter Details +--------+ + + + + | Date | Type | Department | Care Team | Description | +--------+ + + + + | 08/02/ | Hospital | [facility] | Reji Gonzales | | | 2016 | Encounter | MED CTR LABOR AND | Juan, DO [address] | | | | DELIVERY [address] [place] | | | | | [place], | [place] [address] | | | | | [place] [address] | [phone] | | | | | [phone] | | | | | | | [...] 23 weeks gestation toda y. UA collected. [facility] placed, pt denies contractions. Pt states that [...] [place]. | [address] | [place] | [phone] | | [facility] | | [id number] | | | - LABORATORY | | | | + + + + + documented in this encounter Visit Diagnoses Not on filedocumented in this encounter"
--- OUTSIDE RECORDS SUMMARY | ~2019-12-08 | XMS | Encounter Summary ---
Demographics + + + | Address | [address] | | | [place] [address] | + + + | Home Phone [...] | Organization | [facility] | | | and [place] [...] | | | | | [place] [address] | | + + + + + | Vanessa Lawton | ECON | [address] | | | | | [place] [address] | | + + + + + Care Team Providers + +------+ + | Care Guest Services Director Name | Role | Phone | + +------+ + PCP | Unavailable | + +------+ + Encounter Details +--------+ + + + + | Date | Type | Department | Care Team | Description | +--------+ + + + + | 05/08/ | Hospital | [facility] | [place], | | | 2007 | Encounter | MED CTR EMERGENCY | Yaya Neal MD [address] | | | | | [place] | [facility] | | | | | [place], [place] | [place] [address] | | | | | [address] | [phone] | | | | | [phone] | | | +--------+ + + + [...]
--- OUTSIDE RECORDS SUMMARY | ~2019-12-08 | XMS | Encounter Summary ---
Demographics + + + | Address | [address] | | | [place] [address] | + + + | Home Phone [...] + + + | Author | [facility] | | | and [place] | + + + | Organization | [facility] | | | and [...] | | | | | [place] [address] | | + + + + + | Vanessa Lawton | ECON | [address] | | | | | [place] [address] | | + + + + + Care Team Providers + +------+ + | Care Lumber Carrier Operator Name | Role | Phone | + +------+ + PCP | Unavailable | + +------+ + Encounter Details +--------+ + + + + | Date | Type | Department | Care Team | Description | +--------+ + + + + | 10/29/ | Hospital | [facility] | [place], | | | 2008 | Encounter | MED CTR EMERGENCY | Yaya Nela MD [address] | | | | | [place] | [facility] | | | | | [place], [place] | [place] [address] | | | | | [address] | [phone] | | | | | [phone] | | | +--------+ + + + [...]
--- OUTSIDE RECORDS SUMMARY | ~2019-12-08 | XMS | Encounter Summary ---
Demographics + + + | Address | [address] | | | [place] [address] | + + + | Home Phone | | + + + | Preferred Language | Unknown | + + + | Marital Status | Single | + + + | Methodist Affiliation | 1041 | + + + | Race | Unknown | + + + | Ethnic Group | Unknown | + + + Author + + + | Author | [facility] | | | and [place] | + + + | Organization | [facility] | | | and [place] [...] | | | | | [place] [address] | | + + + + + | Vanessa Lawton | ECON | [address] | | | | | [place] [address] | | + + + + + Care Team Providers + +------+ + | Care Cable Layer Name | Role | Phone | + +------+ + | No, Physician | PCP | Unavailable | + +------+ + Reason for Visit + + + | Reason | Comments | + + + | Symptom Management | | + + + Encounter Details +--------+ + + + + | Date | Type | Department | Care Team | Description | +--------+ + + + + | 11/06/ | Telephone | [facility] | Gretchen Martinez, | Symptom Management | | 2019 | | [facility] | ELECT[employer]IC [employer] MECH[employer]IC [address] | | | | | [address] | [place] | | | | | [place] | [address] | | | | | [address] | | | | | | [phone] | | | +--------+ + + + [...] Diagnoses Not on filedocumented in this encounter Additional Health Concerns + [...]
--- OUTSIDE RECORDS SUMMARY | ~2019-12-08 | XMS | Encounter Summary ---
Demographics + + + | Address | [address] | | | [place] [address] | + + + | Home Phone | | + + + | Preferred Language | Unknown | + + + | Marital Status | Single | + + + | Presybeterian Affiliation | 1041 | + + + | Race | Unknown | + + + | Ethnic Group | Unknown | + + + Author + + + | Author | [facility] | | | and [place] | + + + | Organization | [facility] | | | [...] | | | | | [place] [address] | | + + + + + | Vanessa Lawton | ECON | [address] | | | | | [place] [address] | | + + + + + Care Team Providers + +------+ + | Care Palliative Care Nurse Name | Role | Phone | + +------+ + PCP | Unavailable | + +------+ + Encounter Details +--------+ + + + + | Date | Type | Department | Care Team | Description | +--------+ + + + + | 07/12/ | Hospital | [facility] | Agustin Larry | | | 2010 | Encounter | MED CTR EMERGENCY | MD Dany [address] | | | | | NATACHA [address] | [facility] | | | | | [place], [place] | [place] [address] | | | | | [address] | [phone] | | | | | [phone] | | | +--------+ + + + [...]
--- OUTSIDE RECORDS SUMMARY | ~2019-12-08 | XMS | Clinical Summary ---
Demographics + + + | Address | [address] | | | [place] [address] | + + + | Home Phone | | + + + | Preferred Language | Unknown | + + + | Marital Status | Single | + + + | Taoism Affiliation | 1041 | + + + | Race | Unknown | + + + | Ethnic Group | Unknown | + + + Author + + + | Author | [facility] | | | and [place] | + + + | Organization | [facility] | | | and [...] | | | | | [place] [address] | | + + + + + | Vanessa Lawton | ECON | [address] | | | | | [place] [address] | | + + + + + Care Team Providers + +------+ + | Care Job Development Specialist Name | Role | Phone | + +------+ + | No, Physician | PCP | Unavailable | + +------+ + Allergies No Known Allergies Medications + + + +---------+------+------+-------+ | Medication | Sig | Dispensed | Refills | Star | End | Statu | | | | | | t | Date | s | | | | | | Date | | | + + + +---------+------+------+-------+ | albuterol 90 | Inhale 2 puffs into | 1 | 0 | 03/2 | | Activ | | mcg/puff inhaler | the lungs every 4 | Inhaler | | 8/20 | | e | | | hours as needed for | | | 20 | | | | | Wheezing or | | | | | | | | Shortness of Breath. | | | | | | + + + +---------+------+------+-------+ | benzonatate | Take 1 capsule by | 30 | 0 | 03/2 | 05/2 | Disco | | (TESSALON) 200 MG | mouth 3 times daily | capsule | | 8/20 | 5/20 | ntinu | | capsule | as needed for Cough. | | | 20 | 20 | ed | | | | | | | | (Ther | | | | | | | | apy | | | | | | | | compl | | | | | | | | eted) | + + + +---------+------+------+-------+ | | Take 10 mLs by mouth | 118 mL | 0 | 03/2 | 05/2 | Disco | | guaiFENesin-dextrome | every 4 hours as | | | 8/20 | 5/20 | ntinu | | thorphan (ROBITUSSIN | needed for Cough. | | | 20 | 20 | ed | | DM) 100-10 mg/5 mL | | | | | | (Ther | | syrup | | | | | | apy | | | | | | | | compl | | | | | | | | eted) | + + + +---------+------+------+-------+ | azithromycin | Take 2 tablets by | 6 | 0 | 05/0 | 05/2 | Disco | | (ZITHROMAX) 250 mg | mouth on day 1, and | tablet | | 5/20 | 5/20 | ntinu | | tablet | 1 tablet by mouth | | | 20 | 20 | ed | | | every day | | | | | (Ther | | | | | | | | apy | | | | | | | | compl | | | | | | | | eted) | + + + +---------+------+------+-------+ | predniSONE | Take 2 tablets by | 10 | 0 | 05/2 | 05/3 | Expir | | (DELTASONE) 20 mg | mouth Daily for 5 | tablet | | 520 | 0/20 | ed | | tablet | days. | | | 20 | 20 | | + + + +---------+------+------+-------+ Active Problems + + + | Problem | Noted Date | + + + | Asthma exacerbation | 09/26/2019 | + + + | CAP (community acquired pneumonia) | 09/26/2019 | + + + | H/O Previous section | 11/21/2015 | + + + | Term , repeat | 11/21/2015 | + + + | Former smoker - quit Jul 2015 | 11/21/2015 | + + + | Asthma | | + + + Encounters +--------+ + + + + | Date | Type | Specialty | Care Team | Description | +--------+ + + + + | 11/26/ | Telephone | Case Management | Leandra Wayne | ED Follow-up | | 2019 | | | | | +--------+ + + + + | 11/25/ | Emergency | Emergency Medicine | Tristin Glover, | Moderate persistent | | 2019 | | | MD | asthma with | | | | | | exacerbation | | | | | | (Primary Dx) | +--------+ + + + + | 11/06/ | Telephone | Rehabilitation | Gretchen Martinez, | Symptom Management | | 2019 | | | DATA NETWORK ARCHITECT | | +--------+ + + + + | 11/05/ | Emergency | Emergency Medicine | Arvin Moore | Wheeze (Primary Dx); | 2019 | | | MD Jin | Bronchitis | +--------+ + + + + | 09/27/ | Telephone | Family Medicine | Keagan, | Symptom Management | | 2019 | | | Jeri Castaneda RN | | +--------+ + + + + | 09/25/ | Hospital | | Saji Johnson, | Acute respiratory | | 2019 - | Encounter | | Sherrie Bonilla | failure with hypoxia | | | | | MD Vin Bird, | ([facility]) (Primary Dx); | | 09/28/ | | | MD Radha | Wheezing on | | 2019 | | | | auscultation; | | | | | | Multifocal | | | | | | pneumonia; Moderate | | | | | | asthma with | | | | | | exacerbation, | | | | | | unspecified whether | | | | | | persistent; | | | | | | Community acquired | | | | | | pneumonia, | | | | | | unspecified | | | | | | laterality; | | | | | | Exacerbation of | | | | | | asthma, unspecified | | | | | | asthma severity, | | | | | | unspecified whether | | | | | | persistent; Acute | | | | | | respiratory | | | | | | insufficiency | +--------+ + + + + | 09/25/ | Imaging | Radiology | Cody Thornton MD | Severe persistent | | 2019 | Exam | | | asthma with | | | | | | exacerbation | +--------+ + + + + | 09/25/ | Clinical | Immediate Care | Cody Thornton MD | Severe persistent | | 2019 | Support | | | asthma with | | | | | | exacerbation | | | | | | (Primary Dx); | | | | | | Pneumonia of right | | | | | | middle lobe due to | | | | | | infectious organism | +--------+ + + + + | 09/11/ | Office | Immediate Care | Ponce Zaman, | Mild persistent | | 2020 | Visit | | MD | asthma with | | | | | | exacerbation | | | | | | (Primary Dx) | +--------+ + + + + from Last 3 Months Immunizations + + + + | Name | Administration Dates | Next Due | + + + + | DTP (PED) | 12/18/1992, 02/23/1991, 1990 | | + + + + | HIB (PRP-T), 4 DOSE | 12/18/1992, 02/23/1991, 1990 | | | (PED) | | | + + + + | MMR, 2 DOSE | 11/26/2015, 09/15/2001, 12/18/1992 | | | (PED/ADULT) | | | + + + + | POLIOVIRUS,OPV | 12/18/1992, 02/23/1991, 1990 | | | (LIVE) | | | + + + + | PPD Test | 07/24/2010, 05/02/2006 | | + + + + | TDAP, (ADOL/ADULT) | 11/26/2015, 09/12/2015 | | + + + + Social History + [...] recent travel history available. | + + Last Filed Vital Signs + + + [...] | | + + + + + Plan of Treatment + + + + + | Health Maintenance | Due Date | Last Done | Comments | + + + + + | Vaccine: | | | | | Pneumococcal | 6 | | | | (1 of 1 - PPSV23) | | | | + + + + + | Cervical Cancer | | | | | Screening (Pap) | 1 | | | + + + + + | Vaccine: Influenza | | | | | (Season Ended) | 0 | | | + + + + + | Vaccine: | | 11/26/2015, 09/12/2015, | | | Dtap/Tdap/Td (6 - | 6 | 12/18/1992, Additional history | | | Td) | | exists | | + + + + + Procedures + +--------+ + + + | [...] +--------+ + + + | XR CHEST PA AND | Routin | 09/26/2019 | Severe persistent | Results for this | | LATERAL | e | 3:01 PM | asthma with | procedure are [...] section. | + +--------+ + + + from Last 3 Months Results XR Chest AP Portable (11/26/2019 2:37 AM PDT)Only the most recent of 2 results within the time period is included. + + | Specimen | + + [...] + | PATIENT | 37.0 | | [facility] | | | TEMP | | | [facility] | | [...] + | [facility] | [address] [place] [address] | [place], [place] | [phone] | | [facility] | | [address] | | | - LABORATORY | | | | + + + + + Extra Lavender Top Tube (11/26/2019 2:02 AM PDT)Only the most recent of 2 results within t he time period is included. + +-------+ + + + | Component [...] [address] | [place] | [phone] | | [facility] | | [address] | | | - LABORATORY | | | | + + + + + Extra Green Top Tube (11/26/2019 2:02 AM PDT)Only the most recent of 2 results within the time period is included. + +-------+ + + + | Component [...] + | [facility] | [address] | [place] | [phone] | | [facility] | | [address] | | | - LABORATORY | | | | + + + + + CBC with Differential (11/26/2019 2:02 AM PDT)Only the most recent of 4 results within the time period is included. + + + + + + | Component | Value | Ref Range | Performed | Pathologist | | | | | At | Signature | + + + + + + | WBC | 9.3 | 4.0 - 11.0 K/uL | [facility] | | | | | | ST. [...] | patients, use the | | [facility] | | | s | special [...] ranges: Trim. Absolute (K/uL) Percentage (%) | [facility] | | 1st 0.003-0.091 K/uL 0.0-0.9% 2nd 0.007-0.247 K/uL | [facility] | | 0.1-2.0% 3rd 0.018-0.456 K/uL 0.1-2.0% | - LABORATORY | + + + + + + + + | Performing | Address | City/State/Zipcode | Phone Number | | Organization | | | | + + + + + | [facility] | [address] | [place] | [phone] | | [facility] | | [address] | | | - LABORATORY | | | | + + + + + Comprehensive Metabolic Panel (11/26/2019 2:02 AM PDT)Only the most recent of 2 results wi thin the time period is included. + + + + + + | [...] 14 | 9 - 23 mg/dL | [facility] | | | | [facility] | | | | | | MEDICAL | | | | | | CENTER - | | | | | | LABORATORY | | + + + + + + | Creatinine | 1.02 | 0.55 - 1.02 | [facility] | [...] | | | FILTRATION | mL/min/1.73m2 | [facility] | | | [place] | RATE,ESTIMATED | | MEDICAL | | | | mL/min/1.26u1Kppn than | | CENTER - | | [...] | 8.9 | 8.7 - 10.4 | [facility] | | | | | mg/dL | [facility] | | | | | | MEDICAL | | | | | | CENTER - | | | | | | LABORATORY | | + + + + + + | Albumin | 3.9 | 3.2 - 4.8 g/dL | [facility] | | | | | [...] [address] | [place] | [phone] | | [facility] | | [address] | | | - LABORATORY | | [...] | [address] | [place] | [phone] | | [facility] | | [address] | | | - LABORATORY | | [...] ST. | [address] | [place] | [phone] | | [facility] | | [address] | | | - LABORATORY | | [...] | Top Tube | | | [facility] | | [...] [address] | [place] | [phone] | | [facility] | | [address] | | | - LABORATORY | | [...] Quantitativ | quantitative D-Dimer | FEU | [facility] | | | e | assay has [...] [address] | [place] | [phone] | | [facility] | | [address] | | | - LABORATORY | | | | + + + + + [facility] STAT instructions for COVID-19 [...] + Coronavirus (COVID-19) NAAT (11/06/2019 1:40 PM PDT)Only the most recent of 2 results with in the time period is included. + + + + + + | [...] + + + | See Scanned | [facility] | | Report | | + + + + +---------+ + + | Performing | Address | City/State/Zipcode | Phone Number | | Organization | | | | + +---------+ + + | [facility] | | | | + +---------+ + + Magnesium (09/29/2019 5:48 AM PDT)Only the most recent of 3 results within the time period is included. + +-------+ + + + | Component | Value | Ref Range | Performed | Pathologist | | | | | At | Signature | + +-------+ + + + | Magnesium | 2.1 | 1.6 - 2.6 mg/dL | [facility] [...] + | [facility] | [address] | [place] | [phone] | | [facility] | | [address] | | | - LABORATORY | | | | + + + + + Basic Metabolic Panel (09/29/2019 5:48 AM PDT)Only the most recent of 3 results within the time period is included. + + + + + + | Component | Value | Ref Range | Performed | Pathologist | | | | | At | Signature | + + + + + + | Na | 141 | 136 - 145 | [facility] | | | | | mmol/L | [facility] | | | | | | MEDICAL | | | | | | CENTER - | | | | | | LABORATORY | | + + + + + + | K | 4.1 | 3.4 - 5.1 | [facility] | | | | | mmol/L | [...] | | | | | | [facility] | | | | | | MEDICAL [...] mL/min/1.73m2 | [facility] | | | [place] | RATE,ESTIMATED | | MEDICAL | | | | mL/min/1.59x0Tzuv than | | CENTER - | | [...] [address] | [place] | [phone] | | [facility] | | [address] | | | - LABORATORY | | [...] + | [facility] | [address] | [place] | [phone] | | [facility] | | [address] | | | - LABORATORY | | | | + + + + + Procalcitonin (09/28/2019 3:07 AM PDT)Only the most recent of 2 results within the time ana cristina lee is included. + + + + + + | Component | Value | Ref Range | Performed | Pathologist | | | | | At | Signature | + + + + + + | Procalciton | <0.05 | <=0.50 ng/mL | [facility] | | | in | | | [facility] | | | | | | MEDICAL [...] [address] | [place] | [phone] | | [facility] | | [address] | | | - LABORATORY | | [...] [address] | [place] | [phone] | | [facility] | | [address] | | | - LABORATORY | | [...] + + | Performed at: 01 - [facility] [address], | REFERENCE LAB | | [place], [place] [id number] Final Assembler: Agustin Brennan MD, Phone: | [place] | | [phone] | | + + + + + + + + | Performing | Address | City/State/Zipcode | Phone Number | | Organization | | | | + + + + + | REFERENCE LAB | [address] | [place], [place] | [phone] | | [facility] | [facility] | [address] | | + + + + + [...] + + | Please note | CommentComment: College | | REFERENCE | | | | of [place] [employer] | | LAB [facility] | | | | standards require a | | - [facility] | | | | culture to beperformed | | | | | | on CSF specimens | | | | | | submitted for bacterial | | | | | | antigen testing.(CAP | | | | | | [id number]) Urine | | | | | | [...] + + | Performed at: 01 - [facility] [place], | REFERENCE LAB | | [place] [id number] Final Assembler: Herve Rivera MD, Phone: | [facility] | | [phone] | | + + + + + + + + | Performing | Address | City/State/Zipcode | Phone Number | | Organization | | | | + + + + + | REFERENCE LAB | [address] | [place], [place] | [phone] | | [facility] | [place] | [address] | | + + + + + Culture, MRSA (09/26/2019 11:34 PM PDT) + + + + + + | Component | Value | Ref Range | Performed | Pathologist | | | | | At | Signature | + + + + + + | Culture | 1+ Staphylococcus | | [facility] | | | | aureus,Methicillin | | [facility] | | | | resistant (MRSA)Comment: | [...] + | [facility] | [address] | [place] | [phone] | | [facility] | | [address] | | | - LABORATORY | | [...] Detected | [facility] | | | za 1 | | | [facility] | [...] + | [facility] | [address] | [place], [place] | [phone] | | [facility] | | [address] | | | - LABORATORY | | [...] + + | Marbin, Rad Results In 09/26/2019 6:23 PM PDT TECHNIQUE: After administration [...] ST. | [address] | [place] | [phone] | | [facility] | | [address] | | | - LABORATORY | | [...] 74 | 60 - 750 mmHg | [facility] | | | | | | ST. [...] [address] | [place] | [phone] | | [facility] | | [address] | | | - LABORATORY | | | | + + + + + Culture, Blood (09/26/2019 4:59 PM PDT)Only the most recent of 2 results within the time p chyna is included. + + + + + + | Component | Value | Ref Range | Performed | Pathologist | | | | | At | Signature | + + + + + + | Culture | No growth after 5 days | | [facility] | | | | incubation. | | [facility] | | | [...] [address] | [place] | [phone] | | [facility] | | [address] | | | - LABORATORY | | [...] + | [facility] | [address] | [place] | [phone] | | [facility] | | [address] | | | - LABORATORY | | | | + + + + + XR Chest PA and Lateral (09/26/2019 3:01 [...] + + | Marbin, Rad Results In 09/26/2019 3:18 PM PDT CLINICAL INFORMATION: asthma [...] | | | |Dictated and Signed by: Gery Shepherd MD | | Electronically signed: 09/26/2019 [...] | PCR | | not performed | [facility] | | | | | | [facility] | | | | | | [facility] | | | | | | LABORATORY | | + + + + + + | Influenza B | Negative | Negative, Test | [facility] | | | PCR | | not performed | [facility] | | | | | | MEDICAL [...] + + + + + | [facility] | [address] | [place] | [phone] | | [facility] | | [address] | | | [facility] LAB[facility] | | | | + + + + + from Last 3 Months Additional Health Concerns + + + + | Infection | Noted Time | Resolved Time | + + + + | Methicillin-resistant Staphylococcus aureus | 10/01/2019 1:07 PM | | | | PDT | | + + + + Insurance + +--------+ +--------+ +---------+--------+ | Payer | Benefi | Subscriber | Effect | Phone | Address | Type | | | t Plan | ID | daisy | | | | | | / | | Dates | | | | | | Group | | | | | | + +--------+ +--------+ +---------+--------+ | [employer] | [employer] | [id number] | | [phone] | | Medica | | MEDICAID HMO | HEALTH | | [id number]-[id number] | 1 | | id | | | MDCD | | esent | | | | | | [place]MO [place] | | | | | | + +--------+ +--------+ +---------+--------+ + +--------+ +--------+ + + | Guarantor Name | Accoun | Relation to | Date | Phone | Billing Address | | | t Type | Patient | of | | | | | | | | | | + +--------+ +--------+ + + | Ki | Person | Self | [birth year] | [address] | | [place] | al/Kendell | | 1990 | [phone] | [place], [place] | | [place] | floyd | | | 3 (Home) | [address] | + +--------+ +--------+ + + Advance Directives + + + + + | Type | Date Recorded | Patient | Explanation | | | | Nurse Orthopedic | | + + + + + | Power of | | | | | Land Leasing Examiner | | | | + + + + + | Advance | 11/25/2015 9:16 | | | | Directive | AM | | | + + + + + + + + + + | Code Status | Date | Date | Comments | | | Activated | Inactivated | | + + + + + | Full Code | 09/26/2019 | 09/29/2019 | | | | 9:39 PM | 3:59 PM | | + + + + + + + + +---+ | | | | | + + + +---+ | Full Code | 08/29/2017 | 09/02/2017 | | | | 10:28 PM | 2:19 AM | | + + + +---+
--- OUTSIDE RECORDS SUMMARY | ~2019-12-08 | XMS | Encounter Summary ---
Demographics + + + | Address | [address] | | | [place] [address] | + + + | Home Phone | | + + + | Preferred Language | Unknown | + + + | Marital Status | Single | + + + | Restorationist Affiliation | 1041 | + + + | Race | Unknown | + + + | Ethnic Group | Unknown | + + + Author + + + | Author | [facility] | | | and [place] | + + + | Organization | [facility] | | | and [...] | | | | | [place] [address] | | + + + + + | Vanessa Lawton | ECON | [address] | | | | | [place] [address] | | + + + + + Care Team Providers + +------+ + | Care Nurse Paralegal Name | Role | Phone | + +------+ + PCP | Unavailable | + +------+ + Encounter Details +--------+ + + + + | Date | Type | Department | Care Team | Description | +--------+ + + + + | 11/30/ | Hospital | [facility] | | | | 2008 | Encounter | [facility] | | | | | | CENTER [address] | | | | | | [place] | | | | | | [address] | | | | | | [phone] | | | +--------+ + + + [...]
--- OUTSIDE RECORDS SUMMARY | ~2019-12-08 | XMS | Encounter Summary ---
Demographics + + + | Address | [address] | | | [place] [address] | + + + | Home Phone | | + + + | Preferred Language | Unknown | + + + | Marital Status | Single | + + + | Buddhism Affiliation | 1041 | + + + | Race | Unknown | + + + | Ethnic Group | Unknown | + + + Author + + + | Author | [facility] | | | and [place] | + + + | Organization | [facility] | | [...] | | | | | [place] [address] | | + + + + + | Vanessa Lawton | ECON | [address] | | | | | [place] [address] | | + + + + + Care Team Providers + +------+ + | Care Refrigerator Assembler Name | Role | Phone | + +------+ + | No, Physician | PCP | Unavailable | + +------+ + Encounter Details +--------+ + + + + | Date | Type | Department | Care Team | Description | +--------+ + + + + | 09/25/ | Imaging | [facility] | Cody Thornton MD | Severe persistent | | 2020 | Exam | [place] [address] | asthma with | | | | [address] | [place] | exacerbation | | | | [place] [address] | [address] | | | | | [phone] | | | +--------+ + + + [...] + | Severe persistent asthma with exacerbation Unspecified asthma, with exacerbation | + + documented in this [...]
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
--- OUTSIDE RECORDS SUMMARY | ~2019-12-08 | XMS | Encounter Summary ---
Demographics + + + | Address | [address] | | | [place] [address] | + + + | Home Phone | | + + + | Preferred Language | Unknown | + + + | Marital Status | Single | + + + | Roman Catholic Affiliation | 1041 | + + + | Race | Unknown | + + + | Ethnic Group | Unknown | + + + Author + + + | Author | [facility] | | | and [place] | + + + | Organization | [facility] | | | and [place] [...] | | | | | [place] [address] | | + + + + + | Vanessa Lawton | ECON | [address] | | | | | [place] [address] | | + + + + + Care Team Providers + +------+ + | Care Head Of Store Operations Name | Role | Phone | + +------+ + PCP | Unavailable | + +------+ + Encounter Details +--------+ + + + + | Date | Type | Department | Care Team | Description | +--------+ + + + + | 10/22/ | Hospital | [facility] | | | | 2001 | Encounter | MED CTR EMERGENCY | | | | | | CENTER [address] | | | | | | [place], [place] | | | | | | [address] | | | | | | [phone] | | | +--------+ + + + [...]
--- OUTSIDE RECORDS SUMMARY | ~2019-12-08 | XMS | Encounter Summary ---
Demographics + + + | Address | [address] | | | [place] [address] | + + + | Home Phone | | + + + | Preferred Language | Unknown | + + + | Marital Status | Single | + + + | Voodoo Affiliation | 1041 | + + + | Race | Unknown | + + + | Ethnic Group | Unknown | + + + Author + + + | Author | [facility] | | | and [place] | + + + | Organization | [facility] | | | and [place] [...] | | | | | [place] [address] | | + + + + + | Vanessa Lawton | ECON | [address] | | | | | [place] [address] | | + + + + + Care Team Providers + +------+ + | Care Dental Insurance Coordinator Name | Role | Phone | + +------+ + PCP | Unavailable | + +------+ + Encounter Details +--------+ + + + + | Date | Type | Department | Care Team | Description | +--------+ + + + + | 04/29/ | Hospital | [facility] | Agustin Gtz | | | 2008 | Encounter | MED CTR LABORATORY | MD Z[address] [facility] | | | | | [address] | [place] | | | | | [place] | [id number] | | | | | [address] | | | | | | [phone] | | | +--------+ + + + [...]
--- OUTSIDE RECORDS SUMMARY | ~2019-12-08 | XMS | Encounter Summary ---
Demographics + + + | Address | [address] | | | [place] [address] | + + + | Home Phone | | + + + | Preferred Language | Unknown | + + + | Marital Status | Single | + + + | Quaker Affiliation | 1041 | + + + | Race | Unknown | + + + | Ethnic Group | Unknown | + + + Author + + + | Author | [facility] | | | and [place] | + + + | Organization | [facility] | | | and [place] [...] | | | | | [place] [address] | | + + + + + | Vanessa Lawton | ECON | [address] | | | | | [place] [address] | | + + + + + Care Team Providers + +------+ + | Care Telemedicine Physician Name | Role | Phone | + +------+ + PCP | Unavailable | + +------+ + Encounter Details +--------+ + + + + | Date | Type | Department | Care Team | Description | +--------+ + + + + | 08/13/ | Hospital | [facility] | | | | 2010 | Encounter | MED CTR EMERGENCY | | | | | | CENTER [address] | | | | | | [place] | | | | | | [address] | | | | | | [phone] | | | +--------+ + + + [...]
--- OUTSIDE RECORDS SUMMARY | ~2019-12-08 | XMS | Encounter Summary ---
Demographics + + + | Address | [address] | | | [place] [address] | + + + | Home Phone | | + + + | Preferred Language | Unknown | + + + | Marital Status | Single | + + + | Gnosticism Affiliation | 1041 | + + + | Race | Unknown | + + + | Ethnic Group | Unknown | + + + Author + + + | Author | [facility] | | | and [place] | + + + | Organization | [facility] | | | [...] | | | | | [place] [address] | | + + + + + | Vanessa Lawton | ECON | [address] | | | | | [place] [address] | | + + + + + Care Team Providers + +------+ + | Care Inspector Machine Parts Name | Role | Phone | + [...] + + | 11/27/ | Hospital | [facility] | Reji Gonzales | Poor latch on, | | 2016 | Encounter | MED CTR OB | DO [address] | (Primary | | | | PROCEDURES [address] [place] | Dx); Nipple pain | | | | [place], | [place], [place] [address] | | | | | [place] [address] | [phone] | | | | | [phone] | | | +--------+ + + + [...]
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
--- OUTSIDE RECORDS SUMMARY | ~2019-12-08 | XMS | Encounter Summary ---
Demographics + + + | Address | [address] | | | [place] [address] | + + + | Home Phone | | + + + | Preferred Language | Unknown | + + + | Marital Status | Single | + + + | Hinduism Affiliation | 1041 | + + + | Race | Unknown | + + + | Ethnic Group | Unknown | + + + Author + + + | Author | [facility] | | | and [place] | + + + | Organization | [facility] | [...] | | | | | [place] [address] | | + + + + + | Vanessa Lawton | ECON | [address] | | | | | [place] [address] | | + + + + + Care Team Providers + +------+ + | Care Boat Crew Deck Hand Name | Role | Phone | + +------+ + PCP | Unavailable | + +------+ + Encounter Details +--------+ + + + + | Date | Type | Department | Care Team | Description | +--------+ + + + + | 03/05/ | Hospital | [facility] | Kuldip Perduewinnie | | | 2009 | Encounter | MED CTR EM[facility] | MD Juan [address] | | | | | NAT[address] | [facility] | | | | | [place], [place] | [place] [address] | | | | | [address] | [phone] | | | | | [phone] | | | +--------+ + + + [...]
--- OUTSIDE RECORDS SUMMARY | ~2019-12-08 | XMS | Encounter Summary ---
Demographics + + + | Address | [address] | | | [place] [address] | + + + | Home Phone | | + + + | Preferred Language | Unknown | + + + | Marital Status | Single | + + + | Restoration Affiliation | 1041 | + + + | Race | Unknown | + + + | Ethnic Group | Unknown | + + + Author + + + | Author | [facility] | | | and [place] | + + + | Organization | [facility] | | | and [...] | | | | | [place] [address] | | + + + + + | Vanessa Lawton | ECON | [address] | | | | | [place] [address] | | + + + + + Care Team Providers + +------+ + | Care Petroleum Ge[employer] Faculty Member Name | Role | Phone | + +------+ + PCP | Unavailable | + +------+ + Encounter Details +--------+ + + + + | Date | Type | Department | Care Team | Description | +--------+ + + + + | 08/13/ | Hospital | [facility] | | | | 2010 | Encounter | MED CTR EMERGENCY | | | | | | CENTER [address] | | | | | | [place] | | | | | | [address] | | | | | | [phone] | | | +--------+ + + + [...]
--- OUTSIDE RECORDS SUMMARY | ~2019-12-08 | XMS | Encounter Summary ---
Demographics + + + | Address | [address] | | | [place] [address] | + + + | Home Phone | | + + + | Preferred Language | Unknown | + + + | Marital Status | Single | + + + | Advent Affiliation | 1041 | + + + | Race | Unknown | + + + | Ethnic Group | Unknown | + + + Author + + + | Author | [facility] | | | and [place] | + + + | Organization | [facility] | | | and [place] [...] | | | | | [place] [address] | | + + + + + | Vanessa Lawton | ECON | [address] | | | | | [place] [address] | | + + + + + Care Team Providers + +------+ + | Care Application Services Manager Name | Role | Phone | + +------+ + PCP | Unavailable | + +------+ + Encounter Details +--------+ + + + + | Date | Type | Department | Care Team | Description | +--------+ + + + + | 05/22/ | Hospital | [facility] | | | | 2008 - | Encounter | MED CTR WOMENS | | | | | | [facility]ALTH [facility] [address] | | | | 05/25/ | | [place], | | | | 2008 | | [place] [address] | | | | | | [phone] | | | +--------+ + + + [...]
--- OUTSIDE RECORDS SUMMARY | ~2019-12-08 | XMS | Encounter Summary ---
Demographics + + + | Address | [address] | | | [place] [address] | + + + | Home Phone | | + + + | Preferred Language | Unknown | + + + | Marital Status | Single | + + + | Sikh Affiliation | 1041 | + + + | Race | Unknown | + + + | Ethnic Group | Unknown | + + + Author + + + | Author | [facility] | | | and [place] | + + + | Organization | [facility] | | | and [place] [...] | | | | | [place] [address] | | + + + + + | Vanessa Lawton | ECON | [address] | | | | | [place] [address] | | + + + + + Care Team Providers + +------+ + | Care Wire Stripping Machine Operator Name | Role | Phone | + +------+ + PCP | Unavailable | + +------+ + Encounter Details +--------+ + + + + | Date | Type | Department | Care Team | Description | +--------+ + + + + | 03/05/ | Hospital | [facility] | | | | 2010 | Encounter | MED CTR EMERGENCY | | | | | | CENTER [address] | | | | | | [place] | | | | | | [address] | | | | | | [phone] | | | +--------+ + + + [...] - 1.030 | [facility] | | | [place], | | | [facility] | | [...] + | [facility] | [address] | [place] | [phone] | | [facility] | | [address] | | | - LABORATORY | | | | + + + + + | [facility] | [address] | [place] | | | [facility] | | [address] [place] [address] | | | - LABORATORY | | [...] [address] | [place] | [phone] | | [facility] | | [address] | | | - LABORATORY | | | | + + + + + | CHRISTINA OKEEFE. | [address] | [place] | | | [facility] | | [address] | | | - LABORATORY | | | | + + + + + documented in this encounter Visit Diagnoses Not on filedocumented in this encounter"
--- OUTSIDE RECORDS SUMMARY | ~2019-12-08 | XMS | Encounter Summary ---
Demographics + + + | Address | [address] | | | [place] [address] | + + + | Home Phone | | + + + | Preferred Language | Unknown | + + + | Marital Status | Single | + + + | Orthodox Affiliation | 1041 | + + + | Race | Unknown | + + + | Ethnic Group | Unknown | + + + Author + + + | Author | [facility] | | | and [place] | + + + | Organization | [facility] | | | and [...] | | | | | [place] [address] | | + + + + + | Vanessa Lawton | ECON | [address] | | | | | [place] [address] | | + + + + + Care Team Providers + +------+ + | Care Farmer And Grazier Name | Role | Phone | + +------+ + PCP | Unavailable | + +------+ + Encounter Details +--------+ + + + + | Date | Type | Department | Care Team | Description | +--------+ + + + + | 05/09/ | Hospital | [facility] | | | | 2005 | Encounter | MED CTR EMERGENCY | | | | | | CENTER [address] | | | | | | [place] | | | | | | [address] | | | | | | [phone] | | | +--------+ + + + [...]
--- OUTSIDE RECORDS SUMMARY | ~2019-12-08 | XMS | Encounter Summary ---
Demographics + + + | Address | [address] | | | [place] [address] | + + + | Home Phone | | + + + | Preferred Language | Unknown | + + + | Marital Status | Single | + + + | Scientologist Affiliation | 1041 | + + + | Race | Unknown | + + + | Ethnic Group | Unknown | + + + Author + + + | Author | [facility] | | | and [place] | + + + | Organization | [facility] | | | and [place] [...] | | | | | [place] [address] | | + + + + + | Vanessa Lawton | ECON | [address] | | | | | [place] [address] | | + + + + + Care Team Providers + +------+ + | Care Ice House Supervisor Name | Role | Phone | + +------+ + PCP | Unavailable | + +------+ + Encounter Details +--------+ + + + + | Date | Type | Department | Care Team | Description | +--------+ + + + + | 10/17/ | Hospital | [facility] | Briana Morataya | | | 2008 | Encounter | MED CTR XRAY [address] | [address] | | | | | [address] | [place], | | | | | [place] [address] | [place] [address] | | | | | [phone] | [phone] | | | | | | | [...]
--- OUTSIDE RECORDS SUMMARY | ~2019-12-08 | XMS | Clinical Summary ---
Demographics + + + | Address | [address] | | | [place] [address] | + + + | Home Phone [...] + + | Author | [facility] | | | and [place] | + + + | Organization | 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 | [address] | [place], [place] | [phone] | | [facility] | | [address] | | | - LABORATORY | | [...] [address] | [place] | [phone] | | [facility] | | [address] | | | - LABORATORY | | [...] + | [facility] | [address] | [place] | [phone] | | [facility] | | [address] | | | - LABORATORY | | [...] 0.003-0.091 K/uL 0.0-0.9% 2nd 0.007-0.247 K/uL | [facility] | | 0.1-2.0% 3rd 0.018-0.456 K/uL 0.1-2.0% | - LABORATORY | + + + + + + + + | Performing | Address | City/State/Zipcode | Phone Number | | Organization | | | | + + + + + | [facility] | [address] | [place] | [phone] | | [facility] | | [address] | | | - LABORATORY | | [...] | mL/min/1.73m2 | [facility] | | | ICELANDIC | RATE,ESTIMATED | | MEDICAL | | | | mL/min/1.89e3Gsub than | | CENTER - | | [...] [address] | [place] | [phone] | | [facility] | | [address] | | | - LABORATORY | | [...] [address] | [place] | [phone] | | [facility] | | [address] | | | - LABORATORY | | [...] ST. | [address] | [place] | [phone] | | [facility] | | [address] | | | - LABORATORY | | [...] [address] | [place] | [phone] | | [facility] | | [address] | | | - LABORATORY | | [...] Quantitativ | quantitative D-Dimer | FEU | [facility] | | | e | assay [...] [address] | [place] | [phone] | | [facility] | | [address] | | | - LABORATORY | | [...] + + + | See Scanned | ReClaims LABS | | Report | | + [...] + | [facility] | [address] | [place] | [phone] | | [facility] | | [address] | | | - LABORATORY | | [...] mL/min/1.73m2 | [facility] | | | ICELANDIC | RATE,ESTIMATED | | MEDICAL | | | | mL/min/1.91p9Zhuq than | | CENTER - | | [...] [address] | [place] | [phone] | | [facility] | | [address] | | | - LABORATORY | | [...] + | [facility] | [address] | [place] | [phone] | | [facility] | | [address] | | | - LABORATORY | | [...] | | in | | | [facility] | | | | | [...] [address] | [place] | [phone] | | [facility] | | [address] | | | - LABORATORY | | [...] [address] | [place] | [phone] | | [facility] | | [address] | | | - LABORATORY | | [...] + + | Performed at: 01 - [facility] [address], | REFERENCE LAB | | [place], [place] [address] Vertical Boring Mill Operator: Agustin Brennan MD, Phone: | [place] | | [phone] | | + + + + + + + + | Performing | Address | City/State/Zipcode | Phone Number | | Organization | | | | + + + + + | REFERENCE LAB | [address] | [place], [place] | [phone] | | [facility] | [facility] | [address] | | + + + + + [...] | REFERENCE | | | | of Swazi Pathologists | | LAB [facility] | | | | standards require a | | - BKR | | | | culture to beperformed | | | | | | on CSF specimens | | | | | | submitted for bacterial | | | | | | antigen testing.(CAP | | | | | | [id number]) Urine | | | | | | [...] | Performed at: 01 - [facility] Javon Ledezma, | REFERENCE LAB | | [place] [id number] Vertical Boring Mill Operator: Herve Rivera MD, Phone: | [facility] | | [phone] | | + + + + + + + + | Performing | Address | City/State/Zipcode | Phone Number | | Organization | | | | + + + + + | REFERENCE LAB | [address] | [place], [place] | [phone] | | [facility] | [place] | [address] | | + + + + + [...] + | [facility] | [address] | [place] | [phone] | | [facility] | | [address] | | | - LABORATORY | | [...] + | [facility] | [address] | [place], [place] | [phone] | | [facility] | | [address] | | | - LABORATORY | | [...] [address] | [place] | [phone] | | [facility] | | [address] | | | - LABORATORY | | [...] [address] | [place] | [phone] | | [facility] | | [address] | | | - LABORATORY | | [...] [address] | [place] | [phone] | | [facility] | | [address] | | | - LABORATORY | | [...] + | [facility] | [address] | [place] | [phone] | | [facility] | | [address] | | | - LABORATORY | | [...] | PCR | | not performed | [facility] | | | | | | MEDICAL | | | | | | [facility] | | | | | | LABORATORY | | + + + + + + | Influenza B | Negative | Negative, Test | [facility] | | | PCR | | not performed | [facility] | | | | | | MEDICAL [...] + + | [facility] | [address] | [place] | [phone] | | [facility] | | [address] | | | [facility] | | [...] | [employer] | [facility] | [id number] | | [phone] | | Medica | [...] [place] | al/Kendell | | 1990 | [phone] | [place], [place] | | Criselda | floyd | | | 3 (Home) | [address] | + +--------+ +--------+ + + Advance Directives + + + + + | Type | Date Recorded | Patient | Explanation | | | | Line Production Cook | | + + + + + | Power of | | | | | Battery Assembler Dry Cell | | | | + + + [...]
--- OUTSIDE RECORDS SUMMARY | ~2019-12-08 | XMS | Encounter Summary ---
Demographics + + + | Address | [address] | | | [place] [address] | + + + | Home Phone [...] + | Organization | [facility] | | | and [place] [...] | | | | | [place] [address] | | + + + + + | Vanessa Lawton | ECON | [address] | | | | | [place] [address] | | + + + + + Care Team Providers + +------+ + | Care Faculty Dean Name | Role | Phone | + +------+ + PCP | Unavailable | + +------+ + Encounter Details +--------+ + + + + | Date | Type | Department | Care Team | Description | +--------+ + + + + | 11/24/ | Hospital | [facility] | | | | 2008 | Encounter | MED CTR EMERGENCY | | | | | | CENTER [address] | | | | | | [place] | | | | | | [address] | | | | | | [phone] | | | +--------+ + + + [...]
--- OUTSIDE RECORDS SUMMARY | ~2019-12-08 | XMS | Encounter Summary ---
Demographics + + + | Address | [address] | | | [place] [address] | + + + | Home Phone | | + + + | Preferred Language | Unknown | + + + | Marital Status | Single | + + + | Muslim Affiliation | 1041 | + + + | Race | Unknown | + + + | Ethnic Group | Unknown | + + + Author + + + | Author | [facility] | | | and [place] | + + + | Organization | [facility] | | | and [...] | | | | | [place] [address] | | + + + + + | Vanessa Lawton | ECON | [address] | | | | | [place] [address] | | + + + + + Care Team Providers + +------+ + | Care General Surgery Physician Assistant Name | Role | Phone | + +------+ + PCP | Unavailable | + +------+ + Encounter Details +--------+ + + + + | Date | Type | Department | Care Team | Description | +--------+ + + + + | 12/24/ | Hospital | [facility] | | | | 2004 - | Encounter | MED CTR EMERGENCY | | | | | | CENTER [address] | | | | 12/25/ | | [place] | | | | 2004 | | [address] | | | | | | [phone] | | | +--------+ + + + [...]
--- OUTSIDE RECORDS SUMMARY | ~2019-12-08 | XMS | Encounter Summary ---
Demographics + + + | Address | [address] | | | [place] [address] | + + + | Home Phone | | + + + | Preferred Language | Unknown | + + + | Marital Status | Single | + + + | Amish Affiliation | 1041 | + + + | Race | Unknown | + + + | Ethnic Group | Unknown | + + + Author + + + | Author | [facility] | | | and [place] | + + + | Organization | [facility] | | | and [place] [...] | | | | | [place] [address] | | + + + + + | Vanessa Lawton | ECON | [address] | | | | | [place] [address] | | + + + + + Care Team Providers + +------+ + | Care 411 Directory Assistance Operator Name | Role | Phone | + +------+ + PCP | Unavailable | + +------+ + Encounter Details +--------+ + + + + | Date | Type | Department | Care Team | Description | +--------+ + + + + | 10/23/ | Hospital | [facility] | Kuldip Perduewinnie | | | 2010 | Encounter | MED CTR EMERGENCY | MD Juan [address] | | | | | [place] [address] | [address] [facility] | | | | | [place], [place] | [place] [address] | | | | | [address] | [phone] | | | | | [phone] | | | +--------+ + + + [...] + | URINALYSIS, REFLEX | Routin | 10/23/2010 | | Results for this | | MICROSCOPIC AND/OR | e | 1:32 AM | | procedure are in the | | CULTURE | | PDT | | results section. | + +--------+ + + + documented in this encounter Results Urinalysis, Reflex Microscopic and/or Culture (10/23/2010 1:32 AM PDT) + + + + + [...] + + + + | Ketones, | SMALL | NEGATIVE | [facility] | | | Urine | | | [facility] | | | | | | MEDICAL | | | | | | CENTER - | | | | | | LABORATORY | | + + + + + + | Specific | 1.020 | 1.001 - 1.030 | [facility] | | | [place], | | | [facility] | | | Urine | | | MEDICAL | | | | | | CENTER - | | | | | | LABORATORY | | + + + + + + | Blood, | TRACE-INTACT | NEGATIVE | [facility] | | | [...] + + + | White Blood | 2-4 | 0 - 1 /hpf | [facility] | | | Cells, | | | [facility] | | | Urine | | | MEDICAL | | | | | | CENTER - | | | | | | LABORATORY | | + + + + + + | Red Blood | 2-4 | 0 - 4 /hpf | [facility] [...] + + + + | Bacteria, | RARE | NONE /hpf | [facility] | | | Urine | | | [facility] | | | | | | MEDICAL | | | | | | CENTER - | | | | | | LABORATORY | | + + + + + + | Amorphous | SLIGHT | /hpf | [facility] | | | [...] + | [facility] | [address] | [place], [place] | [phone] | | [facility] | | [address] | | | - LABORATORY | | | | + + + + + | [facility] | [address] | [place], [place] | | | [facility] | | [address] [place] [address] | | | - LABORATORY | | | | + + + + + documented in this encounter Visit Diagnoses Not on filedocumented in this encounter"
--- OUTSIDE RECORDS SUMMARY | ~2019-12-08 | XMS | Encounter Summary ---
Demographics + + + | Address | [address] | | | [place] [address] | + + + | Home Phone [...] Organization | [facility] | | | and [...] | | | | | [place] [address] | | + + + + + | Vanessa Lawton | ECON | [address] | | | | | [place] [address] | | + + + + + Care Team Providers + +------+ + | Care Sand Drier Name | Role | Phone | + [...] + + | 11/06/ | Telephone | [facility] | Gretchen Martinez, | Symptom Management | | 2019 | | [facility] | IT PROGRAM AUDITOR [address] | | | | | [address] | [place] | | | | | [place] | [address] | | | | | [address] | | | | | | [phone] | | | +--------+ + + + [...]
--- OUTSIDE RECORDS SUMMARY | ~2019-12-08 | XMS | Encounter Summary ---
Demographics + + + | Address | [address] | | | [place] [address] | + + + | Home Phone | | + + + | Preferred Language | Unknown | + + + | Marital Status | Single | + + + | Druze Affiliation | 1041 | + + + | Race | Unknown | + + + | Ethnic Group | Unknown | + + + Author + + + | Author | [facility] | | | and [place] | + + + | Organization | [facility] | | | and [place] | [...] | | | | | [place] [address] | | + + + + + | Vanessa Lawton | ECON | [address] | | | | | [place] [address] | | + + + + + Care Team Providers + +------+ + | Care Boarding Specialist Name | Role | Phone | + +------+ + PCP | Unavailable | + +------+ + Encounter Details +--------+ + + + + | Date | Type | Department | Care Team | Description | +--------+ + + + + | 11/17/ | Hospital | [facility] | Bonilla Camara, | | | 2006 - | Encounter | MED CTR WOMENS | [address] | | | | | [facility] [address] | [facility] | | | 11/18/ | | [place] [place], | [place] [address] | | | 2006 | | [place] [address] | [phone] | | | | | [phone] | | | +--------+ + + + [...]
--- OUTSIDE RECORDS SUMMARY | ~2019-12-08 | XMS | Encounter Summary ---
Demographics + + + | Address | [address] | | | [place] [address] | + + + | Home Phone | | + + + | Preferred Language | Unknown | + + + | Marital Status | Single | + + + | Confucianist Affiliation | 1041 | + + + | Race | Unknown | + + + | Ethnic Group | Unknown | + + + Author + + + | Author | [facility] | | | and [place] | + + + | Organization | [facility] | | | and [...] | | | | | [place] [address] | | + + + + + | Vanessa Lawton | ECON | [address] | | | | | [place] [address] | | + + + + + Care Team Providers + +------+ + | Care Edging Supervisor Name | Role | Phone | [...] | [address] + | [place] [address] | | | | | | Week Singl | Phone: | | | | | | or First | [phone] | | | | | | Gestation | Fax: | | | | | | | [phone] | | +--------+--------+ + + + + [...] | | | | | Procedures | [place], | | | | | | [address] + | [place] [address] | | | | | | Week Singl | Phone: | | | | | | or First | [phone] | | | | | | Gestation | Fax: | | | | | | | [phone] | | +--------+--------+ + + + + Encounter Details +--------+ + + + + | Date | Type | Department | Care Team | Description | +--------+ + + + + | 06/28/ | Hospital | [facility] | Reji Gonzales | Normal in | | 2017 | Encounter | [address] | DO Juan [address] | multigravida | | | | [place], [place] | [address] [place] | | | | | [address] | [place] [address] | | | | | [phone] | [phone] | | | | | | | [...] <3%Dictated | | and Signed by: Devyn Coombs MD Electronically signed: 06/29/2017 11:42 AM | [...]
--- OUTSIDE RECORDS SUMMARY | ~2019-12-08 | XMS | Encounter Summary ---
Demographics + + + | Address | [address] | | | [place] [address] | + + + | Home Phone [...] Organization | [facility] | | [...] | | | | | [place] [address] | | + + + + + | Vanessa Lawton | ECON | [address] | | | | | [place] [address] | | + + + + + Care Team Providers + +------+ + | Care Rac Specialist Name | Role | Phone | [...] | | | | | | | NE | | | | | | | DELIVERY | | | | | | | ONLY NE | | | | | | | [...] | | | | | [address] | [address] [place] | | | | | [place], [place] | [place] [address] | | | | | [address] | [phone] | | | | | [phone] | | | +--------+---------+ + + + [...] position. Remember, it can take as long [id number] for a incision to heal. Activity Here [...] anxiety, panic, and/or depression Date Last Reviewed: 02/16/201519990690-6931 [employer]. [address] [place] [address]. All righ ts reserved. This information is [...] Intake/Output Summary (Last 24 hours) at 08/31/17 7451 Last data filed at 08/30/17 1800 Gross [...] Melendez MD - 08/30/2017 2:02 PM P [facility] Neuraxial Opioid Follow-Up Pain level: Mild The [...] + | [facility] | [address] | [place] | [phone] | | [facility] | | [address] | | | - LABORATORY | | [...] [address] | [place] | [phone] | | [facility] | | [address] | | | - LABORATORY | | [...] ST. | [address] | [place] | [phone] | | [facility] | | [address] | | | - LABORATORY | | [...] - 1.030 | [facility] | | | [place], | | | [facility] | | [...] [address] | [place] | [phone] | | [facility] | | [address] | | | - LABORATORY | | [...] | [place] | | | [facility] | | [address] | | | - BLOOD BANK | [...] [address] | [place] | [phone] | | [facility] | | [address] | | | - LABORATORY | | [...] From original order | | | # [[id number]], | | + +---+ | | | [...]
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
--- OUTSIDE RECORDS SUMMARY | ~2019-12-08 | XMS | Encounter Summary ---
Demographics + + + | Address | [address] | | | [place] [address] | + + + | Home Phone | | + + + | Preferred Language | Unknown | + + + | Marital Status | Single | + + + | Pentecostalism Affiliation | 1041 | + + + | Race | Unknown | + + + | Ethnic Group | Unknown | + + + Author + + + | Author | [facility] | | | and [place] | + + + | Organization | [facility] | | | and [place] | + + + | Address | Unknown | + + + | Phone | Unavailable | + + + Support + + + + + | Name | Relationship | Address | Phone | + + + + + | Lakia Emjía | ECON | [address] | | | | | [place] | | | | | [place] [address] | | + + + + + | Vanessa Lawton | ECON | [address] | | | | | [place] [address] | | + + + + + Care Team Providers + +------+ + | Care Quality Measurement Specialist Name | Role | Phone | + +------+ + | No, Physician | PCP | Unavailable | + +------+ + Reason for Visit + + + | Reason | Comments | + + + | ED Follow-up | | + + + Encounter Details +--------+ + + + + | Date | Type | Department | Care Team | Description | +--------+ + + + + | 11/26/ | Telephone | [facility] | Leandra Wayne | ED Follow-up | | 2019 | | MED CTR CASE | [phone] | | | | | MANAGEMENT [address] | | | | | | [place], | | | | | | [place] [address] | | | | | | [phone] | | | +--------+ + + + [...]
--- OUTSIDE RECORDS SUMMARY | ~2019-12-08 | XMS | Encounter Summary ---
Demographics + + + | Address | [address] | | | [place] [address] | + + + | Home Phone [...] Author + + + | Author | [facility] | | | and [place] | + + + | Organization | [facility] | | | and [...] | | | | | [place] [address] | | + + + + + | Vanessa Lawton | ECON | [address] | | | | | [place] [address] | | + + + + + Care Team Providers + +------+ + | Care Mathematical Technician Name | Role | Phone | + +------+ + PCP | Unavailable | + +------+ + Encounter Details +--------+ + + + + | Date | Type | Department | Care Team | Description | +--------+ + + + + | 04/20/ | Hospital | [facility] | Jovanny Ruelasee | | | 2008 | Encounter | MED CTR EMERGENCY | MD Leonel [address] | | | | | CENTER [address] | [facility], | | | | | [place], [place] | [place] [address] | | | | | [address] | [phone] | | | | | [phone] | | | +--------+ + + + [...]
--- OUTSIDE RECORDS SUMMARY | ~2019-12-08 | XMS | Encounter Summary ---
Demographics + + + | Address | [address] | | | [place] [address] | + + + | Home Phone | | + + + | Preferred Language | Unknown | + + + | Marital Status | Single | + + + | Restorationism Affiliation | 1041 | + + + | Race | Unknown | + + + | Ethnic Group | Unknown | + + + Author + + + | Author | [facility] | | | and [place] | + + + | Organization | [facility] | | | and [...] | | | | | [place] [address] | | + + + + + | Vanessa Lawton | ECON | [address] | | | | | [place] [address] | | + + + + + Care Team Providers + +------+ + | Care Auto Parts Clerk Name | Role | Phone | + +------+ + PCP | Unavailable | + +------+ + Encounter Details +--------+ + + + + | Date | Type | Department | Care Team | Description | +--------+ + + + + | 05/28/ | Hospital | [facility] | | | | 1995 - | Encounter | MED CTR MED ONC | | | | | | [address] [place] | | | | 05/30/ | | [place] [address] | | | | 1995 | | [phone] | | | +--------+ + + + [...]
--- OUTSIDE RECORDS SUMMARY | ~2019-12-08 | XMS | Encounter Summary ---
Demographics + + + | Address | [address] | | | [place] [address] | + + + | Home Phone | | + + + | Preferred Language | Unknown | + + + | Marital Status | Single | + + + | Judaism Affiliation | 1041 | + + + | Race | Unknown | + + + | Ethnic Group | Unknown | + + + Author + + + | Author | [facility] | | | and [place] | + + + | Organization | [facility] | | | and [...] | | | | | [place] [address] | | + + + + + | Vanessa Lawton | ECON | [address] | | | | | [place] [address] | | + + + + + Care Team Providers + +------+ + | Care Senior Property Accountant Name | Role | Phone | + +------+ + | No, Physician | PCP | Unavailable | + +------+ + Encounter Details +--------+ + + + + | Date | Type | Department | Care Team | Description | +--------+ + + + + | 08/30/ | Anesthesia | [facility] | Jasper Garza, | | | 2017 | Event | [facility] | [address] | | | | | [address] | [place] | | | | | [place] | [id number] | | | | | [address] | | | | | | [phone] | | | +--------+ + + + + Anesthesia Record + + + + + | Procedure Name | Responsible | Anesthesia Start | Anesthesia Stop Time | | | Anesthesiologist | Time | | + + + + + | [facility] | | | | | CARE:[facility] | | | | + + + + + + + | No events on file. | + + +------+ | Meds | +------+ + + + No medications | on file. | + + + + + | No agents on file. | + + + + | No blood administrations on file. | + + + + | No LDAs on file. | + + documented in this encounter Social [...]
--- OUTSIDE RECORDS SUMMARY | ~2019-12-08 | XMS | Encounter Summary ---
Demographics + + + | Address | [address] | | | [place] [address] | + + + | Home Phone [...] | Organization | [facility] | | | and [place] [...] | | | | | [place] [address] | | + + + + + | Vanessa Lawton | ECON | [address] | | | | | [place] [address] | | + + + + + Care Team Providers + +------+ + | Care Ship Officer Name | Role | Phone | [...] + + | 05/ | Emergency | [facility] | Arvin Moore | Wheeze (Primary Dx); | | 2019 | | MED CTR EMERGENCY | MD Jin [address] | Bronchitis | | | | CENTER [address] | [address] | | | | | [place] | [place], [place] [address] | | | | | [address] | [phone] | | | | | [phone] | | | +--------+ + + + [...] sent through Care Everywhere.Bronchitis with Wheezing (Adult) (Urdu)documented in this encounter Medications at Time of [...] + + + | See Scanned | [facility] | | Report | | + + + + +---------+ + + | Performing | Address | City/State/Zipcode | Phone Number | | Organization | | | | + +---------+ + + | [facility] | | | | + +---------+ [...]
--- OUTSIDE RECORDS SUMMARY | ~2019-12-08 | XMS | Encounter Summary ---
Demographics + + + | Address | [address] | | | [place] [address] | + + + | Home Phone [...] + + + | Author | [facility] | | | and [place] | + + + | Organization | [facility] | | | and [place] [...] | | | | | [place] [address] | | + + + + + | Vanessa Lawton | ECON | [address] | | | | | [place] [address] | | + + + + + Care Team Providers + +------+ + | Care Fluorescent Lamp Replacer Name | Role | Phone | + [...] | | | | | | | [place] [address] | | | | | | | Phone: | | | | | | | [phone] | | | | | | | Fax: | | | | | | | [phone] | | +--------+ + + + + [...] | | | | | | [place] [address] | | | | | | | Phone: | | | | | | | [phone] | | | | | | | Fax: | | | | | | | [phone] | | +--------+ + + + + [...] | | | | | | ONLY [place] | | | | | | [...] + + | 08/29/ | Hospital | [facility] | Reji Gonzales | Delivery by elective | | 2018 - | Encounter | [facility] | DO Juan [address] | section | | | | [address] | [facility] | (Primary Dx) | | 09/01/ | | [place] | [place] [address] | | | 2018 | | [address] | [phone] | | | | | [phone] | | | +--------+ + + + [...] position. Remember, it can take as long [id number] for a incision to heal. Activity Here [...] anxiety, panic, and/or depression Date Last Reviewed: 02/16/201519990869-3443 [employer]. [address] [place] [address]. All righ ts reserved. This information is [...] Jasper Melendez MD - 08/30/2017 2:[address] [facility] Neuraxial Opioid Follow-Up Pain level: Mild The [...] [address] | [place] | [phone] | | [facility] | | [address] | | | - LABORATORY | | [...] | + + + + + | [facility] | [address] | [place], [place] | [phone] | | [facility] | | [address] | | | - LABORATORY | | [...] + | [facility] | [address] | [place] | [phone] | | [facility] | | [address] | | | - LABORATORY | | [...] - 1.030 | [facility] | | | [place], | | | [facility] | | [...] ST. | [address] | [place] | [phone] | | [facility] | | [address] | | | - LABORATORY | | [...] St | [place] | | | [facility] | | [address] | | | - BLOOD BANK | [...] [address] | [place] | [phone] | | [facility] | | [address] | | | - LABORATORY | | [...] From original order | | | # [[id number]], | | + +---+ | | | [...]
--- OUTSIDE RECORDS SUMMARY | ~2019-12-08 | XMS | Encounter Summary ---
Demographics + + + | Address | [address] | | | [place] [address] | + + + | Home Phone | | + + + | Preferred Language | Unknown | + + + | Marital Status | Single | + + + | Confucianism Affiliation | 1041 | + + + | Race | Unknown | + + + | Ethnic Group | Unknown | + + + Author + + + | Author | [facility] | | | and [place] | + + + | Organization | [facility] | [...] | | | | | [place] [address] | | + + + + + | Vanessa Lawton | ECON | [address] | | | | | [place] [address] | | + + + + + Care Team Providers + +------+ + | Care Public Finance Specialist Name | Role | Phone | [...] exacerbation | | | | [place] [address] | [address] | | | | | [phone] | | | +--------+ + + + [...]
--- OUTSIDE RECORDS SUMMARY | ~2019-12-08 | XMS | Encounter Summary ---
Demographics + + + | Address | [address] | | | [place] [address] | + + + | Home Phone [...] + + + | Author | [facility] | | | and [place] | + + + | Organization | [facility] | | [...] | | | | | [place] [address] | | + + + + + | Vanessa Lawton | ECON | [address] | | | | | [place] [address] | | + + + + + Care Team Providers + +------+ + | Care Ambulance Attendant Name | Role | Phone | + [...] | | | | | | | [place] | | | | | | | DELIVERY | | | | | | | ONLY [place] | | | | | | | [...] [facility] | Reji Gonzales | Repeat BTL | | 2018 | | MED CTR OR INTRA OP | DO Juan [address] | | | | | [address] | [place] | | | | | [place] | [place] [address] | | | | | [address] | [phone] | | | | | [phone] | | | +--------+---------+ + + + [...] be sent through Care Everywhere.Physical Laura ferguson (Citizen [place])documented in this encounter Medications at Time of [...]
--- OUTSIDE RECORDS SUMMARY | ~2019-12-08 | XMS | Encounter Summary ---
Demographics + + + | Address | [address] | | | [place] [address] | + + + | Home Phone | | + + + | Preferred Language | Unknown | + + + | Marital Status | Single | + + + | Christian Affiliation | 1041 | + + + | Race | Unknown | + + + | Ethnic Group | Unknown | + + + Author + + + | Author | [facility] | | | and [place] | + + + | Organization | [facility] | | [...] | | | | | [place] [address] | | + + + + + | Vanessa Lawton | ECON | [address] | | | | | [place] [address] | | + + + + + Care Team Providers + +------+ + | Care Wash House Supervisor Name | Role | Phone [...] | | | | | | | [place] | | | | | | | [...] + + + + | 11/23/ | Anesthesia | [facility] | Toi Veras MD | | | 2016 | Event | [facility] | [address] | | | | | [address] | [place], [place] | | | | | [place], [place] | [address] | | | | | [address] | | | | | | | | | | | | | Yves Vu, | | | | | | [address] | | | | | | [place], [place] | | | | | | [address] | | | | | | | | +--------+ + + + + Anesthesia Record + + + + + | Procedure Name | Responsible | Anesthesia Start | Anesthesia Stop Time | | | Anesthesiologist | Time | | + + + + + | Repeat | Toi Veras MD | 11/24/1543 | 11/24/15 0843 | | (N/A Abdomen) | | | | + + + + + +----+---+ + + | Da | T | Event | Comment | | te | i | | | | | m | | | | | e | | | +----+---+ + + | 05 | 0 | | | | /2 | 7 | | | | 3/ | 3 | | | | 20 | 3 | | | | 16 | | | | +----+---+ + + | | 0 | An Checkout | Pre-use anesthesia machine/equipment checkout. | | | 7 | | | | | 3 | | | | | 4 | | | +----+---+ + + | | 0 | An Start | Reassessment prior to anesthesia induction/procedure. | | | 7 | | | | | 4 | | | | | 3 | | | +----+---+ + + | | 0 | Antibiotic | | | | 7 | Given | | | | 5 | | | | | 2 | | | +----+---+ + + | | 0 | Epi/spinal | | | | 7 | Stop | | | | 5 | | | | | 4 | | | +----+---+ + + | | 0 | Surg Clmp | | | | 8 | Tst Neg | | | | 0 | | | | | 0 | | | +----+---+ + + | | 0 | First | | | | 8 | Inc/Proc St | | | | 0 | | | | | 1 | | | +----+---+ + + | | 0 | Ut Incision | | | | 8 | | | | | 0 | | | | | 6 | | | +----+---+ + + | | 0 | Baby Deliv | | | | 8 | | | | | 0 | | | | | 7 | | | +----+---+ + + | | 0 | Placenta | | | | 8 | Delivered | | | | 0 | | | | | 8 | | | +----+---+ + + | | 0 | an stop | | | | 8 | data | | | | 3 | | | | | 7 | | | +----+---+ + + | | 0 | An Stop | Patient handed off to recovery nurse. | | | 4 | | | | | 3 | | | +----+---+ + + +------+ | Meds | +------+ + + + | Name | Total | + + + | bupivacaine 0.75% (Intrathecal) | 13.5 mg | + + + | fentaNYL injection (2 mL) | 20 mcg | + + + | morphine (Intrathecal) | 0.22 mcg | + + + | oxytocin (Bolus) | 15 Units | + + + | ceFAZolin (ANCEF, KEFZOL) 2 g in | 2 g | | sodium chloride 0.9% 50 mL IVPB | | + + + | lactated ringers (LR) infusion | 1,700 mL | + + + + + | Name | + + | N2O Flow Rate (L/Min) | + + | O2 Flow Rate (L/Min) | + + | Insp O2 | + + | Air Flow Rate (L/Min) | + + + + | No blood administrations on file. | + + +--------+ + + + | Type | Details | Placement | Removal | +--------+ + + + | Periph | 11/24/15; 0651; [id number] | 11/24/15 0651 by | 11/26/15 1100 by | | eral | catheter system; 18 gauge; | Cortney Carroll RN | Shavonne Ramírez RN | | IV | distraction; no longer indicated, | | | | | removed per policy/procedure, | | | | | catheter/device intact; expected | | | | | removal post discharge; 11/26/15; | | | | | 1100 | | | +--------+ + + + | Epidur | 11/24/15; 0754; 11/24/15; 0840 | 11/24/15 0754 by | 11/24/15 0840 by | | al/Spi | | Toi Veras MD | Leandra Jimenez, | | nal | | | Student APPRENTICE PATTERN MAKER | +--------+ + + + | Urethr | 11/24/15; 0800; indicated due to | 11/24/15 0800 by | 11/25/15 0700 by | | al | specific surgical procedure; | Salome Nixon, | Magda Berg RN | | Cathet | indwelling double lumen catheter; | RN | | | er | 100% silicone; 14; 1; 10; 10; | | | | | none; drainage bag to dependent | | | | | drainage; 11/25/15; 0700 | | | +--------+ + + + | Read | 11/24/15; 0823; Bilateral; | 11/24/15 0823 by | 11/26/15 1055 by | | only - | abdomen; expected removal post | Salome Nixon, | Shavonne Ramírez RN | | | discharge; 11/26/15; 1055 | RN | | | Incisi | | | | | on | | | | +--------+ + + [...] | ANE EPIDURAL NOTE | Routin | 11/24/2015 | | Results for this | | | e | 8:17 AM | | procedure are in the | | | | PDT | | results section. | + +--------+ + + + documented in this encounter Results Anesthesia Epidural Note (11/24/2015 8:17 AM PDT) + + + | Narrative | Performed At | + + + | Toi Veras MD 11/24/2015 8:17 Neuraxial Procedure Note | | | 11/24/2015 7:54 Procedure: spinal anesthesia Indication: | | | surgical anesthesia Preprocedure check: patient identified, | | | procedure and rescue equipment checked, preevaluation including | | | airway assessment complete, risks/benefits discussed, consent | | | obtained, timeout performed, monitors applied and reassessment prior | | | to procedure Patient position: right lateral Preparation: | | | chlorhexidine/isopropyl alcohol, Introducer used: yes Local | | | anesthetic infiltration volume: 3 mL Procedure level: L3-4 Approach: | | | right paramedian Needle: Quinke Needle size: 25 g Needle length: 9 | | | cm Medication administered through: needle Negative findings: no | | | blood aspirated Positive findings: CSF aspirated Attempts: 2 Ease | | | of procedure: easy Performing provider: TOI VERAS Please see | | | anesthesia record or flowsheet for vital sign documentation and see | | | anesthesia record or MAR for all medication documentation. | | | Electronically Signed by: Toi Veras MD | | | ESig date/time: 11/24/2015 8:15 | | + + + documented in this encounter Visit Diagnoses Not on filedocumented in this encounter Administered Medications + +--------+ +---------+------+------+ | Medication Order | MAR | Action | Dose | Rate | Site | | | Action | Date | | | | + +--------+ +---------+------+------+ | bupivacaine 0.75%-dextrose | Given | 11/24/19 | 13.5 mg | | | | 8.25% (MARCAINE SPINAL) injection | | 16 7:54 | | | | | INTRATHECAL, PRN, Starting Mon | | AM PDT | | | | | 11/24/15 at 0754, Anesthesia | | | | | | | Intra-op | | | | | | + +--------+ +---------+------+------+ +---+---+ | | | +---+---+ + +---------+ +-----+---+---+ | ceFAZolin (ANCEF, KEFZOL) 2 g | New Bag | 11/24/19 | 2 g | | | | in sodium chloride 0.9% 50 mL | | 16 7:52 | | | | | IVPB 2 g, Intravenous, | | AM PDT | | | | | Administer over 30 Minutes, Prior | | | | | | | to Incision, Starting Mon | | | | | | | 11/24/15 at 0617, For 1 dose, | | | | | | | On-call to OR, For 1 dose, | | | | | | | administer within 1 hour of | | | | | | | incision, Pre-op, Indications: | | | | | | | Surgical Prophylaxis | | | | | | + +---------+ +-----+---+---+ +---+---+ | | | +---+---+ + +-------+ +--------+---+---+ | fentaNYL (PF) injection | Given | 11/24/19 | 20 mcg | | | | INTRATHECAL, PRN, Pain, Starting | | 16 7:54 | | | | | 11/24/15 at 0754, Anesthesia | | AM PDT | | | | | Intra-op | | | | | | + +-------+ +--------+---+---+ +---+---+ | | | +---+---+ + +---------+ +---+---+---+ | lactated ringers (LR) infusion | New Bag | 11/24/19 | | | | | at 125 mL/hr, Intravenous, | | 16 8:23 | | | | | CONTINUOUS, Starting Tue11/24/15 | | AM PDT | | | | | at 0645, Pre-op | | | | | | + +---------+ +---+---+---+ +---------+ +---+-------+---+ | New Bag | 11/24/19 | | 125 | | | | 16 6:44 | | mL/hr | | | | AM PDT | | | | +---------+ +---+-------+---+ +---+---+ | | | +---+---+ + +-------+ + +---+---+ | morphine (PF) (DURAMORPH) 0.5 | Given | 11/24/19 | 0.22 mcg | | | | mg/mL injection INTRATHECAL, | | 16 7:54 | | | | | PRN, Pain, Starting 11/24/15 | | AM PDT | | | | | at 0754, Anesthesia Intra-op | | | | | | + +-------+ + +---+---+ +---+---+ | | | +---+---+ + +-------+ +---------+---+---+ | oxytocin (PITOCIN) injection | Given | 11/24/19 | 1 Units | | | | Intravenous, PRN, Starting Mon | | 16 8:26 | | | | | 11/24/15 at 0809, Anesthesia | | AM PDT | | | | | Intra-op | | | | | | + +-------+ +---------+---+---+ +-------+ +---------+---+---+ | Given | 11/24/19 | 1 Units | | | | | 16 8:25 | | | | | | AM PDT | | | | +-------+ +---------+---+---+ | Given | 11/24/19 | 1 Units | | | | | 16 8:24 | | | | | | AM PDT | | | | +-------+ +---------+---+---+ +---+---+ | | | +---+---+ documented in this encounter"
--- OUTSIDE RECORDS SUMMARY | ~2019-12-08 | XMS | Encounter Summary ---
Demographics + + + | Address | [address] | | | [place] [address] | + + + | Home Phone | | + + + | Preferred Language | Unknown | + + + | Marital Status | Single | + + + | Buddhist Affiliation | 1041 | + + + | Race | Unknown | + + + | Ethnic Group | Unknown | + + + Author + + + | Author | [facility] | | | and [place] | + + + | Organization | [facility] | [...] | | | | | [place] [address] | | + + + + + | Vanessa Lawton | ECON | [address] | | | | | [place] [address] | | + + + + + Care Team Providers + +------+ + | Care Saddle And Side Wire Stitcher Name | Role | Phone | + +------+ + PCP | Unavailable | + +------+ + Encounter Details +--------+ + + + + | Date | Type | Department | Care Team | Description | +--------+ + + + + | 10/22/ | Hospital | [facility] | | | | 2001 | Encounter | MED CTR EMERGENCY | | | | | | CENTER [address] | | | | | | [place], [place] | | | | | | [address] | | | | | | [phone] | | | +--------+ + + + [...]
--- OUTSIDE RECORDS SUMMARY | ~2019-12-08 | XMS | Encounter Summary ---
Demographics + + + | Address | [address] | | | [place] [address] | + + + | Home Phone | | + + + | Preferred Language | Unknown | + + + | Marital Status | Single | + + + | Congregation Affiliation | 1041 | + + + | Race | Unknown | + + + | Ethnic Group | Unknown | + + + Author + + + | Author | [facility] | | | and [place] | + + + | Organization | [facility] | [...] | | | | | [place] [address] | | + + + + + | Vanessa Lawton | ECON | [address] | | | | | [place] [address] | | + + + + + Care Team Providers + +------+ + | Care Director Dermatology Name | Role | Phone | + +------+ + PCP | Unavailable | + +------+ + Encounter Details +--------+ + + + + | Date | Type | Department | Care Team | Description | +--------+ + + + + | 12/24/ | Hospital | [facility] | | | | 2004 - | Encounter | MED CTR EMERGENCY | | | | | | CENTER [address] | | | | 12/25/ | | [place] | | | | 2004 | | [address] | | | | | | [phone] | | | +--------+ + + + [...]
--- OUTSIDE RECORDS SUMMARY | ~2019-12-08 | XMS | Encounter Summary ---
Demographics + + + | Address | [address] | | | [place] [address] | + + + | Home Phone [...] Organization | [facility] [...] | | | | | [place] [address] | | + + + + + | Vanessa Lawton | ECON | [address] | | | | | [place] [address] | | + + + + + Care Team Providers + +------+ + | Care Repairer Pump Name | Role | Phone | + +------+ + PCP | Unavailable | + +------+ + Encounter Details +--------+ + + + + | Date | Type | Department | Care Team | Description | +--------+ + + + + | 10/09/ | Hospital | [facility] | Tristin Glover, | | | 2010 | Encounter | MED CTR EMERGENCY | [address] | | | | | CENTER [address] | [place], [place] | | | | | [place], [place] | [address] | | | | | [address] | | | | | | [phone] | | | +--------+ + + + [...]
--- OUTSIDE RECORDS SUMMARY | ~2019-12-08 | XMS | Encounter Summary ---
Demographics + + + | Address | [address] | | | [place] [address] | + + + | Home Phone | | + + + | Preferred Language | Unknown | + + + | Marital Status | Single | + + + | Rastafarian Affiliation | 1041 | + + + | Race | Unknown | + + + | Ethnic Group | Unknown | + + + Author + + + | Author | [facility] | | | and [place] | + + + | Organization | [facility] | | | and [...] | | | | | [place] [address] | | + + + + + | Vanessa Lawton | ECON | [address] | | | | | [place] [address] | | + + + + + Care Team Providers + +------+ + | Care Hospice Bereavement Coordinator Name | Role | Phone | [...] + + | 09/27/ | Telephone | [facility] | [place], | Symptom Management | | 2019 | | [facility] [place] | Jeri Castaneda RN | | | | | [address] | | | | | | [place] | | | | | | [address] | | | | | | [phone] | | | +--------+ + + + [...]
--- OUTSIDE RECORDS SUMMARY | ~2019-12-08 | XMS | Encounter Summary ---
Demographics + + + | Address | [address] | | | [place] [address] | + + + | Home Phone | | + + + | Preferred Language | Unknown | + + + | Marital Status | Single | + + + | Cheondoism Affiliation | 1041 | + + + | Race | Unknown | + + + | Ethnic Group | Unknown | + + + Author + + + | Author | [facility] | | | and [place] | + + + | Organization | and [facility] | | | and [place] | [...] | | | | | [place] [address] | | + + + + + | Vanessa Lawton | ECON | [address] | | | | | [place] [address] | | + + + + + Care Team Providers + +------+ + | Care Owner Oral Surgeon Name | Role | Phone | + [...] + + | 08/29/ | Anesthesia | [facility] | Jasper Garza, | | | 2018 | Event | MED CTR OR INTRA OP | MD [address] | | | | | [address] | [place] | | | | | [place] | [address] | | | | | [address] | | | | | | [phone] | | | +--------+ + + + [...] | 08/31/172014 by | | rosy | [id number] catheter system; | Belinda Aguilera RN | [...]
--- OUTSIDE RECORDS SUMMARY | ~2019-12-08 | XMS | Encounter Summary ---
Demographics + + + | Address | [address] | | | [place] [address] | + + + | Home Phone | | + + + | Preferred Language | Unknown | + + + | Marital Status | Single | + + + | Yarsani Affiliation | 1041 | + + + | Race | Unknown | + + + | Ethnic Group | Unknown | + + + Author + + + | Author | [facility] | | | and [place] | + + + | Organization | [facility] | | | and [...] | | | | | [place] [address] | | + + + + + | Vanessa Lawton | ECON | [address] | | | | | [place] [address] | | + + + + + Care Team Providers + +------+ + | Care Customer Consulting Manager Name | Role | Phone | + +------+ + | No, Physician | PCP | Unavailable | + +------+ + Encounter Details +--------+ + + + + | Date | Type | Department | Care Team | Description | +--------+ + + + + | 10/02/ | Hospital | [facility] | Tristin Glover, | | | 2012 | Encounter | MED CTR EMERGENCY | [address] | | | | | CENTER [address] | [place] | | | | | [place] | [id number] | | | | | [address] | | | | | | [phone] | | | +--------+ + + + [...] XR CHEST AP PORTABLE | Routin | 10/02/2012 | | Results for this | | | e | 4:31 PM | | procedure are in the | | | | PDT | | results section. | + +--------+ + + + | URINALYSIS, REFLEX | Routin | 10/02/2012 | | Results for this | | MICROSCOPIC AND/OR | e | 3:19 PM | | procedure are in the | | CULTURE | | PDT | | results section. | + +--------+ + + + | DRUGS OF ABUSE, | Routin | 10/02/2012 | | Results for this | | SCREEN, URINE | e | 2:30 PM | | procedure are in the | | | | PDT | | results section. | + +--------+ + + + documented in this encounter Results XR Chest AP Portable (10/02/2012 4:31 PM PDT) + + | Specimen | + + | | + + + + + | Narrative | Performed At | + + + | [facility] | [place] | | Department [address] [place] [address] | [facility] | | [ rep [address]] [ rep [facility] | | st zip] Signed | - IMAGING | | | | | Patient Name: SETH GAINES Physician: | | | SIOBHANAngelique : 1990 Age: 22 Sex: F Unit #: [id number] | | | Exam Date: 10/02/12 Location: ER | | | Report #: [id number] Page: | | | %(RAD)RES..mtdd.print.filter("pg") of %(RAD) | | | RES..mtdd.print.filter("tpg") | | | | | | Accession Number: [id number] | | | PORTABLE CHEST X-RAY CLINICAL HISTORY: CHEST PAIN. | | | COMPARISON: 06/06/2012. FINDINGS: The heart, | | | lungs, pleura, soft tissues, and osseous structures are normal. | | | There is no evidence of pneumothorax. IMPRESSION: | | | 1. NO RADIOGRAPHIC ABNORMALITY OF THE CHEST. | | | Dictated Date/Time: 10/02/2012 16:31 Transcribed Date/Time: | | | 10/02/2012 17:09 Order Filler: AMADOR | | | <<Signature on File>> | | | Saji Cabrera | | Seth Cavazos MD10/03/12 [id number] <Electronically signed by Saji Ann | | | Dirk LEACH> Saji Cavazos MD 10/02/12 1631 | | | Order Filler: Siddhartha Ward10/02/12 4276 | | | Tristin Glover MD | | + + + + + + + + | Performing | Address | City/State/Zipcode | Phone Number | | Organization | | | | + + + + + | [facility] | [address] | [place] | [phone] | | [facility] | | [address] | | | - IMAGING | | | | + + + + + Urinalysis, Reflex Microscopic and/or Culture (10/02/2012 3:19 PM PDT) + + + + + [...] + + + + | Specific | 1.010 | 1.001 - 1.030 | [facility] | | | [place], | | | [facility] | | | Urine | | | MEDICAL | | | | | | CENTER - | | | | | | LABORATORY | | + + + + + + | Blood, | LARGE | NEGATIVE | [facility] | | | [...] + | [facility] | [address] | [place] | [phone] | | [facility] | | [address] | | | - LABORATORY | | | | + + + + + | [facility] | [address] | [place], [place] | | | [facility] | | [address] | | | - LABORATORY | | | | + + + + + Drugs of Abuse, Screen, Urine (10/02/2012 2:30 PM PDT) + + + + + [...] [address] | [place] | [phone] | | [facility] | | [address] | | | - LABORATORY | | | | + + + + + | [facility] | [address] | [place] | | | [facility] | | [address] | | | - LABORATORY | | | | + + + + + documented in this encounter Visit Diagnoses Not on filedocumented in this encounter
--- OUTSIDE RECORDS SUMMARY | ~2019-12-08 | XMS | Encounter Summary ---
Demographics + + + | Address | [address] | | | [place] [address] | + + + | Home Phone [...] + | Organization | [facility] | | | and [...] | | | | | [place] [address] | | + + + + + | Vanessa Lawton | ECON | [address] | | | | | [place] [address] | | + + + + + Care Team Providers + +------+ + | Care Biometric Technician Name | Role | Phone | [...] + + | 09/25/ | Hospital | [facility] | Saji Johnson, | Acute respiratory | | 2019 - | Encounter | MED CTR SURGICAL | [address] | failure with hypoxia | | | | [address] [place] | [place], [place] | ([facility]) (Primary Dx); | | 09/28/ | | [place] [address] | [address] | Wheezing on | | 2019 | | [phone] | | auscultation; | | | | | Sherrie Amezquita | Multifocal | | | | | MD Pelon [address] | pneumonia; Moderate | | | | | [address] [place] | asthma with | | | | | [place] [address] | exacerbation, | | | | | [phone] | unspecified whether | | | | | | persistent; | | | | | Radha Banuelos MD | Community acquired | | | | | [address] | pneumonia, | | | | | [place] | unspecified | | | | | [address] | laterality; | | | | | [...] Banuelos MD - 09/29/2019 11:22 AM PDT [facility] [place] [facility]ITAL[facility] DISCHARGE SUMMARY Pt. Name/Age/: Martha Lawton [...] medication list, and insurance info. Contact information: [address] [place] [address] Condition: stable Diet: general Less than 30 minutes were spent on discharge and coordination of post-hospital care. Electronically signed by: Radha Banuelos MD, 09/29/2019 11:24 AM [facility] documented in this enco unter Discharge Instructions Instructions Radha Banuelos MD - 09/29/2019Gabby, You were hospitalized with pneumonia and asthma exacerbation. 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 Please see Dr Bravo on 10/05/19 to establish care. Radha Banuelos MD AttachmentsThe following attachments cannot be sent through Care Everywhere.Asthma, Control ling Your (Malian)Pneumonia, Treating (Malian)documented in this encounter Medications at Time of [...] Banuelos MD - 09/28/2019 12:[address] [facility] [place] HOSPITALIST PROGRESS NOTE Patient: Martha Lawton : 1990: Age: 29 y.o. MedRec: [id number] Admission date: 09/26/2019 Hospital day # : [...] Units Date/Time Legionella, Ag, EIA, Qual, Urine [[id number]] Collected: 09/27/19 0019 Order Status: Sent Lab Status: In process Updated: 09/27/1923 Specimen: Urine, Clean Catch Respiratory pathogen panel, NAAT [[id number]] (Normal) Collected: 09/26/19 5274 Order Status: Completed Lab Status: Final result Updated: 03/26/20 0225 Specimen: Body Fluid from Nasopharynx Parainfluenza 1 Not Detected Adenovirus Not Detected Human Metapneumovirus Not Detected Rhinovirus/Enterovirus Not Detected Parainfluenza 3 Not Detected Culture, MRSA [[id number]] Collected: 09/26/19 2334 Order Status: Completed Lab Status: Final result Updated: 09/28/19 0759 Specimen: Body Fluid from Nasopharynx Culture 1+ Staphylococcus aureus,Methicillin resistant (MRSA) Comment: *INFECTION PREVENTION ALERT - MRSA* CONTACT PRECAUTIONS REQUIRED. Culture, Blood [[id number]] Collected: 09/26/19 1659 Order Status: Completed Lab Status: Preliminary result Updated: 09/27/19 0501 Specimen: Peripheral Blood Culture No growth: Monitored continually by instrument for 5 days Culture, Blood [[id number]] Collected: 09/26/19 1646 Order Status: Completed Lab Status: Preliminary result Updated: 09/27/19 0501 Specimen: Blood from Line Culture No growth: Monitored continually by instrument for 5 days Coronavirus (COVID-19) PCR [[id number]] Collected: 09/26/19 1500 Order Status: Completed Lab Status: Final result Updated: 09/28/19 0005 Specimen: Tissue from Nasopharynx SARS-CoV-2, DANNI (COVID-19) Not Detected Comment: Testing was performed using the efren(R) SARS-CoV-2 test. This test was developed and its performance characteristics determined by [facility]. This test has not been FDA cleared [...] or revoked sooner. Narrative: Performed at: - [facility] [address] [place], [place] [id number] Linen Room Attendant: Kavon Bailey MD, Phone: [phone] Influenza A and B RNA, NAAT [[id number]] (Normal) Collected: 03/25/20 1500 Order Status: Completed [...] and bacterial sources). Dictated and Signed by: Joqauim Shepherd MD Electronically signed: 09/26/2019 6:20 PM [...] examination Radha Banuelos MD 09/28/2019 12:[address] 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 However no fill history from [facility], [facility] (), and [facility] () Patient did not want to interview with me, she stated she had already been asked all of the se questions Patient recently finished Prednisone 10 m tablet BID. Last fill 09/13/19 #10/5 day Best possible JAVA SWING DEVELOPER medication list after pharmacy review: PT REPORTED TAKING NOT TAKING Medication Sig Last Dose Dispense Doc. Provider ALBUTEROL IN Inhale into the lungs. Taking Historical Provider, Medication review performed and electronically signed by Adeline Yao, Program Evaluator 09/27/2019 4:15 PM Reviewed by Leandra Mclaughlin PharmD 09/27/2019 4:46 PM arRadha jones MD - 09/27/2019 3:43 PM PDT [facility] [place] [facility]PITAL[facility] PROGRESS NOTE Patient: Martha Lawton : 1990: Age: 29 y.o. MedRec: [id number] Admission date: 09/26/2019 Hospital day # : [...] Units Date/Time Legionella, Ag, EIA, Qual, Urine [[id number]] Collected: 09/27/19 0019 Order Status: Sent Lab Status: In process Updated: 09/27/19 0024 Specimen: Urine, Clean Catch Respiratory pathogen panel, NAAT [[id number]] (Normal) Collected: 09/26/192333 Order Status: Completed Lab Status: Final result Updated: 09/27/19224 Specimen: Body Fluid from Nasopharynx Parainfluenza 1 Not Detected Adenovirus Not Detected Human Metapneumovirus Not Detected Rhinovirus/Enterovirus Not Detected Parainfluenza 3 Not Detected Culture, MRSA [[id number]] Collected: 09/26/192333 Order Status: Sent Lab Status: In process Updated: 09/26/192341 Specimen: Body Fluid from Nasopharynx Culture, Blood [[id number]] Collected: 09/26/19 1659 Order Status: Completed Lab Status: Preliminary result Updated: 09/27/19 0501 Specimen: Peripheral Blood Culture No growth: Monitored continually by instrument for 5 days Culture, Blood [[id number]] Collected: 09/26/19 1646 Order Status: Completed Lab Status: Preliminary result Updated: 09/27/19 0501 Specimen: Blood from Line Culture No growth: Monitored continually by instrument for 5 days Coronavirus (COVID-19) PCR [[id number]] Collected: 09/26/19 1500 Order Status: Sent Lab Status: In process Updated: 09/26/19 1521 Specimen: Tissue from Nasopharynx Influenza A and B RNA, NAAT [[id number]] (Normal) Collected: 09/26/19 1500 Order Status: Completed [...] 2L/min Radha Banuelos MD 09/27/2019 3:[address] [facility] documented in this enco unter Plan of [...] + | [facility] | [address] | [place] | [phone] | | [facility] | | [address] | | | - LABORATORY | | [...] mL/min/1.73m2 | [facility] | | | [place] | RATE,ESTIMATED | | MEDICAL | | | | mL/min/1.92h5Oogq than | | CENTER - | | [...] [address] | [place] | [phone] | | [facility] | | [address] | | | - LABORATORY | | [...] 0.003-0.091 K/uL 0.0-0.9% 2nd 0.007-0.247 K/uL | [facility] | | 0.1-2.0% 3rd 0.018-0.456 K/uL 0.1-2.0% | - LABORATORY | + + + + + + + + | Performing | Address | City/State/Zipcode | Phone Number | | Organization | | | | + + + + + | [facility] | [address] | [place] | [phone] | | [facility] | | [address] | | | - LABORATORY | | [...] ST. | [address] | [place] | [phone] | | [facility] | | [address] | | | - LABORATORY | | [...] + | [facility] | [address] | [place], [place] | [phone] | | [facility] | | [address] | | | - LABORATORY | | [...] ST. | [address] | [place], [place] | [phone] | | [facility] | | [address] | | | - LABORATORY | | [...] | | | | | mg/dL | [facility] | | | | | | MEDICAL | | | | | | CENTER - | | | | | | LABORATORY | | + + + + + + | eGFR if not | >60Comment: GLOMERULAR | >=60 | [facility] | | | | FILTRATION | mL/min/1.73m2 | [facility] | | | [place] | RATE,ESTIMATED | | MEDICAL | | | | mL/min/1.12b3Rclz than | | CENTER - | | [...] | | | | | mg/dL | [facility] | | | | | | [...] [address] | [place] | [phone] | | [facility] | | [address] | | | - LABORATORY | | [...] ranges: Trim. Absolute (K/uL) Percentage (%) | [facility] | | 1st 0.003-0.091 K/uL 0.0-0.9% 2nd 0.007-0.247 K/uL | [facility] | | 0.1-2.0% 3rd 0.018-0.456 K/uL 0.1-2.0% | - LABORATORY | + + + + + + + + | Performing | Address | City/State/Zipcode | Phone Number | | Organization | | | | + + + + + | [facility] | [address] | [place] | [phone] | | [facility] | | [address] | | | - LABORATORY | | [...] [address] | [place] | [phone] | | [facility] | | [address] | | | - LABORATORY | | [...] [address] | [place] | [phone] | | [facility] | | [address] | | | - LABORATORY | | [...] | 9 - 23 mg/dL | [facility] | | | | | | [facility] | | | | | | MEDICAL | | | | | | CENTER - | | | | | | LABORATORY | | + + + + + + | Creatinine | 0.46 (L) | 0.55 - 1.02 | [facility] | | | | | mg/dL | [facility] | | | | | | MEDICAL | | | | | | CENTER - | | | | | | LABORATORY | | + + + + + + | eGFR if not | >60Comment: GLOMERULAR | >=60 | [facility] | | | | FILTRATION | mL/min/1.73m2 | [facility] | | | [place] | RATE,ESTIMATED | | MEDICAL | | | | mL/min/1.85i2Nibm than | | CENTER - | | [...] [address] | [place] | [phone] | | [facility] | | [address] | | | - LABORATORY | | [...] + + | Performed at: 01 - [facility] [address], | REFERENCE LAB | | [place], [place] [id number] Linen Room Attendant: Agustin Brennan MD, Phone: | [facility] | | [phone] | | + + + + + + + + | Performing | Address | City/State/Zipcode | Phone Number | | Organization | | | | + + + + + | REFERENCE LAB | [address] | [place], [place] | [phone] | | [facility] | [place] | [address] | | + + + + + [...] | REFERENCE | | | | of [facility] Pathologists | | LAB [facility] | | | | standards require a | | - [facility] | | | | culture to beperformed | | | | | | on CSF specimens | | | | | | submitted for bacterial | | | | | | antigen testing.(CAP | | | | | | [id number]) Urine | | | | | | [...] Performed at: 01 - [facility] [address] [facility], | REFERENCE LAB | | [place] [id number] Linen Room Attendant: Herve Rivear MD, Phone: | [facility] | | [phone] | | + + + + + + + + | Performing | Address | City/State/Zipcode | Phone Number | | Organization | | | | + + + + + | REFERENCE LAB | [address] | [place], [place] | [phone] | | [facility] | [facility] | [address] | | + + + + + [...] + | [facility] | [address] | [place] | [phone] | | [facility] | | [address] | | | - LABORATORY | | [...] + | [facility] | [address] | [place] | [phone] | | [facility] | | [address] | | | - LABORATORY | | [...] [address] | [place] | [phone] | | [facility] | | [address] | | | - LABORATORY | | [...] + | [facility] | [address] | [place] | [phone] | | [facility] | | [address] | | | - LABORATORY | | [...] [address] | [place] | [phone] | | [facility] | | [address] | | | - LABORATORY | | [...] [address] | [place] | [phone] | | [facility] | | [address] | | | - LABORATORY | | [...] + | [facility] | [address] | [place], [place] | [phone] | | [facility] | | [address] | | | - LABORATORY | | [...] mL/min/1.73m2 | [facility] | | | [place] | RATE,ESTIMATED | | MEDICAL | | | | mL/min/1.62b1Mtkm than | | CENTER - | | [...] | | | | | | [facility] | | | | [...] [address] | [place] | [phone] | | [facility] | | [address] | | | - LABORATORY | | [...] 0.003-0.091 K/uL 0.0-0.9% 2nd 0.007-0.247 K/uL | [facility] | | 0.1-2.0% 3rd 0.018-0.456 K/uL 0.1-2.0% | - LABORATORY | + + + + + + + + | Performing | Address | City/State/Zipcode | Phone Number | | Organization | | | | + + + + + | [facility] | [address] | [place] | [phone] | | [facility] | | [address] | | | - LABORATORY | | [...] ST. | [address] | [place], [place] | [phone] | | [facility] | | [address] | | | - LABORATORY | | [...]
--- OUTSIDE RECORDS SUMMARY | ~2019-12-08 | XMS | Encounter Summary ---
Demographics + + + | Address | [address] | | | [place] [address] | + + + | Home Phone [...] + | Organization | [facility] | | | and [place] [...] | | | | | [place] [address] | | + + + + + | Vanessa Lawton | ECON | [address] | | | | | [place] [address] | | + + + + + Care Team Providers + +------+ + | Care Cafe Manager Name | Role | Phone | [...] + | 09/27/ | Telephone | [facility] | Ke[place], | Symptom Management | | 2019 | | [facility] [place] | Jeri Castnaeda RN | | | | | [address] | | | | | | [place] | | | | | | [address] | | | | | | [phone] | | | +--------+ + + + [...]
--- OUTSIDE RECORDS SUMMARY | ~2019-12-08 | XMS | Encounter Summary ---
Demographics + + + | Address | [address] | | | [place] [address] | + + + | Home Phone [...] | Organization | [facility] | | | and [place] [...] | | | | | [place] [address] | | + + + + + | Vanessa Lawton | ECON | [address] | | | | | [place] [address] | | + + + + + Care Team Providers + +------+ + | Care Roll Machine Operator Name | Role | Phone | + +------+ + PCP | Unavailable | + +------+ + Encounter Details +--------+ + + + + | Date | Type | Department | Care Team | Description | +--------+ + + + + | 11/17/ | Hospital | [facility] | Bonilla Camara, | | | 2006 - | Encounter | MED CTR [facility] | [address] | | | | | [facility] [address] | [facility] | | | 11/18/ | | [place], | [place] [address] | | | 2006 | | [place] [address] | [phone] | | | | | [phone] | | | +--------+ + + + [...]
--- OUTSIDE RECORDS SUMMARY | ~2019-12-08 | XMS | Encounter Summary ---
Demographics + + + | Address | [address] | | | [place] [address] | + + + | Home Phone | | + + + | Preferred Language | Unknown | + + + | Marital Status | Single | + + + | Protestant Affiliation | 1041 | + + + | Race | Unknown | + + + | Ethnic Group | Unknown | + + + Author + + + | Author | [facility] | | | and [place] | + + + | Organization | [facility] | | [...] | | | | | [place] [address] | | + + + + + | Vanessa Lawton | ECON | [address] | | | | | [place] [address] | | + + + + + Care Team Providers + +------+ + | Care Nissan Sales Consultant Name | Role | Phone | + +------+ + | No, Physician | PCP | Unavailable | + +------+ + Reason for Visit + + + | Reason | Comments | + + + | Non-stress Test | for pih, serial BPs and NST | + + + Encounter Details +--------+ + + + + | Date | Type | Department | Care Team | Description | +--------+ + + + + | 08/24/ | Hospital | [facility] | Reji Gonzales | | | 2018 | Encounter | MED CTR LABOR AND | DO Juan [address] | | | | | [address] | [facility] | | | | | [place], | [place] [address] | | | | | [place] [address] | [phone] | | | | | [phone] | | | +--------+ + + + [...] + + + | Blood Pressure | 139/78 | 08/24/2017 5:40 PM | | | | | PST | | + + + + + | Pulse | 93 | 08/24/2017 5:40 PM | | | | | PST | | + + + + + | Temperature | 36.7 C (98.1 F) | 08/24/2017 4:29 PM | | | | | PST | | + + + + + | Respiratory Rate | 16 | 08/24/2017 4:29 PM | | | | | PST | | + + + + + | Oxygen Saturation | 100% | 08/24/2017 5:40 PM | | | | | PST | | + + + + + | Inhaled Oxygen | - | - | | | Concentration | | | | + + + + + | Weight | 91.6 kg (202 lb) | 08/24/2017 5:00 PM | | | | | PST | | + + + + + | Height | 172.7 cm (5' 8") | 08/24/2017 5:00 PM | | | | | PST | | + + + + + | Body Mass Index | 30.71 | 08/24/2017 5:00 PM | | | | | PST [...] as of this encounter Discharge Instructions Instructions Leandra Calix RN - 08/24/2017Discharge Education for the Undelivered Merna ent You can use the following list as [...] 100.4 (38 C) documented in this encounter Medications at Time [...]
--- OUTSIDE RECORDS SUMMARY | ~2019-12-08 | XMS | Encounter Summary ---
Demographics + + + | Address | [address] | | | [place] [address] | + + + | Home Phone [...] + + + | Author | [facility] | | | and [place] | + + + | Organization | [facility] | | | and [...] | | | | | [place] [address] | | + + + + + | Vanessa Lawton | ECON | [address] | | | | | [place] [address] | | + + + + + Care Team Providers + +------+ + | Care Oil Burner Installer Name | Role | Phone | + [...] Description | +--------+---------+ + + + | 11/23/ | Surgery | [facility] | Reji Gonzales | Repeat | | 2015 | | MED CTR OR INTRA OP | DO Juan [address] | | | | | [address] | [address] [place] | | | | | [place], [place] | [place] [address] | | | | | [address] | [phone] | | | | | [phone] | | | +--------+---------+ + + + [...] filled at the pharmacy of her choice. Laura removed and s trisha-strips placed. Pt understands [...] that time. She wants to hav e laura removed after she showers. Electronically signed by [...] care. I will consider discharge to a border status until child protective services has had [...] in the hallway.Tanna ctronically signed by Mariajose Avilze RN at 11/25/2015 2:29 PM Mariajose Dos Santos RN - 016 1:55 PM PDTPt c/o lots of gas pain. Medicated with motrin and simethicone. Pt encourage d to get up and ambulate. Reji Sahu DO - 11/25/2015 8:07 AM PDTFormatting of this note might be diffe rent from the original. OBSTETRICAL PROGRESS NOTE Martha Mistryix : 1990 ADMISSION DATE AND TIME11/24/2015 6:03 [...] 7 up to nibble and sip on. Cortney Patricia RN - 11/24/2015 7:00 AM PDTPatient here [...] [facility] | | | | | | . MICHAEL | | | | | | [...] [address] | [place] | [phone] | | [facility] | | [address] | | | - LABORATORY | | [...] | [address] | [place] | [phone] | | [facility] | | [address] | | | - LABORATORY | | [...] [place] | | | [facility] | | [address] | | | - BLOOD BANK | [...] | | | | | M/uL | . MICHAEL | | | | | | [...] [address] | [place] | [phone] | | [facility] | | [address] | | | - LABORATORY | | [...] + | Diagnosis | + + | Previous delivery, delivered Previous delivery, delivered, with or | | without mention of antepartum condition | + + documented in this encounter
--- OUTSIDE RECORDS SUMMARY | ~2019-12-08 | XMS | Encounter Summary ---
Demographics + + + | Address | [address] | | | [place] [address] | + + + | Home Phone [...] Organization | [facility] | | | and [...] | | | | | [place] [address] | | + + + + + | Vanessa Lawton | ECON | [address] | | | | | [place] [address] | | + + + + + Care Team Providers + +------+ + | Care Police Detective Name | Role | Phone | + +------+ + PCP | Unavailable | + +------+ + Encounter Details +--------+ + + + + | Date | Type | Department | Care Team | Description | +--------+ + + + + | 02/20/ | Hospital | [facility] | Kuldip Perduewinnie | | | 2011 | Encounter | MED CTR EMERGENCY | MD Juan [address] | | | | | [place] [address] | [facility] | | | | | [place], [place] | [place] [address] | | | | | [address] | [phone] | | | | | [phone] | | | +--------+ + + + [...] [address] | [place] | [phone] | | [facility] | | [address] | | | - LABORATORY | | | | + + + + + | [facility]. | [address] | [place], [place] | | | [facility] | | [address] | | | - LABORATORY | | | | + + + + + documented in this encounter Visit Diagnoses Not on filedocumented in this encounter"
--- OUTSIDE RECORDS SUMMARY | ~2019-12-08 | XMS | Encounter Summary ---
Demographics + + + | Address | [address] | | | [place] [address] | + + + | Home Phone | | + + + | Preferred Language | Unknown | + + + | Marital Status | Single | + + + | Spiritism Affiliation | 1041 | + + + | Race | Unknown | + + + | Ethnic Group | Unknown | + + + Author + + + | Author | [facility] | | | and [place] | + + + | Organization | [facility] | | | and [...] | | | | | [place] [address] | | + + + + + | Vanessa Lawton | ECON | [address] | | | | | [place] [address] | | + + + + + Care Team Providers + +------+ + | Care Corrective And Manual Arts Therapist Name | Role | Phone | + +------+ + PCP | Unavailable | + +------+ + Encounter Details +--------+ + + + + | Date | Type | Department | Care Team | Description | +--------+ + + + + | 12/28/ | Hospital | [facility] | | | | 1993 | Encounter | MED CTR EMERGENCY | | | | | | CENTER [address] | | | | | | [place] | | | | | | [address] | | | | | | [phone] | | | +--------+ + + + [...]
--- OUTSIDE RECORDS SUMMARY | ~2019-12-08 | XMS | Encounter Summary ---
Demographics + + + | Address | [address] | | | [place] [address] | + + + | Home Phone | | + + + | Preferred Language | Unknown | + + + | Marital Status | Single | + + + | Scientology Affiliation | 1041 | + + + | Race | Unknown | + + + | Ethnic Group | Unknown | + + + Author + + + | Author | [facility] | | | and [place] | + + + | Organization | [facility] | | | and [...] | | | | | [place] [address] | | + + + + + | Vanessa Lawton | ECON | [address] | | | | | [place] [address] | | + + + + + Care Team Providers + +------+ + | Care Window Dresser Name | Role | Phone | + +------+ + PCP | Unavailable | + +------+ + Encounter Details +--------+ + + + + | Date | Type | Department | Care Team | Description | +--------+ + + + + | 10/17/ | Hospital | [facility] | Briana Morataya | | | 2008 | Encounter | MED CTR XRAY [address] | [address] | | | | | [address] | [place], | | | | | [place] [address] | [place] [address] | | | | | [phone] | [phone] | | | | | | | [...]
--- OUTSIDE RECORDS SUMMARY | ~2019-12-08 | XMS | Encounter Summary ---
Demographics + + + | Address | [address] | | | [place] [address] | + + + | Home Phone [...] | [facility] | [...] | | | | | [place] [address] | | + + + + + | Vanessa Lawton | ECON | [address] | | | | | [place] [address] | | + + + + + Care Team Providers + +------+ + | Care Sample Hand Name | Role | Phone | + +------+ + PCP | Unavailable | + +------+ + Encounter Details +--------+ + + + + | Date | Type | Department | Care Team | Description | +--------+ + + + + | 02/24/ | Hospital | [facility] | | | | 2008 | Encounter | MED CTR WOMENS | | | | | | [facility]ALTH [facility] [address] | | | | | | [place], | | | | | | [place] [address] | | | | | | [phone] | | | +--------+ + + + [...]
--- OUTSIDE RECORDS SUMMARY | ~2019-12-08 | XMS | Encounter Summary ---
Demographics + + + | Address | [address] | | | [place] [address] | + + + | Home Phone | | + + + | Preferred Language | Unknown | + + + | Marital Status | Single | + + + | Latter-Day Affiliation | 1041 | + + + | Race | Unknown | + + + | Ethnic Group | Unknown | + + + Author + + + | Author | [facility] | | | and [place] | + + + | Organization | [facility] | [...] | | | | | [place] [address] | | + + + + + | Vanessa Lawton | ECON | [address] | | | | | [place] [address] | | + + + + + Care Team Providers + +------+ + | Care Pediatric Orthodontist Name | Role | Phone | + +------+ + PCP | Unavailable | + +------+ + Encounter Details +--------+ + + + + | Date | Type | Department | Care Team | Description | +--------+ + + + + | 07/12/ | Hospital | [facility] | Agustin Larry | | | 2010 | Encounter | MED CTR EMERGENCY | MD Dany [address] | | | | | NAT[place] [address] | [facility] | | | | | [place], [place] | [place] [address] | | | | | [address] | [phone] | | | | | [phone] | | | +--------+ + + + [...]
--- OUTSIDE RECORDS SUMMARY | ~2019-12-08 | XMS | Encounter Summary ---
Demographics + + + | Address | [address] | | | [place] [address] | + + + | Home Phone [...] | Organization | [facility] | | | and [...] | | | | | [place] [address] | | + + + + + | Vanessa Lawton | ECON | [address] | | | | | [place] [address] | | + + + + + Care Team Providers + +------+ + | Care Vp Global Marketing [employer] Name | Role | Phone | + +------+ + PCP | Unavailable | + +------+ + Encounter Details +--------+ + + + + | Date | Type | Department | Care Team | Description | +--------+ + + + + | 06/08/ | Hospital | [facility] | | | | 2005 | Encounter | MED CTR GENERIC OP | | | | | | CONV DEPT [address] | | | | | | [place], | | | | | | [place] [address] | | | | | | [phone] | | | +--------+ + + + [...]
--- OUTSIDE RECORDS SUMMARY | ~2019-12-08 | XMS | Encounter Summary ---
Demographics + + + | Address | [address] | | | [place] [address] | + + + | Home Phone [...] + | Organization | [facility] | | [...] | | | | | [place] [address] | | + + + + + | Vanessa Lawton | ECON | [address] | | | | | [place] [address] | | + + + + + Care Team Providers + +------+ + | Care Scientific Associate Name | Role | Phone | + [...] | | | | | [address] | [place] | | | | | [place] | [id number] | | | | | [address] | | | | | | [phone] | | | +--------+ + + + [...]
--- OUTSIDE RECORDS SUMMARY | ~2019-12-08 | XMS | Encounter Summary ---
Demographics + + + | Address | [address] | | | [place] [address] | + + + | Home Phone | | + + + | Preferred Language | Unknown | + + + | Marital Status | Single | + + + | Yazdanism Affiliation | 1041 | + + + | Race | Unknown | + + + | Ethnic Group | Unknown | + + + Author + + + | Author | [facility] | | | and [place] | + + + | Organization | [facility] [...] | | | | | [place] [address] | | + + + + + | Vanessa Lawton | ECON | [address] | | | | | [place] [address] | | + + + + + Care Team Providers + +------+ + | Care Computer Salesperson Retail Name | Role | Phone | + [...] | | | | | | | [place] | | | | | | | [...] | | | | | [address] | [place], [place] | | | | | [place], [place] | [address] | | | | | [address] | | | | | | | | | | | | | Yves Vu, | | | | | | [address] | | | | | | [place], [place] | | | | | | [address] | | | | | | | [...] + + | Periph | 11/24/15; 0651; [id number] | 11/24/15 0651 by | 11/26/15 1100 [...] | | nal | | | 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
--- OUTSIDE RECORDS SUMMARY | ~2019-12-08 | XMS | Encounter Summary ---
Demographics + + + | Address | [address] | | | [place] [address] | + + + | Home Phone | | + + + | Preferred Language | Unknown | + + + | Marital Status | Single | + + + | Religion Affiliation | 1041 | + + + | Race | Unknown | + + + | Ethnic Group | Unknown | + + + Author + + + | Author | [facility] | | | and [place] | + + + | Organization | [facility] [...] | | | | | [place] [address] | | + + + + + | Vanessa Lawton | ECON | [address] | | | | | [place] [address] | | + + + + + Care Team Providers + +------+ + | Care Coating Mixer Name | Role | Phone | + [...] | Diagnoses | Belen | [address] | | | Services | Medicine | Moderate | Tristin Trevino MD | Family | | | Required | | persistent | [address] | Medicine | | | | | asthma with | [address] | [place] | | | | | exacerbation | [place], | [address] | | | | | | [place] [address] | [address] [place] | | | | | | Phone: | [place] | | | | | | [phone] | [address] | | | | | | Fax: | Phone: | | | | | | [phone] | [phone] | | | | | | | Fax: | | | | | | | [phone] | + + + + + + [...] + + | 11/25/ | Emergency | [facility] | Tristin Glover, | Moderate persistent | | 2019 | | MED CTR EMERGENCY | MD [address] | asthma with | | | | CENTER [address] | [place] | exacerbation | | | | [place] | [address] | (Primary Dx) | | | | [address] | | | | | | [phone] | | | +--------+ + + + [...] through Care Everywhere.Inhaler, Using with a Spacer (Syrian)Albuterol inhalation aerosol (Syrian)documented in this encounter Medications at Time of [...] [address] | [place] | [phone] | | [facility] | | [address] | | | - LABORATORY | | [...] 14 | 9 - 23 mg/dL | [facility] | | | | | | [facility] | | | | | | MEDICAL | | | | | | CENTER - | | | | | | LABORATORY | | + + + + + + | Creatinine | 1.02 | 0.55 - 1.02 | [facility] | | | | | mg/dL | [facility] | | | | | | MEDICAL | | | | | | CENTER - | | | | | | LABORATORY | | + + + + + + | eGFR if not | >60Comment: GLOMERULAR | >=60 | [facility] | | | | FILTRATION | mL/min/1.73m2 | [facility] | | | ESTONIAN | RATE,ESTIMATED | | MEDICAL | | | | mL/min/1.82f9Gkjm than | | CENTER - | | [...] [address] | [place] | [phone] | | [facility] | | [address] | | | - LABORATORY | | [...] [address] | [place] | [phone] | | [facility] | | [address] | | | - LABORATORY | | [...] [address] | [place] | [phone] | | [facility] | | [address] | | | - LABORATORY | | [...] [address] | [place] | [phone] | | [facility] | | [address] | | | - LABORATORY | | [...] Quantitativ | quantitative D-Dimer | FEU | [facility] | | | e | assay [...] [address] | [place] | [phone] | | [facility] | | [address] | | | - LABORATORY | | [...] [address] | [place] | [phone] | | [facility] | | [address] | | | - LABORATORY | | [...] ST. | [address] | [place], [place] | [phone] | | [facility] | | [address] | | | - LABORATORY | | [...] [address] | [place] | [phone] | | [facility] | | [address] | | | - LABORATORY | | [...] + | [facility] | [address] | [place] | [phone] | | [facility] | | [address] | | | - LABORATORY | | [...] ST. | [address] | [place], [place] | [phone] | | [facility] | | [address] | | | - LABORATORY | | [...]
--- OUTSIDE RECORDS SUMMARY | ~2019-12-08 | XMS | Encounter Summary ---
Demographics + + + | Address | [address] | | | [place] [address] | + + + | Home Phone | | + + + | Preferred Language | Unknown | + + + | Marital Status | Single | + + + | Catholic Affiliation | 1041 | + + + | Race | Unknown | + + + | Ethnic Group | Unknown | + + + Author + + + | Author | [facility] | | | and [place] | + + + | Organization | [facility] | | | and [...] | | | | | [place] [address] | | + + + + + | Vanessa Latwon | ECON | [address] | | | | | [place] [address] | | + + + + + Care Team Providers + +------+ + | Care Spa Coordinator Name | Role | Phone | [...] + + | 08/24/ | Hospital | [facility] | Reji Gonzales | | | 2018 | Encounter | MED CTR LABOR AND | DO Juan [address] | | | | | [address] | [facility] | | | | | [place], | [place] [address] | | | | | [place] [address] | [phone] | | | | | [phone] | | | +--------+ + + + [...]
--- OUTSIDE RECORDS SUMMARY | ~2019-12-08 | XMS | Encounter Summary ---
Demographics + + + | Address | [address] | | | [place] [address] | + + + | Home Phone | | + + + | Preferred Language | Unknown | + + + | Marital Status | Single | + + + | Spiritism Affiliation | 1041 | + + + | Race | Unknown | + + + | Ethnic Group | Unknown | + + + Author + + + | Author | [facility] | | | and [place] | + + + | Organization | [facility] | [...] | | | | | [place] [address] | | + + + + + | Vanessa Lawton | ECON | [address] | | | | | [place] [address] | | + + + + + Care Team Providers + +------+ + | Care Switch Operators Supervisor Name | Role | Phone | + +------+ + PCP | Unavailable | + +------+ + Encounter Details +--------+ + + + + | Date | Type | Department | Care Team | Description | +--------+ + + + + | 02/03/ | Hospital | [facility] | | | | 2008 | Encounter | MED CTR EMERGENCY | | | | | | CENTER [address] | | | | | | [place] | | | | | | [address] | | | | | | [phone] | | | +--------+ + + + [...]
--- OUTSIDE RECORDS SUMMARY | ~2019-12-08 | XMS | Encounter Summary ---
Demographics + + + | Address | [address] | | | [place] [address] | + + + | Home Phone | | + + + | Preferred Language | Unknown | + + + | Marital Status | Single | + + + | Hinduism Affiliation | 1041 | + + + | Race | Unknown | + + + | Ethnic Group | Unknown | + + + Author + + + | Author | [facility] | | | and [place] | + + + | Organization | [facility] | | | and [place] [...] | | | | | [place] [address] | | + + + + + | Vanessa Lawton | ECON | [address] | | | | | [place] [address] | | + + + + + Care Team Providers + +------+ + | Care Wordpress Developer Name | Role | Phone | + +------+ + PCP | Unavailable | + +------+ + Encounter Details +--------+ + + + + | Date | Type | Department | Care Team | Description | +--------+ + + + + | 04/29/ | Hospital | [facility] | Agustin Gtz | | | 2008 | Encounter | MED CTR LABORATORY | MD Zachery [address] [facility] | | | | | [address] [place] | [place] | | | | | [place] | [address] | | | | | [address] | | | | | | [phone] | | | +--------+ + + + [...]
--- OUTSIDE RECORDS SUMMARY | ~2019-12-08 | XMS | Encounter Summary ---
Demographics + + + | Address | [address] | | | [place] [address] | + + + | Home Phone [...] + + + | Author | [facility] | | | and [place] | + + + | Organization | [facility] | | | and [place] [...] | | | | | [place] [address] | | + + + + + | Vanessa Lawton | ECON | [address] | | | | | [place] [address] | | + + + + + Care Team Providers + +------+ + | Care Licensed Physical Therapist Assistant Name | Role | Phone | [...] + | 09/11/ | Office | [facility] | Ponce Zaman, | Mild persistent | | 2020 | Visit | CARE [address] | [place] [address] | asthma with | | | | [place] | [place] | exacerbation | | | | [address] | [address] | (Primary Dx) | | | | [phone] | | | +--------+---------+ + + + [...] more than every 4 hours, contact your [facility] provider or seek immediate medical attention. If [...] turning lechuga or blue Date Last Reviewed: 11/01/201619992458-9383 [employer]. [address] [place] [address]. All righ ts reserved. This information is [...] avoid any side effects. Talk to your monogram and letter paster regarding the use of this medicine in children. Special care may be needed. What side effects may I notice from receiving this medicine? Side effects that you should report to your doctor or health day care worker as soon as p ossible: allergic reactions [...] attention (report to your doctor or health day care worker if they continue or are bothersome): confusion, [...] ta lk to your doctor or health day care worker. You may need to miss a dose [...] this medicine? Visit your doctor or health day care worker for regular checks on your progress. If [...] have surgery, tell your doctor or health day care worker that you hav e taken this medicine within the last twelve months. Ask your doctor or health day care worker about your diet. You may need to lower the amou nt of salt you eat. This medicine may affect blood sugar levels. If you have diabetes, check with your doctor o r health day care worker before you change your diet or the dose of your diabetic medicine . NOTE:This sheet is a summary. It may not cover all possible information. If you have questi ons about this medicine, talk to your doctor, pharmacist, or health care provider. Copyright 2019 [employer] Azithromycin tablets Brand Names: Zithromax, Zithromax Tri-Javier, [...] stop your medicine early. Talk to your monogram and letter paster regarding the use of this medicine in children. While this drug m ay be prescribed for children as young as 6 months for selected conditions, precautions do a pply. What side effects may I notice from receiving this medicine? Side effects that you should report to your doctor or health day care worker as soon as p ossible: allergic reactions [...] attention (report to your doctor or health day care worker if they continue or are bothersome): diarrhea [...] any of the coronavirus illness affected areas [facility]. She has had no known exposure to influenza. Her last menstrual period started 2 weeks ago and she is not currently . Patient Active Problem List Diagnosis H/O Previous section Term , repeat Asthma Former smoker - quit Jul 2015 Past Surgical History: Procedure Laterality Date SECTION N/A 11/24/2015 Procedure: Repeat ; Surgeon: Reji Gonzales DO; Location: [facility] MAIN OR SECTION N/A 08/29/2017 Procedure: Repeat ; Surgeon: Reji Gonzales DO; Location: [facility] MAIN OR SECTION N/A 08/29/2017 Procedure: Repeat BTL; Surgeon: Reji Gonzales DO; Location: [facility] MAIN OR SECTION, LOW TRANSVERSE N/A 11/22/2006 [...]
--- OUTSIDE RECORDS SUMMARY | ~2019-12-08 | XMS | Encounter Summary ---
Demographics + + + | Address | [address] | | | [place] [address] | + + + | Home Phone [...] + + + | Author | [facility] | | | and [place] | + + + | Organization | [facility] | [...] | | | | | [place] [address] | | + + + + + | Vanessa Lawton | ECON | [address] | | | | | [place] [address] | | + + + + + Care Team Providers + +------+ + | Care Art Glass Designer Name | Role | Phone | [...] + | 08/02/ | Emergency | [facility] | No, Physician p | Patient left without | | 2015 | | MED CTR EMERGENCY | | being seen (Primary | | | | CENTER [address] | | Dx) | | | | [place] | | | | | | [address] | | | | | | [phone] | | | +--------+ + + + [...]
--- OUTSIDE RECORDS SUMMARY | ~2019-12-08 | XMS | Encounter Summary ---
Demographics + + + | Address | [address] | | | [place] [address] | + + + | Home Phone [...] + | Organization | [facility] | | | and [...] | | | | | [place] [address] | | + + + + + | Vanessa Lawton | ECON | [address] | | | | | [place] [address] | | + + + + + Care Team Providers + +------+ + | Care Aerial Photogrammetrist Name | Role | Phone | + [...] | | Required | | delivery | [address] | | | | | and | delivered | [place] | | | | | | | [place] | | | | | | | [address] | | | | | | | Phone: | | | | | | | [phone] | | | | | | | Fax: | | | | | | | [phone] | | +--------+ + + + + [...] | | | | | | | [place] [address] | | | | | | | Phone: | | | | | | | [phone] | | | | | | | Fax: | | | | | | | [phone] | | +--------+ + + + + [...] | | | | | | | [place] | | | | | | | [...] + + | 11/23/ | Hospital | [facility] | Reji Gonzales | delivery | | 2016 - | Encounter | MED CTR MOTHER BABY | DO Juan [address] | delivered (Primary | | | | [address] | [facility] | Dx) | | 11/25/ | | [place] | [place] [address] | | | 2016 | | [address] | [phone] | | | | | [phone] | | | +--------+ + + + [...] filled at the pharmacy of her choice. Theodore removed and s trisha-strips placed. Pt understands [...] care. I will consider discharge to a [facility] status until child protective services [...] [address] | [place] | [phone] | | [facility] | | [address] | | | - LABORATORY | | [...] [address] | [place] | [phone] | | [facility] | | [address] | | | - LABORATORY | | [...] ST. | [address] | [place] | | | [facility] | | [address] | | | - BLOOD BANK | [...] | Basophils | | K/uL | [facility] | | | | | | [...] [address] | [place] | [phone] | | [facility] | | [address] | | | - LABORATORY | | [...] | +---+---+ + +-------+ +---------+---+ + | unfppuy-khyzi-wbhfraw (M-M-R | Given | 11/26/19 | 0.5 [...] | +---+---+ + +-------+ +---------+---+ + | ciaxkzb-mfzjeqoevs-mjmaleuor | Given | 05/25/20 | 0.5 mLs [...]
--- OUTSIDE RECORDS SUMMARY | ~2019-12-08 | XMS | Encounter Summary ---
Demographics + + + | Address | [address] | | | [place] [address] | + + + | Home Phone | | + + + | Preferred Language | Unknown | + + + | Marital Status | Single | + + + | Nondenominational Affiliation | 1041 | + + + | Race | Unknown | + + + | Ethnic Group | Unknown | + + + Author + + + | Author | [facility] | | | and [place] | + + + | Organization | [facility] | | | and [place] [...] | | | | | [place] [address] | | + + + + + | Vanessa Lawton | ECON | [address] | | | | | [place] [address] | | + + + + + Care Team Providers + +------+ + | Care Line Dancer Name | Role | Phone | + [...] | | | | | | | [place] | | | | | | | [...] | | | | | [address] | [address] [place] | | | | | [place], [place] | [place] [address] | | | | | [address] | [phone] | | | | | [phone] | | | +--------+---------+ + + + [...] of her choice. Laura removed and s trsiha-strips placed. Pt understands instructions. Shavonne Singh RN [...] [address] | [place] | [phone] | | [facility] | | [address] | | | - LABORATORY | | [...] [address] | [place] | [phone] | | [facility] | | [address] | | | - LABORATORY | | [...] St | [place] | | | [facility] | | [address] | | | - BLOOD BANK | [...] [address] | [place] | [phone] | | [facility] | | [address] | | | - LABORATORY | | [...]
--- OUTSIDE RECORDS SUMMARY | ~2019-12-08 | XMS | Encounter Summary ---
Demographics + + + | Address | [address] | | | [place] [address] | + + + | Home Phone [...] | Organization | [facility] [...] MICHI-JEFF | | | | | [place] [address] | | + + + + + | Vanessa Lawton | ECON | [address] | | | | | [place] [address] | | + + + + + Care Team Providers + +------+ + | Care Airport Driver Name | Role | Phone | + +------+ + PCP | Unavailable | + +------+ + Encounter Details +--------+ + + + + | Date | Type | Department | Care Team | Description | +--------+ + + + + | 05/20/ | Hospital | [facility] | | | | 2008 | Encounter | MED CTR WOMENS | | | | | | [facility] [address] | | | | | | [place], | | | | | | [place] [address] | | | | | | [phone] | | | +--------+ + + + [...]
--- OUTSIDE RECORDS SUMMARY | ~2019-12-08 | XMS | Encounter Summary ---
Demographics + + + | Address | [address] | | | [place] [address] | + + + | Home Phone [...] + + + | Author | [facility] | | | and [place] | + + + | Organization | [facility] | | | and [place] [...] | | | | | [place] [address] | | + + + + + | Vanessa Lawton | ECON | [address] | | | | | [place] [address] | | + + + + + Care Team Providers + +------+ + | Care Beer Merchant Name | Role | Phone | + +------+ + PCP | Unavailable | + +------+ + Encounter Details +--------+ + + + + | Date | Type | Department | Care Team | Description | +--------+ + + + + | 12/13/ | Hospital | [facility] | | | | 2008 | Encounter | MED CTR EMERGENCY | | | | | | CENTER [address] | | | | | | [place] | | | | | | [address] | | | | | | [phone] | | | +--------+ + + + [...]
--- OUTSIDE RECORDS SUMMARY | ~2019-12-08 | XMS | Encounter Summary ---
Demographics + + + | Address | [address] | | | [place] [address] | + + + | Home Phone [...] Organization | [facility] | | | and [...] | | | | | [place] [address] | | + + + + + | Vanessa Lawton | ECON | [address] | | | | | [place] [address] | | + + + + + Care Team Providers + +------+ + | Care Enrichment Specialist Name | Role | Phone | [...] + + | 11/26/ | Telephone | [facility] | Leandra Wayne | ED Follow-up | | 2019 | | MED CTR CASE | [phone] | | | | | MANAGEMENT [address] | | | | | | [place], | | | | | | [place] [address] | | | | | | [phone] | | | +--------+ + + + [...]
--- OUTSIDE RECORDS SUMMARY | ~2019-12-08 | XMS | Encounter Summary ---
Demographics + + + | Address | [address] | | | [place] [address] | + + + | Home Phone | | + + + | Preferred Language | Unknown | + + + | Marital Status | Single | + + + | Evangelical Affiliation | 1041 | + + + | Race | Unknown | + + + | Ethnic Group | Unknown | + + + Author + + + | Author | [facility] | | | and [place] | + + + | Organization | [facility] | | | and [...] | | | | | [place] [address] | | + + + + + | Vanessa Lawton | ECON | [address] | | | | | [place] [address] | | + + + + + Care Team Providers + +------+ + | Care Salesperson New Cars Name | Role | Phone | + +------+ + PCP | Unavailable | + +------+ + Encounter Details +--------+ + + + + | Date | Type | Department | Care Team | Description | +--------+ + + + + | 06/06/ | Hospital | [facility] | Ignacia Peterson MD | | | 2011 | Encounter | MED CTR EMERGENCY | [place] | | | | | CENTER [address] | | | | | | [place] | | | | | | [address] | | | | | | [phone] | | | +--------+ + + + [...] Performed At | + + + | [facility] | CENTENARY | | Department [address] [place] [address] | [facility] | | [ rep [address]] [ rep [facility] | | [facility]] Signed | - IMAGING | | | | | Patient Name: EDERSETH [place] Physician: | | | YE.20 : 1990 Age: 22 Sex: F Unit #: [id number] | | | Exam Date: 06/06/12 Location: ER | | | Report #: [id number] Page: | | | %(RAD)RES..mtdd.print.filter("pg") of %(RAD) | | | RES..mtdd.print.filter("tpg") | | | | | | Accession Number: [id number] | | | CHEST, PORTABLE, 06/06/2012 CLINICAL [...] | | | Transcribed Date/Time: 06/06/2012 08:55 Concessionist: | | | <<Signature on File>> | | | Reji | | | Zuri Cardenas MD06/06/12 1526 <Electronically signed by Reji Keating | | | Ronald [place]> Reji Cardenas MD 06/06/12 0848 | | | Concessionist: [email or web address] [email or web address]/04/12 0855 | | | | | + + + + + + + + | Performing | Address | City/State/Zipcode | Phone Number | | Organization | | | | + + + + + | [facility] | [address] | [place] | [phone] | | [facility] | | [address] | | | - IMAGING | | [...] - 1.030 | [facility] | | | [place], | | | [facility] | | [...] [address] | [place] | [phone] | | [facility] | | [address] | | | - LABORATORY | | | | + + + + + | [facility] | [address] | [place] | | | [facility] | | [address], [facility] | | | - LABORATORY | [...] + | [facility] | [address] | [place] | [phone] | | [facility] | | [address] | | | - LABORATORY | | | | + + + + + | [facility] | [address] | [place] | | | [facility] | | [id number] | | | - LABORATORY | [address] | [place] | [phone] | | [facility] | | [address] | | | - LABORATORY | | | | + + + + + | [facility] | [address] | [place] | | | [facility] | | [address], [facility] | | | - LABORATORY | [...] + | [facility] | [address] | [place], [place] | [phone] | | [facility] | | [address] | | | - LABORATORY | | | | + + + + + | [facility] | [address] | [place], [place] | | | [facility] | | [id number] [place] [address] | | | - LABORATORY | | [...] [address] | [place] | [phone] | | [facility] | | [address] | | | - LABORATORY | | | | + + + + + | [facility] | [address] | [place] | | | [facility] | | [id number] | | | - LABORATORY | [...] | en Level | | | [facility] | | | | | | [...] + | [facility] | [address] | [place], [place] | [phone] | | [facility] | | [address] | | | - LABORATORY | | | | + + + + + | [facility] | [address] | [place], [place] | | | [facility] | | [address], [facility] | | | - LABORATORY | [...] + | [facility] | [address] | [place] | [phone] | | [facility] | | [address] | | | - LABORATORY | | | | + + + + + | [facility] | [address] | [place] | | | [facility] | | [address], [facility] | | | - LABORATORY | [...] + | [facility] | [address] | [place], [place] | [phone] | | [facility] | | [address] | | | - LABORATORY | | | | + + + + + | [facility] | [address] | [place], [place] | | | [facility] | | [phone] [place] [address] | | | - LABORATORY | | | | + + + + + documented in this encounter Visit Diagnoses Not on filedocumented in this encounter
--- OUTSIDE RECORDS SUMMARY | ~2019-12-08 | XMS | Encounter Summary ---
Demographics + + + | Address | [address] | | | [place] [address] | + + + | Home Phone [...] + | Organization | [facility] | | | and [...] | | | | | [place] [address] | | + + + + + | Vanessa Lawton | ECON | [address] | | | | | [place] [address] | | + + + + + Care Team Providers + +------+ + | Care Railway Signal Operator Name | Role | Phone | + +------+ + PCP | Unavailable | + +------+ + Encounter Details +--------+ + + + + | Date | Type | Department | Care Team | Description | +--------+ + + + + | 10/16/ | Hospital | [facility] | | | | 2008 | Encounter | MED CTR EMERGENCY | | | | | | CENTER [address] | | | | | | [place] | | | | | | [address] | | | | | | [phone] | | | +--------+ + + + [...]
--- OUTSIDE RECORDS SUMMARY | ~2019-12-08 | XMS | Encounter Summary ---
Demographics + + + | Address | [address] | | | [place] [address] | + + + | Home Phone | | + + + | Preferred Language | Unknown | + + + | Marital Status | Single | + + + | Orthodoxy Affiliation | 1041 | + + + | Race | Unknown | + + + | Ethnic Group | Unknown | + + + Author + + + | Author | [facility] | | | and [place] | + + + | Organization | [facility] | | [...] | | | | | [place] [address] | | + + + + + | Vanessa Lawton | ECON | [address] | | | | | [place] [address] | | + + + + + Care Team Providers + +------+ + | Care Band Sawing Machine Operator Name | Role | Phone | + +------+ + PCP | Unavailable | + +------+ + Encounter Details +--------+ + + + + | Date | Type | Department | Care Team | Description | +--------+ + + + + | 02/24/ | Hospital | [facility] | | | | 2008 | Encounter | MED CTR WOMENS | | | | | | [facility] [address] | | | | | | [place], | | | | | | [place] [address] | | | | | | [phone] | | | +--------+ + + + [...]
--- OUTSIDE RECORDS SUMMARY | ~2019-12-08 | XMS | Encounter Summary ---
Demographics + + + | Address | [address] | | | [place] [address] | + + + | Home Phone | | + + + | Preferred Language | Unknown | + + + | Marital Status | Single | + + + | Church Affiliation | 1041 | + + + | Race | Unknown | + + + | Ethnic Group | Unknown | + + + Author + + + | Author | [facility] | | | and [place] | + + + | Organization | [facility] | | [...] | | | | | [place] [address] | | + + + + + | Vanessa Lawton | ECON | [address] | | | | | [place] [address] | | + + + + + Care Team Providers + +------+ + | Care Clock Maker Name | Role | Phone | + +------+ + PCP | Unavailable | + +------+ + Encounter Details +--------+ + + + + | Date | Type | Department | Care Team | Description | +--------+ + + + + | 05/17/ | Hospital | [facility] | Nasim Sumner, | | | 2009 - | Encounter | MED CTR EMERGENCY | [address] [facility] | | | | | [place] [address] | [place], [place] | | | 05/18/ | | [place], [place] | [address] | | | 2009 | | [address] | | | | | | [phone] | | | +--------+ + + + [...]
--- OUTSIDE RECORDS SUMMARY | ~2019-12-08 | XMS | Encounter Summary ---
Demographics + + + | Address | [address] | | | [place] [address] | + + + | Home Phone [...] + + + | Author | [facility] | | | and [place] | + + + | Organization | [facility] | [...] | | | | | [place] [address] | | + + + + + | Vanessa Lawton | ECON | [address] | | | | | [place] [address] | | + + + + + Care Team Providers + +------+ + | Care Plant Taxonomy Teacher Name | Role | Phone | + +------+ + PCP | Unavailable | + +------+ + Encounter Details +--------+ + + + + | Date | Type | Department | Care Team | Description | +--------+ + + + + | 06/08/ | Hospital | [facility] | | | | 2005 | Encounter | MED CTR GENERIC OP | | | | | | CONV DEPT [address] | | | | | | [place], | | | | | | [place] [address] | | | | | | [phone] | | | +--------+ + + + [...]
--- OUTSIDE RECORDS SUMMARY | ~2019-12-08 | XMS | Encounter Summary ---
Demographics + + + | Address | [address] | | | [place] [address] | + + + | Home Phone [...] | Organization | [facility] | [...] | | | | | [place] [address] | | + + + + + | Vanessa Lawton | ECON | [address] | | | | | [place] [address] | | + + + + + Care Team Providers + +------+ + | Care Wildlife And Game Protector Name | Role | Phone | + +------+ + | No, Physician | PCP | Unavailable | + +------+ + Encounter Details +--------+ + + + + | Date | Type | Department | Care Team | Description | +--------+ + + + + | 10/02/ | Hospital | [facility] | Tristin Glover, | | | 2012 | Encounter | MED CTR EMERGENCY | [address] | | | | | CENTER [address] | [place] | | | | | [place] | [id number] | | | | | [address] | | | | | | [phone] | | | +--------+ + + + [...] Performed At | + + + | [facility] | [place] | | Department [address] [place] [address] | [place] | | [ rep ct street1[address]] [ rep [facility] | | st zip] Signed | - IMAGING | | | | | Patient Name: SETH GAINES Physician: | | | SIOBHANAngelique : 1990 Age: 22 Sex: F Unit #: [id number] | | | Exam Date: 10/02/12 Location: ER | | | Report #: [id number] Page: | | | %(RAD)RES..mtdd.print.filter("pg") of %(RAD) | | | RES..mtdd.print.filter("tpg") | | | | | | Accession Number: [id number] | | | PORTABLE CHEST X-RAY CLINICAL [...] Transcribed Date/Time: | | | 10/02/2012 17:09 Case Therapist: AMADOR | | | <<Signature on File>> | | | Saji Cabrera | | Seth Cavazos MD10/03/12 6422 <Electronically signed by Saji Ann | | | Dirk [place]> Saji Cavazos MD 10/02/12 1631 | | | Case Therapist: Siddhartha Ward10/02/12 4560 | | | Tristin Gloevr MD | | + + + + + + + + | Performing | Address | City/State/Zipcode | Phone Number | | Organization | | | | + + + + + | [facility] | [address] | [place] | [phone] | | [facility] | | [address] | | | - IMAGING | | [...] - 1.030 | [facility] | | | [place], | | | [facility] | | [...] + | [facility] | [address] | [place] | [phone] | | [facility] | | [address] | | | - LABORATORY | | | | + + + + + | [facility] | [address] | [place], [place] | | | [facility] | | [id number] | | | - LABORATORY | | [...] [address] | [place] | [phone] | | [facility] | | [address] | | | - LABORATORY | | | | + + + + + | [facility] | [address] | [place] | | | [facility] | | [address] | | | - LABORATORY | | | | + + + + + documented in this encounter Visit Diagnoses Not on filedocumented in this encounter
--- OUTSIDE RECORDS SUMMARY | ~2019-12-08 | XMS | Encounter Summary ---
Demographics + + + | Address | [address] | | | [place] [address] | + + + | Home Phone [...] + | Organization | [facility] | | | and [...] | | | | | [place] [address] | | + + + + + | Vanessa Lawton | ECON | [address] | | | | | [place] [address] | | + + + + + Care Team Providers + +------+ + | Care Vat Overhauler Name | Role | Phone | + +------+ + | No, Physician | PCP | Unavailable | + +------+ + Encounter Details +--------+ + + + + | Date | Type | Department | Care Team | Description | +--------+ + + + + | 03/19/ | Hospital | [facility] | Onesimo Perdue | | | 2012 | Encounter | MED CTR EMERGENCY | MD Juan [address] | | | | | NATACHA [address] | [facility] | | | | | [place], [place] | [place] [address] | | | | | [address] | [phone] | | | | | [phone] | | | +--------+ + + + [...]
--- OUTSIDE RECORDS SUMMARY | ~2019-12-08 | XMS | Encounter Summary ---
Demographics + + + | Address | [address] | | | [place] [address] | + + + | Home Phone | | + + + | Preferred Language | Unknown | + + + | Marital Status | Single | + + + | Jewish Affiliation | 1041 | + + + | Race | Unknown | + + + | Ethnic Group | Unknown | + + + Author + + + | Author | [facility] | | | and [place] | + + + | Organization | [facility] [...] | | | | | [place] [address] | | + + + + + | Vanessa Lawton | ECON | [address] | | | | | [place] [address] | | + + + + + Care Team Providers + +------+ + | Care Steaming Cabinet Tender Name | Role | Phone | + +------+ + PCP | Unavailable | + +------+ + Encounter Details +--------+ + + + + | Date | Type | Department | Care Team | Description | +--------+ + + + + | 10/29/ | Hospital | [facility] | | | | 2008 | Encounter | MED CTR EMERGENCY | | | | | | CENTER [address] | | | | | | [place] | | | | | | [address] | | | | | | [phone] | | | +--------+ + + + [...]
--- OUTSIDE RECORDS SUMMARY | ~2019-12-08 | XMS | Encounter Summary ---
Demographics + + + | Address | [address] | | | [place] [address] | + + + | Home Phone [...] | Organization | [facility] | | | and [place] [...] | | | | | [place] [address] | | + + + + + | Vanessa Lawton | ECON | [address] | | | | | [place] [address] | | + + + + + Care Team Providers + +------+ + | Care Therapist Respiratory Name | Role | Phone | + +------+ + PCP | Unavailable | + +------+ + Encounter Details +--------+ + + + + | Date | Type | Department | Care Team | Description | +--------+ + + + + | 02/24/ | Hospital | [facility] | | | | 2008 | Encounter | MED CTR EMERGENCY | | | | | | CENTER [address] | | | | | | [place] | | | | | | [address] | | | | | | [phone] | | | +--------+ + + + [...]
--- OUTSIDE RECORDS SUMMARY | ~2019-12-08 | XMS | Encounter Summary ---
Demographics + + + | Address | [address] | | | [place] [address] | + + + | Home Phone [...] | [facility] | | | [...] | | | | | [place] [address] | | + + + + + | Vanessa Lawton | ECON | [address] | | | | | [place] [address] | | + + + + + Care Team Providers + +------+ + | Care Machine Farmworker Name | Role | Phone | + +------+ + PCP | Unavailable | + +------+ + Encounter Details +--------+ + + + + | Date | Type | Department | Care Team | Description | +--------+ + + + + | 11/30/ | Hospital | [facility] | | | | 2008 | Encounter | MED CTR EMERGENCY | | | | | | CENTER [address] | | | | | | [place] | | | | | | [address] | | | | | | [phone] | | | +--------+ + + + [...]
--- OUTSIDE RECORDS SUMMARY | ~2019-12-08 | XMS | Encounter Summary ---
Demographics + + + | Address | [address] | | | [place] [address] | + + + | Home Phone [...] Organization | [facility] | | | and [...] | | | | | [place] [address] | | + + + + + | Vanessa Lawton | ECON | [address] | | | | | [place] [address] | | + + + + + Care Team Providers + +------+ + | Care Straightedge Machine Operator Helper Name | Role | Phone | + +------+ + PCP | Unavailable | + +------+ + Encounter Details +--------+ + + + + | Date | Type | Department | Care Team | Description | +--------+ + + + + | 09/30/ | Hospital | [facility] | Jovanny Ruelasee | | | 2008 | Encounter | MED CTR EMERGENCY | MD Leonel [address] | | | | | CENTER [address] | [facility], | | | | | [place], [place] | [place] [address] | | | | | [address] | [phone] | | | | | [phone] | | | +--------+ + + + [...]
--- OUTSIDE RECORDS SUMMARY | ~2019-12-08 | XMS | Encounter Summary ---
Demographics + + + | Address | [address] | | | [place] [address] | + + + | Home Phone [...] + | Organization | [facility] [...] | | | | | [place] [address] | | + + + + + | Vanessa Lawton | ECON | [address] | | | | | [place] [address] | | + + + + + Care Team Providers + +------+ + | Care Russian Language Professor Name | Role | Phone | + [...] | | | | | | | [place] | | | | | | | DELIVERY | | | | | | | ONLY [place] | | | | | | | [...] | | | | | [address] | [place] | | | | | [place] | [place] [address] | | | | | [address] | [phone] | | | | | [phone] | | | +--------+---------+ + + + [...]
--- OUTSIDE RECORDS SUMMARY | ~2019-12-08 | XMS | Encounter Summary ---
Demographics + + + | Address | [address] | | | [place] [address] | + + + | Home Phone | | + + + | Preferred Language | Unknown | + + + | Marital Status | Single | + + + | Anglican Affiliation | 1041 | + + + | Race | Unknown | + + + | Ethnic Group | Unknown | + + + Author + + + | Author | [facility] | | | and [place] | + + + | Organization | [facility] | | | and [place] | [...] | | | | | [place] [address] | | + + + + + | Vanessa Lawton | ECON | [address] | | | | | [place] [address] | | + + + + + Care Team Providers + +------+ + | Care Clinic Business Manager Name | Role | Phone | + +------+ + PCP | Unavailable | + +------+ + Encounter Details +--------+ + + + + | Date | Type | Department | Care Team | Description | +--------+ + + + + | 10/23/ | Hospital | [facility] | Kuldip Perduewinnie | | | 2010 | Encounter | MED CTR EMERGENCY | MD Juan [address] | | | | | NAT[address]HA [address] | [facility] | | | | | [place], [place] | [place] [address] | | | | | [address] | [phone] | | | | | [phone] | | | +--------+ + + + [...] - 1.030 | [facility] | | | [place], | | | [facility] | | [...] + | [facility] | [address] | [place], [place] | [phone] | | [facility] | | [address] | | | - LABORATORY | | | | + + + + + | [facility] | [address] | [place], [place] | | | [facility] | | [address] [place] [address] | | | - LABORATORY | | | | + + + + + documented in this encounter Visit Diagnoses Not on filedocumented in this encounter"
--- OUTSIDE RECORDS SUMMARY | ~2019-12-08 | XMS | Encounter Summary ---
Demographics + + + | Address | [address] | | | [place] [address] | + + + | Home Phone [...] | Organization | [facility] | | [...] | | | | | [place] [address] | | + + + + + | Vanessa Lawton | ECON | [address] | | | | | [place] [address] | | + + + + + Care Team Providers + +------+ + | Care Crime Victim Specialist Name | Role | Phone | [...] + | 09/25/ | Clinical | [facility] | Cody Thornton MD | Severe persistent | | 2020 | Support | CARE [address] | [address] | asthma with | | | | [place] | [place] | exacerbation | | | | [address] | [address] | (Primary Dx); | | | | [phone] | | Pneumonia of right | | [...] of this note have been dictated using [employer] s oftware. It will be reviewed for [...] + + | [facility] | [address] | [place] | [phone] | | [facility] | | [address] | | | [facility] | | | | + + [...] + | Performed at: 01 - [facility] [address] [facility] [place] | REFERENCE LAB | | [phone] Enrollment Counselor: Kavon Bailey MD, Phone: [phone] | [facility] | + + + + + + + + | Performing | Address | City/State/Zipcode | Phone Number | | Organization | | | | + + + + + | REFERENCE LAB | [address] | [place], [place] | [phone] | | [facility] | [place] | [address] | | + + + + + [...]
--- OUTSIDE RECORDS SUMMARY | ~2019-12-08 | XMS | Encounter Summary ---
Demographics + + + | Address | [address] | | | [place] [address] | + + + | Home Phone [...] + | Organization | [facility] | | [...] | | | | | [place] [address] | | + + + + + | Vanessa Lawton | ECON | [address] | | | | | [place] [address] | | + + + + + Care Team Providers + +------+ + | Care Radioisotope Production Operator Name | Role | Phone | + +------+ + PCP | Unavailable | + +------+ + Encounter Details +--------+ + + + + | Date | Type | Department | Care Team | Description | +--------+ + + + + | 10/29/ | Hospital | [facility] | | | | 2008 | Encounter | MED CTR EMERGENCY | | | | | | CENTER [address] | | | | | | [place] | | | | | | [address] | | | | | | [phone] | | | +--------+ + + + [...]
--- OUTSIDE RECORDS SUMMARY | ~2019-12-08 | XMS | Encounter Summary ---
Demographics + + + | Address | [address] | | | [place] [address] | + + + | Home Phone [...] | Organization | [facility] | | | and [place] [...] | | | | | [place] [address] | | + + + + + | Vanessa Lawton | ECON | [address] | | | | | [place] [address] | | + + + + + Care Team Providers + +------+ + | Care Milieu Counselor Name | Role | Phone | [...] + + | 09/20/ | Telephone | [facility] | Sagr[place], | Care | | 2018 | | MED CTR OB | Della Falcon RN | | | | | PROCEDURES [address] | | | | | | [place], | | | | | | [place] [address] | | | | | | [phone] | | | +--------+ + + + [...]
--- OUTSIDE RECORDS SUMMARY | ~2019-12-08 | XMS | Encounter Summary ---
Demographics + + + | Address | [address] | | | [place] [address] | + + + | Home Phone [...] + + + | Author | [facility] | | | and [place] | + + + | Organization | [facility] | | | and [...] | | | | | [place] [address] | | + + + + + | Vanessa Lawton | ECON | [address] | | | | | [place] [address] | | + + + + + Care Team Providers + +------+ + | Care Radio Repairman Name | Role | Phone | + +------+ + PCP | Unavailable | + +------+ + Encounter Details +--------+ + + + + | Date | Type | Department | Care Team | Description | +--------+ + + + + | 07/28/ | Hospital | [facility] | | | | 1993 | Encounter | MED CTR EMERGENCY | | | | | | CENTER [address] | | | | | | [place] | | | | | | [address] | | | | | | [phone] | | | +--------+ + + + [...]
--- OUTSIDE RECORDS SUMMARY | ~2019-12-08 | XMS | Encounter Summary ---
Demographics + + + | Address | [address] | | | [place] [address] | + + + | Home Phone [...] + | Organization | [facility] | | [...] | | | | | [place] [address] | | + + + + + | Vanessa Lawton | ECON | [address] | | | | | [place] [address] | | + + + + + Care Team Providers + +------+ + | Care Admissions Counselor Name | Role | Phone | + +------+ + PCP | Unavailable | + +------+ + Encounter Details +--------+ + + + + | Date | Type | Department | Care Team | Description | +--------+ + + + + | 10/29/ | Hospital | [facility] | [place], | | | 2008 | Encounter | [facility] | Yaya Neal MD [address] | | | | [place] [address] | [facility] | | | | | [place], [place] | [place] [address] | | | | | [address] | [phone] | | | | | [phone] | | | +--------+ + + + [...]
[~2019-12-08 06:10] MED LIST changes: +PREDNISONE20 MG PO
--- OUTSIDE RECORDS SUMMARY | 2019-12-08 06:12 | XMS ---
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 Marta has no Care Guidelines for this patient. EDave VISIT COUNT (12 MO.) 3 [facility] 3 [facility] TOTAL 6 NOTE: Visits indicate total known visits. ED/C VISIT TRACKING (12 MO.) 12[facility]08[facility]2019 06[facility] COMPLAINT: - ASTHMA ATTACK 11/26/2019 01:43 [facility] Lindsay JIMENES TYPE: Emergency DIAGNOSES: - Shortness of Breath - Moderate persistent asthma with (acute) exacerbation - Cough 11/06/2019 13:04 [facility] Lindsay JIMENES TYPE: Emergency DIAGNOSES: - Shortness of Breath - Cough - Bronchitis, not specified as acute or chronic - SOB - Wheezing 09/26/2019 16:10 [facility] [place] TYPE: Emergency DIAGNOSES: - Shortness of Breath - Acute respiratory failure with hypoxia - sob,cough - Fever (9 Weeks To 74 Years) - Cough - Wheezing - Pneumonia, unspecified organism 09/24/2019 22:58 ON[facility] Han [place] TYPE: Emergency COMPLAINT: - SOB DIAGNOSES: - Nicotine dependence, unspecified, uncomplicated - Unspecified asthma with (acute) exacerbation - Shortness of breath 09/12/2019 13:16 [facility] Lindsay JIMENES TYPE: Urgent Care DIAGNOSES: - Cough - Mild persistent asthma with (acute) exacerbation 08/12/2019 19:02 [facility] [place] TYPE: Emergency COMPLAINT: - COUGH DIAGNOSES: - Nicotine dependence, unspecified, uncomplicated - Cough - Unspecified asthma with (acute) exacerbation INPATIENT VISIT TRACKING (12 MO.) 09/26/2019 16:10 [facility] Ninfa JIMENES TYPE: Surgical Services DIAGNOSES: - Wheezing - Pneumonia, unspecified organism - Other abnormalities of breathing - Acute respiratory failure with hypoxia - Unspecified asthma with (acute) exacerbation [id number]
[2019-12-08] MEDS ORDERED: VENTOLIN HFA18 GM INH ×2 (06:25→10:12)
[2019-12-08] MEDS ORDERED: PREDNISONE20 MG PO (10:12)
[2019-12-08] MEDS ORDERED: ZITHROMAX250 MG PO (10:12)
== END 2019-12-08 10:34 | disposition home or self-care (01) ==
LOC: ED 06:10
DX: J18.9 Pneumonia, unspecified organism (principal); J45.909 Unspecified asthma, uncomplicated; F15.90 Other stimulant use, unspecified, uncomplicated; F17.200 Nicotine dependence, unspecified, uncomplicated; Z79.899 Other long term (current) drug therapy
CPT/HCPCS: 71045; 94640; 94645; 96374; 99285-25; J2930; U0002

== ENCOUNTER 2020-12-24 02:31 | Emergency (ER) | payer OTHER ==
[~2020-12-24] VITALS: Ht 172.7 cm; Wt 77.1 kg
[~2020-12-24 02:31] MED LIST changes: +VENTOLIN HFA18 GM INH; +ZITHROMAX250 MG PO
--- OUTSIDE RECORDS SUMMARY | 2020-12-24 02:38 | XMS ---
PreManage Notification: SETH PINTO Security Chief Compliance Officer Events No recent Security Events currently on file CRITERIA MET - Group Notification - [facility] - 2 Visits in 30 Days CARE PROVIDERS [facility] Current PHONE: [phone] Marta has no Care Guidelines for this patient. E.Amira VISIT COUNT (12 MO.) 2 [facility] [address] [place] [address] TOTAL 3 NOTE: Visits indicate total known visits. ED/UCC VISIT TRACKING (12 MO.) 12/24/2020 02:31 ONI Pedraza TYPE: Emergency COMPLAINT: - SHORTNESS OF BREATH 12/18/2020 01:38 [facility] Lindsay JIMENES TYPE: Emergency DIAGNOSES: - vaginal bleeding/ v - Abdominal Pain [facility] DIAGNOSES: - vomiting - Emesis - COVID-19 - Flu Like Symptoms INPATIENT VISIT TRACKING (12 MO.) No inpatient visits to display in this time frame [id number]
== END 2020-12-24 03:07 | disposition home or self-care (01) ==
LOC: ED 02:31
DX: J45.901 Unspecified asthma with (acute) exacerbation (principal); Z86.16 Personal history of COVID-19; F17.200 Nicotine dependence, unspecified, uncomplicated
CPT/HCPCS: 99284